=== PATIENT | male | born 1960 | race Hispanic/Latino ===

== ENCOUNTER 2017-02-09 11:44 | Emergency (ER) | payer MEDICARE ==
[2017-02-09 11:54] VITALS: RESP 18; TEMP 98.4; O2SAT 100
[2017-02-09 12:09] VITALS: BMI 22.8
--- NOTE | 2017-02-09 12:24 | ED PDOC ---
Arrival/HPI - General Chief Complaint: Altered Mental Status Time Seen by Provider: 02/09/17 11:50 Historian: Family EM Caveat: Other (expressive aphasia) - History of Present Illness Narrative History of Present Illness (Text): 02/09/17 11:50 A 56 year old male, whose past medical history includes CVA, IA, agitation, CAD , diabetes type 2, alcohol abuse and hypertension, who is brought into the emergency department by EMS, accompanied by [place] [employer]. HPI obtain via patient's sister who called the emergency department. Sister states the patient had a stroke about a month ago and has had residual expressive aphasia. She notes patient was in [facility] for the CVA and was transfer to [place] and then [place] [id number] rehabilitation center. She says patient was discharged from the rehabilitation center yesterday. Patient was doing well at home yesterday and this morning. Patient's sister says the today the caregiver arrived to the house and was suppose to take him shopping for basic supplies. While in the care the patient was signal the caregiver to stop and grabbed the GPS. Once caregiver stopped he got out of the car and was making motion to go back home. Patient had a "confused" appearance and was acting "bizarre," so the caregiver called 911. PMD: Dr. Ho Time/Duration: Prior to Arrival Past Medical History - Provider Review Nursing Documentation Reviewed: Yes - Infectious Disease Hx of Infectious Diseases: None - Tetanus Immunization Tetanus Immunization: Unknown - Past Medical History Past Medical History: Unable to Obtain - Cardiac Hx Cardiac Arrhythmia: No Hx Congestive Heart Failure: No Hx Hypertension: Yes Hx Mitral Valve Prolapse: No Hx Pacemaker: No Hx Peripheral Edema: No - Pulmonary Hx Asthma: No Hx Bronchitis: No Hx Chronic Obstructive Pulmonary Disease (COPD): Yes Hx Emphysema: No Hx Pneumonia: No Hx Sleep Apnea: No - Neurological Hx Alzheimer's Disease: No HX Cerebrovascular Accident: Yes (expressive aphasia) Hx Dementia: No Hx Migraine: No Hx Parkinson's Disease: No Hx Seizures: No Hx Transient Ischemic Attacks (TIA): Yes - HEENT Hx Difficulty Chewing: No - Renal Hx Renal Disorder: No Hx Kidney Stones: No - Endocrine/Metabolic Hx Hyperthyroidism: No Hx Hypothyroidism: No - Hematological/Oncological Hx Anemia: No Hx Sickle Cell Disease: No - Integumentary Hx Dermatological Disorder: No - Musculoskeletal/Rheumatological Hx Arthritis: No Hx Fractures: No Hx Osteoporosis: No Hx Rheumatoid Arthritis: No - Gastrointestinal Hx Crohn's Disease: No Hx Diverticulitis: No Hx Gall Bladder Disease: No Hx Pancreatitis: No - Genitourinary/Gynecological Hx Sexually Transmitted Diseases: No - Psychiatric Hx Anxiety: Yes Hx Bipolar Disorder: No Hx Depression: Yes Hx Post Traumatic Stress Disorder: No Hx Schizophrenia: No Hx Substance Use: Yes - Past Surgical History Past Surgical History: No Previous - Surgical History Hx Appendectomy: No Hx Cholecystectomy: No Hx Coronary Stent: Yes - Anesthesia Hx Anesthesia: Yes Hx Anesthesia Reactions: No Hx Malignant Hyperthermia: No - Suicidal Assessment Feels Threatened In Home Enviroment: No Family/Social History - Physician Review Nursing Documentation Reviewed: Yes Family/Social History: Unknown Family HX Smoking Status: Heavy Smoker > 10 Cigarettes Daily Hx Alcohol Use: Yes Hx Substance Use: Yes Hx Substance Use Treatment: No Allergies/Home Meds Allergies/Adverse Reactions: Allergies No Known Allergies Allergy (Verified 04/08/16 14:21) Home Medications: Home Meds Medication Instructions Recorded Confirmed Insulin Human Regular [Novolin R] See Protocol [facility] 01/11/17 01/21/17 Folic Acid 1 mg PO DAILY 01/21/17 01/21/17 Lisinopril [Zestril] 20 mg PO DAILY 01/21/17 01/21/17 Pantoprazole Sodium [Protonix] 40 mg PO DAILY 01/21/17 01/21/17 SITagliptin [Januvia] 100 mg PO DAILY 01/21/17 01/21/17 Thiamine [Vitamin B1 Tab] 100 mg PO DAILY 01/21/17 01/21/17 Review of Systems - Review of Systems Systems not reviewed;Unavailable: Other (expressive aphasia) Physical Exam Vital Signs Reviewed: Yes Vital Signs Temp Pulse Resp BP Pulse Ox 02/09/17 15:52 73 18 149/78 100 02/09/17 11:54 98.4 F 87 18 153/79 H 100 Temperature: Afebrile Blood Pressure: Hypertensive Pulse: Regular Respiratory Rate: Normal Appearance: Positive for: Well-Appearing, Non-Toxic, Comfortable Pain Distress: None Mental Status: Positive for: other (aphasia but able to follow commands and answer yes or no questions). No: Confused, Agitated, Lethargic, Comatose Finger Stick Blood Glucose: 203 - Systems Exam Head: Present: Atraumatic, Normocephalic Pupils: Present: PERRL Extroacular Muscles: Present: EOMI Conjunctiva: Present: Normal Mouth: Present: Moist Mucous Membranes Neck: Present: Normal Range of Motion Respiratory/Chest: Present: Clear to Auscultation, Good Air Exchange. No: Respiratory Distress, Accessory Muscle Use Cardiovascular: Present: Regular Rate and Rhythm, Normal S1, S2. No: Murmurs Abdomen: Present: Normal Bowel Sounds. No: Tenderness, Distention, Peritoneal Signs Back: Present: Normal Inspection Upper Extremity: Present: Normal Inspection. No: Cyanosis, Edema Lower Extremity: Present: Normal Inspection. No: Edema Neurological: Present: GCS=15, CN II-XII Intact, Motor Func Grossly Intact, Normal Sensory Function. No: Speech Normal Skin: Present: Warm, Dry, Normal Color. No: Rashes Psychiatric: Present: Alert, Normal Insight, Normal Concentration Medical Decision Making ED Course and Treatment: 02/09/17 11:50 Impression: A 56 year old male with altered mental status. Differential Diagnosis include but are not limited to: Unusual or Strange Behavior Plan: -- EKG -- Head CT -- Chest X-ray -- Labs -- Reassess and disposition Prior Visits: Notes and results from previous visits were reviewed. The patient last presented to the emergency department on 01/20/17 for evaluation of aggressive behavior. Progress Notes: EKG: Ordered, reviewed, and independently interpreted the EKG. Rate : 87 BPM Rhythm : NSR Interpretation : Nonspecific ST/T change in leads V5 and V6. 02/09/17 13:[address]: Creator : Andres Boyce MD COMPARISON: 01/06/2017 FINDINGS: HEMORRHAGE: There is resolution of the previously seen subdural hematoma on the left. A small chronic subdural is still seen. BRAIN: No mass effect or edema. Chronic encephalomalacia is seen in the left frontal and left parietal lobe. VENTRICLES: Unremarkable. No hydrocephalus. CALVARIUM: Unremarkable. PARANASAL SINUSES: Unremarkable as visualized. No significant inflammatory changes. MASTOID AIR CELLS: Unremarkable as visualized. No inflammatory changes. OTHER FINDINGS: None. IMPRESSION: No acute intracranial findings 02/09/17 13:40 Chest X-ray: Creator : Brianna Bill V. COMPARISON: 01/03/2017 and 06/27/2014 FINDINGS: LUNGS: No active pulmonary disease. PLEURA: No significant pleural effusion identified, no pneumothorax apparent. CARDIOVASCULAR: Normal. Left hilar appearance is similar to 2013 OSSEOUS STRUCTURES: No significant abnormalities. VISUALIZED UPPER ABDOMEN: Normal. OTHER FINDINGS: None. IMPRESSION: No active disease. - Lab Interpretations Lab Results: 02/09/17 12:30 02/09/17 12:30 Lab Results 02/09/17 15:01: Urine Color Yellow, Urine Appearance Clear, Urine pH 6.0, Ur Specific [place] 1.010, Urine Protein Negative, Urine Glucose (UA) 100 H, Urine Ketones Negative, Urine Blood Negative, Urine Nitrate Negative, Urine Bilirubin Negative, Urine Urobilinogen 0.2, Ur Leukocyte Esterase Negative, Urine Opiates Screen Negative, Urine Methadone Screen Negative, Ur Barbiturates Screen Negative, Ur Phencyclidine Scrn Negative, Ur Amphetamines Screen Negative, U Benzodiazepines Scrn Negative, U Oth Cocaine Metabols Negative, U Cannabinoids Screen Negative 02/09/17 12:30: WBC 7.8, RBC 3.68, Hgb 11.4 L, Hct 32.4 L, MCV 88.0, MCH 31.0, MCHC 35.2, RDW 13.8, Plt Count 190, MPV 10.8, Gran % 70.4 H, Lymph % (Auto) 17.8 L, Baxter % (Auto) 10.5 H, Eos % (Auto) 1.2 L, Baso % (Auto) 0.1, Gran # 5.48 , Lymph # 1.4, Baxter # 0.8 H, Eos # 0.1, Baso # 0.01, PT 10.7, INR 0.99, APTT 28.9, Sodium 138, Potassium 4.1, Chloride 100, Carbon Dioxide 27, Anion Gap 15, BUN 26 H, Creatinine 1.4, Est GFR ( Amer) > 60, Est GFR (Non-Af Amer) 52 , Random Glucose 202 H, Calcium 9.2, Total Bilirubin 0.6, AST 31, ALT 10, Alkaline Phosphatase 49, Troponin I 0.02 D, Total Protein 7.4, Albumin 4.0, Globulin 3.3, Albumin/Globulin Ratio 1.2, Triglycerides 222 H, Cholesterol 131, LDL Cholesterol Direct 53, HDL Cholesterol 34, Valproic Acid 25 L, Alcohol, Quantitative < 10 I have reviewed the lab results: Yes - RAD Interpretation Radiology Orders: 02/09/17 12:09 CHEST PORTABLE [RAD] Stat 02/09/17 12:10 HEAD W/O CONTRAST [CT] Stat - Medication Orders Current Medication Orders: Discontinued Medications Lorazepam (Ativan) 2 mg IVP ONCE ONE PRN Reason: Protocol Stop: 02/09/17 15:36 Lorazepam (Ativan) Confirm Administered Dose 2 mg .ROUTE .STK-MED ONE Stop: 02/09/17 15:39 - Scribe Statement The provider has reviewed the documentation as recorded by the Scribe Brittani Lucero Provider Scribe Attestation: All medical record entries made by the Scribe were at my direction and personally dictated by me. I have reviewed the chart and agree that the record accurately reflects my personal performance of the history, physical exam, medical decision making, and the department course for this patient. I have also personally directed, reviewed, and agree with the discharge instructions and disposition. Disposition/Present on Arrival - Present on Arrival Any Indicators Present on Arrival: No History of DVT/PE: No History of Uncontrolled Diabetes: No Urinary Catheter: No History of Decub. Ulcer: No History Surgical Site Infection Following: None - Disposition Have Diagnosis and Disposition been Completed?: Yes Diagnosis: Anxiety Disposition: HOME/ ROUTINE Disposition Time: 16:16 Patient Plan: Discharge Patient Problems: Current Active Problems Problem Status Diagnosed Frequent falls Acute Tongue biting Acute Withdrawal seizures Acute Condition: IMPROVED Discharge Instructions (ExitCare): Anxiety (ED) Print Language: CITIZEN OF [place] Additional Instructions: Mr. Cesar, thank you for letting us take care of you today. Make sure that you are taking your Valproic Acid (Depakote) twice a day. Return to the ER if any problems. Follow up with Dr. Raman Ho either this week or next week. Referrals: Raman Ho MD [Family Provider] - Follow up with primary
[2017-02-09 12:43] LABS: ADD MANUAL DIFF? NO
[2017-02-09 12:46] LABS: BASO # 0.01 K/mm3 (0.0-2.0); BASO % 0.1 % (0.0-3.0); EOS # 0.1 (0.0-0.7); EOS % 1.2 % (1.5-5.0); GRAN # 5.48 (1.4-6.5); GRAN % 70.4 % (50.0-68.0); HEMATOCRIT 32.4 % (42.0-52.0); LYMPH # 1.4 (1.2-3.4); LYMPH % 17.8 % (22.0-35.0); MEAN CORPUSCULAR HGB CONC 35.2 g/dl (31.0-37.0); MEAN PLATELET VOLUME 10.8 fl (7.0-11.0); MONO # 0.8 (0.1-0.6); MONO % 10.5 % (1.0-6.0); PLATELET COUNT 190 10^3/uL (120.0-450.0); RED CELL DISTRIBUTION WIDTH 13.8 % (11.5-14.5); WHITE BLOOD COUNT 7.8 10^3/ul (4.5-11.0)
[2017-02-09 12:59] LABS: ALB/GLOB RATIO 1.2 (1.1-1.8); ALKALINE PHOSPHATASE 49 U/L (38-133); ALT/SGPT 10 U/L (7-56); AST/SGOT 31 U/L (15-59); BILIRUBIN,TOTAL 0.6 mg/dL (0.2-1.3); BLOOD UREA NITROGEN 26 mg/dL (7-21); CALCIUM 9.2 mg/dL (8.4-10.5); CARBON DIOXIDE 27 mmol/L (21-33); CHLORIDE 100 mmol/L (98-107); CHOLESTEROL 131 mg/dL (130-200); GFR AFRICAN-AMERICAN > 60; GLUCOSE,RANDOM 202 mg/dL (70-110); POTASSIUM 4.1 mmol/L (3.6-5.0); SODIUM 138 mmol/L (132-148); TOTAL PROTEIN 7.4 g/dL (5.8-8.3)
[2017-02-09 13:02] LABS: INR 0.99 (0.93-1.08); PARTIAL THROMBOPLASTIN TIME 28.9 Seconds (23.7-30.8)
--- NOTE | 2017-02-09 13:03 | CT ---
PROCEDURE: CT HEAD WITHOUT CONTRAST. HISTORY: Patient w/ erratic behavior per home theatre technician COMPARISON: 01/06/2017 TECHNIQUE: Axial computed tomography images were obtained through the head/brain without intravenous contrast. Radiation dose: Total exam DLP = 756 mGy-cm. FINDINGS: HEMORRHAGE: There is resolution of the previously seen subdural hematoma on the left. A small chronic subdural is still seen. BRAIN: No mass effect or edema. Chronic encephalomalacia is seen in the left frontal and left parietal lobe. VENTRICLES: Unremarkable. No hydrocephalus. CALVARIUM: Unremarkable. PARANASAL SINUSES: Unremarkable as visualized. No significant inflammatory changes. MASTOID AIR CELLS: Unremarkable as visualized. No inflammatory changes. OTHER FINDINGS: None. IMPRESSION: No acute intracranial findings
[2017-02-09 13:13] LABS: TROPONIN I 0.02 ng/mL
--- NOTE | 2017-02-09 13:37 | RAD ---
HISTORY: possible stroke COMPARISON: 01/03/2017 and 06/27/2014 FINDINGS: LUNGS: No active pulmonary disease. PLEURA: No significant pleural effusion identified, no pneumothorax apparent. CARDIOVASCULAR: Normal. Left hilar appearance is similar to 2013 OSSEOUS STRUCTURES: No significant abnormalities. VISUALIZED UPPER ABDOMEN: Normal. OTHER FINDINGS: None. IMPRESSION: No active disease.
[2017-02-09 15:19] LABS: URINE BILIRUBIN NEGATIVE (NEGATIVE); URINE BLOOD NEGATIVE (NEGATIVE); URINE GLUCOSE (UA) 100 mg/dL (NEGATIVE); URINE KETONE NEGATIVE (NEGATIVE); URINE LEUKOCYTE ESTERASE NEGATIVE Leu/uL (NEGATIVE); URINE PROTEIN NEGATIVE mg/dL (<30 mg/dL); URINE UROBILINOGEN 0.2 E.U./dL (<1 E.U./dL)
[2017-02-09 15:24] LABS: URINE APPEARANCE CLEAR (CLEAR); URINE COLOR YELLOW (YELLOW)
[2017-02-09 15:53] VITALS: BP 149/78; PULSE 73
--- NOTE | 2017-02-09 17:24 | CARD ---
APPROVED REPORT EKG Measurement Heart [id number] <Conclusion> Normal sinus rhythm Nonspecific T wave abnormality Abnormal ECG
== END 2017-02-09 16:45 | disposition home or self-care (01) ==
LOC: ED 11:44
DX: F41.9 Anxiety disorder, unspecified (principal); I10 Essential (primary) hypertension; Z86.73 Personal history of transient ischemic attack (TIA), and cerebral infarction without residual deficits; F17.210 Nicotine dependence, cigarettes, uncomplicated
CPT/HCPCS: 70450; 71010; 80053; 80061; 80164; 81003; 83036; 84484; 85025; 85610; 85730; 93005; 99285; G0480; J2060

== ENCOUNTER 2017-02-10 17:33 | Emergency (ER) | payer MEDICARE ==
[2017-02-10 17:33] VITALS: BMI 22.8
[2017-02-10 17:59] VITALS: BP 124/61; PULSE 82; RESP 16; TEMP 97.8; O2SAT 100
--- NOTE | 2017-02-10 18:22 | ED PDOC ---
Arrival/HPI - General Historian: Patient, Family, EMS - History of Present Illness Time/Duration: Prior to Arrival - General Chief Complaint: Altered Mental Status Time Seen by Provider: 02/10/17 17:42 - History of Present Illness Narrative History of Present Illness (Text): 02/10/17 18:16 This is a 56 year old male with a PMH notable for CVA, VT, agitation, CAD, diabetes type 2, alcohol abuse and hypertension presenting to the ED brought by EMS for AMS. The patient was shopping in [place] when EMS was called to bring the patient to the ED for AMS. The patient has a known history of expressive aphasia s/p CVA 1 month ago. The patient is able to follow commands and answer yes and no questions appropriately. The patient is fully functioning at baseline aside from the aphasia. He was shopping at [place] without a caregiver. The patient is completely asymptomatic. The patient denies fever, chills, headache, vision changes, chest pain, SOB, abdominal pain , N/V/D/C, changes in bowel/bladder, and extremity weakness/paresthesias. ( Mikey Barahona) Past Medical History - Provider Review Nursing Documentation Reviewed: Yes - Travel History Have you recently traveled outside [place] w/in the past 3 mons?: No - Infectious Disease Hx of Infectious Diseases: None - Tetanus Immunization Tetanus Immunization: Unknown - Past Medical History Past Medical History: Unable to Obtain - Cardiac Hx Cardiac Disorders: Yes Hx Cardiac Arrhythmia: No Hx Congestive Heart Failure: No Hx Hypertension: Yes Hx Mitral Valve Prolapse: No Hx Pacemaker: No Hx Peripheral Edema: No - Pulmonary Hx Respiratory Disorders: Yes Hx Asthma: No Hx Bronchitis: No Hx Chronic Obstructive Pulmonary Disease (COPD): Yes Hx Emphysema: No Hx Pneumonia: No Hx Sleep Apnea: No - Neurological Hx Neurological Disorder: Yes Hx Alzheimer's Disease: No HX Cerebrovascular Accident: Yes (expressive aphasia) Hx Dementia: No Hx Migraine: No Hx Parkinson's Disease: No Hx Seizures: No Hx Transient Ischemic Attacks (TIA): Yes - HEENT Hx HEENT Disorder: No Hx Difficulty Chewing: No - Renal Hx Renal Disorder: No Hx Kidney Stones: No - Endocrine/Metabolic Hx Endocrine Disorders: Yes Hx Diabetes Mellitus Type 2: Yes Hx Hyperthyroidism: No Hx Hypothyroidism: No - Hematological/Oncological Hx Blood Disorders: No Hx Anemia: No Hx Sickle Cell Disease: No - Integumentary Hx Dermatological Disorder: No - Musculoskeletal/Rheumatological Hx Arthritis: No Hx Fractures: No Hx Osteoporosis: No Hx Rheumatoid Arthritis: No - Gastrointestinal Hx Gastrointestinal Disorders: No Hx Crohn's Disease: No Hx Diverticulitis: No Hx Gall Bladder Disease: No Hx Pancreatitis: No - Genitourinary/Gynecological Hx Genitourinary Disorders: No Hx Sexually Transmitted Diseases: No - Psychiatric Hx Psychophysiologic Disorder: Yes Hx Anxiety: Yes Hx Bipolar Disorder: No Hx Depression: Yes Hx Post Traumatic Stress Disorder: No Hx Schizophrenia: No Hx Substance Use: No (unknown) - Past Surgical History Past Surgical History: No Previous - Surgical History Hx Appendectomy: No Hx Cholecystectomy: No Hx Coronary Stent: Yes - Anesthesia Hx Anesthesia: Yes Hx Anesthesia Reactions: No Hx Malignant Hyperthermia: No - Suicidal Assessment Feels Threatened In Home Enviroment: No - Patient History Narrative Patient History: This is a 56 year old male with a PMH notable for CVA, VT, agitation, CAD, diabetes type 2, alcohol abuse and hypertension (Mikey Barahona) Family/Social History - Physician Review Nursing Documentation Reviewed: Yes Family/Social History: No Known Family HX Smoking Status: Unknown If Ever Smoked Hx Alcohol Use: No (unknown) Hx Substance Use: No (unknown) Hx Substance Use Treatment: No Allergies/Home Meds Allergies/Adverse Reactions: Allergies No Known Allergies Allergy (Verified 02/10/17 17:55) Home Medications: Home Meds Medication Instructions Recorded Confirmed Insulin Human Regular [Novolin R] See Protocol [facility] 01/11/17 01/21/17 Folic Acid 1 mg PO DAILY 01/21/17 01/21/17 Lisinopril [Zestril] 20 mg PO DAILY 01/21/17 01/21/17 Pantoprazole Sodium [Protonix] 40 mg PO DAILY 01/21/17 01/21/17 SITagliptin [Januvia] 100 mg PO DAILY 01/21/17 01/21/17 Thiamine [Vitamin B1 Tab] 100 mg PO DAILY 01/21/17 01/21/17 Review of Systems - Review of Systems Constitutional: absent: Fatigue, Fevers Eyes: absent: Vision Changes, Photophobia ENT: absent: Hearing Changes, Tinnitus Respiratory: absent: SOB, Cough Cardiovascular: absent: Chest Pain, Palpitations, Syncope Gastrointestinal: absent: Abdominal Pain, Constipation, Diarrhea, Nausea, Vomiting Genitourinary Male: absent: Dysuria, Frequency Musculoskeletal: absent: Arthralgias, Back Pain, Neck Pain Skin: absent: Rash, Pruritis Neurological: absent: Headache, Dizziness, Focal Weakness, Disequilibrium, Seizure Endocrine: absent: Diaphoresis Hemo/Lymphatic: absent: Adenopathy Psychiatric: absent: Anxiety, Suicidal Ideation Physical Exam - Physical Exam Physical Exam Limitations: Other (expressive aphasia) Vital Signs Reviewed: Yes Temperature: Afebrile Blood Pressure: Normal Pulse: Regular Respiratory Rate: Normal Appearance: Positive for: Well-Appearing, Non-Toxic, Comfortable Pain Distress: None Mental Status: Positive for: Alert and Oriented X 3 - Systems Exam Head: Present: Atraumatic, Normocephalic Pupils: Present: PERRL Extroacular Muscles: Present: EOMI Conjunctiva: Present: Normal Mouth: Present: Moist Mucous Membranes. No: Drooling Neck: Present: Normal Range of Motion. No: JVD, Lymphadenopathy Respiratory/Chest: Present: Clear to Auscultation, Good Air Exchange. No: Respiratory Distress, Accessory Muscle Use Cardiovascular: Present: Regular Rate and Rhythm, Normal S1, S2. No: Murmurs Abdomen: Present: Normal Bowel Sounds. No: Tenderness, Distention, Peritoneal Signs Upper Extremity: Present: Normal Inspection, Normal ROM, NORMAL PULSES, Neurovascularly Intact. No: Cyanosis, Edema Lower Extremity: Present: Normal Inspection, NORMAL PULSES, Normal ROM, Neurovascularly Intact. No: Edema, CALF TENDERNESS Neurological: Present: CN II-XII Intact, Motor Func Grossly Intact, Normal Sensory Function, Normal Cerebellar Funct, Norm Deep Tendon Reflexes, Gait Normal, Memory Normal Skin: Present: Warm, Dry, Normal Color. No: Rashes Psychiatric: Present: Alert, Oriented x 3 Vital Signs Temp Pulse Resp BP Pulse Ox 02/10/17 17:58 97.8 F 82 16 124/61 100 Medical Decision Making ED Course and Treatment: 02/10/17 18:22 The patient is completely asymptomatic and appears at baseline. The patient is functioning completely. The patient is able to follow all commands appropriately. The patient's expressive aphasia limits him to answering questions with "Yes" or "No." The patient is able to answer all questions appropriately. The patient's 2nd cousin Andrés will pick the patient up and bring him home per the sister. The sister was spoken to on the phone. The patient's condition was discussed in detail, and it is consistent with his baseline. The patient is not altered presently, he is moving all extremities without issue, and appears clinically stable. The patient is agreeable with discharge. The patient is medically stable for discharge with follow up with his PMD. Prior Visits: The patient was seen in the ED yesterday (02/09/17) for the same issues. A fully work-up including CT head, CXR, UA, EKG, Labs was done and returned negative for acute issue EKG: Nonspecific ST/T change in leads V5 and V6. Head CT: No acute intracranial findings Chest X-ray: No active disease. Lab: No clinical laboratory abnormalities (Mikey Barahona) 02/10/17 18:46 Patient seen by resident and me. Agree with above findings. Patient was at [employer] shopping and EMS was called because of patient's expressive aphasia. Paitent is at baseline. He is able to answer questions yes/no appropriately. He has no complaints and is requesting to go home. Spoke to patient's sister who agrees with discharge. Patient's cousin came to take patient home. Patient reports that he feels safe going home. (Grace Cornejo) Disposition/Present on Arrival - Present on Arrival Any Indicators Present on Arrival: No History of DVT/PE: No History of Uncontrolled Diabetes: No Urinary Catheter: No History of Decub. Ulcer: No History Surgical Site Infection Following: None - Disposition Have Diagnosis and Disposition been Completed?: Yes Disposition Time: 18:15 Patient Plan: Discharge - Disposition Diagnosis: Expressive aphasia Disposition: HOME/ ROUTINE Patient Problems: Current Active Problems Problem Status Diagnosed Frequent falls Acute Tongue biting Acute Withdrawal seizures Acute Condition: FAIR Discharge Instructions (ExitCare): Valproic Acid (By mouth) Additional Instructions: 1.) Continue Valproic Acid (Depakote) twice a day. 2.) Please return to the ER if symptoms return/worsen for evaluation 3.) Follow up with Dr. Raman Ho following discharge Referrals: Gatheredtable Jazmyne Medrano, [Primary Care Provider] - Follow up with primary Raman Ho MD [Staff Provider] - Follow up with primary
== END 2017-02-10 18:24 | disposition home or self-care (01) ==
LOC: ED 17:33
DX: R47.01 Aphasia (principal); I10 Essential (primary) hypertension; E11.9 Type 2 diabetes mellitus without complications

== ENCOUNTER 2017-04-20 13:23 | Emergency (ER) | payer MEDICARE ==
[2017-04-20 13:24] VITALS: BMI 22.8
[2017-04-20 14:10] VITALS: RESP 16; TEMP 98
--- NOTE | 2017-04-20 14:35 | ED PDOC ---
Addendum entered and electronically signed by Edith Koch DO 04/20/17 15:57: Medical Decision Making Medical Decision Making: Pt now admits to falling and hitting his head. CT ordered due to Hx of subdural hemorrhage. Original Note: Arrival/HPI - General Historian: Patient <Edith Koch - Last Filed: 04/20/17 15:55> <MonetRashad - Last Filed: 04/20/17 17:36> - General Chief Complaint: Lower Extremity Problem/Injury Time Seen by Provider: 04/20/17 14:17 - History of Present Illness Narrative History of Present Illness (Text): 04/20/17 14:31 57 y/o M w/ PMHx of HTN, CAD w/ stents, COPD, CVA w/ expressive aphasia presents to the ED c/o pain in B/L ankles. History difficult to elicit due to aphasia. Pt states he twisted both ankles ~4days ago. Pain not improving and getting worse. Pt reports pain w/ ambulation. Pt denies bruising or swelling currently or at time of injury. Pt denies falling. 04/20/17 14:38 (Edith Koch) Past Medical History - Provider Review Nursing Documentation Reviewed: Yes - Infectious Disease Hx of Infectious Diseases: None - Tetanus Immunization Tetanus Immunization: Unknown - Past Medical History Past Medical History: Unable to Obtain - Cardiac Hx Cardiac Arrhythmia: No Hx Congestive Heart Failure: No Hx Hypertension: Yes Hx Mitral Valve Prolapse: No Hx Pacemaker: No Hx Peripheral Edema: No - Pulmonary Hx Asthma: No Hx Bronchitis: No Hx Chronic Obstructive Pulmonary Disease (COPD): Yes Hx Emphysema: No Hx Pneumonia: No Hx Sleep Apnea: No - Neurological Hx Alzheimer's Disease: No HX Cerebrovascular Accident: Yes (expressive aphasia) Hx Dementia: No Hx Migraine: No Hx Parkinson's Disease: No Hx Seizures: No Hx Transient Ischemic Attacks (TIA): Yes - HEENT Hx Difficulty Chewing: No - Renal Hx Renal Disorder: No Hx Kidney Stones: No - Endocrine/Metabolic Hx Hyperthyroidism: No Hx Hypothyroidism: No - Hematological/Oncological Hx Anemia: No Hx Sickle Cell Disease: No - Integumentary Hx Dermatological Disorder: No - Musculoskeletal/Rheumatological Hx Arthritis: No Hx Fractures: No Hx Osteoporosis: No Hx Rheumatoid Arthritis: No - Gastrointestinal Hx Crohn's Disease: No Hx Diverticulitis: No Hx Gall Bladder Disease: No Hx Pancreatitis: No - Genitourinary/Gynecological Hx Sexually Transmitted Diseases: No - Psychiatric Hx Anxiety: Yes Hx Bipolar Disorder: No Hx Depression: Yes Hx Post Traumatic Stress Disorder: No Hx Schizophrenia: No Hx Substance Use: No (unknown) - Past Surgical History Past Surgical History: No Previous - Surgical History Hx Appendectomy: No Hx Cholecystectomy: No Hx Coronary Stent: Yes - Anesthesia Hx Anesthesia: Yes Hx Anesthesia Reactions: No Hx Malignant Hyperthermia: No - Suicidal Assessment Feels Threatened In Home Enviroment: No <Edith Koch - Last Filed: 04/20/17 15:55> Family/Social History - Physician Review Nursing Documentation Reviewed: Yes Family/Social History: CVA/TIA, Hypertension, CAD/CT Smoking Status: Unknown If Ever Smoked Hx Alcohol Use: No (unknown) Hx Substance Use: No (unknown) Hx Substance Use Treatment: No <Edith Koch - Last Filed: 04/20/17 15:55> Allergies/Home Meds <Edith Koch - Last Filed: 04/20/17 15:55> <Rashad Healy - Last Filed: 04/20/17 17:36> Allergies/Adverse Reactions: Allergies No Known Allergies Allergy (Verified 02/10/17 17:55) Home Medications: Home Meds Medication Instructions Recorded Confirmed Insulin Human Regular [Novolin R] See Protocol [facility] 01/11/17 01/21/17 Folic Acid 1 mg PO DAILY 01/21/17 01/21/17 Lisinopril [Zestril] 20 mg PO DAILY 01/21/17 01/21/17 Pantoprazole Sodium [Protonix] 40 mg PO DAILY 01/21/17 01/21/17 SITagliptin [Januvia] 100 mg PO DAILY 01/21/17 01/21/17 Thiamine [Vitamin B1 Tab] 100 mg PO DAILY 01/21/17 01/21/17 Review of Systems - Physician Review All systems were reviewed & negative as marked: Yes - Review of Systems Musculoskeletal: absent: Joint Swelling Skin: absent: Skin Lesions <Edith Koch - Last Filed: 04/20/17 15:55> Physical Exam Vital Signs Reviewed: Yes Temperature: Afebrile Blood Pressure: Normal Pulse: Regular Respiratory Rate: Normal Appearance: Positive for: Well-Appearing, Comfortable, Cachectic Pain Distress: None Mental Status: Positive for: Alert and Oriented X 3 - Systems Exam Head: Present: Atraumatic, Normocephalic Pupils: Present: PERRL Extroacular Muscles: Present: EOMI Mouth: Present: Moist Mucous Membranes Neck: Present: Normal Range of Motion Respiratory/Chest: No: Respiratory Distress, Accessory Muscle Use Cardiovascular: Present: Regular Rate and Rhythm Upper Extremity: Present: Normal Inspection Lower Extremity: Present: Normal Inspection, Tenderness (B/L medial arches). No : Swelling, Erythema Neurological: Present: GCS=15. No: Speech Normal (aphasic) Skin: Present: Warm, Dry, Normal Color Psychiatric: Present: Alert, Oriented x 3, Normal Affect, Normal Mood <Edith Koch - Last Filed: 04/20/17 15:55> Medical Decision Making <Edith Koch - Last Filed: 04/20/17 15:55> <Rashad Healy - Last Filed: 04/20/17 17:36> ED Course and Treatment: 04/20/17 14:41 57 y/o M w/ B/L ankle injuries - B/L foot and ankle XRay - Tramadol 50mg PRN pain 04/20/17 15:[address] Zapata, podiatry, for follow up care. (Edith Koch) A 57 year old male with bilateral ankle pain. In agreement with resident note, which includes further HPI details. Patient was seen and evaluated with resident , came up with plan and treatment together. 04/20/17 17:27 A small abrasion was noted on his forehead. Patient then changed his history and said he did in fact hit his head when he fell. A CT scan of the brain was obtained showing no acute findings. X-ray result showed no fx but a FB on the right foot was noted - likely not acute - skin appears well on exam. Patient unsure of when he may have gotten it. Spoke with Dr. Lauren for appointment set up in 2 days for evaluation for foot foreign body Will avoid nsaids given subdural history and d/c on tramadol. He will be given a cane and natividad wrap the ankles and follow up podiatry. (Rashad Healy) - RAD Interpretation Narrative RAD Interpretations (Text): 04/20/17 15:42 Foot and ankle Xrays: no fracture. foreign body present in R foot (Edith Koch) Radiology Orders: 04/20/17 14:28 ANKLE COMPLETE 3 VIEWS BI [RAD] Stat FOOT 3 VIEWS BI [RAD] Stat 04/20/17 15:53 Brain [HEAD W/O CONTRAST] [CT] Stat - Medication Orders Current Medication Orders: Discontinued Medications Tramadol HCl (Ultram) 50 mg PO STAT STA Stop: 04/20/17 14:37 Last Admin: 04/20/17 14:49 Dose: 50 mg <Edith Koch - Last Filed: 04/20/17 15:55> - PA / LIBRARY AIDE / Resident Statement MD/DO has reviewed & agrees with the documentation as recorded. MD/DO has examined the patient and agrees with the treatment plan. - Scribe Statement The provider has reviewed the documentation as recorded by the Scribe <Rashad Healy - Last Filed: 04/20/17 17:36> - Scribe Statement Snow Marx Provider Scribe Attestation: All medical record entries made by the Scribe were at my direction and personally dictated by me. I have reviewed the chart and agree that the record accurately reflects my personal performance of the history, physical exam, medical decision making, and the department course for this patient. I have also personally directed, reviewed, and agree with the discharge instructions and disposition. (Rashad Healy) Disposition/Present on Arrival - Present on Arrival Any Indicators Present on Arrival: No History of DVT/PE: No History of Uncontrolled Diabetes: No Urinary Catheter: No History of Decub. Ulcer: No History Surgical Site Infection Following: None - Disposition Have Diagnosis and Disposition been Completed?: Yes Disposition Time: 15:48 <Edith Koch - Last Filed: 04/20/17 15:55> - Disposition Patient Plan: Discharge <Rashad Healy - Last Filed: 04/20/17 17:36> - Disposition Diagnosis: Mild ankle sprain, Foreign body foot/toe Disposition: HOME/ ROUTINE Patient Problems: Current Active Problems Problem Status Onset Foreign body foot/toe Acute Mild ankle sprain Acute Condition: GOOD Discharge Instructions (ExitCare): Ankle Sprain (ED), RICE Therapy (ED) Additional Instructions: Go to Dr. Lauren's office on April 22 at 12 pm for evaluation of your foreign body of the right foot. Take tramadol for the pain as needed. Return to the emergency department if any new concerning symptoms. Prescriptions: traMADol [Ultram] 1 tab PO Q8H PRN #20 tab PRN Reason: Pain, Severe (8-10) Referrals: PCP,NO [Primary Care Provider] - Follow up with primary Israel Lauren DPM [Staff Provider] - Follow up with primary
--- NOTE | 2017-04-20 15:54 | RAD ---
PROCEDURE: Bilateral Ankle Radiographs. HISTORY: pain, inversion injury COMPARISON: None FINDINGS: BONES: Right Ankle: Normal. No fracture. Left Ankle: Normal. No fracture. JOINTS: Right Ankle: Normal. No osteoarthritis. Ankle mortise maintained. Talar dome intact. Left Ankle: Normal. No osteoarthritis. Ankle mortise maintained. Talar dome intact. SOFT TISSUES: Right Ankle: There is a small foreign body in the soft tissues of the plantar aspect of the calcaneus Left Ankle: Normal. OTHER FINDINGS: None. IMPRESSION: No acute findings
--- NOTE | 2017-04-20 15:56 | RAD ---
PROCEDURE: Bilateral Feet Radiographs. HISTORY: pain, inversion injury COMPARISON: None. FINDINGS: BONES: Right Foot: Normal. No fracture. Left Foot: Normal. No fracture. JOINTS: Right Foot: Normal. No osteoarthritis. Left Foot: Normal. No osteoarthritis. SOFT TISSUES: Right Foot: Incidental foreign body in the plantar soft tissues of the right foot at the level of the calcaneus Left Foot: Normal. OTHER FINDINGS: None. IMPRESSION: No acute findings
[2017-04-20 17:08] VITALS: BP 134/83; PULSE 69; O2SAT 97
--- NOTE | 2017-04-20 17:18 | CT ---
PROCEDURE: CT HEAD WITHOUT CONTRAST. HISTORY: fell and hit head COMPARISON: 02/09/2017. TECHNIQUE: Axial computed tomography images were obtained through the head/brain without intravenous contrast. Radiation dose: Total exam DLP = 774.23 mGy-cm. This CT exam was performed using one or more of the following dose reduction techniques: Automated exposure control, adjustment of the mA and/or kV according to patient size, and/or use of iterative reconstruction technique. FINDINGS: There appears to be HEMORRHAGE: There is a subdural density over the left cerebral hemisphere likely representing some residual subdural granulation tissue from old left-sided subdural hematoma seen to better advantage on prior study. BRAIN: Re- demonstrated are chronic infarct changes involving the left on the frontoparietal lobes current. Chronic left basal ganglia infarcts also unchanged. Additionally, there are mild chronic periventricular white matter ischemic changes the seen extending peripherally into the deep and subcortical white matter both cerebral hemispheres. . Ex vacuo dilatation of the left lateral. Ventricle and in particular the left temporal and left frontal horns. Mild vascular calcifications are present. VENTRICLES: As above however no evidence of obstructive hydrocephalus. CALVARIUM: No definitive evidence of acute calvarial fracture. PARANASAL SINUSES: Unremarkable as visualized. No significant inflammatory changes. MASTOID AIR CELLS: Partial opacification of several right-sided inferior mastoid air cells. OTHER FINDINGS: IMPRESSION: Chronic infarct changes involving left cerebral hemisphere wall. There is also left basal ganglia lacunar type infarcts and mild chronic periventricular white matter ischemic changes. Ex vacuo dilatation left lateral ventricle. 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
== END 2017-04-20 17:53 | disposition home or self-care (01) ==
LOC: ED 13:23
DX: S93.402A Sprain of unspecified ligament of left ankle, initial encounter (principal); S93.401A Sprain of unspecified ligament of right ankle, initial encounter; X50.0XXA Overexertion from strenuous movement or load, initial encounter; S90.851A Superficial foreign body, right foot, initial encounter; X58.XXXA Exposure to other specified factors, initial encounter; Y93.89 Activity, other specified; Y92.89 Other specified places as the place of occurrence of the external cause; I10 Essential (primary) hypertension; R47.01 Aphasia; Z86.73 Personal history of transient ischemic attack (TIA), and cerebral infarction without residual deficits; Z95.5 Presence of coronary angioplasty implant and graft

== ENCOUNTER 2017-05-25 20:41 | Inpatient (IN) | payer MEDICARE, MEDICAID ==
[2017-05-25 20:46] VITALS: BMI 22.4
--- NOTE | 2017-05-25 20:49 | EDPD ---
DINAH Stroke - General Time Seen by Provider: 05/25/17 20:43 Historian: Patient - History of Present Illness Narrative History of Present Illness (Free Text): 05/25/17 20:42 50 year old male, unknown identity, brought in by EMS presents to the ED found collapsed outside bar prior to arrival. Patient appeared to have trouble talking with questionable right-sided weakness. Patient appeared agitated when attempted to talk. No other obtainable history. Date:: 05/25/17 Time: 20:42 Onset:: Just prior to presenting Timing: Currently Symptomatic Associated Symptoms: Dysarthria Exacerbated by: Nothing Relieved by: Nothing - Location Location: Speech Locate Right: Upper extremity rTPA Inclusion/Exclusion - Refusal of Treatment Patient Refused Treatment: No - Inclusion Criteria for Altepase Patient is 18 years or Older: Yes The Clinical Diagnosis of Ischemic Stroke That is Causing a Potentially Disabling Neurological Deficit: No Time of Onset is Well Established to be Less Than 270 Minute Before Treatment Would Begin: No Risk/Benefit Discussed With Patient/Family Member Present: Yes - Exclusion Criteria for Altepase Uncontrolled Hypertension at Time of Treatment (Systolic BP above 185 or Diastolic BP above 110 mmHg): No Active Internal Bleeding: No Known Bleeding Diathesis Including but Not Limited to: Platelets Below 100,000/ mm,PTT Above 40 sec After Heparin Use, Current Use of Oral Anitcoagulant With INR Greater Than 1.7 or PT Greater Than 15 secs: No Evidence of an Intracranial Hemorrhage: No Evidence of Major Acute Infarct With Signs Greater Than 1/3 MCA Territory: No Suspicion of Subarachnoid Hemorrhage on Pretreatment Evaluation Even if CT Head Negative For Hemorrhage: No - Warning to TPA With Conditions Following Conditions Weighed Against Anticipated Benefit: Yes Condition: Stroke Serevity Too Mild Past Medical History - Provider Review Nursing Documentation Reviewed: Yes Family/Social History - Family/Social History Family History: Non-Contributory - Review Nursing documentation reviewed.: Yes Allergies/Home Meds Allergies/Adverse Reactions: Allergies No Known Allergies Allergy (Verified 05/25/17 20:45) Review of Systems - Review of Systems Systems not reviewed;Unavailable: Altered Mental Status ED Stroke Physical Exam Vital Signs Reviewed: Yes Vital Signs Pulse Resp BP Pulse Ox 05/25/17 20:45 110 H 24 163/101 H 96 Temperature: Afebrile Blood Pressure: Hypertensive Pulse: Regular Respiratory Rate: Normal Appearance: Positive for: Comfortable Pain Distress: None Mental Status: Positive for: other (Awake, alert, dysarthric) - Systems Exam Head: Present: Atraumatic, Normocephalic Pupils: Present: PERRL Extroacular Muscles: Present: EOMI Conjunctiva: Present: Normal Ears: Present: Normal, NORMAL TM, Normal Canal. No: Erythema, TM Bulging, Fluid , TM Perf Mouth: Present: Moist Mucous Membranes Pharnyx: Present: Normal. No: ERYTHEMA, EXUDATE, TONSILS ENLARGED, Peritonsilar Swelling, Muffled/Hoarse Voice, Strider, Soft Palate/Uvular Edema Nose (External): Present: Atraumatic Nose (Internal): Present: Normal Inspection Neck: Present: Normal Range of Motion, Other (Supple). No: Meningeal Signs, MIDLINE TENDERNESS Respiratory/Chest: Present: Clear to Auscultation, Good Air Exchange. No: Respiratory Distress, Accessory Muscle Use Cardiovascular: Present: Regular Rate and Rhythm, Normal S1, S2. No: Murmurs Abdomen: Present: Normal Bowel Sounds. No: Tenderness, Distention, Peritoneal Signs Back: Present: Normal Inspection Upper Extremity: Present: Normal Inspection. No: Cyanosis, Edema Lower Extremity: Present: Normal Inspection. No: Edema Neurologic: Present: Other (Awake, alert). No: Speech Normal (Dysarthria), Motor Func Grossly Intact (Some right upper extremity paresis) Skin: Present: Warm, Dry, Normal Color. No: Rashes Psychiatric: Present: Alert Medical Decision Making ED Course and Treatment: 05/25/17 20:42 Impression: 50 year old male brought in by EMS for dysarthria and right-sided weakness. Differential Diagnosis included but are not limited to: CVA vs. TIA Plan: -- CT Head w/o contrast -- EKG -- CXR -- Labs, troponin, lipid panel, alcohol level, blood type and screen -- Urine drug screen -- Reassess and disposition Progress Notes: 05/25/17 20:42 Pt seen on arrival to ED. Code Stroke called. 05/25/17 20:[address] Joy Linda, neurologist, who is aware and agrees with plan. Recommends CTA Head after CT Head w/o contrast results. 05/25/17 21:07 Reviewed EKG, sinus tachycardia at [address] bpm[address] Non-specific ST/T wave changes. 05/25/17 21:[address] Head, shows: Focal wedge-shaped area of low density in the left parietal lobe may represent an acute infarct. Paged Dr. Linda. 05/25/17 21:[address] scan results with Dr. Linda, request stat CTA Head. 05/25/17 22:17 Reviewed CTA Head, shows: Artifacts: Artifact limits this study. 1. There is atherosclerotic of the bilateral cavernous internal carotid arteries. Flow is poorly visualized within the proximal cavernous bilateral internal carotid arteries, suggestive of severe stenosis or occlusion, although this is significantly limited by artifact. Correlation with MRA is recommended. 2. 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 3. Stenoses are visualized within the M2 branches of the bilateral middle cerebral arteries, with focal areas of decreased enhancement. 4. Artifact obscures the mid basilar artery. There is no occlusion of the remaining basilar artery. 5. There is a focal area of decreased enhancement within the M1 segment of the right middle cerebral artery, which may be due to artifact or mild stenosis. 6. Additional findings described above. 05/25/17 23:22 Chest X-ray shows no acute processes. Spoke with Dr. Linda regarding CTA findings in detail , recommends pt. admission to a monitored setting and no tPA at this time. Aspirin ordered. 05/25/17 23:[address] Ho, PMD, who is aware and agrees with plan.Concurs with families account that pt. with hx. of chronic similar symptoms from previous CVA/subdural hemorrhage. Accepts pt in to his service. Dr. Linda on consult 05/25/17 23:[address] Alvarado, sandwich machine operator, who agrees to evaluate pt. 05/26/17 00:[address] Alvarado, present in Emergency department to evaluate pt, states pt is not an candidate for ICU. Pt will be admitted to Telemetry for CVA and alcohol intoxication under Dr. Ho's service. - Critical Care Critical Care Minutes: 60 minutes - Lab Interpretations I have reviewed the lab results: Yes - RAD Interpretation Narrative RAD Interpretations (Text): CT Head shows: Brain: Focal wedge-shaped area of low density in the left parietal lobe may represent an acute infarct. Patchy encephalomalacia in the left frontal and anterior parietal lobe consistent with old infarct. Generalized atrophy and chronic white matter ischemic changes. There is no mass or acute infarct. No hemorrhage. Ventricles: Unremarkable. No ventriculomegaly. Bones/joints: Unremarkable. No acute fracture. Soft tissues: Unremarkable. Sinuses: Unremarkable as visualized. No acute sinusitis. Mastoid air cells: Unremarkable as visualized. No mastoid effusion. IMPRESSION: Focal wedge-shaped area of low density in the left parietal lobe may represent an acute infarct. CTA Head shows: Artifacts: Artifact limits this study. Right internal carotid artery: There is atherosclerotic of the bilateral cavernous internal carotid arteries. Flow is poorly visualized within the proximal cavernous bilateral internal carotid arteries, suggestive of severe stenosis or occlusion, although this is significantly limited by artifact. 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 Right middle cerebral artery: Stenoses are visualized within the M2 branches of the bilateral middle cerebral arteries, with focal areas of decreased enhancement. There is a focal area of decreased enhancement within the M1 segment of the right middle cerebral artery, which may be due to artifact or mild stenosis. Right posterior cerebral artery: No occlusion or significant stenosis. No aneurysm. Right vertebral artery: Significantly limited by artifact. Left internal carotid artery: See above. Left anterior cerebral artery: No occlusion or significant stenosis. No aneurysm. Left middle cerebral artery: See above. Left posterior cerebral artery: No occlusion or significant stenosis. No aneurysm. Left vertebral artery: Significantly limited by artifact. Basilar artery: Artifact obscures the mid basilar artery. There is no occlusion of the remaining basilar artery. IMPRESSION: 1. There is atherosclerotic of the bilateral cavernous internal carotid arteries. Flow is poorly visualized within the proximal cavernous bilateral internal carotid arteries, suggestive of severe stenosis or occlusion, although this is significantly limited by artifact. Correlation with MRA is recommended. 2. 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 3. Stenoses are visualized within the M2 branches of the bilateral middle cerebral arteries, with focal areas of decreased enhancement. 4. Artifact obscures the mid basilar artery. There is no occlusion of the remaining basilar artery. 5. There is a focal area of decreased enhancement within the M1 segment of the right middle cerebral artery, which may be due to artifact or mild stenosis. 6. Additional findings described above. Radiology Orders: 05/25/17 20:47 HEAD W/O (CODE STROKE) [CT] Stat CHEST PORTABLE [RAD] Stat [employer]er: ED Physician, Radiologist - EKG Interpretation Interpreted by ED Physician: Yes Type: 12 lead EKG - Scribe Statement The provider has reviewed the documentation as recorded by the Lily Garcia Provider Attestation: All medical record entries made by the Ricoibe were at my direction and personally dictated by me. I have reviewed the chart and agree that the record accurately reflects my personal performance of the history, physical exam, medical decision making, and the department course for this patient. I have also personally directed, reviewed, and agree with the discharge instructions and disposition. NIHSS Scale ([place]) Time Performed: 20:45 - How Severe is the Stoke Baseline Level of Consciousness: 0=Alert LOC to Questions: 0=Both comments correct LOC to commands: 0=Obeys both correctly Best Gaze: 0=Normal Visual: 0=No visual loss Facial: 0=Normal Motor Arm - Left: 0=No drift Motor Arm - Right: 1=Drift noted before 10 sec Motor Leg - Left: 0=No drift Motor Leg - Right: 0=No drift Limb Ataxia: 0=Absent Sensory: 0=Normal Best Language: 1=Mild to moderate aphasia Dysarthia: 1=Mild to moderate slurring Extinction & Inattention (Neglect): 0=Normal, no object Score: 3 Risk Level: Minor Stroke Risk Disposition/Present on Arrival - Present on Arrival Any Indicators Present on Arrival: No History of DVT/PE: No History of Uncontrolled Diabetes: No Urinary Catheter: No History of Decub. Ulcer: No History Surgical Site Infection Following: None - Disposition Have Diagnosis and Disposition been Completed?: Yes Diagnosis: CVA (cerebral vascular accident), Alcohol intoxication Disposition: HOSPITALIZED Disposition Time: 00:42 Patient Plan: Admission, Telemetry Patient Problems: Current Active Problems Problem Status Onset Alcohol intoxication Acute CVA (cerebral vascular accident) Acute Condition: STABLE
[2017-05-25 21:19] LABS: BASO # 0.02 K/mm3 (0.0-2.0); BASO % 0.3 % (0.0-3.0); EOS # 0.1 (0.0-0.7); EOS % 1.7 % (1.5-5.0); GRAN # 3.76 (1.4-6.5); GRAN % 53.2 % (50.0-68.0); HEMOGLOBIN 13.6 gm/dL (14.0-18.0); LYMPH # 2.3 (1.2-3.4); LYMPH % 32.8 % (22.0-35.0); MEAN CELL VOLUME 84.9 fL (80.0-105.0); MEAN CORPUSCULAR HEMOGLOBIN 30.2 pg (25.0-35.0); MEAN CORPUSCULAR HGB CONC 35.6 g/dl (31.0-37.0); MEAN PLATELET VOLUME 10.4 fl (7.0-11.0); MONO # 0.9 (0.1-0.6); PLATELET COUNT 152 10^3/uL (120.0-450.0); RED CELL DISTRIBUTION WIDTH 13.3 % (11.5-14.5); WHITE BLOOD COUNT 7.1 10^3/ul (4.5-11.0)
[2017-05-25 21:31] LABS: ALB/GLOB RATIO 1.4 (1.1-1.8); ALBUMIN 4.4 g/dL (3.0-4.8); ALT/SGPT 24 U/L (7-56); AST/SGOT 23 U/L (15-59); BLOOD UREA NITROGEN 32 mg/dL (7-21); CALCIUM 9.2 mg/dL (8.4-10.5); GFR AFRICAN-AMERICAN > 60; GFR NON-AFRICAN AMERICAN > 60; HDL CHOLESTEROL 45 mg/dL (29-60); INR 0.95 (0.93-1.08); PARTIAL THROMBOPLASTIN TIME 28.4 Seconds (23.7-30.8); PROTHROMBIN TIME 10.3 Seconds (9.9-11.8)
[2017-05-25 21:41] LABS: TROPONIN I 0.02 ng/mL
[2017-05-25 21:42] LABS: LDL CHOLESTEROL 104 mg/dL (0-129)
[2017-05-25] MEDS ORDERED: Iohexol 350 MG/100 ML VIAL ONE (21:44)
[2017-05-25] MEDS ORDERED: Sodium Chloride 0.9% 1,000 ML IV STA (21:52)
[2017-05-25 22:31] LABS: BARBITURATES, UR NEGATIVE (NEGATIVE); BENZODIAZEPINES, UR NEGATIVE (NEGATIVE); OPIATES, UR NEGATIVE (NEGATIVE); PHENCYCLIDINE, UR NEGATIVE (NEGATIVE)
--- NOTE | 2017-05-25 22:33 | CT ---
EXAM: CT Angiography Head With Intravenous Contrast CLINICAL HISTORY: The patient age is 50 years old and is male; Signs and symptoms; Other: AMS; Additional info: CVA Facility exam id and description: Ct angiohd angiography head TECHNIQUE: Axial computed tomographic angiography images of the head with intravenous contrast using CT angiography protocol. This CT exam was performed using one or more of the following dose reduction techniques: automated exposure control, adjustment of the mA and/or kV according to patient size, and/or use of iterative reconstruction technique. MIP reconstructed images were created and reviewed. Coronal and sagittal reformatted images were created and reviewed. CONTRAST: 93 mL of omni 350 administered intravenously. EXAM DATE/TIME: 05/25/2017 9:41 PM COMPARISON: CT - HEAD W/O (CODE STROKE) 05/25/2017 8:45:06 PM FINDINGS: Artifacts: Artifact limits this study. Right internal carotid artery: There is atherosclerotic of the bilateral cavernous internal carotid arteries. Flow is poorly visualized within the proximal cavernous bilateral internal carotid arteries, suggestive of severe stenosis or occlusion, although this is significantly limited by artifact. 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 Right middle cerebral artery: Stenoses are visualized within the M2 branches of the bilateral middle cerebral arteries, with focal areas of decreased enhancement. There is a focal area of decreased enhancement within the M1 segment of the right middle cerebral artery, which may be due to artifact or mild stenosis. Right posterior cerebral artery: No occlusion or significant stenosis. No aneurysm. Right vertebral artery: Significantly limited by artifact. Left internal carotid artery: See above. Left anterior cerebral artery: No occlusion or significant stenosis. No aneurysm. Left middle cerebral artery: See above. Left posterior cerebral artery: No occlusion or significant stenosis. No aneurysm. Left vertebral artery: Significantly limited by artifact. Basilar artery: Artifact obscures the mid basilar artery. There is no occlusion of the remaining basilar artery. IMPRESSION: 1. There is atherosclerotic of the bilateral cavernous internal carotid arteries. Flow is poorly visualized within the proximal cavernous bilateral internal carotid arteries, suggestive of severe stenosis or occlusion, although this is significantly limited by artifact. Correlation with MRA is recommended. 2. 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 3. Stenoses are visualized within the M2 branches of the bilateral middle cerebral arteries, with focal areas of decreased enhancement. 4. Artifact obscures the mid basilar artery. There is no occlusion of the remaining basilar artery. 5. There is a focal area of decreased enhancement within the M1 segment of the right middle cerebral artery, which may be due to artifact or mild stenosis. 6. Additional findings described above.
[2017-05-26] MEDS ORDERED: Sodium Chloride 0.9% 1,000 ML IV STA (00:15)
[2017-05-26] MEDS ORDERED: Multivitamin (MVI) 10 ML, Thiamine 100 MG, Folic Acid 1 MG in Sodium Chloride 0.9% 1,00... IV ONE (00:16)
--- NOTE | 2017-05-26 00:30 | CP.PCM.CON ---
<AbbyDmitri boudreaux - Last Filed: 05/26/17 01:41> History of Present Illness - History of Present Illness History of Present Illness: Reason For ICU Consult: Altered Mental Status HPI: Mr. Cesar is a 50 year old male with a pertinent PMHx significant for EtOH abuse, CVA, and subdural hematoma, who presented with altered mental status. Patient was found non-responsive in front of a bar and brought into the emergency room via EMS. A detailed history was not obtainable 2/2 the patients mental status. From past notes, it was ascertained that patient is actually at his baseline mentally. Patient has been here many times 2/2 falls and alcohol intoxication. An attempt was made to reach his family, but they were unreachable. PMHx: CAD, DM, HTN, Past CVA, Alcohol Abuse, Subdural Hematoma PSHx: Not elicited Allergies: NKDA SocHx: EtOH: Yes, heavy Smoking: Not elicited Illicits: Not elicited FamHx: Not elicited Meds: Metoprolol, Lisinopril, Atorvastatin, ASA, Januvia Review of Systems - Review of Systems Systems not reviewed;Unavailable: Altered Mental Status Past Patient History - Infectious Disease Hx of Infectious Diseases: None - Past Social History Smoking Status: Unknown If Ever Smoked - PSYCHIATRIC Hx Substance Use: No (unknown) Meds Allergies/Adverse Reactions: Allergies Allergy/AdvReac Type Severity Reaction Status Date / Time No Known Allergies Allergy Verified 05/25/17 20:45 - Medications Medications: Current Medications Multivitamins/Vitamin C 10 ml/Thiamine HCl 100 mg/ Folic Acid 1 mg/ Sodium Chloride 1,011.2 mls @ 100 mls/hr IV .Q10H7M ONE Stop: 05/26/17 10:22 Sodium Chloride (Sodium Chloride 0.9%) 1,000 mls @ 999 mls/hr IV .Q1H1M STA Stop: 05/26/17 01:15 Physical Exam - Additional Findings Additional findings: VS: As below Constitutional: +agitated; +A&OX0 just says yes to everything Head and Neck: neck supple, no jvd, trachea midline, carotid midline, no cervical/head mass Eyes: +unobtainable ENT: auditory acuity grossly intact, throat not congested, no nasal deformity Cardio: rrr, no m/r/g, no carotid bruit, nml s1, s2 Pulm: no accessory muscle use, equal nml breath sounds bilaterally, ctab Abd: s/nt/nd, nbs x 4 q, no palpable masses Derm: no rashes, no ulcers, no lesions Extr: no edema, no cyanosis, no calf tenderness, no lesions, no varicosities Neuro: cn II-XII grossly intact Results - Vital Signs Recent Vital Signs: Last Vital Signs Temp 97.3 F L 05/25/17 21:10 Pulse 106 H 05/25/17 22:40 Resp 17 05/25/17 22:40 BP 130/73 05/25/17 22:40 Pulse Ox 95 05/25/17 22:40 - Labs Result Diagrams: 05/25/17 21:11 05/25/17 21:11 Labs: Laboratory Results - last 24 hr 05/25/17 05/25/17 05/25/17 21:10 21:10 21:10 WBC RBC Hgb Hct MCV MCH MCHC RDW Plt Count MPV Gran % Lymph % (Auto) [place] % (Auto) Eos % (Auto) Baso % (Auto) Gran # Lymph # [place] # Eos # Baso # PT INR APTT Sodium Potassium Chloride Carbon Dioxide Anion Gap BUN Creatinine Est GFR ( Amer) Est GFR (Non-Af Amer) Random Glucose Calcium Total Bilirubin AST ALT Alkaline Phosphatase Troponin I Total Protein Albumin Globulin Albumin/Globulin Ratio Triglycerides Cholesterol LDL Cholesterol Direct HDL Cholesterol Urine Opiates Screen Negative Urine Methadone Screen Negative Ur Barbiturates Screen Negative Ur Phencyclidine Scrn Negative Ur Amphetamines Screen Negative U Benzodiazepines Scrn Negative U Oth Cocaine Metabols Negative U Cannabinoids Screen Negative Alcohol, Quantitative 264 H Blood Type O POSITIVE Antibody Screen Negative BBK History Checked Patient has bt 05/25/17 05/25/17 05/25/17 21:11 21:11 21:11 WBC 7.1 RBC 4.50 Hgb 13.6 L Hct 38.2 L MCV 84.9 MCH 30.2 MCHC 35.6 RDW 13.3 Plt Count 152 MPV 10.4 Gran % 53.2 Lymph % (Auto) 32.8 [place] % (Auto) 12.0 H Eos % (Auto) 1.7 Baso % (Auto) 0.3 Gran # 3.76 Lymph # 2.3 [place] # 0.9 H Eos # 0.1 Baso # 0.02 PT 10.3 INR 0.95 APTT 28.4 Sodium 133 Potassium 4.2 Chloride 101 Carbon Dioxide 15 L Anion Gap 21 H BUN 32 H Creatinine 1.2 Est GFR ( Amer) > 60 Est GFR (Non-Af Amer) > 60 Random Glucose 400 H* Calcium 9.2 Total Bilirubin 1.0 AST 23 ALT 24 Alkaline Phosphatase 60 Troponin I 0.02 Total Protein 7.6 Albumin 4.4 Globulin 3.1 Albumin/Globulin Ratio 1.4 Triglycerides 388 H Cholesterol 218 H LDL Cholesterol Direct 104 HDL Cholesterol 45 Urine Opiates Screen Urine Methadone Screen Ur Barbiturates Screen Ur Phencyclidine Scrn Ur Amphetamines Screen U Benzodiazepines Scrn U Oth Cocaine Metabols U Cannabinoids Screen Alcohol, Quantitative Blood Type Antibody Screen BBK History Checked Assessment & Plan - Assessment and Plan (Free Text) Assessment: 50 y/o male presenting with altered mental status, 2/[address] head shows a focal wedge shaped area of low density in the left parietal lobe, which may represent an acute infarct, but physical exam findings are consistent with his previous admissions. CTA head shows atherosclerotic changes of the bilateral cavernous internal carotid arteries and mild stenosis in the bilateral middle cerebral arteries. Patient is near his normal baseline mentally, so admission to ICU is not appropriate at this time <Gordy Alvarado Q - Last Filed: 05/26/17 02:02> Meds - Medications Medications: Current Medications Multivitamins/Vitamin C 10 ml/Thiamine HCl 100 mg/ Folic Acid 1 mg/ Sodium Chloride 1,011.2 mls @ 100 mls/hr IV .Q10H7M ONE Stop: 05/26/17 10:22 Last Admin: 05/26/17 01:45 Dose: 100 mls/hr Results - Vital Signs Recent Vital Signs: Last Vital Signs Temp 97.3 F L 05/25/17 21:10 Pulse 100 H 05/26/17 01:48 Resp 18 05/26/17 01:48 BP 145/91 H 05/26/17 01:48 Pulse Ox 96 05/26/17 01:48 - Labs Result Diagrams: 05/25/17 21:11 05/25/17 21:11 Attending/Attestation - Attestation I have personally seen and examined this patient.: Yes I have fully participated in the care of the patient.: Yes I have reviewed all pertinent clinical information: Yes Notes (Text): 05/26/17 01:55 I agree with the above note and exam by the Resident with the following additions/exceptions: 57 y/o male with a PMHx as listed above brought to the ED after sustaining a fall outside of a bar where he hit his head. The patient was noted to get into an argument with his sister earlier in the day, went to the bar and was drinking heavily, afterwards he went outside and sustained a fall. He was noted to have a minor abrasion/laceration to his scalp which did not even require sutures. Patient was in bed moving all of his extremities spontaneously and responding "yes" to any question asked of him which was reported to be his baseline since a previous stroke back in December as relayed to me by the nurse in the ED. He did not appear to be in any acute distress, but did appear restless and agitated. Patient was maintaining adequate hemodynamics with a blood pressure reading of 152/94 when I evaluated him and readings of 120's-130's since arrival. CT Head revealed possible new cva vs artifact. Given that the fact that the patient does not require aggressive monitoring or ICU-level care at this time, he may be admitted to a monitored bed for further workup and treatment. He is acutely intoxicated which is also likely responsible for his anion gap metabolic acidosis. He was given 1L of IVF in the ED earlier, I will order another 1L IVF bolus, followed by an infusion of 100cc/hr via banana bag with a repeat bmp in the AM. Hydralazine 10mg IVP Q6h prn SBP >180 as well. In the event that his condition worsens or deteriorates, I will be available in house for re-evaluation as needed. Case discussed with Dr. Reese in the ED
[2017-05-26 01:53] LABS: URINE BILIRUBIN NEGATIVE (NEGATIVE); URINE BLOOD MODERATE (NEGATIVE); URINE GLUCOSE (UA) >=1000 mg/dL (NEGATIVE); URINE LEUKOCYTE ESTERASE NEGATIVE Leu/uL (NEGATIVE); URINE NITRATE NEGATIVE (NEGATIVE); URINE PROTEIN NEGATIVE mg/dL (<30 mg/dL); URINE UROBILINOGEN 0.2 E.U./dL (<1 E.U./dL)
[2017-05-26 02:01] LABS: URINE APPEARANCE SL CLOUDY (CLEAR); URINE COLOR YELLOW (YELLOW)
[2017-05-26 02:05] LABS: URINE EPITHELIAL CELLS 0 - 2 /hpf (0-5); URINE RBC 0 - 2 /hpf (0-2); URINE WBC 0 - 2 /hpf (0-6)
[2017-05-26] MEDS ORDERED: Insulin Regular 1 UNITS/0.01 ML ML SC STA (02:42)
--- NOTE | 2017-05-26 02:47 | CP.PCM.PN ---
Subjective - Date & Time of Evaluation Date of Evaluation: 05/26/17 Time of Evaluation: 02:45 - Subjective Subjective: S:FSBS-407 MG % . Asymptomatic. Medical record was reviewed. O: Last Vital Signs 3 Temp 97.3 F L 05/25/17 21:10 Pulse 100 H 05/26/17 01:48 Resp 18 05/26/17 01:48 BP 145/91 H 05/26/17 01:48 Pulse Ox 96 05/26/17 01:48 Stable. A:Hyperglycemia. P:Regular insulin 10 units SC stat. 04:01 Aivan 2mg IV was ordered as patient became agitated. Objective - Vital Signs/Intake and Output Vital Signs (last 24 hours): Temp Pulse Resp BP Pulse Ox 97.3 F L 100 H 18 145/91 H 96 05/25/17 21:10 05/26/17 01:48 05/26/17 01:48 05/26/17 01:48 05/26/17 01:48 - Medications Medications: Current Medications Multivitamins/Vitamin C 10 ml/Thiamine HCl 100 mg/ Folic Acid 1 mg/ Sodium Chloride 1,011.2 mls @ 100 mls/hr IV .Q10H7M ONE Stop: 05/26/17 10:22 Last Admin: 05/26/17 01:45 Dose: 100 mls/hr Insulin Human Regular (Humulin R) 10 units SC STAT STA Stop: 05/26/17 02:43 - Labs Labs: PT 10.3 Seconds (9.9-11.8) 05/25/17 21:11 INR 0.95 (0.93-1.08) 05/25/17 21:11 APTT 28.4 Seconds (23.7-30.8) 05/25/17 21:11
--- NOTE | 2017-05-26 08:00 | CT ---
PROCEDURE: CT HEAD WITHOUT CONTRAST. HISTORY: Code Stroke COMPARISON: None available. TECHNIQUE: Axial computed tomography images were obtained through the head/brain without intravenous contrast. Radiation dose: Total exam DLP = 1669.79 mGy-cm. This CT exam was performed using one or more of the following dose reduction techniques: Automated exposure control, adjustment of the mA and/or kV according to patient size, and/or use of iterative reconstruction technique. FINDINGS: Examination limited due to extensive patient motion artifact. HEMORRHAGE: No intracranial hemorrhage. BRAIN: No mass effect or edema. Wedge-shaped low-attenuation in left parietal lobe, likely encephalomalacia from old infarct. Multifocal encephalomalacia left frontal lobe, again likely old infarct. This is all seen in the left MCA territory. No evidence of acute infarct. VENTRICLES: No hydrocephalus. Mild compensatory dilatation of temporal horn left lateral ventricle secondary to encephalomalacia changes in left frontoparietal region. No midline shift. CALVARIUM: Unremarkable. PARANASAL SINUSES: Unremarkable as visualized. No significant inflammatory changes. MASTOID AIR CELLS: Unremarkable as visualized. No inflammatory changes. OTHER FINDINGS: None. IMPRESSION: Multifocal left MCA old infarcts. No evidence of acute infarct. Limited examination due to patient motion. Preliminary interpretation of this examination was reported by Favim at 9:25 p.m. on 05/25/2017.. There is discordance of this report with the preliminary interpretation. There is not felt to be evidence of acute infarct on this examination though the limited nature of the examination is described above.
--- NOTE | 2017-05-26 08:01 | RAD ---
HISTORY: ams COMPARISON: No prior. FINDINGS: LUNGS: No active pulmonary disease. PLEURA: No significant pleural effusion identified, no pneumothorax apparent. CARDIOVASCULAR: Normal. OSSEOUS STRUCTURES: No significant abnormalities. VISUALIZED UPPER ABDOMEN: Normal. OTHER FINDINGS: None. IMPRESSION: No active disease.
--- NOTE | 2017-05-26 10:50 | CARD ---
APPROVED REPORT EKG Measurement Heart [id number] CO 150P26 [id number] <Conclusion> Sinus tachycardia with fusion complexes T wave abnormality, consider lateral ischemia Abnormal ECG
--- NOTE | 2017-05-26 11:42 | CP.PCM.CON ---
<Martha Sena - Last Filed: 05/26/17 14:38> History of Present Illness - History of Present Illness History of Present Illness: PGY2- neurology consult note for Dr Linda. 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 Patient was unresponsive in the ED, code stroke was called. CT of the head revealed old multifocal left MCA infarct. Dr Linda was contacted and recommended CTA which revealed atherosclerotic b/l cavernous internal carotid arteries with multiple artifacts. Alcohol level was 264. Patient is currently on tele floor. Lethargic but arousable, alert and oriented x2. Patient admits to heavy drinking last night, but was not able to quatify. Denies nausea, vomiting, abdominal pain, denies headache or dizziness. As per nurse, patient was able to get up and go to the bathroom with no significant difficulties. PMH: As stated above PSH: stents Social: + tobacco, heavy drinker, denies illicit drug. Review of Systems - Review of Systems All systems: reviewed and no additional remarkable complaints except Review of Systems: 12 point ROS reviewed, all negative except as per HPI. Past Patient History - Infectious Disease Hx of Infectious Diseases: None - Tetanus Immunizations Tetanus Immunization: Unknown - Past Social History Smoking Status: Unknown If Ever Smoked Alcohol: Other (HEAVY) Drugs: Denies - PSYCHIATRIC Hx Substance Use: No (unknown) Meds Allergies/Adverse Reactions: Allergies Allergy/AdvReac Type Severity Reaction Status Date / Time No Known Allergies Allergy Verified 05/25/17 20:45 - Medications Medications: Current Medications Hydralazine HCl (Apresoline) 10 mg IVP Q6 PRN PRN Reason: Systolic Blood Pressure Insulin Human Regular (Humulin R High) 0 units SC ACHS FENG PRN Reason: Protocol Lorazepam (Ativan) 2 mg IVP Q15M PRN; Protocol PRN Reason: Agitation Last Admin: 05/26/17 03:34 Dose: 2 mg Physical Exam - Constitutional Appears: No Acute Distress, Unkempt, Older Than Stated Age, Chronically Ill - Head Exam Head Exam: ATRAUMATIC, NORMAL INSPECTION, NORMOCEPHALIC - Eye Exam Eye Exam: EOMI, PERRL, Scleral icterus. absent: Conjunctival injection Pupil Exam: NORMAL ACCOMODATION, PERRL - ENT Exam ENT Exam: Mucous Membranes Moist - Neck Exam Neck exam: Positive for: Full Rom, Normal Inspection. Negative for: Meningismus , Tenderness - Respiratory Exam Respiratory Exam: Clear to Auscultation Bilateral, NORMAL BREATHING PATTERN. absent: Rales, Rhonchi, Wheezes, Respiratory Distress, Stridor - Cardiovascular Exam Cardiovascular Exam: Tachycardia, REGULAR RHYTHM, +S1, +S2. absent: Systolic Murmur - GI/Abdominal Exam GI & Abdominal Exam: Normal Bowel Sounds, Soft. absent: Distended, Tenderness - Extremities Exam Extremities exam: Negative for: tenderness - Back Exam Back exam: NORMAL INSPECTION - Neurological Exam Additional comments: Mental status: Patient is a&ox2, flat affect, able to follow simple commands, but at times drowsy. [place] muscles strong symmetrically, no facial asymmetry. Tongue protrude midline, no atrophy or fasciculation. Sensory: fine tough, pp temperature, vibration sensations and proprioceptive functions intact. There is no evidence of extinction to DSS. 5/5 flexion and extension motor strength on the left upper and lower extremities. Right upper and lower extremities 4/5 with muscle rigidity. Pronator drift on the right, tremors with finger to nose. + 2 patella, Achilles tendon, biceps, and brachioradialis reflexes b/l. Normal DTRs. Sensation to dull objects in the upper extremities and face intact. 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 CT of the head revealed old multifocal left MCA infarct. Dr Linda was contacted and recommended CTA which revealed atherosclerotic b/l cavernous internal carotid arteries with multiple artifacts. Alcohol level 264. Impression: Likely alcohol intoxication worsening residual stroke deficits. Plan: - CIWA protocol - c/w ativan prn - Avoid hypoglycemic episodes, keep glucose between 140-180. - s/p banana bag, c/w po thiamine and folic acid. - PT eval and treat once sober. - Thank you for consulting Dr Linda. Patient seen, examined, discussed with Dr Linda. - Date & Time Date: 05/26/17 Time: 13:20 <Ian Linda - Last Filed: 05/26/17 16:01> Meds - Medications Medications: Current Medications Folic Acid (Folic Acid) 1 mg PO DAILY FENG Hydralazine HCl (Apresoline) 10 mg IVP Q6 PRN PRN Reason: Systolic Blood Pressure Last Admin: 05/26/17 12:02 Dose: 10 mg Insulin Human Regular (Humulin R High) 0 units SC ACHS FENG PRN Reason: Protocol Last Admin: 05/26/17 12:03 Dose: 2 units Thiamine HCl (Vitamin B1 Tab) 100 mg PO DAILY [facility] Results - Vital Signs Recent Vital Signs: Last Vital Signs Temp 98.7 F 05/26/17 12:00 Pulse 88 05/26/17 12:02 Resp 18 05/26/17 12:00 BP 175/97 H 05/26/17 12:02 Pulse Ox 96 05/26/17 01:48 - Labs Result Diagrams: 05/25/17 21:11 05/25/17 21:11 Labs: Laboratory Results - last 24 hr 05/26/17 05/26/17 08:25 10:55 POC Glucose (mg/dL) 56 L 192 H Attending/Attestation - Attestation I have personally seen and examined this patient.: Yes I have fully participated in the care of the patient.: Yes I have reviewed all pertinent clinical information: Yes
[2017-05-26] MEDS: Insulin Reg-HIGH-Coverage SC SCH ×3 (12:03→21:37)
[2017-05-26 16:17] VITALS: RESP 20
[2017-05-27 08:10] LABS: ALB/GLOB RATIO 1.3 (1.1-1.8); ALBUMIN 4.2 g/dL (3.0-4.8); ALT/SGPT 23 U/L (7-56); AST/SGOT 21 U/L (15-59); BLOOD UREA NITROGEN 14 mg/dL (7-21); CALCIUM 9.7 mg/dL (8.4-10.5); GFR AFRICAN-AMERICAN > 60; GFR NON-AFRICAN AMERICAN > 60; MAGNESIUM 1.7 mg/dL (1.7-2.2)
[2017-05-27] MEDS: Insulin Reg-HIGH-Coverage SC SCH (08:13)
[2017-05-27 10:24] VITALS: TEMP 98.2; O2SAT 100
[2017-05-27] MEDS ORDERED: Pneumococcal 23-Valent Vaccine IM ONE (11:48)
[2017-05-27 11:58] VITALS: BP 170/98; PULSE 98
[2017-05-27] MEDS ORDERED: Insulin Lispro (humaLOG) MIX 75/25(10 ml) SC SCH (16:30)
--- NOTE | 2017-05-27 20:15 | HP ---
HISTORY OF PRESENT ILLNESS: This is a 50-year-old male, who come in to the hospital, who was found after a fall with altered mental status. He was not responsive in front of a bar. He was brought in by EMS. There was not much details initially. The patient has been intoxicated. He does have a history of a CVA, diabetes was uncontrolled, history of subdural hematoma. He has been noncompliant with medications. He actually came in as a Immanuel Pate, but then was able to be identified as Warren Arsenio. The patient was seen by me this morning. He was in restraints and eventually he had his restraints removed. The patient was comfortable. He was able to move all 4 extremities. He seemed to understand my commands. He does not speak because of aphasia from previous stroke. The patient is known to me as I have seen him as an outpatient. He denies any headaches or dizziness. No fevers or chills. No focal weakness in the arms or the legs. It is not clear whether he is understanding everything I am speaking to him about. Review of symptoms is limited. ALLERGIES: NO KNOWN DRUG ALLERGIES. SOCIAL HISTORY: He does smoke and he drinks, difficult to say how much. PAST MEDICAL HISTORY: As above. He has a history of an old left MCA stroke, subdural hematoma, coronary artery disease with stenting. FAMILY HISTORY: Unable to assess. PHYSICAL EXAMINATION VITAL SIGNS: He has a temperature of 97.6, pulse 97, blood pressure 168/65, respirations 20, O2 saturations 98%. Height is 5 feet 10 inches, weight is 157 pounds. BMI is 22.5. HEENT: Atraumatic, normocephalic. EOMI, PERRLA. Anicteric sclerae. Moist mucosa. NECK: No JVD. no adenopathy, no bruits. No anterior or posterior cervical adenopathy. CARDIOPULMONARY: S1, S2 regular. No murmurs, rubs or gallops. LUNGS: Good bilateral air entry. No wheezes, rales or rhonchi. ABDOMEN: Bowel sounds are positive, soft, nontender, nondistended. No hepatosplenomegaly. EXTREMITIES: Lower extremities, he has no edema. He has 2+ pulses bilaterally. NEUROLOGICAL: He is able to move all 4 extremities grossly. He does have dysarthria. Unable to do full exam. LABORATORY DATA: He has a white count of 7.1, hemoglobin 13.6, platelet count is 162. INR is 0.95. Chemistry shows a glucose of 400. He has a hemoglobin A1c of 12. His total cholesterol is 218 with an LDL of 104. He has a creatinine of 1.2. Urine shows proteins are negative, glucose is greater than 1000, bilirubin is negative. Toxicology shows he has alcohol of 264, otherwise negative. His EKG does show sinus tachycardia with diffusion complex with T-wave abnormality. He has chest x-ray that shows no active disease. CT of the head done showed multifocal left MCA old infarct. No evidence of acute infarct. ASSESSMENT: 1. Fall. 2. Alcoholism. 3. Diabetes type 2, uncontrolled. 4. Coronary artery disease. 5. Smoking. 6. Dyslipidemia. 7. Hypertension. PLAN: The patient is admitted to the hospital. He was given IV fluids. He is to be on one-to-one with restraints *------*. He is on folic acid and thiamine. The patient was given aspirin. He is *------*. He is on liquid diet. We will get Cardiology evaluation. We will monitor him closely and repeat his labs tomorrow. Raman Ho MD
--- NOTE | 2017-05-28 12:00 | DS ---
HISTORY: This is a 50-year-old male who had come to the hospital after he had been drinking and found on the street. The patient has a history of dysarthria secondary to previous stroke. He was brought in to the hospital and admitted. The patient was confused and was placed on a one-to-one with restraint. The patient has improvement in his symptoms. He is back to baseline, he is able to eat, he is able to ambulate to the bathroom. He has no complaints of headache or dizziness. I did tell him that he *------* family to come to pick him up. He has been noncompliant with medications. He has *------* at home *------* he does not allow for *------*. PHYSICAL EXAMINATION: VITAL SIGNS: Temperature is 97.6, pulse of 97, blood pressure 168/65, respirations 20. *------* the patient has no complaints of chest pain, shortness of breath, or headache. No dizziness or nausea He is able to answer questions *------* yes or no. HEENT: Anicteric sclerae. Moist mucosa. CARDIOVASCULAR: S1 and S2 regular. No murmurs, rubs, or gallops. LUNGS: Clear to auscultation bilaterally. No wheezes, rales, or rhonchi. ABDOMEN: Bowel sounds are positive. Nontender and nondistended. No hepatosplenomegaly. EXTREMITIES: Low extremities *------* pulses bilaterally. No edema. Full range of motion. Power 5/5 upper extremity and lower extremity. LABORATORY DATA: Creatinine is 0.8, sodium is *------*. There is a CT of the head done that was reviewed. ASSESSMENT AND PLAN: 1. Alcohol intoxication. 2. Alcoholism. 3. Diabetes type 2, uncontrolled. 4. Noncompliance. 5. History of right middle cerebral artery stroke. 6. Bilateral cavernous internal carotid artery. 7. Coronary artery disease with stent. PLAN: The patient is currently on folic acid *------* IV fluids. Discontinue his *------*. He is going to be placed on insulin. CONDITION: Stable. ACTIVITIES: As tolerated. Followup with Dr. Ho in 1 to 2 weeks. Raman Ho MD
== END 2017-05-27 13:39 | disposition home or self-care (01) | DRG 897 ==
LOC: ED 20:41 → MERGE 05-26 00:48 → EDBD 05-26 00:48 → ERH 05-26 00:48 → 2RNO 05-26 01:54 → 3RSO 05-26 14:15
PROVIDERS: ADMIT Internal Medicine Nephrology; ATTEND Internal Medicine Nephrology
PROC: 3E0234Z Introduction of Serum, Toxoid and Vaccine into Muscle, Percutaneous Approach (ICD-10-PCS; principal; 2017-05-27)
DX: F10.229 Alcohol dependence with intoxication, unspecified (principal); I66.03 Occlusion and stenosis of bilateral middle cerebral arteries; E87.2 Acidosis; E11.65 Type 2 diabetes mellitus with hyperglycemia; I69.351 Hemiplegia and hemiparesis following cerebral infarction affecting right dominant side; W19.XXXA Unspecified fall, initial encounter; I10 Essential (primary) hypertension; Z91.14 Patient's other noncompliance with medication regimen; Z91.19 Patient's noncompliance with other medical treatment and regimen; I25.10 Atherosclerotic heart disease of native coronary artery without angina pectoris; Y90.8 Blood alcohol level of 240 mg/100 ml or more; Z78.1 Physical restraint status; Z95.5 Presence of coronary angioplasty implant and graft; E78.5 Hyperlipidemia, unspecified; F17.200 Nicotine dependence, unspecified, uncomplicated; I69.320 Aphasia following cerebral infarction; Z23 Encounter for immunization

== ENCOUNTER 2017-05-28 15:48 | Inpatient (IN) | payer MEDICARE, MEDICAID ==
[2017-05-28 15:48] VITALS: BMI 22.8
--- NOTE | 2017-05-28 17:22 | RAD ---
HISTORY: chest pain COMPARISON: Comparison chest 02/09/2017 FINDINGS: LUNGS: Suspect minor left basilar atelectasis or scarring PLEURA: No significant pleural effusion identified, no pneumothorax apparent. CARDIOVASCULAR: Normal. OSSEOUS STRUCTURES: Mild degenerative changes of the acromioclavicular joints. Minor degenerative spondylosis of the thoracic spine VISUALIZED UPPER ABDOMEN: Normal. OTHER FINDINGS: None. IMPRESSION: Suspect minor left basilar atelectasis or scarring
--- NOTE | 2017-05-28 17:26 | ED PDOC ---
Arrival/HPI - General Historian: Patient, EMS - History of Present Illness Time/Duration: Other (3:30pm) Symptom Onset: Sudden Symptom Course: Unchanged Quality: Unable to Describe Severity Level: Mild - General Chief Complaint: Medical Clearance Time Seen by Provider: 05/28/17 16:39 - History of Present Illness Narrative History of Present Illness (Text): 05/28/17 18:20 57-year-old male with a history of stroke, [place], CAD, diabetes and presents today with chest pain that started at 3:30 this afternoon. Patient denies trauma or injury. Unable to describe pain in The chest. He denies back pain. He denies abdominal pain. Denies urinary symptoms. Denies drinking alcohol today. per EMS a bystander called 911 because they thought the patient was intoxicated. pt with hx of CVA denies new weakness in the extremities. denies headache. (Nay Moore) Past Medical History - Provider Review Nursing Documentation Reviewed: Yes - Travel History Have you recently traveled outside [place] w/in the past 3 mons?: No - Infectious Disease Hx of Infectious Diseases: None - Tetanus Immunization Tetanus Immunization: Unknown - Past Medical History Past Medical History: Unable to Obtain - Cardiac Hx Cardiac Disorders: Yes Hx Cardiac Arrhythmia: No Hx Congestive Heart Failure: No Hx Hypertension: Yes Hx Mitral Valve Prolapse: No Hx Pacemaker: No Hx Peripheral Edema: No - Pulmonary Hx Respiratory Disorders: Yes Hx Asthma: No Hx Bronchitis: No Hx Chronic Obstructive Pulmonary Disease (COPD): Yes Hx Emphysema: No Hx Pneumonia: No Hx Sleep Apnea: No - Neurological Hx Neurological Disorder: Yes Hx Alzheimer's Disease: No HX Cerebrovascular Accident: Yes (expressive aphasia) Hx Dementia: No Hx Migraine: No Hx Parkinson's Disease: No Hx Seizures: No Hx Transient Ischemic Attacks (TIA): Yes - HEENT Hx HEENT Disorder: No Hx Difficulty Chewing: No - Renal Hx Renal Disorder: No Hx Kidney Stones: No - Endocrine/Metabolic Hx Endocrine Disorders: Yes Hx Diabetes Mellitus Type 2: Yes Hx Hyperthyroidism: No Hx Hypothyroidism: No - Hematological/Oncological Hx Anemia: No Hx Sickle Cell Disease: No - Integumentary Hx Dermatological Disorder: No - Musculoskeletal/Rheumatological Hx Arthritis: No Hx Fractures: No Hx Osteoporosis: No Hx Rheumatoid Arthritis: No - Gastrointestinal Hx Crohn's Disease: No Hx Diverticulitis: No Hx Gall Bladder Disease: No Hx Pancreatitis: No - Genitourinary/Gynecological Hx Sexually Transmitted Diseases: No - Psychiatric Hx Psychophysiologic Disorder: Yes Hx Anxiety: Yes Hx Bipolar Disorder: No Hx Depression: Yes Hx Post Traumatic Stress Disorder: No Hx Schizophrenia: No Hx Substance Use: No (unknown) - Past Surgical History Past Surgical History: No Previous - Surgical History Hx Appendectomy: No Hx Cholecystectomy: No Hx Coronary Stent: Yes - Anesthesia Hx Anesthesia: Yes Hx Anesthesia Reactions: No Hx Malignant Hyperthermia: No - Suicidal Assessment Feels Threatened In Home Enviroment: No Family/Social History - Physician Review Nursing Documentation Reviewed: Yes Family/Social History: Unknown Family HX Smoking Status: Unknown If Ever Smoked Hx Alcohol Use: No (unknown) Hx Substance Use: No (unknown) Hx Substance Use Treatment: No Allergies/Home Meds Allergies/Adverse Reactions: Allergies No Known Allergies Allergy (Verified 05/28/17 15:57) Home Medications: Home Meds Medication Instructions Recorded Confirmed Insulin Human Regular [Novolin R] See Protocol SC ACHS 01/11/17 01/21/17 Folic Acid 1 mg PO DAILY 01/21/17 01/21/17 Lisinopril [Zestril] 20 mg PO DAILY 01/21/17 01/21/17 Pantoprazole Sodium [Protonix] 40 mg PO DAILY 01/21/17 01/21/17 SITagliptin [Januvia] 100 mg PO DAILY 01/21/17 01/21/17 Thiamine [Vitamin B1 Tab] 100 mg PO DAILY 01/21/17 01/21/17 Review of Systems - Review of Systems Constitutional: absent: Fatigue, Fevers Respiratory: Cough. absent: SOB Cardiovascular: Chest Pain. absent: Palpitations Gastrointestinal: absent: Abdominal Pain, Nausea, Vomiting Genitourinary Male: absent: Dysuria Musculoskeletal: absent: Arthralgias Skin: absent: Rash Neurological: Headache. absent: Dizziness Psychiatric: absent: Anxiety, Depression Physical Exam Vital Signs Reviewed: Yes Temperature: Afebrile Blood Pressure: Normal Pulse: Regular Respiratory Rate: Normal Appearance: Positive for: Well-Appearing, Non-Toxic, Comfortable Pain Distress: None Mental Status: Positive for: Alert and Oriented X 3 - Systems Exam Head: Present: Atraumatic Pupils: Present: PERRL Extroacular Muscles: Present: EOMI Neck: Present: Normal Range of Motion Respiratory/Chest: Present: Clear to Auscultation, Good Air Exchange. No: Respiratory Distress, Accessory Muscle Use Cardiovascular: Present: Regular Rate and Rhythm, Normal S1, S2. No: Murmurs Abdomen: No: Tenderness, Distention, Rebound, Guarding Back: Present: Normal Inspection. No: CVA Tenderness, Midline Tenderness, Paraspinal Tenderness Lower Extremity: Present: Normal ROM Neurological: Present: Other (global aphasia) Skin: Present: Warm, Dry, Normal Color. No: Rashes Psychiatric: Present: Alert, Oriented x 3 Vital Signs Temp Pulse Resp BP Pulse Ox 05/28/17 22:24 83 19 122/74 98 05/28/17 18:19 97.8 F 96 H 18 114/72 97 Medical Decision Making ED Course and Treatment: 05/28/17 18:29 pt with chest pain ; vitals stable. due to global aphasia; history is difficult to obtain. cbc; wnl cmp; glucose; 288 trop: wnl ekg; NSR at 96b/m no st elevations. cxr: wnl pt reassessment; pt very anxious/ rocking in er; ativan ordered IV x 2 in attempt to get pain onto CT table. head ct; FINDINGS: Brain: There is prominence of sulci gyri and ventricles. There is continued asymmetric lateral ventricular size left greater than right. There is no midline shift. There is decreased attenuation in periventricular white matter. There are old lacunar infarcts in the basal ganglia on the left. There is encephalomalacia in left frontal, parietal and occipital lobes, unchanged. There are no focal masses. There are no focal hemorrhages. Subdural density in the left posterior parietal region is unchanged. Saleem-white differentiation is visualized. Ventricles: See above Bones/joints: Bones: Cranial vault is intact. Soft tissues: unremarkable Sinuses: There is no acute sinusitis. Mastoid air cells: Ears and mastoids: Middle ears and mastoids are unremarkable. Orbits: Orbital contents are unremarkable. IMPRESSION: Atrophy and small vessel disease; multiple old infarcts; chronic left subdural thickening; no acute intracranial abnormality, no acute bleed pt with negative d-dimer; pt reassessment; resting comfortably in er; alert, oriented, ambulating with steady gait; ASA given PO case discussed with Dr. Eng covering for dr. navas. will Admit observational status to Tele for chest pain r/o acs. pt with hx of DM, CAD, [place], CVA + smoker with CP today. impression; chest pain Admit observational status to tele; Dr. eng (Nay Moore) - Lab Interpretations Lab Results: 05/28/17 17:42 05/28/17 17:42 Lab Results 05/28/17 21:00: Urine Opiates Screen Negative, Urine Methadone Screen Negative, Ur Barbiturates Screen Negative, Ur Phencyclidine Scrn Negative, Ur Amphetamines Screen Negative, U Benzodiazepines Scrn Negative, U Oth Cocaine Metabols Negative, U Cannabinoids Screen Negative 05/28/17 21:00: Urine Color Yellow, Urine Appearance Clear, Urine pH 6.0, Ur Specific [place] <= 1.005, Urine Protein Negative, Urine Glucose (UA) 250 H, Urine Ketones Negative, Urine Blood Negative, Urine Nitrate Negative, Urine Bilirubin Negative, Urine Urobilinogen 0.2, Ur Leukocyte Esterase Negative 05/28/17 17:42: D-Dimer, Quantitative 0.31 05/28/17 17:42: Alcohol, Quantitative 180 H 05/28/17 17:42: WBC 7.1, RBC 4.52, Hgb 13.7 L, Hct 39.1 L, MCV 86.5, MCH 30.3, MCHC 35.0, RDW 13.4, Plt Count 157, MPV 10.6, Gran % 50.8, Lymph % (Auto) 35.2 H , [place] % (Auto) 11.5 H, Eos % (Auto) 2.2, Baso % (Auto) 0.3, Gran # 3.62, Lymph # 2.5, [place] # 0.8 H, Eos # 0.2, Baso # 0.02 05/28/17 17:42: Sodium 134, Potassium 3.8, Chloride 101, Carbon Dioxide 17 L, Anion Gap 20, BUN 20, Creatinine 1.3, Est GFR ( Amer) > 60, Est GFR (Non- Af Amer) 57, Random Glucose 288 H, Calcium 9.2, Total Bilirubin 0.9, AST 20, ALT 21, Alkaline Phosphatase 55, Lactate Dehydrogenase 411, Total Creatine Kinase 85, Troponin I < 0.01 D, Total Protein 7.2, Albumin 4.1, Globulin 3.1, Albumin/Globulin Ratio 1.3 - RAD Interpretation Radiology Orders: 05/28/17 16:46 CHEST PORTABLE [RAD] Stat 05/28/17 16:58 HEAD W/O CONTRAST [CT] Stat - Medication Orders Current Medication Orders: Discontinued Medications Aspirin (Aspirin) 325 mg PO STAT STA Stop: 05/28/17 23:06 Chlordiazepoxide (Librium) 25 mg PO STAT STA PRN Reason: Protocol Stop: 05/28/17 23:06 Lorazepam (Ativan) 1 mg IVP ONCE ONE PRN Reason: Protocol Stop: 05/28/17 17:44 Last Admin: 05/28/17 18:47 Dose: 1 mg Lorazepam (Ativan) 1 mg IVP ONCE ONE PRN Reason: Protocol Stop: 05/28/17 20:01 Last Admin: 05/28/17 20:23 Dose: 1 mg Disposition/Present on Arrival - Present on Arrival Any Indicators Present on Arrival: No History of DVT/PE: No History of Uncontrolled Diabetes: No Urinary Catheter: No History of Decub. Ulcer: No History Surgical Site Infection Following: None - Disposition Have Diagnosis and Disposition been Completed?: Yes Disposition Time: 23:07 Patient Plan: Observation - Disposition Diagnosis: Alcohol abuse, Chest pain Disposition: HOSPITALIZED Patient Problems: Current Active Problems Problem Status Onset Chest pain Acute Alcohol abuse Chronic Condition: FAIR Discharge Instructions (ExitCare): Chest Pain (ED)
[2017-05-28 18:06] LABS: BASO # 0.02 K/mm3 (0.0-2.0); BASO % 0.3 % (0.0-3.0); EOS # 0.2 (0.0-0.7); EOS % 2.2 % (1.5-5.0); GRAN # 3.62 (1.4-6.5); GRAN % 50.8 % (50.0-68.0); HEMOGLOBIN 13.7 gm/dL (14.0-18.0); LYMPH # 2.5 (1.2-3.4); LYMPH % 35.2 % (22.0-35.0); MEAN CELL VOLUME 86.5 fL (80.0-105.0); MEAN CORPUSCULAR HEMOGLOBIN 30.3 pg (25.0-35.0); MEAN PLATELET VOLUME 10.6 fl (7.0-11.0); MONO # 0.8 (0.1-0.6); MONO % 11.5 % (1.0-6.0); PLATELET COUNT 157 10^3/uL (120.0-450.0); RBC 4.52 10^6/uL (3.5-6.1); RED CELL DISTRIBUTION WIDTH 13.4 % (11.5-14.5); WHITE BLOOD COUNT 7.1 10^3/ul (4.5-11.0)
[2017-05-28 18:08] LABS: ALB/GLOB RATIO 1.3 (1.1-1.8); ALBUMIN 4.1 g/dL (3.0-4.8); ALT/SGPT 21 U/L (7-56); AST/SGOT 20 U/L (15-59); BLOOD UREA NITROGEN 20 mg/dL (7-21); CALCIUM 9.2 mg/dL (8.4-10.5); GFR AFRICAN-AMERICAN > 60; GFR NON-AFRICAN AMERICAN 57
[2017-05-28 18:21] LABS: TROPONIN I < 0.01 ng/mL
[2017-05-28 21:06] LABS: URINE BILIRUBIN NEGATIVE (NEGATIVE); URINE GLUCOSE (UA) 250 mg/dL (NEGATIVE); URINE LEUKOCYTE ESTERASE NEGATIVE Leu/uL (NEGATIVE); URINE NITRATE NEGATIVE (NEGATIVE); URINE PROTEIN NEGATIVE mg/dL (<30 mg/dL); URINE UROBILINOGEN 0.2 E.U./dL (<1 E.U./dL)
[2017-05-28 21:08] LABS: URINE APPEARANCE CLEAR (CLEAR); URINE BLOOD NEGATIVE (NEGATIVE); URINE COLOR YELLOW (YELLOW)
[2017-05-28 21:29] LABS: BARBITURATES, UR NEGATIVE (NEGATIVE); BENZODIAZEPINES, UR NEGATIVE (NEGATIVE); OPIATES, UR NEGATIVE (NEGATIVE); PHENCYCLIDINE, UR NEGATIVE (NEGATIVE)
--- NOTE | 2017-05-28 22:45 | CT ---
EXAM: CT Head Without Intravenous Contrast CLINICAL HISTORY: 57 years old, male; Condition or disease; Patient HX: Near syncope; Additional info: ? Near syncope TECHNIQUE: Axial computed tomography images of the head/brain without intravenous contrast. This CT exam was performed using one or more of the following dose reduction techniques: automated exposure control, adjustment of the mA and/or kV according to patient size, and/or use of iterative reconstruction technique. EXAM DATE/TIME: 05/28/2017 4:58 PM COMPARISON: CT - HEAD W/O CONTRAST 04/20/2017 4:04:27 PM FINDINGS: Brain: There is prominence of sulci gyri and ventricles. There is continued asymmetric lateral ventricular size left greater than right. There is no midline shift. There is decreased attenuation in periventricular white matter. There are old lacunar infarcts in the basal ganglia on the left. There is encephalomalacia in left frontal, parietal and occipital lobes, unchanged. There are no focal masses. There are no focal hemorrhages. Subdural density in the left posterior parietal region is unchanged. Saleem-white differentiation is visualized. Ventricles: See above Bones/joints: Bones: Cranial vault is intact. Soft tissues: unremarkable Sinuses: There is no acute sinusitis. Mastoid air cells: Ears and mastoids: Middle ears and mastoids are unremarkable. Orbits: Orbital contents are unremarkable. IMPRESSION: Atrophy and small vessel disease; multiple old infarcts; chronic left subdural thickening; no acute intracranial abnormality, no acute bleed
--- NOTE | 2017-05-29 03:07 | CP.PCM.PN ---
Subjective - Date & Time of Evaluation Date of Evaluation: 05/29/17 Time of Evaluation: 06:54 - Subjective Subjective: S:Patient was seen at bedside because his blood pressure was elevated to 177/ 105. Has no complaints. Denies head ache , dizziness. Medical record was reviewed. O: Last Vital Signs 3 Temp 97.9 F 05/29/17 06:00 Pulse 86 05/29/17 06:00 Resp 20 05/29/17 06:00 BP 163/93 H 05/29/17 06:00 Pulse Ox 97 05/29/17 06:00 Awake, alert, not in distress. LUNGS:Normal breathing pattern. A:Elevated blood pressure reading. P:Lisinopril 20 mg PO stat. Repeat readi/77. Objective - Vital Signs/Intake and Output Vital Signs (last 24 hours): Temp Pulse Resp BP Pulse Ox 97.8 F 83 19 122/74 98 05/28/17 18:19 05/28/17 22:24 05/28/17 22:24 05/28/17 22:24 05/28/17 22:24 - Medications Medications: Current Medications Chlordiazepoxide (Librium) 25 mg PO Q6 FENG Pantoprazole Sodium (Protonix Inj) 40 mg IVP DAILY FENG Thiamine HCl (Vitamin B1 Tab) 100 mg PO DAILY FENG
[2017-05-29 08:16] LABS: HEMOGLOBIN 14.6 gm/dL (14.0-18.0); MEAN CELL VOLUME 85.6 fL (80.0-105.0); MEAN CORPUSCULAR HEMOGLOBIN 30.9 pg (25.0-35.0); MEAN PLATELET VOLUME 10.6 fl (7.0-11.0); RBC 4.73 10^6/uL (3.5-6.1); RED CELL DISTRIBUTION WIDTH 13.4 % (11.5-14.5)
[2017-05-29 08:26] LABS: ALB/GLOB RATIO 1.3 (1.1-1.8); ALBUMIN 4.2 g/dL (3.0-4.8); ALT/SGPT 22 U/L (7-56); AST/SGOT 22 U/L (15-59); BLOOD UREA NITROGEN 16 mg/dL (7-21); CALCIUM 9.7 mg/dL (8.4-10.5); GFR AFRICAN-AMERICAN > 60; GFR NON-AFRICAN AMERICAN > 60; MAGNESIUM 1.8 mg/dL (1.7-2.2)
--- NOTE | 2017-05-29 10:26 | CARD ---
APPROVED REPORT EKG Measurement Heart [id number] <Conclusion> Normal sinus rhythm Nonspecific T wave abnormality Prolonged QT Abnormal ECG
[2017-05-29] MEDS: Divalproex 250 mg DR (BID formulation) PO SCH ×2 (11:08→17:25)
[2017-05-29] MEDS: Insulin Lispro (humaLOG) MEDIUM Coverage SC SCH ×3 (13:02→21:55)
--- NOTE | 2017-05-30 02:49 | HP ---
HISTORY OF PRESENT ILLNESS: The patient is a 57-year-old white male, not a very good historian, probably has expressive dysphasia from previous CVA. He came to the emergency room because of chest pain. Denies any fall. Denies any fever or chills. No cough. No history of fever or chills. Although the patient denies that he has been drinking; however, his alcohol level was found to be 180. PAST MEDICAL HISTORY: Significant for, 1. Previous CVA with right upper extremity weakness and expressive dysphasia. 2. His past medical history is also significant for hypertension. 3. Insulin-dependent diabetes. 4. Left MCA territory infarct with right upper extremity weakness. 5. History of left subdural hematoma. 6. History of *------* 70%. He was evaluated previously with vascular surgeon, but no surgical interventions was indicated. 7. History of peptic ulcer disease. 8. History of alcohol abuse and dependence. 9. History of coronary artery disease, status post angioplasty. ALLERGY: HE IS NOT ALLERGIC TO ANY MEDICATIONS. SOCIAL HISTORY: He lives alone. History of alcohol use and drug use. HOME MEDICATIONS: He is on, 1. Tramadol one tablet q.8 hours p.r.n. 2. Amlodipine 10 mg daily. 3. Thiamine 100 mg daily. 4. Januvia 100 mg daily. 5. Seroquel 100 mg daily. 6. Protonix 40 daily. 7. Metoprolol 25 q.12 hours. 8. Lisinopril 100 mg daily. 9. Levemir 5 units at bedtime. 10. Glipizide 10 mg twice a day. 11. Folic acid 1 mg daily. 12. Depakote 250 twice a day. 13. Lipitor 40 mg at bedtime. REVIEW OF SYSTEMS: Significant for being anxious and just ate breakfast, complains of right upper extremity weakness, but that resolved. PHYSICAL EXAMINATION: GENERAL: He is awake and alert. Has expressive dysphasia. VITAL SIGNS: Afebrile, pulse 83, respiration 15, blood pressure 148/91. CARDIOPULMONARY: S1 and S2 audible. LUNGS: Bilateral fair airflow. No rhonchi or crackles. ABDOMEN: Soft. Nontender. No rebound. No guarding. NEUROLOGIC: The patient is awake and alert. Able to communicate. LABORATORY DATA: Alcohol level is 180. Urine drug screen is negative. WBC 7.0, hemoglobin 14, hematocrit 40, platelet 173. D-dimer 0.31. Chemistry: Sodium 139, potassium 4.1, chloride 103, CO2 of 27, BUN 16, creatinine 1.0. Blood sugar 126. Urine analysis is unremarkable. Urine drug screen is negative. Alcohol level is 180. ASSESSMENT AND PLAN: 1. Chest pain, probably noncardiac. 2. Previous cerebrovascular accident right upper extremity weakness. 3. Hypertension. 4. Dph-bwrheih-dnwiepnmg diabetes. PLAN: Currently, the patient is on aspirin. He has been restarted on Depakote and folic acid. We will monitor blood sugars, started him on Januvia. He is on Librium. Continue him on statin and metoprolol. He is on Protonix. Dr. Sotelo and Dr. Linda to evaluate the patient and also recommended for physical therapy. Dereje Eng MD
--- NOTE | 2017-05-30 04:08 | CON ---
DATE: HISTORY OF PRESENT ILLNESS: This is a 57-year-old male, called to evaluate the patient with a past medical history of stroke, [place], coronary artery disease, diabetes, and came to the hospital with a chest pain. Denies any head trauma and no headache. PAST MEDICAL HISTORY: As above. SOCIAL HISTORY: Does not smoke, does not drink. ALLERGIES: NO KNOWN DRUG ALLERGY. HOME MEDICATIONS: Now, insulin, Zestril, *-----*, Januvia, and thiamine. REVIEW OF SYSTEMS: A 10-point review of system was negative except some dysphasia and fever and fatigue. PHYSICAL EXAMINATION: VITAL SIGNS: Blood pressure 114/72. HEENT: Normocephalic, atraumatic. Pupils reactive. EOM intact. NECK: Supple. NEUROLOGIC: Alert, awake, oriented to self and place. Cranial nerve II through XII are tested. EXTREMITIES: Spontaneous movement of the extremities noted. CAT scan of head, multiple old infarcts and chronic subdural thickening. The patient is dysphasic. CAT scan of the head shows atrophy, small vessel disease, and multiple old infarcts and chronic subdural thickening. Continue present management. We will follow up. Bernardo Linda MD
[2017-05-30] MEDS: Pantoprazole 40 mg EC Tab PO SCH (05:18)
[2017-05-30] MEDS: Insulin Lispro (humaLOG) MEDIUM Coverage SC SCH ×4 (07:35→22:22)
[2017-05-30] MEDS: Divalproex 250 mg DR (BID formulation) PO SCH ×3 (09:09→20:09)
--- NOTE | 2017-05-30 10:21 | CP.PCM.PN ---
<Martha Sena - Last Filed: 05/30/17 13:09> Subjective - Date & Time of Evaluation Date of Evaluation: 05/30/17 Time of Evaluation: 09:15 - Subjective Subjective: PGY-2 Neurology progress note for Dr Linda. Patient with no acute events over night. Patient has no complaints. Baseline expressive aphasia, and tight upper and lower extremities weakness. Patient denies headache. Note patient has 2 charts. Objective - Vital Signs/Intake and Output Vital Signs (last 24 hours): Temp Pulse Resp BP Pulse Ox 97.7 F 89 14 131/79 97 05/30/17 05:47 05/30/17 09:11 05/30/17 08:00 05/30/17 09:11 05/30/17 08:00 Intake and Output: 05/30/17 05/30/17 06:59 18:59 Intake Total 300 Output Total 475 Balance -175 - Medications Medications: Current Medications Amlodipine Besylate (Norvasc) 10 mg PO DAILY [facility] Last Admin: 05/30/17 09:11 Dose: 10 mg Atorvastatin Calcium (Lipitor) 40 mg PO HS [facility] Last Admin: 05/29/17 22:03 Dose: 40 mg Chlordiazepoxide (Librium) 25 mg PO Q6 [facility] Last Admin: 05/30/17 05:18 Dose: 25 mg Clopidogrel Bisulfate (Plavix) 75 mg PO DAILY@0600 [facility] Divalproex Sodium (Depakote Dr (*Bid*)) 250 mg PO BID [facility] PRN Reason: Protocol Last Admin: 05/30/17 09:09 Dose: 250 mg Folic Acid (Folic Acid) 1 mg PO DAILY [facility] Last Admin: 05/30/17 09:11 Dose: 1 mg Insulin Human Lispro (Humalog Med) 0 units SC [facility] PRN Reason: Protocol Last Admin: 05/29/17 21:55 Dose: Not Given Metoprolol Tartrate (Lopressor) 25 mg PO Q12 [facility] Last Admin: 05/30/17 09:11 Dose: 25 mg Pantoprazole Sodium (Protonix Ec Tab) 40 mg PO 0600 [facility] Last Admin: 05/30/17 05:18 Dose: 40 mg Quetiapine Fumarate (Seroquel) 50 mg PO DAILY [facility] Last Admin: 05/30/17 09:10 Dose: 50 mg Quetiapine Fumarate (Seroquel) 100 mg PO DAILY@1700 [facility] PRN Reason: Protocol Last Admin: 05/29/17 17:25 Dose: 100 mg Sitagliptin Phosphate (Januvia) 100 mg PO DAILY [facility] Last Admin: 05/30/17 09:10 Dose: 100 mg Thiamine HCl (Vitamin B1 Tab) 100 mg PO DAILY [facility] Last Admin: 05/30/17 09:11 Dose: 100 mg - Labs Labs: 05/29/17 07:46 05/29/17 07:46 - Constitutional Appears: No Acute Distress, Older Than Stated Age - Head Exam Head Exam: ATRAUMATIC, NORMAL INSPECTION, NORMOCEPHALIC - Eye Exam Eye Exam: Normal appearance, PERRL - ENT Exam ENT Exam: Mucous Membranes Moist - Neck Exam Neck Exam: Full ROM, Normal Inspection. absent: Tenderness, Thyromegaly - Respiratory Exam Respiratory Exam: Clear to Ausculation Bilateral, NORMAL BREATHING PATTERN. absent: Rales, Rhonchi, Wheezes, Respiratory Distress, Stridor - Cardiovascular Exam Cardiovascular Exam: REGULAR RHYTHM, +S1, +S2 - GI/Abdominal Exam GI & Abdominal Exam: Soft, Normal Bowel Sounds. absent: Distended, Tenderness - Extremities Exam Extremities Exam: absent: Pedal Edema - Back Exam Back Exam: NORMAL INSPECTION - Neurological Exam Neurological Exam: Alert, Awake, CN II-XII Intact, Oriented x3, Reflexes Normal Neuro motor strength exam: Left Upper Extremity: 5, Right Upper Extremity: 4, Left Lower Extremity: 5, Right Lower Extremity: 4 Additional comments: Mental status: Patient is a&ox3, flat affect, able to follow simple commands, expressive aphasia. [place] muscles strong symmetrically, no facial asymmetry. Tongue protrude midline, no atrophy or fasciculation. Sensory: fine tough, pp temperature, vibration sensations and proprioceptive functions intact. There is no evidence of extinction to DSS. 5/5 flexion and extension motor strength on the left upper and lower extremities. Right upper and lower extremities 4/5 with muscle rigidity. Pronator drift on the right, tremors with finger to nose. + 2 patella, Achilles tendon, biceps, and brachioradialis reflexes b/l. Normal DTRs. 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 CT head with Atrophy and small vessel disease; multiple old infarcts; chronic left subdural thickening; no acute intracranial abnormality, no acute. Plan: - Continue with current medical and cardiac managements - Continue with lipitor and plavix stroke prevention - Continue with PT/OT. - Glucose control - continue with lipitor. - Patient is neurologically stable - Alcohol cessation advised - CIWA protocol and librium - Thank you for consulting Dr Linda. Patient seen, examined, discussed with Dr Linda. <Ian Linda - Last Filed: 05/30/17 14:55> Objective - Vital Signs/Intake and Output Vital Signs (last 24 hours): Temp Pulse Resp BP Pulse Ox 97.3 F L 67 15 131/79 98 05/30/17 11:54 05/30/17 12:00 05/30/17 12:00 05/30/17 12:00 05/30/17 12:00 - Medications Medications: Current Medications Amlodipine Besylate (Norvasc) 10 mg PO DAILY [facility] Last Admin: 05/30/17 09:11 Dose: 10 mg Atorvastatin Calcium (Lipitor) 40 mg PO HS [facility] Last Admin: 05/29/17 22:03 Dose: 40 mg Chlordiazepoxide (Librium) 25 mg PO Q6 [facility] Last Admin: 05/30/17 12:47 Dose: 25 mg Clopidogrel Bisulfate (Plavix) 75 mg PO DAILY@0600 [facility] Divalproex Sodium (Xuan Pak (*Bid*)) 250 mg PO BID [facility] PRN Reason: Protocol Last Admin: 05/30/17 09:09 Dose: 250 mg Folic Acid (Folic Acid) 1 mg PO DAILY [facility] Last Admin: 05/30/17 09:11 Dose: 1 mg Insulin Human Lispro (Humalog Med) 0 units SC [facility] PRN Reason: Protocol Last Admin: 05/30/17 12:36 Dose: 1 units Lorazepam (Ativan) 1 mg IVP Q6H PRN; Protocol PRN Reason: Anxiety Last Admin: 05/30/17 13:20 Dose: 1 mg Metoprolol Tartrate (Lopressor) 25 mg PO Q12 [facility] Last Admin: 05/30/17 09:11 Dose: 25 mg Pantoprazole Sodium (Protonix Ec Tab) 40 mg PO 0600 [facility] Last Admin: 05/30/17 05:18 Dose: 40 mg Quetiapine Fumarate (Seroquel) 50 mg PO DAILY [facility] Last Admin: 05/30/17 09:10 Dose: 50 mg Quetiapine Fumarate (Seroquel) 100 mg PO DAILY@1700 [facility] PRN Reason: Protocol Last Admin: 05/29/17 17:25 Dose: 100 mg Sitagliptin Phosphate (Januvia) 100 mg PO DAILY [facility] Last Admin: 05/30/17 09:10 Dose: 100 mg Thiamine HCl (Vitamin B1 Tab) 100 mg PO DAILY [facility] Last Admin: 05/30/17 09:11 Dose: 100 mg Attending/Attestation - Attestation I have personally seen and examined this patient.: Yes I have fully participated in the care of the patient.: Yes I have reviewed all pertinent clinical information, including history, physical exam and plan: Yes
--- NOTE | 2017-05-30 15:35 | CP.PCM.PN ---
Subjective - Date & Time of Evaluation Date of Evaluation: 05/30/17 Time of Evaluation: 13:10 - Subjective Subjective: Patient seen at the request of his RN who stated pt is somewhat confused/ agitated and wants to leave. He is not able to communicate clearly but does not appear to be in any distress. VS:BP 123/70 P 68 RR 18 T 98.2 O2 sat on R Air 97% PMH:He has history of CVA 2 months ago,has a residual expressive aphasia and weakness of the R side of his body,Subdural hematoma, DM type 2,CAD with stents,HTN,Tobacco and Alcohol abuse. Objective - Vital Signs/Intake and Output Vital Signs (last 24 hours): Temp Pulse Resp BP Pulse Ox 97.3 F L 67 15 131/79 98 05/30/17 11:54 05/30/17 12:00 05/30/17 12:00 05/30/17 12:00 05/30/17 12:00 Intake and Output: 05/30/17 05/30/17 06:59 18:59 Intake Total 300 Output Total 475 Balance -175 - Medications Medications: Current Medications Amlodipine Besylate (Norvasc) 10 mg PO DAILY [facility] Last Admin: 05/30/17 09:11 Dose: 10 mg Atorvastatin Calcium (Lipitor) 40 mg PO HS [facility] Last Admin: 05/29/17 22:03 Dose: 40 mg Chlordiazepoxide (Librium) 25 mg PO Q6 [facility] Last Admin: 05/30/17 12:47 Dose: 25 mg Clopidogrel Bisulfate (Plavix) 75 mg PO DAILY@0600 [facility] Divalproex Sodium (Depakote Dr (*Bid*)) 250 mg PO BID [facility] PRN Reason: Protocol Last Admin: 05/30/17 09:09 Dose: 250 mg Folic Acid (Folic Acid) 1 mg PO DAILY [facility] Last Admin: 05/30/17 09:11 Dose: 1 mg Insulin Human Lispro (Humalog Med) 0 units SC ACHS [facility] PRN Reason: Protocol Last Admin: 05/30/17 12:36 Dose: 1 units Lorazepam (Ativan) 1 mg IVP Q6H PRN; Protocol PRN Reason: Anxiety Last Admin: 05/30/17 13:20 Dose: 1 mg Metoprolol Tartrate (Lopressor) 25 mg PO Q12 [facility] Last Admin: 05/30/17 09:11 Dose: 25 mg Pantoprazole Sodium (Protonix Ec Tab) 40 mg PO 0600 [facility] Last Admin: 05/30/17 05:18 Dose: 40 mg Quetiapine Fumarate (Seroquel) 50 mg PO DAILY [facility] Last Admin: 05/30/17 09:10 Dose: 50 mg Quetiapine Fumarate (Seroquel) 100 mg PO DAILY@1700 [facility] PRN Reason: Protocol Last Admin: 05/29/17 17:25 Dose: 100 mg Sitagliptin Phosphate (Januvia) 100 mg PO DAILY [facility] Last Admin: 05/30/17 09:10 Dose: 100 mg Thiamine HCl (Vitamin B1 Tab) 100 mg PO DAILY [facility] Last Admin: 05/30/17 09:11 Dose: 100 mg - Labs Labs: 05/29/17 07:46 05/29/17 07:46 - Constitutional Appears: No Acute Distress - Head Exam Head Exam: ATRAUMATIC - Eye Exam Eye Exam: PERRL - ENT Exam ENT Exam: Mucous Membranes Moist - Neck Exam Neck Exam: Normal Inspection - Respiratory Exam Respiratory Exam: Clear to Ausculation Bilateral - Cardiovascular Exam Cardiovascular Exam: REGULAR RHYTHM - GI/Abdominal Exam GI & Abdominal Exam: Soft, Normal Bowel Sounds. absent: Tenderness - Extremities Exam Extremities Exam: Normal Inspection. absent: Calf Tenderness - Back Exam Back Exam: NORMAL INSPECTION - Neurological Exam Neurological Exam: Alert, Awake (Oriented x 2) Additional comments: R sided weakness noted - Skin Skin Exam: Dry, Normal Color, Warm Assessment and Plan - Assessment and Plan (Free Text) Assessment: Agitation Plan: Pt's PMD was already called before I saw the pt.Ativan was already given as per his request.
--- NOTE | 2017-05-30 20:24 | PN ---
DATE: 05/30/2017 SUBJECTIVE: Patient is comfortable. He is awake and alert. He is back to his baseline. He does have dysarthria. PHYSICAL EXAMINATION: VITAL SIGNS: Temperature is 97.7, pulse is 73, blood pressure is 123/83, and respirations are 20. HEENT: Atraumatic and normocephalic. EOMI. Moist mucosa. NECK: No JVD, adenopathy, or thyromegaly. CARDIOVASCULAR: S1 and S2, regular. No murmurs, rubs, or gallops. RESPIRATORY: Clear to auscultation bilaterally. No wheezes, rales, or rhonchi. ABDOMEN: Bowel sounds are positive, soft, nontender, and nondistended. No hepatosplenomegaly. EXTREMITIES: Lower extremities, no edema. 2+ pulses. ASSESSMENT: 1. Alcoholism. 2. Dysarthria. 3. Diabetes type 2, uncontrolled. 4. Hypertension. 5. History of cerebrovascular accident. 6. History of left subdural hematoma. 7. Coronary artery disease. PLAN: The patient is currently comfortable. He is on aspirin. He is going to continue with his Januvia. He is given Librium. The patient's Lipitor is for dyslipidemia. He is on Norvasc for hypertension. He is on Seroquel. He is going to continue with thiamine. He is back to his baseline. We will see if he is able to ambulate. If he is, we will most likely be able to discharge the patient to home. I did advise that he needs to stop drinking and also that he needs to be taken home by family member. Raman Ho MD
--- NOTE | 2017-05-30 23:50 | CON ---
DATE: 05/30/2017 HISTORY OF PRESENT ILLNESS: The patient is a 57-year-old male who presents with chest pain including multiple episodes of chest pain at rest. PAST MEDICAL HISTORY: Notable for history of CVA, previous PTC and stent in the past, diabetes mellitus, hypertension and hypocholesterolemia. The patient continues to smoke. SOCIAL HISTORY: Smokes greater than a pack day. REVIEW OF SYSTEMS: A 14-point review of systems was reviewed in detail. History was difficult to elicit, but he does admit to having intermittent angina at rest. PHYSICAL EXAMINATION VITAL SIGNS: Blood pressure is 123/83, the heart rate is in the 70s. NECK: Negative JVD. LUNGS: Without rales. HEART: Reveals S1, S2. EXTREMITIES: Without edema. EKG shows defuse ST-T changes. LABORATORY DATA: Glucose 167, the creatinine is 1.0. Hemoglobin is 14 with a creatinine is normal. IMPRESSION: 1. Progressive angina including angina at rest. 2. Unstable angina. 3. History of coronary artery disease and stents in the past. 4. Diabetes mellitus. 5. History of cerebrovascular accident. 6. Hypocholesterinemia. 7. Chronic obstructive pulmonary disease. 8. Active smoker. PLAN: Given these findings, given the high probability of CAD and his symptoms at rest, we will proceed with cardiac catheterization in the morning. I have discussed this in detail with the patient who is agreeable. We will *------*the patient with Plavix today. Edilberto Carolina MD
[2017-05-31] MEDS: Pantoprazole 40 mg EC Tab PO SCH (06:31)
--- NOTE | 2017-05-31 10:23 | PN ---
DATE: 05/31/2017 SUBJECTIVE: The patient's events of the yesterday were noted. The patient was trying to leave AMA. The patient has no chest pain, no headaches, no dizziness. PHYSICAL EXAMINATION VITAL SIGNS: Temperature is 98.5, pulse is 74, blood pressure is 130/89, and respirations 18. HEENT: Anicteric sclerae. Moist mucosa. NECK: No JVD, adenopathy or thyromegaly. LUNGS: Clear to auscultation bilaterally. No wheezing, rales or rhonchi. CARDIAC: S1 and S2 is regular. No murmurs, rubs or gallops. ABDOMEN: Bowel sounds are positive. Soft, nontender, and nondistended. EXTREMITIES: Lower extremity, 2+ pulses, no edema. Full range of motion bilaterally. ASSESSMENT: 1. Alcoholism. 2. Dysarthria. 3. Diabetes type 2, uncontrolled. 4. Hypertension. 5. History of left subdural hematoma. 6. History of cerebrovascular accident. 7. Coronary artery disease. PLAN: The patient was trying to leave against medical advice yesterday. He was convinced to stay in the hospital. The patient is scheduled for cardiac cath by Dr. Edilberto Carolina. He does have a history of coronary artery disease. He had a difficult time in expressing himself because of the previous head injuries with stroke. He is noncompliant and does not allow for more involvement in his care. We will await cath to be done. The patient is also seen by neurology. Difficult to say what the patient was yesterday. He was placed on restrains. The patient is on Januvia. He is receiving Librium. He is on metoprolol. The patient is on Norvasc for hypertension. Continue his Plavix. He is on folic acid. He is on insulin sliding scale. Raman Ho MD
[2017-05-31] MEDS: Divalproex 250 mg DR (BID formulation) PO SCH ×2 (10:31→19:17)
[2017-05-31] MEDS: Insulin Lispro (humaLOG) MEDIUM Coverage SC SCH ×4 (10:34→22:59)
--- NOTE | 2017-05-31 13:09 | CP.PCM.PN ---
<Martha Sena - Last Filed: 05/31/17 17:05> Subjective - Date & Time of Evaluation Date of Evaluation: 05/31/17 Time of Evaluation: 10:30 - Subjective Subjective: PGY-2 Neurology progress note for Dr Linda. As per chart, patient was very agitated yesterday, requesting to leave but was deemed to be unsafe discharge. Patient had to be giving ativan and restrained. Patient is currently restrained, appears restless and diaphoretic. Patient is requesting to be let go of the retrains. Patient c/o b/l wrist pain where the retrains are placed. Patient other meek appears more expressive today than yesterday. However more agitated today. Objective - Vital Signs/Intake and Output Vital Signs (last 24 hours): Temp Pulse Resp BP Pulse Ox 97 F L 113 H 22 155/99 H 97 05/31/17 11:48 05/31/17 11:48 05/31/17 11:48 05/31/17 11:48 05/30/17 16:00 Intake and Output: 05/31/17 05/31/17 06:59 18:59 Intake Total 240 Balance 240 - Medications Medications: Current Medications Amlodipine Besylate (Norvasc) 10 mg PO DAILY [facility] Last Admin: 05/31/17 10:34 Dose: 10 mg Atorvastatin Calcium (Lipitor) 40 mg PO HS [facility] Last Admin: 05/30/17 22:22 Dose: Not Given Chlordiazepoxide (Librium) 25 mg PO Q12 [facility] Last Admin: 05/31/17 10:32 Dose: 25 mg Clopidogrel Bisulfate (Plavix) 75 mg PO DAILY@0600 [facility] Last Admin: 05/31/17 06:31 Dose: Not Given Divalproex Sodium (Depakote Dr (*Bid*)) 250 mg PO BID [facility] PRN Reason: Protocol Last Admin: 05/31/17 10:31 Dose: 250 mg Folic Acid (Folic Acid) 1 mg PO DAILY [facility] Last Admin: 05/31/17 10:33 Dose: 1 mg Insulin Human Lispro (Humalog Med) 0 units SC ACHS [facility] PRN Reason: Protocol Last Admin: 05/31/17 13:04 Dose: Not Given Lorazepam (Ativan) 1 mg IVP Q3H PRN; Protocol PRN Reason: Anxiety Last Admin: 05/31/17 11:36 Dose: 1 mg Metoprolol Tartrate (Lopressor) 25 mg PO Q12 [facility] Last Admin: 05/31/17 10:34 Dose: 25 mg Pantoprazole Sodium (Protonix Ec Tab) 40 mg PO 0600 [facility] Last Admin: 05/31/17 06:31 Dose: Not Given Quetiapine Fumarate (Seroquel) 50 mg PO DAILY [facility] Last Admin: 05/31/17 10:37 Dose: 50 mg Quetiapine Fumarate (Seroquel) 100 mg PO DAILY@1700 [facility] PRN Reason: Protocol Last Admin: 05/30/17 22:23 Dose: Not Given Sitagliptin Phosphate (Januvia) 100 mg PO DAILY [facility] Last Admin: 05/31/17 10:32 Dose: 100 mg Thiamine HCl (Vitamin B1 Tab) 100 mg PO DAILY [facility] Last Admin: 05/31/17 10:32 Dose: 100 mg - Constitutional Appears: In Acute Distress (mild), Older Than Stated Age, Chronically Ill - Head Exam Head Exam: ATRAUMATIC, NORMAL INSPECTION, NORMOCEPHALIC - Eye Exam Eye Exam: EOMI, Normal appearance, PERRL. absent: Scleral icterus Pupil Exam: NORMAL ACCOMODATION, PERRL - ENT Exam ENT Exam: Mucous Membranes Moist - Neck Exam Neck Exam: Full ROM, Normal Inspection. absent: Lymphadenopathy, Meningismus, Thyromegaly - Respiratory Exam Respiratory Exam: Clear to Ausculation Bilateral, NORMAL BREATHING PATTERN. absent: Rales, Rhonchi, Wheezes, Respiratory Distress, Stridor - Cardiovascular Exam Cardiovascular Exam: REGULAR RHYTHM, +S1, +S2 - GI/Abdominal Exam GI & Abdominal Exam: Soft, Normal Bowel Sounds. absent: Tenderness - Extremities Exam Extremities Exam: absent: Pedal Edema - Neurological Exam Neurological Exam: Alert, Awake, CN II-XII Intact, Normal Gait, Oriented x3 Additional comments: Mental status: Patient is a&ox3, flat affect, able to follow simple commands, expressive aphasia ( better today). [place] muscles strong symmetrically, no facial asymmetry. Tongue protrude midline, no atrophy or fasciculation. Sensory: fine tough, pp temperature, vibration sensations and proprioceptive functions intact. There is no evidence of extinction to DSS. 5/5 flexion and extension motor strength on the left upper and lower extremities. Right upper and lower extremities 4/5 with muscle rigidity. Pronator drift on the right, tremors with finger to nose. + 2 patella, Achilles tendon, biceps, and brachioradialis reflexes b/l. Normal DTRs. 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 Patient had CT head on this admission with no acute findings. Patient is agitated and wants to leave. Patient is other meek awaiting to undergo cardiac cath. Patient is move all his extremities , no changes in his motor strength. Plan: - Continue with current medical and cardiac managements - c/w CIWA protocol and librium - Thank you for consulting Dr Linda. Patient seen, examined, discussed with Dr Linda. <Ian Linda - Last Filed: 05/31/17 18:04> Objective - Vital Signs/Intake and Output Vital Signs (last 24 hours): Temp Pulse Resp BP Pulse Ox 97 F L 113 H 22 155/99 H 97 05/31/17 11:48 05/31/17 11:48 05/31/17 11:48 05/31/17 11:48 05/30/17 16:00 Intake and Output: 05/31/17 05/31/17 06:59 18:59 Intake Total 480 Output Total 600 Balance -120 - Medications Medications: Current Medications Amlodipine Besylate (Norvasc) 10 mg PO DAILY [facility] Last Admin: 05/31/17 10:34 Dose: 10 mg Atorvastatin Calcium (Lipitor) 40 mg PO HS [facility] Last Admin: 05/30/17 22:22 Dose: Not Given Chlordiazepoxide (Librium) 25 mg PO Q12 [facility] Last Admin: 05/31/17 10:32 Dose: 25 mg Clopidogrel Bisulfate (Plavix) 75 mg PO DAILY@0600 [facility] Last Admin: 05/31/17 06:31 Dose: Not Given Divalproex Sodium (Xuan Pak (*Bid*)) 250 mg PO BID [facility] PRN Reason: Protocol Last Admin: 05/31/17 10:31 Dose: 250 mg Folic Acid (Folic Acid) 1 mg PO DAILY [facility] Last Admin: 05/31/17 10:33 Dose: 1 mg Insulin Human Lispro (Humalog Med) 0 units SC ACHS [facility] PRN Reason: Protocol Last Admin: 05/31/17 16:59 Dose: Not Given Lorazepam (Ativan) 1 mg IVP Q3H PRN; Protocol PRN Reason: Anxiety Last Admin: 05/31/17 15:20 Dose: 1 mg Metoprolol Tartrate (Lopressor) 25 mg PO Q12 [facility] Last Admin: 05/31/17 10:34 Dose: 25 mg Pantoprazole Sodium (Protonix Ec Tab) 40 mg PO 0600 [facility] Last Admin: 05/31/17 06:31 Dose: Not Given Quetiapine Fumarate (Seroquel) 50 mg PO DAILY [facility] Last Admin: 05/31/17 10:37 Dose: 50 mg Quetiapine Fumarate (Seroquel) 100 mg PO DAILY@1700 [facility] PRN Reason: Protocol Last Admin: 05/31/17 17:00 Dose: Not Given Sitagliptin Phosphate (Januvia) 100 mg PO DAILY [facility] Last Admin: 05/31/17 10:32 Dose: 100 mg Thiamine HCl (Vitamin B1 Tab) 100 mg PO DAILY [facility] Last Admin: 05/31/17 10:32 Dose: 100 mg Attending/Attestation - Attestation I have personally seen and examined this patient.: Yes I have fully participated in the care of the patient.: Yes I have reviewed all pertinent clinical information, including history, physical exam and plan: Yes
--- NOTE | 2017-06-01 04:11 | PN ---
DATE: 05/31/2017 CARDIOLOGY FOLLOWUP SUBJECTIVE: The patient underwent an episode of alcoholic withdrawal. Restraints were necessary yesterday. PHYSICAL EXAMINATION GENERAL: The patient is currently calm, eating, but still is mildly confused. VITAL SIGNS: Blood pressure is 155/90, the heart rate is 110. NECK: Negative JVD. LUNGS: Without rales. HEART: Regular S1 and S2. EXTREMITIES: Without edema. LABORATORY DATA: Hemoglobin is 14.6, glucose is 143. IMPRESSION: 1. Alcoholic withdrawal. 2. Status post unstable angina. 3. History of coronary artery disease. 4. Diabetes mellitus. 5. Chronic obstructive pulmonary disease. 6. History of cerebrovascular accident in the past. Given the patient's new acute alcoholic withdrawal, we will defer the cardiac catheterization for now. We will continue medical therapy. Edilberto Carolina MD
[2017-06-01] MEDS: Pantoprazole 40 mg EC Tab PO SCH (08:46)
--- NOTE | 2017-06-01 10:46 | CP.PCM.PCO ---
Physician Communication Note - Physician Communication Note Physician Communication Note: pt is going through etoh withdrawl, c/w ciwa. c/e present mx and cardiac mx
[2017-06-01] MEDS: Divalproex 250 mg DR (BID formulation) PO SCH ×2 (11:03→18:59)
[2017-06-01] MEDS: Insulin Lispro (humaLOG) MEDIUM Coverage SC SCH ×4 (11:19→22:05)
[2017-06-01] MEDS ORDERED: Magnesium Oxide 400 mg Tab UD PO SCH (11:45)
--- NOTE | 2017-06-01 12:23 | PN ---
DATE: 06/01/2017 SUBJECTIVE: The patient with no complaints of any chest pain. No shortness of breath. He gets agitated. He is in restraints. PHYSICAL EXAMINATION: VITAL SIGNS: Temperature is 97, pulse of 107, blood pressure 176/111, respirations 22. NECK: No JVD, adenopathy, thyromegaly. HEENT: Moist mucosa. Anicteric sclerae. CARDIOVASCULAR: S1, S2 is regular. No murmurs, rubs or gallops. LUNGS: Clear to auscultation bilaterally. No wheezes, rales, or rhonchi. ABDOMEN: Bowel sounds are positive, soft, nontender and nondistended. ASSESSMENT: 1. Alcoholism. 2. Dysarthria secondary to stroke. 3. Diabetes type 2, uncontrolled. 4. Hypertension. 5. History of left subdural hematoma. 6. History of cerebrovascular accident. 7. Coronary artery disease. PLAN: The patient remains agitated. He is not cooperative. He is on his Librium, he gets Ativan. The patient is going to being followed by cardiology, neurology, and also he is going to be seen by psychiatry. The patient's catheterization has been differed. He is on Januvia for his diabetes. He is on Librium. The patient is going to continue with Norvasc for hypertension. He is going continue with his thiamine. The patient's sister is aware of the following condition. Raman Ho MD
--- NOTE | 2017-06-01 16:22 | CP.PCM.CON ---
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 psych consult was called for evaluation of altered mental status, agitation, restlessness, psychosis, possible medication management. Patient was seen and examined, patient presented to be disorganized, there is no option to have meaningful conversation, 1 questions patient just screaming out loud and not providing any history. Patient was in 2-point restraint, was in one-to-one, seems to be agitated, and restless. Patient gave stat dose of benzodiazepines, Librium was increased, as well as Seroquel stat dose was given. Past history was reviewed, patient was evaluated by in 2014, patient was admitted into the psychiatric inpatient unit, patient was discharged on Seroquel, patient had history of alcohol withdrawal delirium with hallucinations. labs reviewed Patient is tachycardic, has hypertension. mental status examination: Patient presented to be agitated, disorganized, screaming out loud, no meaningful conversationpossible. impression: Alcohol withdrawal symptoms/delirium Hyper active delirium alcohol use disorder As per historypatient has mood disorder Plan: Continue with current management Librium was increased to 50 mg 3 times a day scheduled for alcohol withdrawal delirium Seroquel was started for psychotic symptoms Patient is on one-to-one for safety Multivitamins, folic acid, thiamine was started continue with [facility] protocol and librium patient was seen by Dr Linda we'll monitor and advise accordingly Past Patient History - Infectious Disease Hx of Infectious Diseases: None - Tetanus Immunizations Tetanus Immunization: Unknown - Past Medical History & Family History Past Medical History?: Yes - Past Social History Smoking Status: Current Some Days Smoker - CARDIAC Hx Cardiac Disorders: Yes (CAD,hyperlipemia) Hx Hypertension: Yes - PULMONARY Hx Chronic Obstructive Pulmonary Disease (COPD): Yes - NEUROLOGICAL HX Cerebrovascular Accident: Yes (expressive aphasia) - HEENT Hx HEENT Problems: Yes (hearing problem) - RENAL Hx Chronic Kidney Disease: No - ENDOCRINE/METABOLIC Hx Diabetes Mellitus Type 2: Yes - HEMATOLOGICAL/ONCOLOGICAL Hx Blood Disorders: No - INTEGUMENTARY Hx Dermatological Problems: No - MUSCULOSKELETAL/RHEUMATOLOGICAL Hx Musculoskeletal Disorders: Yes Hx Back Pain: Yes Hx Degenerative Joint Disease: Yes Hx Falls: No Hx Herniated Disk: Yes - GASTROINTESTINAL Hx Gastrointestinal Disorders: Yes Hx Gastroesophageal Reflux: Yes HX Swallowing Problems: Yes - GENITOURINARY/GYNECOLOGICAL Hx Genitourinary Disorders: No - PSYCHIATRIC Hx Psychophysiologic Disorder: Yes (etoh use, pschiatric hospitalizations) Hx Anxiety: Yes Hx Depression: Yes Hx Substance Use: No (denies) - SURGICAL HISTORY Hx Surgeries: Yes Hx Cardiac Catheterization: Yes Hx Coronary Stent: Yes - ANESTHESIA Hx Anesthesia: Yes Hx Anesthesia Reactions: No Hx Malignant Hyperthermia: No Meds Allergies/Adverse Reactions: Allergies Allergy/AdvReac Type Severity Reaction Status Date / Time No Known Allergies Allergy Verified 05/28/17 15:57 - Medications Medications: Current Medications Amlodipine Besylate (Norvasc) 10 mg PO DAILY [facility] Last Admin: 06/01/17 11:01 Dose: 10 mg Atorvastatin Calcium (Lipitor) 40 mg PO HS [facility] Last Admin: 05/31/17 21:59 Dose: 40 mg Chlordiazepoxide (Librium) 50 mg PO TID [facility] Clopidogrel Bisulfate (Plavix) 75 mg PO DAILY@0600 [facility] Last Admin: 06/01/17 08:46 Dose: Not Given Divalproex Sodium (Depakote Dr (*Bid*)) 250 mg PO BID [facility] PRN Reason: Protocol Last Admin: 06/01/17 11:03 Dose: 250 mg Folic Acid (Folic Acid) 1 mg PO DAILY [facility] Last Admin: 06/01/17 11:01 Dose: 1 mg Insulin Human Lispro (Humalog Med) 0 units SC ACHS [facility] PRN Reason: Protocol Last Admin: 06/01/17 12:31 Dose: 3 units Lorazepam (Ativan) 1 mg IVP Q3H PRN; Protocol PRN Reason: Anxiety Last Admin: 06/01/17 15:50 Dose: 1 mg Magnesium Oxide (Mag-Ox) 400 mg PO DAILY [facility] Metoprolol Tartrate (Lopressor) 25 mg PO Q12 [facility] Last Admin: 06/01/17 11:02 Dose: 25 mg Multivitamins/Minerals (Therapeutic-M Tab) 1 tab PO 0800 [facility] Pantoprazole Sodium (Protonix Ec Tab) 40 mg PO 0600 [facility] Last Admin: 06/01/17 08:46 Dose: Not Given Quetiapine Fumarate (Seroquel) 50 mg PO DAILY [facility] Last Admin: 06/01/17 11:02 Dose: 50 mg Quetiapine Fumarate (Seroquel) 100 mg PO DAILY@1700 [facility] PRN Reason: Protocol Last Admin: 05/31/17 17:00 Dose: Not Given Sitagliptin Phosphate (Januvia) 100 mg PO DAILY [facility] Last Admin: 06/01/17 11:01 Dose: 100 mg Thiamine HCl (Vitamin B1 Tab) 100 mg PO TID [facility] Ziprasidone (Geodon Inj) 20 mg IM Q8H PRN; Protocol PRN Reason: severe agitation Results - Vital Signs Recent Vital Signs: Last Vital Signs Temp 98.7 F 06/01/17 07:30 Pulse 101 H 06/01/17 11:02 Resp 20 06/01/17 07:30 BP 157/98 H 06/01/17 11:02 Pulse Ox 98 06/01/17 07:30 - Labs Result Diagrams: 05/29/17 07:46 05/29/17 07:46 Labs: Laboratory Results - last 24 hr 05/31/17 06/01/17 06/01/17 16:21 08:59 11:22 POC Glucose (mg/dL) 139 H 246 H 247 H
[2017-06-01 16:57] VITALS: RESP 21; TEMP 98.2; O2SAT 99
[2017-06-01 21:54] VITALS: BP 116/81; PULSE 82
[2017-06-02] MEDS: Pantoprazole 40 mg EC Tab PO SCH (06:00)
[2017-06-02 07:44] LABS: ALB/GLOB RATIO 1.2 (1.1-1.8); ALBUMIN 4.1 g/dL (3.0-4.8); ALT/SGPT 20 U/L (7-56); AST/SGOT 21 U/L (15-59); BLOOD UREA NITROGEN 25 mg/dL (7-21); CALCIUM 10.1 mg/dL (8.4-10.5); GFR AFRICAN-AMERICAN > 60; GFR NON-AFRICAN AMERICAN 52; MAGNESIUM 1.9 mg/dL (1.7-2.2)
[2017-06-02 07:53] LABS: HEMOGLOBIN 14.8 gm/dL (14.0-18.0); MEAN CELL VOLUME 86.7 fL (80.0-105.0); MEAN CORPUSCULAR HEMOGLOBIN 30.2 pg (25.0-35.0); MEAN CORPUSCULAR HGB CONC 34.8 g/dl (31.0-37.0); MEAN PLATELET VOLUME 11.3 fl (7.0-11.0); RBC 4.9 10^6/uL (3.5-6.1); WHITE BLOOD COUNT 5.9 10^3/ul (4.5-11.0)
[2017-06-02] MEDS ORDERED: Multivitamin With Minerals Tab PO SCH (08:00)
[2017-06-02] MEDS: Insulin Lispro (humaLOG) MEDIUM Coverage SC SCH (08:23)
--- NOTE | 2017-06-02 12:16 | CP.PCM.PCO ---
Physician Communication Note - Physician Communication Note Physician Communication Note: pt was d/c
--- NOTE | 2017-06-03 07:35 | DS ---
HISTORY OF PRESENT ILLNESS: This is a 57-year-old male who had come to the hospital with alcoholic intoxication. The patient was placed on Librium and was admitted to the hospital. He had episodes of agitation. He had to be placed on restraints because he was danger to himself. He was trying to leave the hospital. It was felt that he was having withdrawals. He was seen by psychiatry. I did have a long discussion with the patient's sister yesterday. The patient is going to be discharged home today. He is no longer withdrawing. He does understand he is able to answer questions appropriately. He was advised to stop drinking, although he does have a long drinking history. No headaches or dizziness. No chest pain. No shortness of breath. PHYSICAL EXAMINATION: VITAL SIGNS: Temperature is 98.2, pulse is 96, blood pressure is 136/85, respirations are 21, and O2 saturation is 99%. HEENT: Anicteric sclerae. Moist mucosa. NECK: No JVD, adenopathy, or thyromegaly. CARDIOVASCULAR: S1 and S2 are regular. No murmurs, rubs, or gallops. LUNGS: Good bilateral air entry. No wheezes, rales, or rhonchi. ABDOMEN: Bowel sounds are positive, soft, nontender, and nondistended. No hepatosplenomegaly. EXTREMITIES: Lower extremity, he has full range of motion. 2+ pulses. No edema. ASSESSMENT: 1. Alcoholism. 2. Dysarthria secondary to stroke. 3. Hypertension. 4. Diabetes type 2. 5. History of subdural hematoma on the left side. 6. History of cerebrovascular accident. 7. Coronary artery disease. PLAN: The patient is currently comfortable. He is going to continue his home medications. He was discharged with his sister. He does have history of noncompliance. He has a long alcohol history. He also has difficulty because he is not able to communicate well. He does not allow for help at home through his family. I am concerned that he is going to most likely be readmitted to the hospital and his health will be compromised because he does not allow help to maintain his condition. Raman Ho MD [facility] # [id number]
== END 2017-06-02 10:01 | disposition home or self-care (01) | DRG 897 ==
LOC: ED 15:48 → ERH 23:28 → 2RNO 05-29 02:11 → OBSVTOIN 05-30 14:08 → 5RSO 05-31 17:40
PROVIDERS: ADMIT Internal Medicine; ATTEND Internal Medicine Nephrology
DX: F10.231 Alcohol dependence with withdrawal delirium (principal); E11.65 Type 2 diabetes mellitus with hyperglycemia; I25.110 Atherosclerotic heart disease of native coronary artery with unstable angina pectoris; I69.351 Hemiplegia and hemiparesis following cerebral infarction affecting right dominant side; J44.9 Chronic obstructive pulmonary disease, unspecified; E78.00 Pure hypercholesterolemia, unspecified; F17.200 Nicotine dependence, unspecified, uncomplicated; I69.322 Dysarthria following cerebral infarction; I25.2 Old myocardial infarction; I69.320 Aphasia following cerebral infarction; Z95.5 Presence of coronary angioplasty implant and graft

== ENCOUNTER 2017-06-07 22:33 | Emergency (ER) | payer MEDICARE, MEDICAID ==
[2017-06-07 23:04] VITALS: BP 139/68; PULSE 81; TEMP 98.1; BMI 24.3
--- NOTE | 2017-06-08 | ED PDOC ---
Arrival/HPI <Zacarias Machuca - Last Filed: 06/08/17 00:40> <Ankit Vick - Last Filed: 06/08/17 00:44> - General Chief Complaint: Upper Extremity Problem/Injury Time Seen by Provider: 06/07/17 22:56 - History of Present Illness Narrative History of Present Illness (Text): 06/07/17 23:57 This is a 57yo M well known to [facility] who is coming in s/p mechanical fall on his wrist. Patient states right wrist is hurting, and has limited ROM compared to previous even though he has residual stroke symptoms on this side. He denies all other symptoms; denies MONSIVAIS, CP, fevers/chills, SOB, abdominal pain, N/V/D, dysuria/freq/urg, or lower extremity pain/swelling. Patient has a steady gait. walks without walker. Lives alone without help; as per family at bedside the patient is at baseline the way he is talking and with physical deficits PMhx: HTN, HLD, CVA w/ residual deficits, GERD, EtOH dependence/abuse/daily drinker 06/07/17 23:58 (Ankit Vick) Past Medical History - Provider Review Nursing Documentation Reviewed: Yes - Travel History Have you recently traveled outside [place] w/in the past 3 mons?: No - Infectious Disease Hx of Infectious Diseases: None - Tetanus Immunization Tetanus Immunization: Unknown - Past Medical History Past Medical History: Unable to Obtain - Cardiac Hx Cardiac Disorders: Yes (CAD,hyperlipemia) Hx Hypertension: Yes - Pulmonary Hx Chronic Obstructive Pulmonary Disease (COPD): Yes - Neurological HX Cerebrovascular Accident: Yes (expressive aphasia) - HEENT Hx HEENT Disorder: Yes (hearing problem) - Renal Hx Renal Disorder: No - Endocrine/Metabolic Hx Diabetes Mellitus Type 2: Yes - Hematological/Oncological Hx Blood Disorders: No - Integumentary Hx Dermatological Disorder: No - Musculoskeletal/Rheumatological Hx Musculoskeletal Disorders: Yes Hx Back Pain: Yes Hx Degenerative Joint Disease: Yes Hx Falls: No Hx Herniated Disk: Yes - Gastrointestinal Hx Gastrointestinal Disorders: Yes Hx Gastroesophageal Reflux: Yes HX Swallowing Problems: Yes - Genitourinary/Gynecological Hx Genitourinary Disorders: No - Psychiatric Hx Psychophysiologic Disorder: Yes (etoh use, pschiatric hospitalizations) Hx Anxiety: Yes Hx Depression: Yes Hx Substance Use: No (unknown) - Past Surgical History Past Surgical History: No Previous - Surgical History Hx Cardiac Catheterization: Yes Hx Coronary Stent: Yes - Anesthesia Hx Anesthesia: Yes Hx Anesthesia Reactions: No Hx Malignant Hyperthermia: No - Suicidal Assessment Feels Threatened In Home Enviroment: No <Ankit Vick - Last Filed: 06/08/17 00:44> Family/Social History - Physician Review Nursing Documentation Reviewed: Yes Family/Social History: No Known Family HX Smoking Status: Unknown If Ever Smoked Hx Alcohol Use: Yes Hx Substance Use: No (unknown) Hx Substance Use Treatment: No <Ankit Vick - Last Filed: 06/08/17 00:44> Allergies/Home Meds <Zacarias Machuca - Last Filed: 06/08/17 00:40> <Ankit Vick - Last Filed: 06/08/17 00:44> Allergies/Adverse Reactions: Allergies No Known Allergies Allergy (Verified 06/07/17 23:04) Home Medications: Home Meds Medication Instructions Recorded Confirmed Insulin Human Regular [Novolin R] See Protocol [facility] 01/11/17 01/21/17 Folic Acid 1 mg PO DAILY 01/21/17 01/21/17 Lisinopril [Zestril] 20 mg PO DAILY 01/21/17 01/21/17 Pantoprazole Sodium [Protonix] 40 mg PO DAILY 01/21/17 01/21/17 SITagliptin [Januvia] 100 mg PO DAILY 01/21/17 01/21/17 Thiamine [Vitamin B1 Tab] 100 mg PO DAILY 01/21/17 01/21/17 Review of Systems - Review of Systems Constitutional: absent: Fatigue, Weight Change ENT: absent: Hearing Changes Respiratory: absent: SOB Cardiovascular: absent: Chest Pain Gastrointestinal: absent: Abdominal Pain Genitourinary Male: absent: Dysuria, Frequency Musculoskeletal: absent: Arthralgias Skin: absent: Rash Neurological: absent: Headache Endocrine: absent: Diaphoresis, Polyuria Hemo/Lymphatic: absent: Adenopathy Psychiatric: absent: Anxiety, Depression <Ankit Vick - Last Filed: 06/08/17 00:44> Physical Exam Temperature: Afebrile Blood Pressure: Normal Pulse: Regular Respiratory Rate: Normal Appearance: Positive for: Well-Appearing, Non-Toxic Mental Status: Positive for: Alert and Oriented X 3 - Systems Exam Head: Present: Atraumatic Pupils: Present: PERRL Extroacular Muscles: Present: EOMI Conjunctiva: Present: Normal Mouth: Present: Moist Mucous Membranes Neck: Present: Normal Range of Motion Respiratory/Chest: Present: Clear to Auscultation, Good Air Exchange. No: Respiratory Distress Cardiovascular: Present: Regular Rate and Rhythm. No: Murmurs Abdomen: No: Tenderness, Distention Upper Extremity: Present: Normal Inspection, Norm 2-Pt Discrimination. No: Cyanosis, Edema (patient has limited range of motion on the right from previous stroke which is documented; intact neurovascularly; decreased platen grinder strength w2hich is consitent from old records) Lower Extremity: Present: Normal Inspection. No: Edema Neurological: No: Speech Normal (slurred speech which is baseline for patient as per family ) Skin: Present: Warm Psychiatric: Present: Alert <Ankit Vick - Last Filed: 06/08/17 00:44> Vital Signs Temp Pulse Resp BP Pulse Ox 06/07/17 23:04 98.1 F 81 18 139/68 95 06/07/17 23:03 98.1 F 81 18 139/68 95 Medical Decision Making <Zacarias Machuca - Last Filed: 06/08/17 00:40> <Ankit Vick - Last Filed: 06/08/17 00:44> ED Course and Treatment: Impression: Pt seen and evaluated with medical lead. Pt, whose past medical history includes hypertension, hyperlipidemia, CVA with residual weakness, and alcohol abuse, presented to Emergency department s/p mechanical fall with right wrist injury. Denies any other complaints. Aware and agree with HPI, clinical findings , plan, and management. Plan: -- XR Right Hand -- XR Right Wrist -- Reassess and disposition (Zacarias Machuca) 06/08/17 00:00 Will order hand x-rays and wrist x-rays on the right dispo and reassess 06/08/17 00:27 No Fx seen on xray as interpreted by myself and Dr. Machuca The patient will be given a wrist splint He was told to ice the wrist, take ibuprofen over the counter for pain, and use the splint for the next 4 weeks and follow up with his PMD The patient is stable for d/c as per dr. machuca (Ankit Vick) - RAD Interpretation Radiology Orders: 06/07/17 23:56 HAND RIGHT 3 VIEWS [RAD] Stat WRIST, RIGHT 3 VIEWS [RAD] Stat - PA / [employer] / Resident Statement / has reviewed & agrees with the documentation as recorded. / has examined the patient and agrees with the treatment plan. <Zacarias Machuca - Last Filed: 06/08/17 00:40> Disposition/Present on Arrival <Zacarias Machuca - Last Filed: 06/08/17 00:40> - Present on Arrival Any Indicators Present on Arrival: No History of DVT/PE: No History of Uncontrolled Diabetes: No Urinary Catheter: No History of Decub. Ulcer: No History Surgical Site Infection Following: None - Disposition Have Diagnosis and Disposition been Completed?: Yes Disposition Time: 00:28 Patient Plan: Discharge <Ankit Vick - Last Filed: 06/08/17 00:44> - Disposition Diagnosis: Wrist sprain Disposition: HOME/ ROUTINE Condition: FAIR Discharge Instructions (ExitCare): Wrist Sprain (ED)
[2017-06-08 00:49] VITALS: RESP 16; O2SAT 98
--- NOTE | 2017-06-08 07:12 | RAD ---
PROCEDURE: Right Wrist Radiographs. HISTORY: pain COMPARISON: None. FINDINGS: BONES: A well corticated faint 1 to 2 mm ossification ulnarly projects adjacent to the triquetrum -an old osseous avulsion or ossific debris here are some considerations. A punctate juxta-articular 1 mm calcification ossification - ulnar only projects adjacent to the 5th metacarpal base. JOINTS: Mild 1st carpal metacarpal joint space narrowing minimal arthrosis here No dislocation. SOFT TISSUES: Normal. OTHER FINDINGS: None. IMPRESSION: Mild degenerative changes. Possible old osseous avulsions versus ossific debris
--- NOTE | 2017-06-08 07:14 | RAD ---
PROCEDURE: Right Hand Radiographs. HISTORY: pain COMPARISON: None. FINDINGS: BONES: A well corticated faint 1 to 2 mm ossification ulnarly projects adjacent to the triquetrum -an old osseous avulsion or ossific debris here are some considerations. A punctate juxta-articular 1 mm calcification ossification - ulnar only projects adjacent to the 5th metacarpal base. Another punctate similar ossification calcification radially at projects adjacent to the word metacarpal base-here tiny 2 mm subcortical cyst is also suggested. No larger erosions appreciated JOINTS: First carpometacarpal mild osteoarthritic changes. SOFT TISSUES: Normal. OTHER FINDINGS: None. IMPRESSION: Small extra osseous ossifications/calcifications old osseous avulsions versus ossific debris and or juxta-articular arthro pathic related calcifications are some considerations.
== END 2017-06-08 00:49 | disposition home or self-care (01) ==
LOC: ED 22:33
DX: S63.501A Unspecified sprain of right wrist, initial encounter (principal); W19.XXXA Unspecified fall, initial encounter; E78.5 Hyperlipidemia, unspecified; I10 Essential (primary) hypertension

== ENCOUNTER 2017-08-21 13:38 | Emergency (ER) | payer MEDICAID, MEDICARE ==
[2017-08-21 13:48] VITALS: BMI 22.7
[2017-08-21 13:52] VITALS: BP 136/84; PULSE 100; RESP 20; TEMP 98.8; O2SAT 99
--- NOTE | 2017-08-21 13:53 | ED PDOC ---
Arrival/HPI - General Time Seen by Provider: 08/21/17 13:45 Historian: Patient - History of Present Illness Narrative History of Present Illness (Text): 08/21/17 13:53 57 y/o male, pmh including htn/hyperlipidemia/subdural hematoma/cad/gerd/dm/ seizure, nkda, c/o rt. armpit painful lesion x 2-3 weeks. Pt. stated that it started off as small pimple, more enlarged this week and swelling, no fever or chills, no night sweat, no numbness or tinging, no difficulty moving the rt. shoulder, no rash, no other medical or psychological complaints. Past Medical History - Provider Review Nursing Documentation Reviewed: Yes - Infectious Disease Hx of Infectious Diseases: None - Tetanus Immunization Tetanus Immunization: Unknown - Past Medical History Past Medical History: Unable to Obtain - Cardiac Hx Cardiac Disorders: Yes (CAD,hyperlipemia) Hx Hypertension: Yes - Pulmonary Hx Chronic Obstructive Pulmonary Disease (COPD): Yes - Neurological HX Cerebrovascular Accident: Yes (expressive aphasia) - HEENT Hx HEENT Disorder: Yes (hearing problem) - Renal Hx Renal Disorder: No - Endocrine/Metabolic Hx Diabetes Mellitus Type 2: Yes - Hematological/Oncological Hx Blood Disorders: No - Integumentary Hx Dermatological Disorder: No - Musculoskeletal/Rheumatological Hx Musculoskeletal Disorders: Yes Hx Back Pain: Yes Hx Degenerative Joint Disease: Yes Hx Falls: No Hx Herniated Disk: Yes - Gastrointestinal Hx Gastrointestinal Disorders: Yes Hx Gastroesophageal Reflux: Yes HX Swallowing Problems: Yes - Genitourinary/Gynecological Hx Genitourinary Disorders: No - Psychiatric Hx Psychophysiologic Disorder: Yes (etoh use, pschiatric hospitalizations) Hx Anxiety: Yes Hx Depression: Yes Hx Substance Use: No (unknown) - Past Surgical History Past Surgical History: No Previous - Surgical History Hx Cardiac Catheterization: Yes Hx Coronary Stent: Yes - Anesthesia Hx Anesthesia: Yes Hx Anesthesia Reactions: No Hx Malignant Hyperthermia: No - Suicidal Assessment Feels Threatened In Home Enviroment: No Family/Social History - Physician Review Nursing Documentation Reviewed: Yes Family/Social History: Unknown Family HX Smoking Status: Unknown If Ever Smoked Hx Alcohol Use: Yes Hx Substance Use: No (unknown) Hx Substance Use Treatment: No Allergies/Home Meds Allergies/Adverse Reactions: Allergies No Known Allergies Allergy (Verified 06/07/17 23:04) Home Medications: Home Meds Medication Instructions Recorded Confirmed SITagliptin [Januvia] 100 mg PO DAILY 01/21/17 08/21/17 Review of Systems - Review of Systems Constitutional: absent: Fatigue, Fevers Eyes: absent: Vision Changes ENT: absent: Hearing Changes Respiratory: absent: SOB, Cough Cardiovascular: absent: Chest Pain Gastrointestinal: absent: Abdominal Pain, Nausea, Vomiting Skin: Rash, Skin Lesions, Abscess, Cellulitis. absent: Pruritis, Laceration, Ulcer Neurological: absent: Headache, Dizziness Physical Exam Vital Signs Reviewed: Yes Vital Signs Temp Pulse Resp BP Pulse Ox 08/21/17 13:48 98.8 F 100 H 20 136/84 99 Temperature: Afebrile Blood Pressure: Normal Pulse: Regular Respiratory Rate: Normal Appearance: Positive for: Well-Appearing, Non-Toxic, Comfortable Pain Distress: Moderate Mental Status: Positive for: Alert and Oriented X 3 - Systems Exam Head: Present: Atraumatic, Normocephalic Pupils: Present: PERRL Extroacular Muscles: Present: EOMI Conjunctiva: Present: Normal Mouth: Present: Moist Mucous Membranes Neck: Present: Normal Range of Motion Respiratory/Chest: Present: Clear to Auscultation, Good Air Exchange. No: Respiratory Distress, Accessory Muscle Use Cardiovascular: Present: Regular Rate and Rhythm, Normal S1, S2. No: Murmurs Abdomen: Present: Normal Bowel Sounds. No: Tenderness, Distention, Peritoneal Signs Back: Present: Normal Inspection Upper Extremity: Present: Normal Inspection, Other (Rt. UE: visible swelling and erythematous with palpable flutuant abscess approx. [id number] noted, no streaking or ulcers, no bullseye or target signs, FROM without limitation, sensation intact, motor 5/5, +radial pulse, capillary refill< 2 seconds, neurovascular intact. ). No: Cyanosis, Edema Lower Extremity: Present: Normal Inspection. No: Edema Neurological: Present: GCS=15, CN II-XII Intact, Speech Normal Skin: Present: Warm, Dry, Normal Color. No: Rashes Psychiatric: Present: Alert, Oriented x 3, Normal Insight, Normal Concentration Medical Decision Making ED Course and Treatment: 08/21/17 14:03 -keflex/bactrim ds/motrin 08/21/17 14:39 -sensation intact, motor 5/5, wound irrigate with normal saline 1000cc, clean with betadine, 1% lidocaine injected approx. 0.5cc, sterile procedure, #11 blade made 0.25cm incision, approx.3cc of purulant discharge noted, irrigated with saline 50cc, iodofoam packing 1/4" insected, hemostasis obtained, bacitracin and gauze dressing, sensation intact, motor 5/5. -Discharge home with keflex/bactrim ds/tylenol, keep the skin cool and dry, packing and dressing needs to be changed and check on day 2 by coming to the ER or see a general surgeon/pmd, follow up with your own pmd and general surgeon within 2 days, return to the ER for any new or worsening signs or symptoms. - PA / [employer] GUIDE / Resident Statement /DO has reviewed & agrees with the documentation as recorded. Disposition/Present on Arrival - Present on Arrival Any Indicators Present on Arrival: No History of DVT/PE: No History of Uncontrolled Diabetes: No Urinary Catheter: No History of Decub. Ulcer: No History Surgical Site Infection Following: None - Disposition Have Diagnosis and Disposition been Completed?: Yes Diagnosis: Cellulitis and abscess of unspecified site Disposition: HOME/ ROUTINE Disposition Time: 14:08 Patient Plan: Discharge Patient Problems: Current Active Problems Problem Status Onset Cellulitis and abscess of unspecified site Acute Condition: GOOD Discharge Instructions (ExitCare): Cellulitis (ED) Additional Instructions: -Discharge home with keflex/bactrim ds/tylenol, keep the skin cool and dry, packing and dressing needs to be changed and check on day 2 by coming to the ER or see a general surgeon/pmd, follow up with your own pmd and general surgeon within 2 days, return to the ER for any new or worsening signs or symptoms. Prescriptions: Acetaminophen [Tylenol 325mg tab] 2 tab PO QID PRN #32 tab PRN Reason: Other Cephalexin [Keflex] 500 mg PO QID #40 capsule Sulfamethoxazole/Trimethoprim [Bactrim Ds Tablet] 1 each PO BID #20 tablet Referrals: Ralf Montes MD [Staff Provider] - Follow up with primary [facility] [place] - Follow up with primary Forms: WORK NOTE
[2017-08-21] MEDS ORDERED: Tmp-Smz 800 mg-160 mg DS Tab PO STA (14:40)
== END 2017-08-21 14:55 | disposition home or self-care (01) ==
LOC: ED 13:38
DX: L02.411 Cutaneous abscess of right axilla (principal); L03.113 Cellulitis of right upper limb

== ENCOUNTER 2017-09-10 11:36 | Emergency (ER) | payer MEDICARE, OTHER ==
[2017-09-10 11:37] VITALS: BMI 21.4
[2017-09-10 11:49] VITALS: O2SAT 98
[2017-09-10] MEDS ORDERED: Sodium Chloride 0.9% 1,000 ML IV STA ×2 (12:05→13:17)
[2017-09-10 12:48] LABS: BASO # 0.02 K/mm3 (0.0-2.0); BASO % 0.3 % (0.0-3.0); EOS # 0.2 (0.0-0.7); EOS % 2.4 % (1.5-5.0); GRAN # 3.77 (1.4-6.5); GRAN % 59.9 % (50.0-68.0); HEMATOCRIT 42.7 % (42.0-52.0); LYMPH # 1.8 (1.2-3.4); LYMPH % 28.5 % (22.0-35.0); MEAN CELL VOLUME 85.4 fl (80.0-105.0); MEAN CORPUSCULAR HEMOGLOBIN 31.2 pg (25.0-35.0); MEAN CORPUSCULAR HGB CONC 36.5 g/dl (31.0-37.0); MEAN PLATELET VOLUME 11.8 fl (7.0-11.0); MONO # 0.6 (0.1-0.6); MONO % 8.9 % (1.0-6.0); RED CELL DISTRIBUTION WIDTH 12.1 % (11.5-14.5); WHITE BLOOD COUNT 6.3 10^3/ul (4.5-11.0)
[2017-09-10 12:52] LABS: ALB/GLOB RATIO 1.6 (1.1-1.8); ALKALINE PHOSPHATASE 80 U/L (38-126); ALT/SGPT 41 U/L (7-56); AST/SGOT 36 U/L (17-59); BILIRUBIN,TOTAL 1.1 mg/dL (0.2-1.3); BLOOD UREA NITROGEN 29 mg/dL (7-21); CALCIUM 9.8 mg/dL (8.4-10.5); CARBON DIOXIDE 21 mmol/L (21-33); CHLORIDE 95 mmol/L (98-107); GFR AFRICAN-AMERICAN > 60; LIPASE 112 U/L (23-300); POTASSIUM 4.2 mmol/L (3.6-5.0); SODIUM 130 mmol/L (132-148)
[2017-09-10 12:53] LABS: INR 0.96 (0.93-1.08)
[2017-09-10 12:54] LABS: PARTIAL THROMBOPLASTIN TIME 23.1 Seconds (25.1-36.5)
[2017-09-10 12:57] LABS: GLUCOSE,RANDOM 580 mg/dL (70-110)
[2017-09-10 13:04] LABS: TROPONIN I 0.02 ng/mL
[2017-09-10] MEDS ORDERED: Insulin Reg-LOW-Coverage IV STA ×2 (13:17→13:40)
[2017-09-10] MEDS ORDERED: Insulin Regular 1 UNITS/0.01 ML ML ONE (13:45)
[2017-09-10 13:46] LABS: VENOUS BLOOD GAS BASE EXCESS 1.9 mmol/L (0.0-2.0); VENOUS BLOOD PH 7.42 (7.32-7.43)
--- NOTE | 2017-09-10 13:51 | RAD ---
HISTORY: feelig weak COMPARISON: Chest radiograph 09/05/2017. FINDINGS: LUNGS: No active pulmonary disease. PLEURA: No significant pleural effusion identified, no pneumothorax apparent. CARDIOVASCULAR: Normal. OSSEOUS STRUCTURES: No significant abnormalities. VISUALIZED UPPER ABDOMEN: Normal. OTHER FINDINGS: None. IMPRESSION: No interval acute cardiopulmonary disease appreciated.
--- NOTE | 2017-09-10 14:09 | ED PDOC ---
Arrival/HPI - General Chief Complaint: High Blood Pressure Time Seen by Provider: 09/10/17 11:48 Historian: Patient - History of Present Illness Narrative History of Present Illness (Text): 09/10/17 17:01 57 y/o male w/ pmhx of niddm, htn, cva w/ expressive aphasia chronic intermittent alcoholism presents noncompliant on all his rx > 2 months presents c/o > 2 weeks of polyuria/polydipsia/weakness but denying poresyncopal collapse , chest pain/ recent uri like symptoms other than chronic smoker's cough/dysuria /.fevers/chills. Pt presented today as he was feeling especially weak denying recent drinking, desires refill of his rx. 09/10/17 17:05 Past Medical History - Provider Review Nursing Documentation Reviewed: Yes - Travel History Have you recently traveled outside [place] w/in the past 3 mons?: Yes - Infectious Disease Hx of Infectious Diseases: None - Tetanus Immunization Tetanus Immunization: Unknown - Past Medical History Past Medical History: Unable to Obtain - Cardiac Hx Cardiac Disorders: Yes (CAD,hyperlipemia) Hx Hypertension: Yes - Pulmonary Hx Respiratory Disorders: Yes Hx Chronic Obstructive Pulmonary Disease (COPD): Yes - Neurological Hx Neurological Disorder: Yes HX Cerebrovascular Accident: Yes (expressive aphasia) - HEENT Hx HEENT Disorder: Yes (hearing problem) - Renal Hx Renal Disorder: No - Endocrine/Metabolic Hx Endocrine Disorders: Yes Hx Diabetes Mellitus Type 2: Yes - Hematological/Oncological Hx Blood Disorders: No - Integumentary Hx Dermatological Disorder: No - Musculoskeletal/Rheumatological Hx Musculoskeletal Disorders: Yes Hx Back Pain: Yes Hx Degenerative Joint Disease: Yes Hx Falls: No Hx Herniated Disk: Yes - Gastrointestinal Hx Gastrointestinal Disorders: Yes Hx Gastroesophageal Reflux: Yes HX Swallowing Problems: Yes - Genitourinary/Gynecological Hx Genitourinary Disorders: No - Psychiatric Hx Psychophysiologic Disorder: Yes (etoh use, pschiatric hospitalizations) Hx Anxiety: Yes Hx Depression: Yes Hx Substance Use: No (unknown) - Past Surgical History Past Surgical History: No Previous - Surgical History Hx Cardiac Catheterization: Yes Hx Coronary Stent: Yes - Anesthesia Hx Anesthesia: Yes Hx Anesthesia Reactions: No Hx Malignant Hyperthermia: No - Suicidal Assessment Feels Threatened In Home Enviroment: No Family/Social History - Physician Review Nursing Documentation Reviewed: Yes Family/Social History: No Known Family HX Smoking Status: Heavy Smoker > 10 Cigarettes Daily Hx Alcohol Use: Yes Hx Substance Use: No (unknown) Hx Substance Use Treatment: No Allergies/Home Meds Allergies/Adverse Reactions: Allergies No Known Allergies Allergy (Verified 09/05/17 02:41) Review of Systems - Physician Review All systems were reviewed & negative as marked: Yes - Review of Systems Constitutional: Fatigue Eyes: Normal ENT: Normal Respiratory: Normal Cardiovascular: Normal Gastrointestinal: Normal Genitourinary Male: Normal Musculoskeletal: Normal Skin: Normal Neurological: Normal Endocrine: Normal Hemo/Lymphatic: Normal Psychiatric: Normal Physical Exam Vital Signs Reviewed: Yes Vital Signs Temp Pulse Resp BP Pulse Ox 09/10/17 17:00 76 17 154/109 H 98 09/10/17 15:27 98.7 F 72 18 128/84 98 09/10/17 13:37 93 H 17 165/107 H 98 09/10/17 12:48 82 142/90 09/10/17 11:45 98 F 92 H 18 200/118 H 98 09/10/17 11:37 97.8 F 96 H 17 98 Temperature: Afebrile Blood Pressure: Normal Pulse: Regular Respiratory Rate: Normal Appearance: Positive for: Well-Appearing, Non-Toxic, Comfortable Pain Distress: None Mental Status: Positive for: Alert and Oriented X 3 Finger Stick Blood Glucose: 471 - Systems Exam Head: Present: Atraumatic, Normocephalic Pupils: Present: PERRL Extroacular Muscles: Present: EOMI Conjunctiva: Present: Normal Mouth: Present: Moist Mucous Membranes Neck: Present: Normal Range of Motion Respiratory/Chest: Present: Clear to Auscultation, Good Air Exchange. No: Respiratory Distress, Accessory Muscle Use Cardiovascular: Present: Regular Rate and Rhythm, Normal S1, S2. No: Murmurs Abdomen: Present: Normal Bowel Sounds. No: Tenderness, Distention, Peritoneal Signs Back: Present: Normal Inspection Upper Extremity: Present: Normal Inspection. No: Cyanosis, Edema Lower Extremity: Present: Normal Inspection. No: Edema Neurological: Present: GCS=15, CN II-XII Intact, Speech Normal Skin: Present: Warm, Dry, Normal Color. No: Rashes Psychiatric: Present: Alert, Oriented x 3, Normal Insight, Normal Concentration Medical Decision Making ED Course and Treatment: 09/10/17 12:05 Impression: 57 year old male with high blood pressure and weakness. Plan: -- Chest X-ray -- Labs -- Apresoline -- IV Fluids -- Urinalysis -- Urine Culture -- Venous Blood Gas -- Reassess and disposition Prior Visits: Notes and results from previous visits were reviewed. Patient was last seen here on 09/05/2017 for bilateral foot pain. Patient was admitted and diagnosed with diabetic neuropathy. Progress Notes: 09/10/2017 13:49 Chest X-ray IMPRESSION: No interval acute cardiopulmonary disease appreciated. Dictator: Surinder Santos MD 09/10/17 17:37 pt educated as to the importance of medication compliance and pmd f/u. His workup here is significant for a diagnosis of nonketotic hyperosmolar hyperglycemic state which has been resolved with ivp insulin and ivf. - Lab Interpretations Lab Results: 09/10/17 12:30 09/10/17 12:30 Lab Results 09/10/17 17:33: POC Glucose (mg/dL) 325 H 09/10/17 16:55: POC Glucose (mg/dL) 264 H 09/10/17 15:26: POC Glucose (mg/dL) 230 H 09/10/17 13:16: POC Glucose (mg/dL) 471 H* 09/10/17 13:00: Urine Color Light yellow, Urine Appearance Clear, Urine pH 6.0, Ur Specific [place] 1.010, Urine Protein Trace H, Urine Glucose (UA) >=1000, Urine Ketones Negative, Urine Blood Small H, Urine Nitrate Negative, Urine Bilirubin Negative, Urine Urobilinogen 0.2, Ur Leukocyte Esterase Negative, Urine RBC 0 - 2, Urine WBC Negative, Urine Bacteria Trace 09/10/17 13:00: pO2 57 H, VBG pH 7.42, VBG pCO2 41.0, VBG HCO3 26.6, VBG O2 Sat (Calc) 93.5 H, VBG Base Excess 1.9 09/10/17 12:30: Sodium 130 L, Potassium 4.2, Chloride 95 L, Carbon Dioxide 21, Anion Gap 18, BUN 29 H, Creatinine 1.2, Est GFR ( Amer) > 60, Est GFR ( Non-Af Amer) > 60, Random Glucose 580 H* D, Calcium 9.8, Total Bilirubin 1.1, AST 36, ALT 41, Alkaline Phosphatase 80, Troponin I 0.02 D, Total Protein 7.0, Albumin 4.2, Globulin 2.7, Albumin/Globulin Ratio 1.6, Lipase 112 09/10/17 12:30: PT 10.5, INR 0.96, APTT 23.1 L 09/10/17 12:30: WBC 6.3, RBC 5.00, Hgb 15.6, Hct 42.7, MCV 85.4, MCH 31.2, MCHC 36.5, RDW 12.1, Plt Count 147, MPV 11.8 H, Gran % 59.9, Lymph % (Auto) 28.5, Grant % (Auto) 8.9 H, Eos % (Auto) 2.4, Baso % (Auto) 0.3, Gran # 3.77, Lymph # 1.8, Grant # 0.6, Eos # 0.2, Baso # 0.02 09/10/17 11:53: POC Glucose (mg/dL) 422 H* I have reviewed the lab results: Yes - RAD Interpretation Radiology Orders: 09/10/17 12:04 CHEST PORTABLE [RAD] Stat - Medication Orders Current Medication Orders: Discontinued Medications Hydralazine HCl (Apresoline) 20 mg IVP ONCE ONE Stop: 09/10/17 12:06 Last Admin: 09/10/17 12:48 Dose: Not Given Non-Admin Reason: BP Parameters Not Met IVP Administration Document 09/10/17 12:48 AB (Rec: 09/10/17 12:48 [id number] Charges for Administration # of IVP Administrations 0 MAR Pulse and Blood Pressure Document 09/10/17 12:48 AB (Rec: 09/10/17 12:48 [id number]) Pulse Pulse Rate (60-90 beats/min) 82 Blood Pressure Blood Pressure (100/60-150/90 mm Hg) 142/90 Sodium Chloride (Sodium Chloride 0.9%) 1,000 mls @ 999 mls/hr IV .Q1H1M STA Stop: 09/10/17 13:05 Last Admin: 09/10/17 12:39 Dose: 999 mls/hr eMAR Start Stop Document 09/10/17 12:39 AB (Rec: 09/10/17 12:39 [id number]) Intravenous Solution Start Date 09/10/17 Start Time 12:39 End Date 09/10/17 End time 13:39 Total Infusion Time 60 Sodium Chloride (Sodium Chloride 0.9%) 1,000 mls @ 999 mls/hr IV .Q1H1M STA Stop: 09/10/17 14:17 Last Admin: 09/10/17 15:54 Dose: 999 mls/hr eMAR Start Stop Document 09/10/17 15:54 AB (Rec: 09/10/17 15:54 AB [id number]) Intravenous Solution Start Date 09/10/17 Start Time 15:54 End Date 09/10/17 End time 16:54 Total Infusion Time 60 Insulin Human Regular (Humulin R Low) 7 units IV STAT STA PRN Reason: Protocol Stop: 09/10/17 13:18 Last Admin: 09/10/17 13:47 Dose: 7 units eMAR Start Stop Document 09/10/17 13:47 AB (Rec: 09/10/17 13:47 AB [id number]) Intravenous Solution Start Date 09/10/17 Start Time 13:47 MAR Blood Glucose Document 09/10/17 13:47 AB (Rec: 09/10/17 13:47 AB [id number]) Blood Glucose Finger Stick Blood Glucose (70-120) 471 Disposition/Present on Arrival - Present on Arrival Any Indicators Present on Arrival: No History of DVT/PE: No History of Uncontrolled Diabetes: No Urinary Catheter: No History of Decub. Ulcer: No History Surgical Site Infection Following: None - Disposition Have Diagnosis and Disposition been Completed?: Yes Diagnosis: Hyperglycemia, Noncompliance Disposition: HOME/ ROUTINE Disposition Time: 17:48 Patient Plan: Discharge Patient Problems: Current Active Problems Problem Status Onset Hyperglycemia Acute Condition: GOOD Discharge Instructions (ExitCare): Hyperosmolar Hyperglycemic State (ED) Print Language: SPANISH Prescriptions: amLODIPine [Norvasc] 10 mg PO DAILY 30 Days #30 tab Atorvastatin [Lipitor] 40 mg PO DAILY 30 Days #30 tab Divalproex [Depakote DR (*BID*)] 250 mg PO BID #60 ect Folic Acid 1 mg PO DAILY 30 Days #30 tab GlipiZIDE [Glucotrol] 10 mg PO BID #60 tab Lisinopril [Prinivil] 20 mg PO DAILY 30 Days #30 tablet Metoprolol Tartrate 25 mg PO BID 60 Days #60 tablet Omeprazole 40 mg PO DAILY 30 Days #30 capsule. SITagliptin [Januvia] 100 mg PO DAILY 30 Days #30 tab Referrals: PCP,NO [Primary Care Provider] - Follow up with primary Alexis Tolentino DO [Staff Provider] - Follow up with primary Forms: [employer] (Lithuanian)
[2017-09-10 15:28] VITALS: TEMP 98.7
[2017-09-10 16:07] LABS: URINE APPEARANCE CLEAR (CLEAR); URINE BILIRUBIN NEGATIVE (NEGATIVE); URINE BLOOD SMALL (NEGATIVE); URINE COLOR LIGHT YELLOW (YELLOW); URINE GLUCOSE (UA) >=1000 mg/dL (NEGATIVE); URINE KETONE NEGATIVE (NEGATIVE); URINE LEUKOCYTE ESTERASE NEGATIVE Leu/uL (NEGATIVE); URINE PROTEIN TRACE mg/dL (<30 mg/dL); URINE UROBILINOGEN 0.2 E.U./dL (<1 E.U./dL)
[2017-09-10 16:14] LABS: URINE BACTERIA TRACE (NEG); URINE RBC 0 - 2 /hpf (0-2); URINE WBC NEGATIVE /hpf (0-6)
[2017-09-10 17:34] VITALS: BP 154/109; PULSE 76; RESP 17
== END 2017-09-10 18:34 | disposition home or self-care (01) ==
LOC: ED 11:36
DX: E11.65 Type 2 diabetes mellitus with hyperglycemia (principal); E78.5 Hyperlipidemia, unspecified; F17.210 Nicotine dependence, cigarettes, uncomplicated; I25.10 Atherosclerotic heart disease of native coronary artery without angina pectoris; J44.9 Chronic obstructive pulmonary disease, unspecified; Z91.19 Patient's noncompliance with other medical treatment and regimen
CPT/HCPCS: 71010; 80053; 81001; 82803; 82948; 83690; 84484; 85025; 85610; 85730; 87086; 96361; 96374; 99285; J7040

== ENCOUNTER 2017-11-22 08:12 | Emergency (ER) | payer MEDICARE, OTHER ==
[2017-11-22 08:13] VITALS: BMI 21.4
[2017-11-22 08:45] VITALS: BP 191/123; PULSE 98; RESP 17; TEMP 97.8; O2SAT 98
--- NOTE | 2017-11-22 08:46 | ED PDOC ---
Arrival/HPI - General Chief Complaint: GI Problem Time Seen by Provider: 11/22/17 08:23 Historian: Patient - History of Present Illness Narrative History of Present Illness (Text): 11/22/17 08:55 A 57 year old male, whose past medical history includes NIDDM, hypertension, CVA with expressive aphasia, and chronic intermittent alcoholism, presents to the emergency department complaining of issue with buttock area. Patient unable to communicate well. He is able to answer to yes or no to questions. Patient has denied any specific questions that have been asked. Denies of any bloody rectal, pus, pain, testicular pain, abdominal pain, back pain, or any other complaints. Limited HPI and ROS due to aphasia. No PMD Past Medical History - Provider Review Nursing Documentation Reviewed: Yes - Infectious Disease Hx of Infectious Diseases: None - Tetanus Immunization Tetanus Immunization: Unknown - Past Medical History Past Medical History: Unable to Obtain - Cardiac Hx Cardiac Disorders: Yes (CAD,hyperlipemia) Hx Hypertension: Yes - Pulmonary Hx Respiratory Disorders: Yes Hx Chronic Obstructive Pulmonary Disease (COPD): Yes - Neurological Hx Neurological Disorder: Yes HX Cerebrovascular Accident: Yes (expressive aphasia) - HEENT Hx HEENT Disorder: Yes (hearing problem) - Renal Hx Renal Disorder: No - Endocrine/Metabolic Hx Endocrine Disorders: Yes Hx Diabetes Mellitus Type 2: Yes - Hematological/Oncological Hx Blood Disorders: No - Integumentary Hx Dermatological Disorder: No - Musculoskeletal/Rheumatological Hx Musculoskeletal Disorders: Yes Hx Back Pain: Yes Hx Degenerative Joint Disease: Yes Hx Herniated Disk: Yes - Gastrointestinal Hx Gastrointestinal Disorders: Yes Hx Gastroesophageal Reflux: Yes HX Swallowing Problems: Yes - Genitourinary/Gynecological Hx Genitourinary Disorders: No - Psychiatric Hx Psychophysiologic Disorder: Yes (etoh use, pschiatric hospitalizations) Hx Anxiety: Yes Hx Depression: Yes Hx Substance Use: No (unknown) - Past Surgical History Past Surgical History: No Previous - Surgical History Hx Cardiac Catheterization: Yes Hx Coronary Stent: Yes - Anesthesia Hx Anesthesia: Yes Hx Anesthesia Reactions: No Hx Malignant Hyperthermia: No - Suicidal Assessment Feels Threatened In Home Enviroment: No Family/Social History - Physician Review Nursing Documentation Reviewed: Yes Family/Social History: No Known Family HX Smoking Status: Heavy Smoker > 10 Cigarettes Daily Hx Alcohol Use: No Hx Substance Use: No (unknown) Hx Substance Use Treatment: No Allergies/Home Meds Allergies/Adverse Reactions: Allergies No Known Allergies Allergy (Verified 11/22/17 08:34) Home Medications: Home Meds Medication Instructions Recorded Confirmed No Known Home Med 11/22/17 11/22/17 Review of Systems - Review of Systems Systems not reviewed;Unavailable: Other (aphasia) Physical Exam Vital Signs Reviewed: Yes Vital Signs Temp Pulse Resp BP Pulse Ox 11/22/17 08:32 97.8 F 98 H 17 191/123 H 98 Temperature: Afebrile Blood Pressure: Hypertensive Pulse: Regular Respiratory Rate: Normal Appearance: Positive for: Well-Appearing Pain Distress: None Mental Status: Positive for: Alert and Oriented X 3 - Systems Exam Head: Present: Atraumatic, Normocephalic Pupils: Present: PERRL Extroacular Muscles: Present: EOMI Conjunctiva: Present: Normal Mouth: Present: Moist Mucous Membranes Neck: Present: Normal Range of Motion Respiratory/Chest: Present: Clear to Auscultation, Good Air Exchange. No: Respiratory Distress, Accessory Muscle Use Cardiovascular: Present: Regular Rate and Rhythm, Normal S1, S2. No: Murmurs Abdomen: Present: Normal Bowel Sounds. No: Tenderness, Distention, Peritoneal Signs Back: Present: Normal Inspection Upper Extremity: Present: Normal Inspection. No: Cyanosis, Edema Lower Extremity: Present: Normal Inspection. No: Edema Neurological: Present: GCS=15, CN II-XII Intact, Speech Normal Skin: Present: Warm, Dry, Normal Color. No: Rashes Psychiatric: Present: Alert, Oriented x 3, Normal Insight, Normal Concentration Medical Decision Making ED Course and Treatment: 11/22/17 09:00 Impression: 57 year old male with buttock issue. No acute findings on physical examination. Differential Diagnosis included but are not limited to: Patient states having buttock issue. Plan: 11/22/2017 09:02 I tried several methods of communication including talking, writing, pointing at letters to write, pictures, and talking to both signs of visual windows. He says he can understand me when asked. He says "Yes" when asked if he understands my questions. He says Yes or No clearly when asking questions. Case discussed with Dr. Truong, neurologist, who agreed to methods of communication as documented. 11/22/2017 09:05 Upon reevaluation, I was informed by registration that he decided to walk out and stated he'll take care of it. I was unable to locate him in the ED or waiting room. Prior Visits: Notes and results from previous visits were reviewed. Patient was last seen in the emergency department on 09/10/2017 for polyuria/polydipsia/weakness. Patient was discharged home. 11/22/17 10:37 Discharge diagnosis is labled as buttocks pain because there is no other diagnosis for me to place that is similar to his presumed complaint. He denied any pain. - Scribe Statement The provider has reviewed the documentation as recorded by the Lily Dominguez Provider Scribe Attestation: All medical record entries made by the Lily were at my direction and personally dictated by me. I have reviewed the chart and agree that the record accurately reflects my personal performance of the history, physical exam, medical decision making, and the department course for this patient. I have also personally directed, reviewed, and agree with the discharge instructions and disposition. Disposition/Present on Arrival - Present on Arrival Any Indicators Present on Arrival: No History of DVT/PE: No History of Uncontrolled Diabetes: No Urinary Catheter: No History of Decub. Ulcer: No History Surgical Site Infection Following: None - Disposition Have Diagnosis and Disposition been Completed?: Yes Diagnosis: Buttock pain Disposition: ELOPEMENT - ER ONLY Disposition Time: 09:25 Condition: GOOD Forms: [facility] (Senegalese)
== END 2017-11-22 09:26 | disposition left against medical advice (07) ==
LOC: ED 08:12
DX: K62.89 Other specified diseases of anus and rectum (principal); E11.9 Type 2 diabetes mellitus without complications; E78.5 Hyperlipidemia, unspecified; I25.10 Atherosclerotic heart disease of native coronary artery without angina pectoris; I10 Essential (primary) hypertension; F17.210 Nicotine dependence, cigarettes, uncomplicated

== ENCOUNTER 2017-12-06 10:00 | Emergency (ER) | payer MEDICARE ==
[2017-12-06 10:59] VITALS: BMI 23.4
== END 2017-12-06 11:23 | disposition left against medical advice (07) ==
LOC: ED 10:23
DX: Z02.89 Encounter for other administrative examinations (principal); R73.9 Hyperglycemia, unspecified

== ENCOUNTER 2017-12-12 11:04 | Emergency (ER) | payer MEDICARE ==
[2017-12-12 11:17] VITALS: BMI 21.5
[2017-12-12 11:26] VITALS: BP 152/86; PULSE 92; RESP 19; TEMP 98.1; O2SAT 97
--- NOTE | 2017-12-12 12:00 | ED PDOC ---
Arrival/HPI - General Chief Complaint: Male Genitourinary Time Seen by Provider: 12/12/17 11:31 Historian: Patient - History of Present Illness Narrative History of Present Illness (Text): 12/12/17 11:31 Warren Cesar is a 57 year old male, whose past medical history includes NIDDM, hypertension, CVA with expressive aphasia, and chronic intermittent alcoholism, who presents to the emergency department complaining of a leaking coelho catheter today. Patient denies any seizures, penile pain, testicular pain , rectal pain, or any other complaints at this time. History obtained with yes or no answer and short word sentences. He is not able to communicate with writing or any other methods secondary to his CVA. PMD: Dr. Tolentino Time/Duration: 1-3 hours Symptom Course: Unchanged Activities at Onset: Rest Context: Home Past Medical History - Provider Review Nursing Documentation Reviewed: Yes - Infectious Disease Hx of Infectious Diseases: None - Tetanus Immunization Tetanus Immunization: Unknown - Past Medical History Past Medical History: Unable to Obtain - Cardiac Hx Pacemaker: No - Pulmonary Hx Respiratory Disorders: Yes Hx Chronic Obstructive Pulmonary Disease (COPD): Yes - Neurological Hx Paralysis: No Hx Seizures: Yes Other/Comment: traumatic brain injury - HEENT Hx HEENT Disorder: Yes (hearing problem) - Renal Hx Renal Disorder: No - Endocrine/Metabolic Hx Endocrine Disorders: Yes Hx Diabetes Mellitus Type 2: Yes - Hematological/Oncological Hx Blood Transfusions: No Hx Blood Transfusion Reaction: No - Integumentary Hx Dermatological Disorder: No - Musculoskeletal/Rheumatological Hx Musculoskeletal Disorders: Yes - Gastrointestinal Hx Gastrointestinal Disorders: Yes Hx Gastroesophageal Reflux: Yes HX Swallowing Problems: Yes - Genitourinary/Gynecological Hx Genitourinary Disorders: No - Psychiatric Hx Psychophysiologic Disorder: Yes (etoh use, pschiatric hospitalizations) Hx Anxiety: Yes Hx Depression: Yes Hx Substance Use: No (unknown) - Past Surgical History Past Surgical History: No Previous - Surgical History Hx Cardiac Catheterization: Yes Hx Coronary Stent: Yes - Anesthesia Hx Anesthesia Reactions: No Hx Malignant Hyperthermia: No - Suicidal Assessment Feels Threatened In Home Enviroment: No Family/Social History - Physician Review Nursing Documentation Reviewed: Yes Family/Social History: No Known Family HX Smoking Status: Heavy Smoker > 10 Cigarettes Daily Hx Alcohol Use: No Hx Substance Use: No (unknown) Hx Substance Use Treatment: No Allergies/Home Meds Allergies/Adverse Reactions: Allergies No Known Allergies Allergy (Verified 12/12/17 11:22) Home Medications: Home Meds Medication Instructions Recorded Confirmed Atorvastatin [Lipitor] 40 mg PO DAILY 12/06/17 12/06/17 Divalproex [Depakote ER] 250 mg PO BID 12/06/17 12/06/17 Esomeprazole Magnesium [Nexium] 40 mg PO DAILY 12/06/17 12/06/17 Folic Acid 1 mg PO DAILY 12/06/17 12/06/17 Lisinopril [Zestril] 20 mg PO DAILY 12/06/17 12/06/17 Metoprolol Tartrate [Lopressor] 25 mg PO BID 12/06/17 12/06/17 SITagliptin [Januvia] 100 mg PO DAILY 12/06/17 12/06/17 Tamsulosin [Flomax] 0.4 mg PO BID 12/06/17 12/06/17 amLODIPine [Norvasc] 10 mg PO DAILY 12/06/17 12/06/17 Review of Systems - Physician Review All systems were reviewed & negative as marked: Yes - Review of Systems Constitutional: absent: Fevers, Night Sweats Eyes: absent: Vision Changes ENT: absent: Hearing Changes Respiratory: absent: SOB, Cough Cardiovascular: absent: Chest Pain Gastrointestinal: absent: Abdominal Pain Genitourinary Male: absent: Dysuria, Frequency Musculoskeletal: absent: Arthralgias Skin: absent: Rash, Pruritis Neurological: absent: Headache Endocrine: absent: Diaphoresis Hemo/Lymphatic: absent: Adenopathy Psychiatric: absent: Anxiety, Depression Physical Exam Vital Signs Reviewed: Yes Vital Signs Temp Pulse Resp BP Pulse Ox 12/12/17 11:24 98.1 F 92 H 19 152/86 H 97 Temperature: Afebrile Blood Pressure: Hypertensive Pulse: Regular Appearance: Positive for: Well-Appearing, Comfortable Pain Distress: None Mental Status: Positive for: Alert and Oriented X 3, other (Aphasic) - Systems Exam Head: Present: Atraumatic, Normocephalic Pupils: Present: PERRL Extroacular Muscles: Present: EOMI Conjunctiva: Present: Normal Mouth: Present: Moist Mucous Membranes Neck: Present: Normal Range of Motion Respiratory/Chest: Present: Clear to Auscultation, Good Air Exchange. No: Respiratory Distress, Accessory Muscle Use Cardiovascular: Present: Regular Rate and Rhythm, Normal S1, S2. No: Murmurs Abdomen: Present: Normal Bowel Sounds. No: Tenderness, Distention, Peritoneal Signs Genitourinary Male: Present: Normal External Genitalia, Other (Leaking coelho catheter; no blood at the meatus). No: Penile Discharge, Testicle Tenderness, Penile Swelling, Erythema, Testicle Swelling Back: Present: Normal Inspection Upper Extremity: Present: Normal Inspection, NORMAL PULSES. No: Cyanosis, Edema Lower Extremity: Present: Normal Inspection, NORMAL PULSES. No: Edema Neurological: Present: GCS=15, CN II-XII Intact, Normal Sensory Function, Other (Aphasic). No: Motor Func Grossly Intact (right arm weakness) Skin: Present: Warm, Dry, Normal Color. No: Rashes Psychiatric: Present: Alert, Oriented x 3 Medical Decision Making ED Course and Treatment: 12/12/17 11:31 Impression: 57 year old male, whose past medical history includes CVA, aphasia, and right sided weakness, who presents to the emergency department complaining of a leaking coelho catheter today. Plan: -- Urinary catheter insertion -- Reassess and disposition Prior Visits: Notes and results from previous visits were reviewed. Patient was last seen in the emergency department on 11/22/17 for an issue with buttock area. Patient eloped from the emergency department. Progress Notes: 12/12/17 11:35 Patient confirms that he can follow up with his PMD and urologist. 12/12/17 12:09 Dr. Tolentino in emergency department and came to see patient. Agrees with plan to replace coelho catheter and for patient to follow up with him and with urologist. - Scribe Statement The provider has reviewed the documentation as recorded by the Lily Mansfield Provider Scribe Attestation: All medical record entries made by the Lily were at my direction and personally dictated by me. I have reviewed the chart and agree that the record accurately reflects my personal performance of the history, physical exam, medical decision making, and the department course for this patient. I have also personally directed, reviewed, and agree with the discharge instructions and disposition. Disposition/Present on Arrival - Present on Arrival Any Indicators Present on Arrival: Yes History of DVT/PE: No History of Uncontrolled Diabetes: No Urinary Catheter: Yes History of Decub. Ulcer: No History Surgical Site Infection Following: None - Disposition Have Diagnosis and Disposition been Completed?: Yes Diagnosis: Urinary catheter (Coelho) change required Disposition: HOME/ ROUTINE Disposition Time: 12:09 Patient Plan: Discharge Condition: IMPROVED Discharge Instructions (ExitCare): Coelho Catheter Placement and Care (ED) Additional Instructions: Mr Cesar, thank you for letting us take care of you today. Your provider was Dr. Puri. You were treated for Coelho Change. The emergency medical care you received today was directed at your acute symptoms. If you were prescribed any medication, please fill it and take as directed. It may take several days for your symptoms to resolve. Return to the Emergency Department if your symptoms worsen, do not improve, or if you have any other problems. Please contact your doctor or call one of the physicians/clinics you have been referred to that are listed on the Patient Visit Information form that is included in your discharge packet. Bring any paperwork you were given at discharge with you along with any medications you are taking to your follow up visit. Our treatment cannot replace ongoing medical care by a primary care provider (PCP) outside of the emergency department. Thank you for allowing the [facility] team to be part of your care today. If you had an X-Ray or CT scan: A Radiologist will review the ED reading if any change in treatment is needed we will contact you. If you had a blood, urine, or wound culture: It will take several days for the results, if any change in treatment is needed we will contact you. If you had an STI test: It will take 48 hours for the results. Please call after 1 week if you have not heard back. Referrals: Alexis Tolentino DO [Staff Provider] - Follow up with primary Forms: [employer] (Stateless)
== END 2017-12-12 13:10 | disposition home or self-care (01) ==
LOC: ED 11:04
DX: Z46.6 Encounter for fitting and adjustment of urinary device (principal)

== ENCOUNTER 2017-12-31 22:38 | Emergency (ER) | payer MEDICARE ==
[2017-12-31 22:39] VITALS: BMI 21.5
[2017-12-31 22:57] VITALS: TEMP 98.2
[2018-01-01 01:43] LABS: ALB/GLOB RATIO 1.4 (1.1-1.8); ALBUMIN 4.1 g/dL (3.0-4.8); ALT/SGPT 22 U/L (7-56); AST/SGOT 24 U/L (17-59); BLOOD UREA NITROGEN 23 mg/dL (7-21); CALCIUM 10.1 mg/dL (8.4-10.5); GFR AFRICAN-AMERICAN > 60; GFR NON-AFRICAN AMERICAN 52
[2018-01-01 02:59] LABS: HEMOGLOBIN 15.4 g/dL (14.0-18.0); MEAN CELL VOLUME 87.6 fl (80.0-105.0); MEAN CORPUSCULAR HEMOGLOBIN 30.9 pg (25.0-35.0); MEAN CORPUSCULAR HGB CONC 35.2 g/dl (31.0-37.0); MEAN PLATELET VOLUME 11.7 fl (7.0-11.0); RBC 4.99 10^6/uL (3.5-6.1); RED CELL DISTRIBUTION WIDTH 13.3 % (11.5-14.5); WHITE BLOOD COUNT 8.8 10^3/ul (4.5-11.0)
--- NOTE | 2018-01-01 04:29 | ED PDOC ---
Arrival/HPI - General Chief Complaint: Medical Clearance Time Seen by Provider: 12/31/17 22:50 Historian: Patient EM Caveat: Other (aphasia and aggressive behavior. ) - History of Present Illness Narrative History of Present Illness (Text): 12/31/17 23:00 57 year old male, whose past medical history includes CAD, [place], diabetes, hypertension, CVA with chronic residual aphasia, and EtOH abuse, presents to the emergency department complaining of possible Coelho catheter malfunction. Patient prior to arrival to emergency department came in agitated attempting to pull out his Coelho catheter. He was yelling and fighting with ER staff. Patient was restrained by staff for his own protection. Patient was unable to explain what was troubling him given his degree of aphasia and aggressive behavior.Pt. appears intoxicated with AOB. Past Medical History - Provider Review Nursing Documentation Reviewed: Yes - Infectious Disease Hx of Infectious Diseases: None - Tetanus Immunization Tetanus Immunization: Unknown - Past Medical History Past Medical History: Unable to Obtain - Cardiac Hx Pacemaker: No - Pulmonary Hx Respiratory Disorders: Yes Hx Chronic Obstructive Pulmonary Disease (COPD): Yes - Neurological HX Cerebrovascular Accident: Yes Hx Paralysis: No Hx Seizures: Yes Other/Comment: traumatic brain injury - HEENT Hx HEENT Disorder: Yes (hearing problem) - Renal Hx Renal Disorder: No - Endocrine/Metabolic Hx Endocrine Disorders: Yes Hx Diabetes Mellitus Type 2: Yes - Hematological/Oncological Hx Blood Transfusions: No Hx Blood Transfusion Reaction: No - Integumentary Hx Dermatological Disorder: No - Musculoskeletal/Rheumatological Hx Musculoskeletal Disorders: Yes - Gastrointestinal Hx Gastrointestinal Disorders: Yes Hx Gastroesophageal Reflux: Yes HX Swallowing Problems: Yes - Genitourinary/Gynecological Hx Genitourinary Disorders: No - Psychiatric Hx Psychophysiologic Disorder: Yes (etoh use, pschiatric hospitalizations) Hx Anxiety: Yes Hx Depression: Yes Hx Substance Use: No (unknown) - Past Surgical History Past Surgical History: No Previous - Surgical History Hx Cardiac Catheterization: Yes Hx Coronary Stent: Yes - Anesthesia Hx Anesthesia Reactions: No Hx Malignant Hyperthermia: No - Suicidal Assessment Feels Threatened In Home Enviroment: No Family/Social History - Physician Review Nursing Documentation Reviewed: Yes Family/Social History: No Known Family HX Smoking Status: Heavy Smoker > 10 Cigarettes Daily Hx Alcohol Use: No Hx Substance Use: No (unknown) Hx Substance Use Treatment: No Allergies/Home Meds Allergies/Adverse Reactions: Allergies No Known Allergies Allergy (Verified 12/12/17 11:22) Home Medications: Home Meds Medication Instructions Recorded Confirmed Unobtainable 01/01/18 01/01/18 Review of Systems - Physician Review All systems were reviewed & negative as marked: Yes - Review of Systems Systems not reviewed;Unavailable: Other (aphasia and aggressive behavior) Genitourinary Male: Other (Coelho cath malfunction ) Physical Exam Vital Signs Reviewed: Yes Vital Signs Temp Pulse Resp BP Pulse Ox 01/01/18 06:58 88 18 139/87 98 01/01/18 05:27 86 17 130/77 98 01/01/18 03:49 82 18 136/75 100 01/01/18 02:20 80 18 113/77 100 12/31/17 22:57 98.2 F 79 20 93/62 L 95 Temperature: Afebrile Blood Pressure: Normal Pulse: Regular Respiratory Rate: Normal Appearance: Positive for: Well-Appearing, Non-Toxic, Comfortable Pain Distress: None Mental Status: Positive for: Agitated (Awake and agitated ) - Systems Exam Head: Present: Atraumatic, Normocephalic Pupils: Present: PERRL Extroacular Muscles: Present: EOMI Conjunctiva: Present: Normal Mouth: Present: Moist Mucous Membranes Neck: Present: Normal Range of Motion Respiratory/Chest: Present: Clear to Auscultation, Good Air Exchange. No: Respiratory Distress, Accessory Muscle Use Cardiovascular: Present: Regular Rate and Rhythm, Normal S1, S2. No: Murmurs Abdomen: Present: Normal Bowel Sounds, Other (Urinary coelho in place draining. ) . No: Tenderness, Distention, Peritoneal Signs Back: Present: Normal Inspection Upper Extremity: Present: Normal ROM, NORMAL PULSES, Swelling, Erythema ( Erythematous swelling to the dorsal right hand ). No: Cyanosis, Edema Lower Extremity: Present: Normal Inspection. No: Edema Neurological: Present: GCS=15, CN II-XII Intact. No: Speech Normal ((-) Chronic aphasia ), Other (No focal deficits) Skin: Present: Warm, Dry, Normal Color. No: Rashes Psychiatric: Present: Alert, Agitated (Awake, agitated, and yelling) Medical Decision Making ED Course and Treatment: 12/31/17 23:00 Impression: 57 year old male presents complaining of possible coelho cath malfunction. Patient was restrained due to aggressive behavior. Hx Chronic aphasia. Plan: -- EKG -- Labs -- Ativan, Haldol -- Urinary Catheter Insertion -- Restraint/seclusion for Violent behavior -- Reassess and disposition Prior Visits: Notes and results from previous visits were reviewed. Patient was last seen in the emergency department on 12/12/17 presents complaining of leaky coelho cath. Patient was discharged. Progress Notes: EKG shows NSR at 81BPM with nonspecific P-wave changes. Interpreted by me. 01/01/18 07:48 Pt. awake alert sober.States he feels fine.Will d/c home - Lab Interpretations Lab Results: 01/01/18 01:20 01/01/18 01:20 Lab Results 01/01/18 04:40: Urine Opiates Screen Negative, Urine Methadone Screen Negative, Ur Barbiturates Screen Negative, Ur Phencyclidine Scrn Negative, Ur Amphetamines Screen Negative, U Benzodiazepines Scrn Positive, U Oth Cocaine Metabols Negative, U Cannabinoids Screen Negative 01/01/18 01:20: Alcohol, Quantitative 111 H 01/01/18 01:20: WBC 8.8, RBC 4.99, Hgb 15.4, Hct 43.7, MCV 87.6, MCH 30.9, MCHC 35.2, RDW 13.3, Plt Count 205, MPV 11.7 H 01/01/18 01:20: Sodium 142, Potassium 3.7, Chloride 101, Carbon Dioxide 22, Anion Gap 23 H, BUN 23 H, Creatinine 1.4, Est GFR ( Amer) > 60, Est GFR ( Non-Af Amer) 52, Random Glucose 148 H, Calcium 10.1, Total Bilirubin 0.6, AST 24 , ALT 22, Alkaline Phosphatase 53, Total Protein 7.0, Albumin 4.1, Globulin 2.9 , Albumin/Globulin Ratio 1.4 I have reviewed the lab results: Yes - RAD Interpretation Radiology Orders: 12/31/17 23:51 CHEST PORTABLE [RAD] Stat - EKG Interpretation Interpreted by ED Physician: Yes Type: 12 lead EKG - Medication Orders Current Medication Orders: Discontinued Medications Haloperidol Lactate (Haldol) 5 mg IM STAT STA PRN Reason: Protocol Stop: 12/31/17 23:51 Last Admin: 12/31/17 23:50 Dose: 5 mg IM Administration Charges Document 12/31/17 23:50 AD (Rec: 01/01/18 01:24 AD [id number]) Injection Site MAR Injection Site Left Vastus Lateralis Charges for Administration # of IM Administrations 1 Lorazepam (Ativan) 2 mg IM ONCE ONE Stop: 12/31/17 23:50 Last Admin: 12/31/17 23:49 Dose: 2 mg IM Administration Charges Document 12/31/17 23:49 AD (Rec: 01/01/18 01:23 AD [id number]) Injection Site MAR Injection Site Left Vastus Lateralis Charges for Administration # of IM Administrations 1 - Scribe Statement The provider has reviewed the documentation as recorded by the Scribe Kenneth Hickman Provider Scribe Attestation: All medical record entries made by the Scribe were at my direction and personally dictated by me. I have reviewed the chart and agree that the record accurately reflects my personal performance of the history, physical exam, medical decision making, and the department course for this patient. I have also personally directed, reviewed, and agree with the discharge instructions and disposition. Disposition/Present on Arrival - Present on Arrival Any Indicators Present on Arrival: No History of DVT/PE: No History of Uncontrolled Diabetes: No Urinary Catheter: Yes History of Decub. Ulcer: No History Surgical Site Infection Following: None - Disposition Have Diagnosis and Disposition been Completed?: Yes Diagnosis: Alcohol intoxication, Urinary catheter (Coelho) change required Disposition: HOME/ ROUTINE Disposition Time: 07:48 Patient Plan: Discharge Condition: GOOD Additional Instructions: Follow up with your doctor this week Referrals: Jeaneth Medrano, [Primary Care Provider] - Follow up with primary Forms: [employer] (B[place]hi)
[2018-01-01 05:14] LABS: BARBITURATES, UR NEGATIVE (NEGATIVE); BENZODIAZEPINES, UR POSITIVE (NEGATIVE); OPIATES, UR NEGATIVE (NEGATIVE); PHENCYCLIDINE, UR NEGATIVE (NEGATIVE)
[2018-01-01 05:27] VITALS: O2SAT 98
[2018-01-01 06:59] VITALS: BP 139/87; PULSE 88; RESP 18
--- NOTE | 2018-01-01 09:38 | RAD ---
HISTORY: medical clearance COMPARISON: Comparison made with chest radiograph dated 09/10/2017. FINDINGS: LUNGS: No active pulmonary disease. PLEURA: No significant pleural effusion identified, no pneumothorax apparent. CARDIOVASCULAR: Normal. OSSEOUS STRUCTURES: No significant abnormalities. VISUALIZED UPPER ABDOMEN: Normal. OTHER FINDINGS: None. IMPRESSION: No active disease.
--- NOTE | 2018-01-02 09:38 | CARD ---
APPROVED REPORT EKG Measurement Heart [id number] IL [id number] [id number] <Conclusion> Normal sinus rhythm LAD STTW changes c/e ischemia Mildly prolonged QTc
== END 2018-01-01 08:28 | disposition home or self-care (01) ==
LOC: ED 22:38
DX: Z46.6 Encounter for fitting and adjustment of urinary device (principal); F10.129 Alcohol abuse with intoxication, unspecified; E11.9 Type 2 diabetes mellitus without complications; I10 Essential (primary) hypertension; I25.10 Atherosclerotic heart disease of native coronary artery without angina pectoris; I25.2 Old myocardial infarction; F17.210 Nicotine dependence, cigarettes, uncomplicated
CPT/HCPCS: 71045; 80053; 85027; 93005; 96372; 99284; G0480; J1630; J2060

== ENCOUNTER 2018-01-22 19:24 | Emergency (ER) | payer MEDICARE ==
[2018-01-22 19:25] VITALS: BMI 23.4
[2018-01-22 19:34] VITALS: BP 132/72; PULSE 104; RESP 18; TEMP 98.7; O2SAT 98
--- NOTE | 2018-01-22 19:54 | ED PDOC ---
Arrival/HPI - General Chief Complaint: Upper Extremity Problem/Injury Time Seen by Provider: 01/22/18 19:53 Historian: Patient, EMS - History of Present Illness Narrative History of Present Illness (Text): 01/22/18 19:54 57 year old male, whose past medical history includes CAD, SC, diabetes, hypertension, CVA with chronic residual aphasia, and ETOH abuse, presents to the emergency department complaining of right hand pain x 2 hours. Patient stated he was injured at work. Information also taken from nursing notes, and BLS. Due to expressive aphasia, he was not able to give detail of how injury happened , and he did not want to write it down. He did stated work injury on his right wrist. Patient denies other somatic complains. Time/Duration: Other (2 hours) Context: Home Past Medical History - Provider Review Nursing Documentation Reviewed: Yes - Infectious Disease Hx of Infectious Diseases: None - Tetanus Immunization Tetanus Immunization: Unknown - Past Medical History Past Medical History: Unable to Obtain - Cardiac Hx Hypertension: Yes - Pulmonary Hx Chronic Obstructive Pulmonary Disease (COPD): Yes - Neurological HX Cerebrovascular Accident: Yes Hx Seizures: Yes - HEENT Hx HEENT Disorder: Yes (hearing problem) - Renal Hx Renal Disorder: No - Endocrine/Metabolic Hx Endocrine Disorders: Yes Hx Diabetes Mellitus Type 2: Yes - Hematological/Oncological Hx Blood Transfusions: No Hx Blood Transfusion Reaction: No - Integumentary Hx Dermatological Disorder: No - Musculoskeletal/Rheumatological Hx Musculoskeletal Disorders: Yes - Gastrointestinal Hx Gastrointestinal Disorders: Yes Hx Gastroesophageal Reflux: Yes HX Swallowing Problems: Yes - Genitourinary/Gynecological Hx Genitourinary Disorders: No - Psychiatric Hx Psychophysiologic Disorder: Yes (etoh use, pschiatric hospitalizations) Hx Anxiety: Yes Hx Depression: Yes Hx Substance Use: No (unknown) - Past Surgical History Past Surgical History: No Previous - Surgical History Hx Cardiac Catheterization: Yes Hx Coronary Stent: Yes - Anesthesia Hx Anesthesia Reactions: No Hx Malignant Hyperthermia: No - Suicidal Assessment Feels Threatened In Home Enviroment: No Family/Social History - Physician Review Nursing Documentation Reviewed: Yes Family/Social History: Other (noncontributory) Smoking Status: Heavy Smoker > 10 Cigarettes Daily Hx Alcohol Use: No Hx Substance Use: No (unknown) Hx Substance Use Treatment: No Allergies/Home Meds Allergies/Adverse Reactions: Allergies No Known Allergies Allergy (Verified 12/12/17 11:22) Home Medications: Home Meds Medication Instructions Recorded Confirmed Atorvastatin [Lipitor] 40 mg PO DAILY 01/03/18 01/03/18 Divalproex [Depakote DR(*BID*)] 250 mg PO BID 01/03/18 01/03/18 Folic Acid 1 mg PO DAILY 01/03/18 01/03/18 Glipizide [Glucotrol] 10 mg PO BID 01/03/18 01/03/18 Lisinopril [Zestril] 20 mg PO DAILY 01/03/18 01/03/18 Metoprolol Tartrate [Lopressor] 25 mg PO BID 01/03/18 01/03/18 Omeprazole 40 mg PO DAILY 01/03/18 01/03/18 SITagliptin [Januvia] 100 mg PO DAILY 01/03/18 01/03/18 amLODIPine [Norvasc] 10 mg PO DAILY 01/03/18 01/03/18 Review of Systems - Review of Systems Constitutional: Normal. absent: Fatigue, Weight Change, Fevers Eyes: Normal ENT: Normal Respiratory: Normal. absent: SOB, Cough, Sputum, Wheezing Cardiovascular: Normal. absent: Chest Pain, Palpitations Gastrointestinal: Normal. absent: Abdominal Pain, Nausea, Vomiting Genitourinary Male: Normal Musculoskeletal: Other (right wrist pain) Skin: Normal Neurological: Normal Endocrine: Normal Hemo/Lymphatic: Normal Psychiatric: Normal Physical Exam Vital Signs Temp Pulse Resp BP Pulse Ox 01/22/18 19:33 98.7 F 104 H 18 132/72 98 Temperature: Afebrile Blood Pressure: Normal Pulse: Regular Respiratory Rate: Normal Appearance: Positive for: Well-Appearing, Non-Toxic, Comfortable Pain Distress: None - Systems Exam Head: Present: Atraumatic, Normocephalic Pupils: Present: PERRL Extroacular Muscles: Present: EOMI Conjunctiva: Present: Normal Mouth: Present: Moist Mucous Membranes Neck: Present: Normal Range of Motion Back: Present: Normal Inspection. No: CVA Tenderness Upper Extremity: Present: Neurovascularly Intact, Other ((+) right wrist tenderness with mild swelling. Patient is not able to extend right wrist). No : Cyanosis, Edema Lower Extremity: Present: Normal Inspection, Normal ROM. No: Edema Neurological: Present: GCS=15, CN II-XII Intact, Speech Normal Skin: Present: Warm, Dry, Normal Color. No: Rashes Psychiatric: Present: Alert, Oriented x 3, Normal Insight, Normal Concentration Medical Decision Making ED Course and Treatment: 01/22/18 20:32 Re-evaluation. Patient feels better. Discussed results and plan with patient who expresses understanding. All questions answered and there is agreement with the plan to discharge home with instructions. Patient stable for discharge. Return if symptoms persist or worsen. Patient was recommended to f/u Dr. Boris Walls, Orthopedist in 1-2 days. To use wrist brace at all time, and to remove it at bedtime. Patient was recommended to avoid placing his wrist under his head or face when he sleeps. To return to ED if symptoms worsen. Re-evaluation Time: 20:36 Reassessment Condition: Re-examined, Improved - RAD Interpretation Narrative RAD Interpretations (Text): 01/22/18 20:36 Wrist x-rays: no fracture or dislocation Radiology Orders: 01/22/18 19:54 HAND RIGHT 3 VIEWS [RAD] Stat - Medication Orders Current Medication Orders: Discontinued Medications Ibuprofen (Motrin Tab) 400 mg PO STAT STA Stop: 01/22/18 20:27 - Procedure PROCEDURE NOTE (Text): 01/22/18 20:37 Wrist Velcro splint was applied by Nya CLARK Disposition/Present on Arrival - Present on Arrival Any Indicators Present on Arrival: No History of DVT/PE: No History of Uncontrolled Diabetes: No Urinary Catheter: Yes History of Decub. Ulcer: No History Surgical Site Infection Following: None - Disposition Have Diagnosis and Disposition been Completed?: Yes Diagnosis: Wrist pain, Tuesday night paralysis of right upper extremity Disposition: HOME/ ROUTINE Disposition Time: 20:38 Patient Plan: Discharge Patient Problems: Current Active Problems Problem Status Onset Tuesday night paralysis of right upper extremity Acute Wrist pain Acute Condition: IMPROVED Discharge Instructions (ExitCare): Radial Nerve Entrapment (DC) Additional Instructions: Call Dr. Boris Walls Orthopedist Office for follow up visit in 1-2 days. Avoid placing you wrist under your head or face during sleep. Continue with OTC Motrin for pain as needed. Call clinif for revaluation. Return to emergency if symptoms worsen. Referrals: Agustin Kirkland MD [Staff Provider] - Follow up with primary Forms: [employer] (Zimbabwean)
--- NOTE | 2018-01-23 10:01 | RAD ---
PROCEDURE: Right Hand Radiographs. HISTORY: pain COMPARISON: None. FINDINGS: BONES: Normal. No fracture. JOINTS: Normal. No osteoarthritic changes. SOFT TISSUES: Normal. OTHER FINDINGS: The hand is in a contracted position. The fingers cannot be straightened. IMPRESSION: No acute findings
== END 2018-01-22 20:30 | disposition home or self-care (01) ==
LOC: ED 19:24
DX: M25.531 Pain in right wrist (principal); G56.91 Unspecified mononeuropathy of right upper limb

== ENCOUNTER 2018-01-30 08:34 | Day surgery (SDC) | payer MEDICARE ==
[2018-01-30] MEDS ORDERED: Propofol 10 mg/ml Inj (20 ML) ONE (11:29)
[2018-01-30] MEDS ORDERED: Etomidate 20 mg/10ml Inj IV ONE (11:29)
[2018-01-30] MEDS ORDERED: cefTRIAXone (Rocephin) 1 gm Inj ONE (11:34)
[2018-01-30] MEDS ORDERED: ePHEDrine 50 mg/ml Inj ONE (11:50)
[2018-01-30] MEDS ORDERED: Morphine 2 mg/ml ISec IVP PRN (12:52)
[2018-01-30] MEDS ORDERED: Morphine 2 mg/ml ISec ONE (12:52)
[2018-01-30] MEDS ORDERED: Morphine 2 mg/ml ISec IVP ONE (12:53)
[2018-01-30] MEDS ORDERED: Lactated Ringer's 1,000 ML IV SCH (13:00)
[2018-01-30 14:09] VITALS: RESP 18
[2018-01-30 14:22] VITALS: TEMP 97.8
[2018-01-30 14:27] VITALS: BMI 23.4
[2018-01-30 14:50] VITALS: BP 178/108; PULSE 80; O2SAT 94
--- NOTE | 2018-01-31 08:43 | OP ---
PROCEDURE DATE: 01/30/2018 PREOPERATIVE DIAGNOSES: Urinary retention, bladder outlet obstruction, benign prostatic hyperplasia. POSTOPERATIVE DIAGNOSES: Urinary retention, bladder outlet obstruction, benign prostatic hyperplasia. PROCEDURE: Cystoscopy with prostate laser vaporization. ATTENDING SURGEON: Dr. Alfonzo Bedoya. ANESTHESIA: General. SPECIMENS: There were none. DRAINS: A 20-Ecuadorean two-way Pereira catheter. COMPLICATIONS: There were none. OPERATIVE FINDINGS: After informed consent was obtained, the patient was taken to the operating room and placed on the operating table. Anesthesia was administered. The patient was then placed in dorsal lithotomy position and prepped and draped in usual sterile fashion. The patient had an indwelling Pereira catheter, which was removed. The patient received intravenous antibiotics prior to start of the procedure. A 21-Ecuadorean laser scope with a visualizing obturator was placed in the patient's urethra, advanced proximally under direct vision until the bladder was entered. A full survey inspection of the bladder was done, which revealed no stones, papillary tumors or foreign bodies of the bladder. There was grade one trabeculation noted. Both ureteral orifices were visualized and appeared within normal limits. At this point, the scope was withdrawn to the level of the verumontanum. The view from the verumontanum revealed enlarged lateral lobes of the prostate. There was no median lobe growth. At this point, a [place] 1470 laser fiber was obtained. It was passed through the laser scope and vaporization of the prostate was begun. The prostate was systematically vaporized starting from the bladder neck proximally and working back towards the verumontanum. All obstructing lateral lobe tissue was vaporized, apical tissue at the 12 o'clock position and the floor at 6 o' clock position was also vaporized. Any bleeding points encountered during the vaporization were controlled using the 1470 laser. After the vaporization was complete, the irrigation was turned off and field inspected for any bleeding. Any bleeding points were controlled using the laser fiber. The view from the verumontanum at this point revealed widely opened prostatic fossa. Bladder was inspected. A small amount of debris was evacuated. Both ureteral orifices were intact. At this point, the procedure was completed, the bladder was drained and a 20-Ecuadorean two-way Pereira catheter was placed. Drainage was clear. At this point, the procedure was completed. The patient was returned to the supine position and taken to the recovery room awake in stable condition. Alfonzo Bedoya MD
== END 2018-01-30 16:05 | disposition home or self-care (01) ==
LOC: SDS 08:34
PROVIDERS: ATTEND Urology
DX: N32.0 Bladder-neck obstruction (principal); N40.1 Benign prostatic hyperplasia with lower urinary tract symptoms; R33.8 Other retention of urine
CPT/HCPCS: 52648; J0696; J2270; J2704; J3010; J7120 ×2

== ENCOUNTER 2018-03-20 16:45 | Emergency (ER) | payer MEDICARE ==
[2018-03-20 16:51] VITALS: BMI 20.7
[2018-03-20] MEDS ORDERED: Dextrose 50% SYRINGE Inj (50 ml) IVP STA (17:06)
[2018-03-20 17:31] LABS: BASO # 0.03 K/mm3 (0.0-2.0); BASO % 0.3 % (0.0-3.0); EOS # 0.3 (0.0-0.7); EOS % 3.6 % (1.5-5.0); GRAN # 3.25 (1.4-6.5); GRAN % 37.5 % (50.0-68.0); HEMOGLOBIN 15.2 g/dL (14.0-18.0); LYMPH # 4.4 (1.2-3.4); LYMPH % 50.7 % (22.0-35.0); MEAN CELL VOLUME 85.7 fl (80.0-105.0); MEAN CORPUSCULAR HEMOGLOBIN 31.1 pg (25.0-35.0); MEAN CORPUSCULAR HGB CONC 36.3 g/dl (31.0-37.0); MEAN PLATELET VOLUME 10.1 fl (7.0-11.0); MONO # 0.7 (0.1-0.6); MONO % 7.9 % (1.0-6.0); RBC 4.89 10^6/uL (3.5-6.1); RED CELL DISTRIBUTION WIDTH 13.9 % (11.5-14.5); WHITE BLOOD COUNT 8.7 10^3/ul (4.5-11.0)
[2018-03-20 17:41] LABS: ALB/GLOB RATIO 1.5 (1.1-1.8); ALT/SGPT 15 U/L (7-56); AST/SGOT 33 U/L (17-59); BLOOD UREA NITROGEN 21 mg/dL (7-21); CALCIUM 9.6 mg/dL (8.4-10.5); GFR AFRICAN-AMERICAN > 60; GFR NON-AFRICAN AMERICAN > 60
[2018-03-20 17:42] LABS: INR 0.89 (0.93-1.08); PARTIAL THROMBOPLASTIN TIME 31.1 Seconds (25.1-36.5); PROTHROMBIN TIME 10.1 SECONDS (9.4-12.5)
--- NOTE | 2018-03-20 17:57 | CT ---
PROCEDURE: CT HEAD WITHOUT CONTRAST. HISTORY: Recent trauma/fall. Fracture, intracranial hemorrhage suspected COMPARISON: 05/28/2017 TECHNIQUE: Axial computed tomography images were obtained through the head/brain without intravenous contrast. Radiation dose: Total exam DLP = 1347.42 mGy-cm. This CT exam was performed using one or more of the following dose reduction techniques: Automated exposure control, adjustment of the mA and/or kV according to patient size, and/or use of iterative reconstruction technique. FINDINGS: HEMORRHAGE: No intracranial hemorrhage. BRAIN: No mass effect or edema. No atrophy or chronic microvascular ischemic changesEvidence of old left MCA CVA. Go. 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 PARANASAL SINUSES: Unremarkable as visualized. No significant inflammatory changes. MASTOID AIR CELLS: Unremarkable as visualized. No inflammatory changes. OTHER FINDINGS: None. IMPRESSION: No acute intracranial abnormalities. No significant findings to account for the clinical presentation. No significant interval change compared to the prior examination(s).
[2018-03-20] MEDS ORDERED: Sodium Chloride 0.9% 1,000 ML IV SCH (18:00)
--- NOTE | 2018-03-20 18:07 | ED PDOC ---
Arrival/HPI - General Chief Complaint: Altered Mental Status Time Seen by Provider: 03/20/18 16:47 Historian: Patient - History of Present Illness Narrative History of Present Illness (Text): 03/20/18 17:02 A 58 year old male, whose past medical history includes EtOH abuse and CVA, is brought in by EMS and presents to the emergency department for intoxication and AMS. Per EMS, patient was agitated at home and has been drinking today. No known trauma noted. Limited HPI and ROS due to patient being non-verbal, due to patient being agitated and aggressive. No PMD Past Medical History - Provider Review Nursing Documentation Reviewed: Yes - Infectious Disease Hx of Infectious Diseases: None - Tetanus Immunization Tetanus Immunization: Unknown - Past Medical History Past Medical History: Unable to Obtain - Cardiac Hx Cardiac Disorders: No - Pulmonary Hx Respiratory Disorders: Yes Hx Chronic Obstructive Pulmonary Disease (COPD): Yes - Neurological Hx Neurological Disorder: No - HEENT Hx HEENT Disorder: Yes (hearing problem) - Renal Hx Renal Disorder: No - Endocrine/Metabolic Hx Endocrine Disorders: Yes Hx Diabetes Mellitus Type 2: Yes - Hematological/Oncological Hx Blood Disorders: No - Integumentary Hx Dermatological Disorder: No - Musculoskeletal/Rheumatological Hx Musculoskeletal Disorders: Yes Hx Unsteady Gait: Yes (Right Sided Weakness) - Gastrointestinal Hx Gastrointestinal Disorders: Yes Hx Gastroesophageal Reflux: Yes HX Swallowing Problems: Yes - Genitourinary/Gynecological Hx Genitourinary Disorders: No - Psychiatric Hx Psychophysiologic Disorder: No Hx Substance Use: No (DENIES) - Past Surgical History Past Surgical History: No Previous - Surgical History Hx Cardiac Catheterization: Yes Hx Coronary Stent: Yes - Anesthesia Hx Anesthesia Reactions: No Hx Malignant Hyperthermia: No - Suicidal Assessment Feels Threatened In Home Enviroment: No Family/Social History - Physician Review Nursing Documentation Reviewed: Yes Family/Social History: No Known Family HX Smoking Status: Heavy Smoker > 10 Cigarettes Daily Hx Alcohol Use: No Hx Substance Use: No (DENIES) Hx Substance Use Treatment: No Allergies/Home Meds Allergies/Adverse Reactions: Allergies No Known Allergies Allergy (Verified 03/20/18 16:51) Home Medications: Home Meds Medication Instructions Recorded Confirmed Atorvastatin [Lipitor] 40 mg PO DAILY 01/03/18 03/20/18 Metoprolol Tartrate [Lopressor] 25 mg PO BID 01/03/18 03/20/18 Aspirin [Ecotrin] 81 mg PO DAILY 01/25/18 03/20/18 ALPRAZolam [Xanax] 0.25 mg PO BID 03/20/18 03/20/18 Cephalexin [Keflex] 500 mg PO BID 03/20/18 03/20/18 Tamsulosin [Flomax] 0.4 mg PO DAILY 03/20/18 03/20/18 Review of Systems - Review of Systems Systems not reviewed;Unavailable: Other (nonverbal due to agitation and aggressive) Physical Exam Mental Status: Positive for: Agitated Finger Stick Blood Glucose: 196 - Systems Exam Head: Present: Atraumatic, Normocephalic Pupils: Present: PERRL Extroacular Muscles: Present: EOMI Conjunctiva: Present: Normal Mouth: Present: Moist Mucous Membranes Neck: Present: Normal Range of Motion Respiratory/Chest: Present: Clear to Auscultation, Good Air Exchange. No: Respiratory Distress, Accessory Muscle Use Cardiovascular: Present: Regular Rate and Rhythm, Normal S1, S2. No: Murmurs Abdomen: No: Tenderness, Distention, Peritoneal Signs Back: Present: Normal Inspection Upper Extremity: Present: Normal Inspection. No: Cyanosis, Edema Lower Extremity: Present: Normal Inspection. No: Edema Neurological: Present: GCS=15, CN II-XII Intact, Speech Normal Skin: Present: Warm, Dry, Normal Color. No: Rashes Psychiatric: Present: Alert, Oriented x 3, Normal Insight, Normal Concentration Medical Decision Making ED Course and Treatment: 03/20/18 17:05 Impression: 58 year old male brought in for intoxication and AMS. Physical exam shows patient is agitated; otherwise examination is unremarkable. Plan: -- Head CT -- Labs -- Dextrose -- Haldol -- IV Fluids -- Reassess and disposition Progress Notes: - Lab Interpretations Lab Results: 03/20/18 17:19 03/20/18 17:19 Lab Results 03/20/18 17:19: Alcohol, Quantitative 314 H* 03/20/18 17:19: Sodium 150 H, Potassium 3.9, Chloride 109 H, Carbon Dioxide 19 L , Anion Gap 25 H, BUN 21, Creatinine 1.1, Est GFR ( Amer) > 60, Est GFR ( Non-Af Amer) > 60, Random Glucose 69 L, Calcium 9.6, Total Bilirubin 0.8, AST 33 , ALT 15, Alkaline Phosphatase 55, Total Protein 8.3, Albumin 5.0 H, Globulin 3.3, Albumin/Globulin Ratio 1.5 03/20/18 17:19: PT 10.1, INR 0.89 L, APTT 31.1 03/20/18 17:19: WBC 8.7, RBC 4.89, Hgb 15.2, Hct 41.9 L, MCV 85.7, MCH 31.1, MCHC 36.3, RDW 13.9, Plt Count 216, MPV 10.1, Gran % 37.5 L, Lymph % (Auto) 50.7 H, [place] % (Auto) 7.9 H, Eos % (Auto) 3.6, Baso % (Auto) 0.3, Gran # 3.25, Lymph # (Auto) 4.4 H, [place] # (Auto) 0.7 H, Eos # (Auto) 0.3, Baso # (Auto) 0.03 - RAD Interpretation Radiology Orders: 03/20/18 17:05 HEAD W/O CONTRAST [CT] Stat - Medication Orders Current Medication Orders: Sodium Chloride (Sodium Chloride 0.9%) 1,000 mls @ 200 mls/hr IV .Q5H FENG Last Admin: 03/20/18 18:14 Dose: 200 mls/hr eMAR Start Stop Document 03/20/18 18:14 MS (Rec: 03/20/18 18:15 [id number]) Intravenous Solution Start Date 03/20/18 Start Time 18:00 Discontinued Medications Dextrose (Dextrose 50% Inj) 50 ml IVP STAT STA Stop: 03/20/18 17:07 Last Admin: 03/20/18 17:21 Dose: 50 ml IVP Administration Document 03/20/18 17:21 MS (Rec: 03/20/18 17:21 [id number]) Charges for Administration # of IVP Administrations 1 Haloperidol Lactate (Haldol) 5 mg IM STAT STA PRN Reason: Protocol Stop: 03/20/18 17:07 Last Admin: 03/20/18 17:20 Dose: 5 mg IM Administration Charges Document 03/20/18 17:20 MS (Rec: 03/20/18 17:21 [id number]) Injection Site MAR Injection Site Right Deltoid Charges for Administration # of IM Administrations 1 - Transfer of Care Patient signed out to :: Hugh Pending Labs:: repeat CMP Other: sobriety - Scribe Statement The provider has reviewed the documentation as recorded by the Ricoibcody Dominguez Provider Scribe Attestation: All medical record entries made by the Scribe were at my direction and personally dictated by me. I have reviewed the chart and agree that the record accurately reflects my personal performance of the history, physical exam, medical decision making, and the department course for this patient. I have also personally directed, reviewed, and agree with the discharge instructions and disposition. Disposition/Present on Arrival - Present on Arrival Any Indicators Present on Arrival: No History of DVT/PE: No History of Uncontrolled Diabetes: No Urinary Catheter: Yes History of Decub. Ulcer: No History Surgical Site Infection Following: None - Disposition Have Diagnosis and Disposition been Completed?: Yes Diagnosis: Alcohol abuse Disposition: HOME/ ROUTINE Disposition Time: 19:00 Condition: STABLE Forms: [email or web address] (Malay)
[2018-03-20 20:35] VITALS: RESP 18; TEMP 98
[2018-03-20 21:36] VITALS: BP 126/85; PULSE 76; O2SAT 98
[2018-03-20 22:01] LABS: ALB/GLOB RATIO 1.4 (1.1-1.8); ALBUMIN 4.4 g/dL (3.0-4.8); ALT/SGPT 17 U/L (7-56); AST/SGOT 30 U/L (17-59); BLOOD UREA NITROGEN 19 mg/dL (7-21); CALCIUM 9.1 mg/dL (8.4-10.5); GFR AFRICAN-AMERICAN > 60; GFR NON-AFRICAN AMERICAN > 60
== END 2018-03-20 22:14 | disposition left against medical advice (07) ==
LOC: ED 16:45
DX: F10.10 Alcohol abuse, uncomplicated (principal); Y90.8 Blood alcohol level of 240 mg/100 ml or more; E11.9 Type 2 diabetes mellitus without complications; Z86.73 Personal history of transient ischemic attack (TIA), and cerebral infarction without residual deficits; Z95.5 Presence of coronary angioplasty implant and graft
CPT/HCPCS: 70450; 80053; 82948; 85025; 85610; 85730; 96372; 96374; 99285; G0480; J1630; J7040

== ENCOUNTER 2018-03-23 14:57 | Emergency (ER) | payer MEDICARE ==
[2018-03-23 15:05] VITALS: BMI 24.5
== END 2018-03-23 15:18 | disposition left against medical advice (07) ==
LOC: ED 14:57
DX: Z02.89 Encounter for other administrative examinations (principal); M79.89 Other specified soft tissue disorders

== ENCOUNTER 2018-04-15 14:24 | Emergency (ER) | payer MEDICARE ==
[2018-04-15 14:31] VITALS: BMI 23.0
[2018-04-15 14:43] VITALS: TEMP 97.8; O2SAT 99
[2018-04-15] MEDS ORDERED: Sodium Chloride 0.9% 1,000 ML IV SCH (15:00)
--- NOTE | 2018-04-15 15:04 | ED PDOC ---
Arrival/HPI - General Chief Complaint: Weakness/Neurological Deficit Time Seen by Provider: 04/15/18 14:39 Historian: Patient, Family (Sister, Jada) EM Caveat: Acuity of Condition - History of Present Illness Narrative History of Present Illness (Text): 04/15/18 15:06 Pt is a 58 yr old male with PMH of seizures, DMII, previous CVA and alcohol abuser, who presents with his sister for a sudden loss of speech and difficulty swallowing with motor deficits on the right side since this morning. Pt contacted his sister to visit him as he felt he needed to go to the hospital. Exact time frame cannot be ascertained and pt is not able to articulate history. Compliancy of medication is unknown at this time and there is no indication of taking plavix or aspirin. In giving history of complaints, the pt has word garble with frustration and sometimes aggression. PMD is Dr Alexis Tolentino whom he saw 4 days ago. Pt denies alcohol or substances, denies fever, shortness of breath, chest pain, nausea, vomiting, diarrhea or any other complaint. 04/15/18 16:17 Time/Duration: 4-6 hours Symptom Onset: Sudden Symptom Course: Unchanged Quality: Unable to Describe Severity Level: 2 Activities at Onset: Rest Context: Home Past Medical History - Provider Review Nursing Documentation Reviewed: Yes - Travel History Have you recently traveled outside [place] w/in the past 3 mons?: No - Infectious Disease Hx of Infectious Diseases: None - Tetanus Immunization Tetanus Immunization: Unknown - Past Medical History Past Medical History: Unable to Obtain - Cardiac Hx Cardiac Disorders: Yes (CAD,hyperlipemia) - Pulmonary Hx Respiratory Disorders: Yes Hx Chronic Obstructive Pulmonary Disease (COPD): Yes - Neurological Hx Neurological Disorder: Yes HX Cerebrovascular Accident: Yes - HEENT Hx HEENT Disorder: Yes (hearing problem) - Renal Hx Renal Disorder: No - Endocrine/Metabolic Hx Endocrine Disorders: Yes Hx Diabetes Mellitus Type 2: Yes - Hematological/Oncological Hx Blood Disorders: No - Integumentary Hx Dermatological Disorder: No - Musculoskeletal/Rheumatological Hx Unsteady Gait: Yes - Gastrointestinal Hx Gastrointestinal Disorders: Yes Hx Gastroesophageal Reflux: Yes HX Swallowing Problems: Yes - Genitourinary/Gynecological Hx Genitourinary Disorders: No - Psychiatric Hx Psychophysiologic Disorder: Yes (etoh use, pschiatric hospitalizations) Hx Substance Use: No (DENIES) - Past Surgical History Past Surgical History: No Previous - Surgical History Hx Cardiac Catheterization: Yes Hx Coronary Stent: Yes - Anesthesia Hx Anesthesia Reactions: No Hx Malignant Hyperthermia: No - Suicidal Assessment Feels Threatened In Home Enviroment: No Family/Social History - Physician Review Nursing Documentation Reviewed: Yes Family/Social History: Unknown Family HX Smoking Status: Heavy Smoker > 10 Cigarettes Daily Hx Alcohol Use: No Hx Substance Use: No (DENIES) Hx Substance Use Treatment: No Allergies/Home Meds Allergies/Adverse Reactions: Allergies No Known Allergies Allergy (Verified 03/20/18 16:51) Home Medications: Home Meds Medication Instructions Recorded Confirmed Atorvastatin [Lipitor] 40 mg PO DAILY 01/03/18 03/20/18 Metoprolol Tartrate [Lopressor] 25 mg PO BID 01/03/18 03/20/18 Aspirin [Ecotrin] 81 mg PO DAILY 01/25/18 03/20/18 ALPRAZolam [Xanax] 0.25 mg PO BID 03/20/18 03/20/18 Cephalexin [Keflex] 500 mg PO BID 03/20/18 03/20/18 Tamsulosin [Flomax] 0.4 mg PO DAILY 03/20/18 03/20/18 Review of Systems - Physician Review All systems were reviewed & negative as marked: Yes - Review of Systems Systems not reviewed;Unavailable: Altered Mental Status Constitutional: Normal, Fatigue Eyes: Normal ENT: Normal, Voice Changes Respiratory: Normal Cardiovascular: Normal Gastrointestinal: Normal Genitourinary Male: Normal Musculoskeletal: Normal Skin: Normal Neurological: Normal Endocrine: Normal Hemo/Lymphatic: Normal Psychiatric: Normal Physical Exam Vital Signs Reviewed: Yes Vital Signs Temp Pulse Resp BP Pulse Ox 04/15/18 16:40 81 17 115/73 99 04/15/18 15:45 82 17 130/83 99 04/15/18 14:40 97.8 F 82 19 149/96 H 99 Temperature: Afebrile Blood Pressure: Hypertensive Pulse: Regular Respiratory Rate: Normal Appearance: Positive for: Well-Appearing, Non-Toxic, Comfortable Pain Distress: None Mental Status: Positive for: Alert and Oriented X 3, Confused, Agitated - Systems Exam Head: Present: Atraumatic, Normocephalic Pupils: Present: PERRL Extroacular Muscles: Present: EOMI Conjunctiva: Present: Normal Ears: Present: Normal, NORMAL TM Mouth: Present: Moist Mucous Membranes, Drooling, Normal Lips, Normal Tounge Pharnyx: Present: Normal Nose (External): Present: Atraumatic Neck: Present: Normal Range of Motion Respiratory/Chest: Present: Clear to Auscultation, Good Air Exchange. No: Respiratory Distress, Accessory Muscle Use Cardiovascular: Present: Regular Rate and Rhythm, Normal S1, S2. No: Murmurs Abdomen: No: Tenderness, Distention, Peritoneal Signs Back: Present: Normal Inspection. No: CVA Tenderness Upper Extremity: Present: Normal Inspection. No: Cyanosis, Edema Lower Extremity: Present: Normal Inspection. No: Edema Neurological: Present: GCS=15. No: Speech Normal, Motor Func Grossly Intact, Normal Sensory Function, Normal Cerebellar Funct, Gait Normal Skin: Present: Warm, Dry, Normal Color. No: Rashes Psychiatric: Present: Alert, Oriented x 3, Normal Insight, Normal Concentration , Agitated, Intoxicated. No: Normal Affect, Normal Mood, Anxious, Suicidal Ideation, Homicidal Ideation Medical Decision Making ED Course and Treatment: 04/15/18 15:11 Impression Pt is a 58 yr old male with PMH of DMII, previous CVA and alcohol abuser, who presents with his sister at bedside for a sudden loss of speech and difficulty swallowing with motor deficits on the right side since this earlier today that was discovered by his sister who was visiting. Pt is unable to follow command well, appears to understand requests but cannot respond with speech or action; weak assymmetry in face but definite Upper and lower extremity weakness on the right side; complains of right ear tinnitus Plan Code Stroke initiated immediately after assessing pt Case dw Dr Chacon regional administrative assistant and advised no tPA as we do not have a time frame Stroke protocol followed and labs ordered as per Dr Chacon including Head CT and CTA Spoke with Radiologist who could not appreciate an acute infarct on the left cerebral hemisphere but noted atrophy and previous probable subdural Will await results of CTA, review vitals and reassess pt 04/15/18 15:13 Progress Note 04/15/18 15:45 Pt was reassessed and sister was able to add to history; possible seizure at 4am this morning followed by difficulty swallowing; says mouth and tongue went numb and was unable to speak; noticed pronounced worsening UE and LE deficits on the right side; Was able to eat earlier but felt his tongue went numb Pt states he took his medications but no ASA 04/15/18 16:[address] Chacon who advised ASA and Plavix and hydration NS; will contact neurovascular specialist; admit to telemetry 04/15/18 16:33 Head CTA reveals complete occlusion of the Left ICA and severe stenosing of right ICA Results dw pt and sister; Dr Cristobal and CLAYTON Leavitt at bedside to explain severity of condition; pt c/o left ear tinnitis but wants to leave AMA because he needs to have a cigarette; pt very agitated and at times belligerent but insisted on leaving AMA despite acknowledging that he could potentially at home; pt tried to verbalize that he understood (nodded head in a yes) and is willing to accept that risk, stating "I dont care" Convinced pt to wait for ASA and Plavix administration before leaving; pt agreed Sister offered to contact other family members (patient's children), who may be able to intervene after he returns home; will try to bring him back to the ED 04/15/18 16:42 Labs reveals EtOH of 291 and AG 22; sister and pt informed and asked sister to monitor him closely at home Pt ambulated out of the ED with his sister 04/15/18 23:23 Reassessment Condition: Re-examined - Lab Interpretations Lab Results: 04/15/18 14:36 04/15/18 14:36 Lab Results 04/15/18 14:36: Alcohol, Quantitative 291 H 04/15/18 14:36: Sodium 144, Potassium 4.2, Chloride 103, Carbon Dioxide 24, Anion Gap 22 H, BUN 20, Creatinine 1.3, Est GFR ( Amer) > 60, Est GFR ( Non-Af Amer) 57, Random Glucose 152 H, Calcium 9.5, Total Bilirubin 0.5, AST 25 , ALT 22, Alkaline Phosphatase 60, Troponin I < 0.01 D, Total Protein 8.0, Albumin 4.7, Globulin 3.4, Albumin/Globulin Ratio 1.4, Triglycerides 247 H, Cholesterol 228 H, LDL Cholesterol Direct 123, HDL Cholesterol 49 04/15/18 14:36: PT 10.5, INR 0.92 L, APTT 32.3 04/15/18 14:36: WBC 9.1, RBC 4.89, Hgb 15.4, Hct 42.9, MCV 87.7, MCH 31.5, MCHC 35.9, RDW 14.0, Plt Count 326, MPV 10.1, Gran % 52.6, Lymph % (Auto) 34.2, Mcdowell % (Auto) 9.2 H, Eos % (Auto) 3.3, Baso % (Auto) 0.7, Gran # 4.79, Lymph # (Auto ) 3.1, Mcdowell # (Auto) 0.8 H, Eos # (Auto) 0.3, Baso # (Auto) 0.06 - RAD Interpretation Radiology Orders: 04/15/18 14:50 HEAD W/O (CODE STROKE) [CT] Stat 04/15/18 14:56 CTA HEAD/NECK CODE STROKE [CT] Stat CHEST ONE VIEW [RAD] Stat - EKG Interpretation Interpreted by ED Physician: Yes (NSR with a rate of 70) - Medication Orders Current Medication Orders: Discontinued Medications Aspirin (Aspirin) 325 mg PO STAT STA Stop: 04/15/18 16:29 Last Admin: 04/15/18 16:41 Dose: 325 mg Clopidogrel Bisulfate (Plavix) 300 mg PO STAT STA Stop: 04/15/18 16:30 Last Admin: 04/15/18 16:41 Dose: 300 mg Sodium Chloride (Sodium Chloride 0.9%) 1,000 mls @ 100 mls/hr IV .Q10H FENG Last Admin: 04/15/18 15:31 Dose: 100 mls/hr eMAR Start Stop Document 04/15/18 15:31 RD (Rec: 04/15/18 15:31 RD [id number]) Intravenous Solution Start Date 04/15/18 Start Time 15:31 NIHSS Stroke Scale 3 - Date/Time Evaluation Performed Date Performed: 04/15/18 Time Performed: 14:45 When Was NIHSS Performed: Code Stroke - How Severe is the Stroke Level of Consciousness: 0=Alert LOC to commands: 1=Obeys one correctly Best Gaze: 1=Partial gaze palsy Visual: 0=No visual loss Facial: 1=Minor asymmetry Motor Arm - Left: 0=No drift Motor Arm - Right: 1=Drift noted before 10 sec Motor Leg - Left: 0=No drift Motor Leg - Right: 1=Drift before 5 sec Limb Ataxia: 1=Present Upper or Lower Sensory: 1=Mild to moderate loss Best Language: 1=Mild to moderate aphasia Dysarthia: 2=Severe, near unintelligible or worse Extinction & Inattention (Neglect): 1=Partial neglect (mild carly-attention) Disposition/Present on Arrival - Present on Arrival Any Indicators Present on Arrival: Yes History of DVT/PE: No History of Uncontrolled Diabetes: No Urinary Catheter: Yes History of Decub. Ulcer: No History Surgical Site Infection Following: None - Disposition Have Diagnosis and Disposition been Completed?: Yes Diagnosis: Neurovascular dysfunction, Alcohol abuse, Alcohol intoxication, Internal carotid artery occlusion, Internal carotid artery stenosis Disposition: AGAINST MEDICAL ADVICE Disposition Time: 16:47 Patient Plan: Discharge Condition: CRITICAL Referrals: Alexis Tolentino DO [Primary Care Provider] - Follow up with primary Forms: [employer] (Kyrgyz)
[2018-04-15] MEDS ORDERED: Iodixanol 320 mg/ml 150 ml Bottle IV ONE (15:10)
--- NOTE | 2018-04-15 15:20 | CT ---
PROCEDURE: CT HEAD WITHOUT CONTRAST. HISTORY: CVA COMPARISON: Comparison made with CT scan brain 03/20/2018 comparison also made with prior older exams dated 01/03/2017 TECHNIQUE: Axial computed tomography images were obtained through the head/brain without intravenous contrast. Radiation dose: Total exam DLP = 1033.56 mGy-cm. This CT exam was performed using one or more of the following dose reduction techniques: Automated exposure control, adjustment of the mA and/or kV according to patient size, and/or use of iterative reconstruction technique. . FINDINGS: HEMORRHAGE: No acute parenchymal, subarachnoid or extra-axial hemorrhage. BRAIN: Re- demonstrated is chronic appearing left frontal parietal and posterior temporal lobe partially cystic encephalomalacia changes. . There is associated ex vacuo dilatation of the left lateral ventricle. Chronic appearing left caudate head infarct present. In addition, mild diffuse/confluent chronic periventricular white matter ischemic changes are also felt to be present. Mild vascular calcifications both carotid siphons. VENTRICLES: No obstructive hydrocephalus the despite ex vacuo dilatation of the left lateral ventricle. CALVARIUM: There are no acute calvarial fractures. Old bilateral nasal bone fracture deformities are present. PARANASAL SINUSES: The visualized paranasal sinuses are well-developed and currently well-aerated. No fluid levels seen to suggest acute sinusitis. MASTOID AIR CELLS: Unremarkable as visualized. No inflammatory changes. OTHER FINDINGS: None. IMPRESSION: Re- demonstrated are significant on partially cystic encephalomalacia changes involving left frontal parietal and left posterior temporal lobes of. There is ex vacuo dilatation of the left lateral ventricle. Minor chronic periventricular white matter ischemic changes with small chronic appearing lacunar type infarct left caudate head. Moderate generalized volume loss. Case discussed with the emergency room physician's records management assistant Dagmar at 3:15 p.m. with written down and read back verification
[2018-04-15 15:36] LABS: BASO # 0.06 K/mm3 (0.0-2.0); BASO % 0.7 % (0.0-3.0); EOS # 0.3 (0.0-0.7); EOS % 3.3 % (1.5-5.0); GRAN # 4.79 (1.4-6.5); GRAN % 52.6 % (50.0-68.0); HEMOGLOBIN 15.4 g/dL (14.0-18.0); LYMPH # 3.1 (1.2-3.4); LYMPH % 34.2 % (22.0-35.0); MEAN CELL VOLUME 87.7 fl (80.0-105.0); MEAN CORPUSCULAR HEMOGLOBIN 31.5 pg (25.0-35.0); MEAN CORPUSCULAR HGB CONC 35.9 g/dl (31.0-37.0); MEAN PLATELET VOLUME 10.1 fl (7.0-11.0); MONO # 0.8 (0.1-0.6); MONO % 9.2 % (1.0-6.0); RBC 4.89 10^6/uL (3.5-6.1); WHITE BLOOD COUNT 9.1 10^3/ul (4.5-11.0)
[2018-04-15 15:46] VITALS: RESP 17
[2018-04-15 15:54] LABS: INR 0.92 (0.93-1.08); PARTIAL THROMBOPLASTIN TIME 32.3 Seconds (25.1-36.5); PROTHROMBIN TIME 10.5 SECONDS (9.4-12.5)
[2018-04-15 16:04] LABS: ALB/GLOB RATIO 1.4 (1.1-1.8); ALBUMIN 4.7 g/dL (3.0-4.8); ALT/SGPT 22 U/L (7-56); AST/SGOT 25 U/L (17-59); BLOOD UREA NITROGEN 20 mg/dL (7-21); CALCIUM 9.5 mg/dL (8.4-10.5); GFR AFRICAN-AMERICAN > 60; GFR NON-AFRICAN AMERICAN 57; HDL CHOLESTEROL 49 mg/dL (29-60); LDL CHOLESTEROL 123 mg/dL (0-129)
[2018-04-15 16:14] LABS: TROPONIN I < 0.01 ng/mL
--- NOTE | 2018-04-15 16:15 | CT ---
HISTORY: Dysphagia; speech change, right sided weakness COMPARISON: Comparison made with CT scan brain earlier same. Comparison also made with CTA of the brain 05/25/2017. TECHNIQUE: IV contrast dose: 150 cc Visipaque 320 Radiation Dose - DLP: 591.36 mGy-cm This CT exam was performed using one or more of the following dose reduction techniques: Automated exposure control, adjustment of the mA and/or kV according to patient size, and/or use of iterative reconstruction technique. . FINDINGS: The current study reveals atherosclerotic partially calcified atherosclerotic plaque along aortic arch. . The left brachiocephalic, left carotid and left subclavian arteries arise directly off of the aortic arch as 3 separate origins. Additionally, there is aortic arch origin of the left vertebral artery. . There are significant six partially calcified atherosclerotic plaque changes seen at the level of the distal left internal carotid artery extending into the bifurcation with complete occlusion of the left internal carotid artery. Significant partially calcified atherosclerotic plaque the distal aspect of the right common carotid artery extending into the bifurcation and proximal right internal carotid artery. There is resultant very severe high-grade stenosis of the proximal right internal carotid artery (see string sign) of. The remaining distal internal carotid artery is patent including the petrous, cavernous and supraclinoid segments however there are partially calcified atherosclerotic plaque changes seen at the level of the right cavernous carotid artery. The vertebral arteries are patent left-sided which is larger in caliber/ more dominant than the right side. Basilar artery is patent. The left A1 and M1 segments are diminutive in caliber likely due to adaptive narrowing due to the occlusion of the left internal carotid artery. There is of some opacification of the left supraclinoid carotid artery though this is likely retrograde flow via cross-filling from right-sided circulation across the anterior communicator as well as the posterior circulation via the left posterior communicator. There is asymmetry of the middle cerebral arteries left-sided which demonstrates a paucity of a perisylvian vessels though this could be due to pre-existing significant partially cystic encephalomalacia involving the left cerebral hemisphere. Note however that the possibility of a small hyperacute infarct cannot be excluded and if there is any concern, consider followup MRI provided that there are no contraindications to MRI in this patient. Proximal posterior cerebral arteries are patent as are the distal branches so far as can be seen. No evidence of large aneurysm nor vascular malformation IMPRESSION: There is complete occlusion of the left internal carotid artery. . Severe high-grade stenosis right internal carotid artery (string sign). Left vertebral artery arises directly off of the aortic arch. Paucity of the distal branch vessels left middle cerebral artery possibly related significant partially cystic encephalomalacia however the possibility of a small hyperacute infarct cannot be excluded on this study. See above discussion for additional details and findings. Note that these findings discussed with Dr. Cristobal at approximately 3:45 p.m. with written down and read back verification.
--- NOTE | 2018-04-15 16:31 | RAD ---
PROCEDURE: CHEST RADIOGRAPH, 1 VIEW HISTORY: Code Stroke COMPARISON: None available. FINDINGS: LUNGS: Clear. PLEURA: No pneumothorax or pleural fluid seen. CARDIOVASCULAR: Normal. OSSEOUS STRUCTURES: Note made of asymmetric appearance of the 1st rib costal cartilages right-side of which appears more prominent than the left. VISUALIZED UPPER ABDOMEN: Normal. OTHER FINDINGS: None. IMPRESSION: No active disease.
[2018-04-15 16:46] VITALS: BP 115/73; PULSE 81
--- NOTE | 2018-04-16 15:47 | CARD ---
APPROVED REPORT EKG Measurement Heart [id number] <Conclusion> Normal sinus rhythm T wave abnormality, consider lateral ischemia Abnormal ECG
== END 2018-04-15 16:40 | disposition left against medical advice (07) ==
LOC: ED 14:24
DX: I65.23 Occlusion and stenosis of bilateral carotid arteries (principal); F10.129 Alcohol abuse with intoxication, unspecified; Y90.8 Blood alcohol level of 240 mg/100 ml or more; E11.9 Type 2 diabetes mellitus without complications; Z86.73 Personal history of transient ischemic attack (TIA), and cerebral infarction without residual deficits; Z95.5 Presence of coronary angioplasty implant and graft
CPT/HCPCS: 70450; 70496; 70498; 71045; 80053; 80061; 83036; 84484; 85025; 85610; 85730; 93005; 99285; G0480; J7030

== ENCOUNTER 2018-06-05 21:08 | Observation (INO) | payer MEDICARE, OTHER ==
[2018-06-05 21:22] VITALS: BMI 24.3
[2018-06-05] MEDS ORDERED: Sodium Chloride 0.9% 1,000 ML IV SCH (21:30)
[2018-06-05] MEDS ORDERED: Iohexol 350 MG/100 ML VIAL ONE (21:39)
[2018-06-05 22:17] LABS: ALB/GLOB RATIO 1.3 (1.1-1.8); ALBUMIN 3.8 g/dL (3.0-4.8); ALT/SGPT 30 U/L (7-56); AST/SGOT 26 U/L (17-59); BLOOD UREA NITROGEN 31 mg/dL (7-21); CALCIUM 9.2 mg/dL (8.4-10.5); GFR AFRICAN-AMERICAN > 60; GFR NON-AFRICAN AMERICAN > 60; HDL CHOLESTEROL 37 mg/dL (29-60)
[2018-06-05 22:18] LABS: BASO # 0.01 K/mm3 (0.0-2.0); BASO % 0.2 % (0.0-3.0); EOS # 0.1 (0.0-0.7); EOS % 2.4 % (1.5-5.0); GRAN # 3.9 (1.4-6.5); GRAN % 70.7 % (50.0-68.0); HEMOGLOBIN 15.1 g/dL (14.0-18.0); LYMPH # 0.9 (1.2-3.4); LYMPH % 17.1 % (22.0-35.0); MEAN CELL VOLUME 85.4 fl (80.0-105.0); MEAN CORPUSCULAR HEMOGLOBIN 31.1 pg (25.0-35.0); MEAN CORPUSCULAR HGB CONC 36.5 g/dl (31.0-37.0); MEAN PLATELET VOLUME 10.8 fl (7.0-11.0); MONO # 0.5 (0.1-0.6); MONO % 9.6 % (1.0-6.0); RBC 4.85 10^6/uL (3.5-6.1); RED CELL DISTRIBUTION WIDTH 13.1 % (11.5-14.5); WHITE BLOOD COUNT 5.5 10^3/ul (4.5-11.0)
[2018-06-05 22:27] LABS: LDL CHOLESTEROL 99 mg/dL (0-129)
[2018-06-05 22:30] LABS: TROPONIN I 0.02 ng/mL
[2018-06-05 22:36] LABS: INR 0.92 (0.93-1.08); PROTHROMBIN TIME 10.5 SECONDS (9.4-12.5)
[2018-06-06] MEDS ORDERED: Multivitamin (MVI) 10 ML, Thiamine 100 MG, Folic Acid 1 MG in Sodium Chloride 0.9% 1,00... IV ONE (00:32)
[2018-06-06] MEDS ORDERED: Labetalol 5 mg/ml Inj 20ML ONE (00:36)
[2018-06-06] MEDS ORDERED: Labetalol 5 mg/ml Inj 20ML IV STA ×2 (00:37→01:30)
[2018-06-06] MEDS ORDERED: Labetalol 5 mg/ml Inj 20ML IV PRN ×2 (01:31→06:05)
--- NOTE | 2018-06-06 02:30 | ED PDOC ---
Arrival/HPI - General Chief Complaint: Altered Mental Status Time Seen by Provider: 06/05/18 21:14 Historian: Patient - History of Present Illness Narrative History of Present Illness (Text): 06/05/18 21:49 A 58 year old male, whose past medical history includes CVA subderal hematoma ( residual right-side deficits due to pprevious CVA), is brought in by EMS and presents to the emergency department complaining of possible CVA. Per EMS, patient was found lying on the floor outside of his apartment, downtime and injuries unknown. Upon arrival to the ER, patient has involuntary muscle contractions throughout the body. Patient is able to answer some questions. Patient denies any pain or any other complaints at this time. Past Medical History - Provider Review Nursing Documentation Reviewed: Yes - Infectious Disease Hx of Infectious Diseases: None - Tetanus Immunization Tetanus Immunization: Unknown - Past Medical History Past Medical History: Unable to Obtain - Cardiac Hx Cardiac Disorders: Yes (CAD,hyperlipemia) - Pulmonary Hx Respiratory Disorders: Yes Hx Chronic Obstructive Pulmonary Disease (COPD): Yes - Neurological Hx Neurological Disorder: Yes HX Cerebrovascular Accident: Yes - HEENT Hx HEENT Disorder: Yes (hearing problem) - Renal Hx Renal Disorder: No - Endocrine/Metabolic Hx Endocrine Disorders: Yes Hx Diabetes Mellitus Type 2: Yes - Hematological/Oncological Hx Blood Disorders: No - Integumentary Hx Dermatological Disorder: No - Musculoskeletal/Rheumatological Hx Unsteady Gait: Yes - Gastrointestinal Hx Gastrointestinal Disorders: Yes Hx Gastroesophageal Reflux: Yes HX Swallowing Problems: Yes - Genitourinary/Gynecological Hx Genitourinary Disorders: No - Psychiatric Hx Psychophysiologic Disorder: Yes (etoh use, pschiatric hospitalizations) Hx Substance Use: No (DENIES) - Past Surgical History Past Surgical History: No Previous - Surgical History Hx Cardiac Catheterization: Yes Hx Coronary Stent: Yes - Anesthesia Hx Anesthesia Reactions: No Hx Malignant Hyperthermia: No - Suicidal Assessment Feels Threatened In Home Enviroment: No Family/Social History - Physician Review Nursing Documentation Reviewed: Yes Family/Social History: No Known Family HX Smoking Status: Heavy Smoker > 10 Cigarettes Daily Hx Alcohol Use: No Hx Substance Use: No (DENIES) Hx Substance Use Treatment: No Allergies/Home Meds Allergies/Adverse Reactions: Allergies No Known Allergies Allergy (Verified 03/20/18 16:51) Home Medications: Home Meds Medication Instructions Recorded Confirmed Atorvastatin [Lipitor] 40 mg PO DAILY 01/03/18 03/20/18 Metoprolol Tartrate [Lopressor] 25 mg PO BID 01/03/18 03/20/18 Aspirin [Ecotrin] 81 mg PO DAILY 01/25/18 03/20/18 ALPRAZolam [Xanax] 0.25 mg PO BID 03/20/18 03/20/18 Cephalexin [Keflex] 500 mg PO BID 03/20/18 03/20/18 Tamsulosin [Flomax] 0.4 mg PO DAILY 03/20/18 03/20/18 Review of Systems - Physician Review All systems were reviewed & negative as marked: Yes - Review of Systems Constitutional: absent: Fevers, Night Sweats Respiratory: absent: SOB, Cough Cardiovascular: absent: Chest Pain Gastrointestinal: absent: Abdominal Pain Musculoskeletal: Other (muscle contractions throughout the body) Physical Exam Vital Signs Reviewed: Yes Vital Signs Pulse Resp BP Pulse Ox 06/06/18 01:58 83 164/82 H 99 06/06/18 01:42 82 16 154/100 H 99 06/06/18 01:30 88 163/105 H 06/06/18 01:20 84 16 180/110 H 99 06/06/18 00:43 90 180/109 H 06/05/18 23:39 86 16 166/120 H 99 06/05/18 21:30 90 16 160/97 H 99 Temperature: Afebrile Blood Pressure: Hypertensive Pulse: Regular Respiratory Rate: Normal Appearance: Positive for: Well-Appearing, Non-Toxic, Comfortable Pain Distress: None Mental Status: Positive for: Alert and Oriented X 3 Finger Stick Blood Glucose: 110 - Systems Exam Head: Present: Atraumatic, Normocephalic Neck: Present: Normal Range of Motion Respiratory/Chest: Present: Clear to Auscultation, Good Air Exchange. No: Respiratory Distress, Accessory Muscle Use Cardiovascular: Present: Regular Rate and Rhythm, Normal S1, S2. No: Murmurs Abdomen: No: Tenderness, Distention, Peritoneal Signs Back: Present: Normal Inspection Upper Extremity: Present: Normal ROM (right-side decreased muscle strength ), Other (involuntary muscle contractions throughout body) Lower Extremity: Present: Normal ROM (right-side decreased muscle strength ), Other (involuntary muscle contractions throughout body) Neurological: Present: Other (right-side body deficits due to previous CVA) Skin: Present: Warm, Dry, Normal Color. No: Rashes Psychiatric: Present: Alert, Oriented x 3, Normal Insight, Normal Concentration Medical Decision Making ED Course and Treatment: 06/05/18 21:53 Impression: 58 year old male with CVA. Plan: -- EKG -- Head/Neck CTA -- Head CT -- Chest X-ray -- Labs -- IV Fluids -- Reassess and disposition Prior Visits: Notes and results from previous visits were reviewed. Patient was last seen in the emergency department on Progress Notes: EKG: Ordered, reviewed, and independently interpreted the EKG. Rate : 101 BPM Rhythm : Sinus tachycardia. Interpretation : Left axis deviation, inverted T-waves, 1 AVL, v6. Comparison : No previous EKG for comparison. 06/05/18 21:14 Code Stroke called. 06/05/18 21:[address] Durham, patient will be admitted and monitored. 06/05/2018 21:[address] IMPRESSION: Age-related atrophy and chronic white matter ischemic changes, with no evidence of an acute intracranial abnormality. There are areas of decreased CSF-like denisity and volume loss consistent with encephalomalacia from a remote infarct or other insult, largest located left MCA territory. 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 Flow is present in all the major branches of the ICA on both sides. Atherosclerotic stenosis up to 50% involving the right ICA intracranial segment similar to the prior examination. Chronic infarction left hemisphere described in full and the head CT report. No acute vascular occlusion is seen in this exam. Neck: Complete occlusion of the left ICA extending into the intracranial segment is unchanged and is chronic. High-grade stenosis of the right ICA origin is present. This abnormality is also stable compared to previous examination. Dictator: Ramón Stevens MD - Lab Interpretations Lab Results: 06/05/18 21:53 06/05/18 21:53 Lab Results 06/05/18 21:53: Alcohol, Quantitative < 10 06/05/18 21:53: Blood Type O POSITIVE, Antibody Screen Negative, BBK History Checked Patient has bt 06/05/18 21:53: Sodium 137, Potassium 3.6, Chloride 102, Carbon Dioxide 21, Anion Gap 18, BUN 31 H, Creatinine 1.1, Est GFR ( Amer) > 60, Est GFR ( Non-Af Amer) > 60, Random Glucose 280 H, Calcium 9.2, Total Bilirubin 1.0, AST 26, ALT 30, Alkaline Phosphatase 53, Troponin I 0.02 D, Total Protein 6.7, Albumin 3.8, Globulin 2.9, Albumin/Globulin Ratio 1.3, Triglycerides 380 H, Cholesterol 215 H, LDL Cholesterol Direct 99, HDL Cholesterol 37 06/05/18 21:53: PT 10.5, INR 0.92 L, APTT 25.0 L 06/05/18 21:53: WBC 5.5 D, RBC 4.85, Hgb 15.1, Hct 41.4 L, MCV 85.4, MCH 31.1, MCHC 36.5, RDW 13.1, Plt Count 151, MPV 10.8, Gran % 70.7 H, Lymph % (Auto) 17.1 L, [place] % (Auto) 9.6 H, Eos % (Auto) 2.4, Baso % (Auto) 0.2, Gran # 3.90, Lymph # (Auto) 0.9 L, [place] # (Auto) 0.5, Eos # (Auto) 0.1, Baso # (Auto) 0.01 I have reviewed the lab results: Yes - RAD Interpretation Radiology Orders: 06/05/18 21:25 HEAD W/O (CODE STROKE) [CT] Stat CHEST PORTABLE [RAD] Stat 06/05/18 21:26 CTA HEAD/NECK CODE STROKE [CT] Stat - Medication Orders Current Medication Orders: Aspirin (Ecotrin) 81 mg PO DAILY [facility] Atorvastatin Calcium (Lipitor) 40 mg PO DAILY [facility] Chlordiazepoxide (Librium) 50 mg PO TID FENG PRN Reason: Protocol Clopidogrel Bisulfate (Plavix) 75 mg PO DAILY [facility] Sodium Chloride (Sodium Chloride 0.9%) 1,000 mls @ 80 mls/hr IV .[id number] [facility] Insulin Human Regular (Humulin R Low) 0 units SC ACHS FENG PRN Reason: Protocol Labetalol HCl (Trandate) 20 mg IV Q6H PRN PRN Reason: Systolic Blood Pressure Lorazepam (Ativan) 1 mg IVP Q3H PRN; Protocol PRN Reason: Anxiety Last Admin: 06/06/18 03:21 Dose: 1 mg IVP Administration Document 06/06/18 03:21 SRE (Rec: 06/06/18 03:22 SRE [id number]) Charges for Administration # of IVP Administrations 1 Behavioural Document 06/06/18 03:21 SRE (Rec: 06/06/18 03:22 SRE [id number]) Maintenance Maintenance Dose No Nonmedicinal Nonmedicinal Interventions See nurse's notes Behavior Behavior for Medication: Continuous pacing/restlessness Head banging Behavior Comment shaking,jerking Metoprolol Tartrate (Lopressor) 25 mg PO BID FENG Pantoprazole Sodium (Protonix Inj) 40 mg IVP DAILY [facility] Tamsulosin HCl (Flomax) 0.4 mg PO DAILY FENG Thiamine HCl (Vitamin B1 Tab) 100 mg PO DAILY FENG Valproate Sodium (Depakene Cap) 250 mg PO BID FENG Discontinued Medications Aspirin (Aspirin) 325 mg PO STAT STA Stop: 06/05/18 23:40 Last Admin: 06/06/18 00:05 Dose: Not Given Non-Admin Reason: NPO Folic Acid (Folic Acid) 1 mg PO STAT STA Stop: 06/06/18 01:13 Last Admin: 06/06/18 01:39 Dose: Hydralazine HCl (Apresoline) 10 mg IVP ONCE ONE Stop: 06/06/18 03:39 Sodium Chloride (Sodium Chloride 0.9%) 1,000 mls @ 100 mls/hr IV .Q10H FENG Last Admin: 06/05/18 22:05 Dose: 100 mls/hr eMAR Start Stop Document 06/05/18 22:05 MS (Rec: 06/05/18 22:05 MS [id number]) Intravenous Solution Start Date 06/05/18 Start Time 22:05 Labetalol HCl (Trandate) 20 mg IV STAT STA Stop: 06/06/18 00:38 Last Admin: 06/06/18 00:43 Dose: 20 mg eMAR Start Stop Document 06/06/18 00:43 MS (Rec: 06/06/18 00:43 MS [id number]) Intravenous Solution Start Date 06/06/18 Start Time 00:43 MAR Pulse and Blood Pressure Document 06/06/18 00:43 MS (Rec: 06/06/18 00:43 MS [id number]) Pulse Pulse Rate (60-90) 90 Blood Pressure Blood Pressure (100/60-150/90) 180/109 Labetalol HCl (Trandate) 20 mg IV STAT STA Stop: 06/06/18 01:31 Last Admin: 06/06/18 01:30 Dose: 20 mg eMAR Start Stop Document 06/06/18 01:30 MS (Rec: 06/06/18 01:41 MS [id number]) Intravenous Solution Start Date 06/06/18 Start Time 01:40 MAR Pulse and Blood Pressure Document 06/06/18 01:30 MS (Rec: 06/06/18 01:41 MS [id number]) Pulse Pulse Rate (60-90) 88 Blood Pressure Blood Pressure (100/60-150/90) 163/105 NIHSS Scale ([place]) Time Performed: 21:15 - How Severe is the Stoke Baseline Level of Consciousness: 0=Alert LOC to Questions: 0=Both comments correct LOC to commands: 0=Obeys both correctly Best Gaze: 1=Partial gaze palsy Visual: 0=No visual loss Facial: 1=Minor asymmetry Motor Arm - Left: 0=No drift Motor Arm - Right: 2=Falls before 10 sec Motor Leg - Left: 0=No drift Motor Leg - Right: 2=Falls before 5 sec Limb Ataxia: 0=Absent Sensory: 0=Normal Best Language: 1=Mild to moderate aphasia Dysarthia: 0=Normal articulation Extinction & Inattention (Neglect): 0=Normal, no object Score: 7 Risk Level: Mod Stroke Risk rTPA Inclusion/Exclusion - Inclusion Criteria for Altepase Patient is 18 years or Older: Yes The Clinical Diagnosis of Ischemic Stroke That is Causing a Potentially Disabling Neurological Deficit: No Time of Onset is Well Established to be Less Than 270 Minute Before Treatment Would Begin: Yes Risk/Benefit Discussed With Patient/Family Member Present: No - Exclusion Criteria for Altepase History of: Intracranial hemorrhage - Scribe Statement The provider has reviewed the documentation as recorded by the Lily Dominguez Provider Scribe Attestation: All medical record entries made by the Scribe were at my direction and personally dictated by me. I have reviewed the chart and agree that the record accurately reflects my personal performance of the history, physical exam, medical decision making, and the department course for this patient. I have also personally directed, reviewed, and agree with the discharge instructions and disposition. Disposition/Present on Arrival - Present on Arrival Any Indicators Present on Arrival: No History of DVT/PE: No History of Uncontrolled Diabetes: No Urinary Catheter: Yes History of Decub. Ulcer: No History Surgical Site Infection Following: None - Disposition Have Diagnosis and Disposition been Completed?: Yes Diagnosis: TIA (transient ischemic attack) Disposition: HOSPITALIZED Disposition Time: 22:40 Condition: FAIR
--- NOTE | 2018-06-06 03:44 | CP.PCM.HP ---
<Nicolas Shrestha - Last Filed: 06/06/18 06:31> History of Present Illness - History of Present Illness History of Present Illness: Nicolas Shrestha PGY-1, Internal Medicine Resident, History and Physical for Dr Stevenson. CC: pt found down, possible CVA HPI: A 58 year old male, whose past medical history includes CVA, subderal hematoma, seizures, DMII, and alcohol abuse is brought in by EMS and presents to the emergency department complaining of possible CVA. Pt history of CVA with residual right sided hemiparesis and expressive aphasia make history and ROS difficult to obtain. Pt does not answer questions appropriately. Pt does not know is his name, where he is, and cannot describe what has happened to him. He is aware that his right arm and right leg are greatly affected. It is difficult to ascertain from the pt if these symptoms are residual or if they are exacerbated. Per EMS, patient was found lying on the floor outside of his apartment, downtime and injuries unknown. Per note review, upon arrival to the ER, patient has involuntary muscle contractions throughout the body. Patient is able to answer some questions. Patient denies any pain or any other complaints at this time. 12 point ROS difficult to obtain due to pt expressive aphasia. PMH: DM 2, CAD, Anxiety, GERD, Alcoholism, Tobacco Dependence, HTN, HLD, Prior TIA, CVA PSHx: Cardiac Stent Allergies: NKDA Home Medications: Difficult to obtain Social: Lives alone, (+) Opiate Abuse, (+) Alcohol Abuse, (+) Tobacco FH: none available Present on Admission - Present on Admission Any Indicators Present on Admission: No Review of Systems - Review of Systems Review of Systems: difficult to obtain due to pt expressive aphasia Past Patient History - Infectious Disease Hx of Infectious Diseases: None - Tetanus Immunizations Tetanus Immunization: Unknown - Past Medical History & Family History Past Medical History?: Yes - Past Social History Smoking Status: Heavy Smoker > 10 Cigarettes Daily - CARDIAC Hx Cardiac Disorders: Yes (CAD,hyperlipemia) - PULMONARY Hx Respiratory Disorders: Yes Hx Chronic Obstructive Pulmonary Disease (COPD): Yes - NEUROLOGICAL Hx Neurological Disorder: Yes HX Cerebrovascular Accident: Yes - HEENT Hx HEENT Problems: Yes (hearing problem) - RENAL Hx Chronic Kidney Disease: No - ENDOCRINE/METABOLIC Hx Endocrine Disorders: Yes Hx Diabetes Mellitus Type 2: Yes - HEMATOLOGICAL/ONCOLOGICAL Hx Blood Disorders: No - INTEGUMENTARY Hx Dermatological Problems: No - MUSCULOSKELETAL/RHEUMATOLOGICAL Hx Unsteady Gait: Yes - GASTROINTESTINAL Hx Gastrointestinal Disorders: Yes Hx Gastroesophageal Reflux: Yes HX Swallowing Problems: Yes - GENITOURINARY/GYNECOLOGICAL Hx Genitourinary Disorders: No - PSYCHIATRIC Hx Psychophysiologic Disorder: Yes (etoh use, pschiatric hospitalizations) Hx Substance Use: No (DENIES) - SURGICAL HISTORY Hx Cardiac Catheterization: Yes Hx Coronary Stent: Yes - ANESTHESIA Hx Anesthesia Reactions: No Hx Malignant Hyperthermia: No Meds Allergies/Adverse Reactions: Allergies Allergy/AdvReac Type Severity Reaction Status Date / Time No Known Allergies Allergy Verified 03/20/18 16:51 Physical Exam - Constitutional Appears: No Acute Distress Additional comments: pt is having difficulty moving his right arm and right leg - Eye Exam Eye Exam: EOMI, Normal appearance - ENT Exam ENT Exam: Mucous Membranes Moist - Neck Exam Neck exam: Positive for: Normal Inspection - Respiratory Exam Respiratory Exam: Clear to Auscultation Bilateral, NORMAL BREATHING PATTERN - Cardiovascular Exam Cardiovascular Exam: REGULAR RHYTHM, RRR, +S1, +S2. absent: Diastolic murmur, Systolic Murmur - GI/Abdominal Exam GI & Abdominal Exam: Normal Bowel Sounds, Soft - Extremities Exam Extremities exam: Negative for: calf tenderness, full ROM - Neurological Exam Neurological exam: Alert, Altered Additional comments: pt has difficulty moving the right side of his face, pt has 0/5 muscle strength in his right arm, 5/5 in his left Pt has 1/5 muscle strength in his right leg pt does not report any sensory deficits at this time - Skin Skin Exam: Normal Color Results - Vital Signs Recent Vital Signs: Last Vital Signs Temp Pulse 83 06/06/18 02:15 Resp 16 06/06/18 02:15 BP 164/82 H 06/06/18 02:15 Pulse Ox 99 06/06/18 02:15 - Labs Result Diagrams: 06/05/18 21:53 06/05/18 21:53 Assessment & Plan - Assessment and Plan (Free Text) Assessment: A 58 year old male, whose past medical history includes CVA, subderal hematoma, seizures, DMII, and alcohol abuse is brought in by EMS and presents to the emergency department with possible CVA. Plan: Code Stroke, TIA/CVA -CTA: shows complete occulsion of LEFT ICA is unchanged and is chronic. Also shows high-grade stenosis of RIGHT ICA origin present. Stable compared to previous exam. -ordered ECHO, awaiting results -Head CT w/o con: Age -related atrophy and chronic white matter ischemic changes , with no evidence of an acute intracranial abnormality. There are areas of decreased CSF-like density and volume loss consistent with encephalomalacia from a remote infarct or other insult, largest located left MCA territory. -pt on tele -continue lipitor 40mg PO daily -continue ASA -continue Lopressor -continue flomax -continue to follow CMP, CBC -Ordered TSH -Ordered Troponin -start Plavix 75mg PO daily -Start folic acid and thiamin PO -continue Labetalol 20mg IVP, PRN -neuro consulted, Dr Ortez -PT/OT consulted -Ordered Swallow eval Possible CAD -continue ASA, and plavix -continue lipitor Hx DM -start ISS, low -Ordered HA1C -finger stick ACHS Hx of Alcohol Withdrawal -CIWA protocol -start Librium 50mg TID and Ativan 1mg Q3H PRN Hx of Seizure disorder -start Depakote 250 DVT ppx -SCD, knee Pt seen, examined, assessment and plan discussed with Dr Stevenson. Nicolas Shrestha PGY-1 <Compa Stevenson - Last Filed: 06/07/18 22:41> Results - Vital Signs Recent Vital Signs: Last Vital Signs Temp 98.4 F 06/07/18 00:01 Pulse 73 06/07/18 06:00 Resp 20 06/07/18 00:01 BP 153/90 H 06/07/18 00:01 Pulse Ox 100 06/07/18 00:01 - Labs Result Diagrams: 06/06/18 06:00 06/06/18 06:00 Labs: Laboratory Results - last 24 hr 06/06/18 06/07/18 21:25 07:11 POC Glucose (mg/dL) 260 H 150 H Attending/Attestation - Attestation I have personally seen and examined this patient.: Yes I have fully participated in the care of the patient.: Yes I have reviewed all pertinent clinical information: Yes Notes (Text): 06/07/18 22:40 Patient was seen when he was in the ER. Agree with history, physical examination , assessment and plan.
[2018-06-06] MEDS: Sodium Chloride 0.9% 1,000 ML IV SCH ×2 (03:49→17:57)
[2018-06-06 06:50] LABS: BASO # 0.02 K/mm3 (0.0-2.0); BASO % 0.3 % (0.0-3.0); EOS # 0.2 (0.0-0.7); EOS % 2.2 % (1.5-5.0); GRAN # 4.35 (1.4-6.5); GRAN % 59.4 % (50.0-68.0); HEMOGLOBIN 15.1 g/dL (14.0-18.0); LYMPH # 2.1 (1.2-3.4); LYMPH % 29.1 % (22.0-35.0); MEAN CORPUSCULAR HGB CONC 36.5 g/dl (31.0-37.0); MEAN PLATELET VOLUME 10.7 fl (7.0-11.0); MONO # 0.7 (0.1-0.6); RBC 4.87 10^6/uL (3.5-6.1); RED CELL DISTRIBUTION WIDTH 13.2 % (11.5-14.5); WHITE BLOOD COUNT 7.3 10^3/ul (4.5-11.0)
[2018-06-06 07:06] LABS: ALB/GLOB RATIO 1.3 (1.1-1.8); ALBUMIN 3.9 g/dL (3.0-4.8); ALT/SGPT 22 U/L (7-56); AST/SGOT 24 U/L (17-59); BLOOD UREA NITROGEN 25 mg/dL (7-21); CALCIUM 9.4 mg/dL (8.4-10.5); GFR AFRICAN-AMERICAN > 60; GFR NON-AFRICAN AMERICAN > 60
[2018-06-06 07:10] LABS: TROPONIN I 0.04 ng/mL
[2018-06-06] MEDS ORDERED: Magnesium Sulfate 2 GM in Sodium Chloride 0.9% 100 ML IV ONE (07:57)
--- NOTE | 2018-06-06 08:24 | CT ---
Date of service: 06/05/2018 PROCEDURE: CT HEAD WITHOUT CONTRAST. HISTORY: Code Stroke COMPARISON: None available. TECHNIQUE: Axial computed tomography images were obtained through the head/brain without intravenous contrast. Radiation dose: Total exam DLP = 1349.27 mGy-cm. This CT exam was performed using one or more of the following dose reduction techniques: Automated exposure control, adjustment of the mA and/or kV according to patient size, and/or use of iterative reconstruction technique. FINDINGS: HEMORRHAGE: No intracranial hemorrhage. BRAIN: No mass effect or edema. No evidence of acute infarct. Large old left MCA territory infarct grossly unchanged compared to examination of 04/15/2018. Possible small old left [place] infarct in the inferior medial left occipital lobe. Again, no change. Mild diffuse atrophy. Mild periventricular white matter lucency consistent with chronic microvascular ischemic change. VENTRICLES: Unremarkable. No hydrocephalus. CALVARIUM: Unremarkable. PARANASAL SINUSES: Unremarkable as visualized. No significant inflammatory changes. MASTOID AIR CELLS: Unremarkable as visualized. No inflammatory changes. OTHER FINDINGS: None. IMPRESSION: Large old left MCA territory infarct and possible small old left [place] territory infarct unchanged in appearance compared to 04/15/2018. No evidence of acute infarct. No intracranial hemorrhage. Mild chronic white matter ischemic change. The preliminary findings for this examination were reported by [employer] at 9:46 p.m. on 06/05/2018. There is concurrence of this report with the preliminary findings.
[2018-06-06] MEDS: Insulin Reg-LOW-Coverage SC SCH ×3 (08:36→16:30)
--- NOTE | 2018-06-06 09:43 | CT ---
Date of service: 06/05/2018 PROCEDURE: CT Angiography of the neck with contrast HISTORY: cva alert COMPARISON: None available. TECHNIQUE: Contiguous axial images of the neck were obtained from the level of the skull-base to the superior mediastinum in the arteriographic phase of enhancement. Coronal and sagittal reformats or also generated. IV contrast dose: 100 cc of Omni 350 Radiation Dose - DLP: 571 mGy-cm This CT exam was performed using one or more of the following dose reduction techniques: Automated exposure control, adjustment of the mA and/or kV according to patient size, and/or use of iterative reconstruction technique. FINDINGS: RIGHT CAROTID ARTERIES: Heavily calcified plaque is seen at the carotid bifurcation with moderate stenosis of the right internal carotid LEFT CAROTID ARTERIES: There is complete occlusion of the left internal carotid at its origin. VERTEBRAL ARTERIES: Right Vertebral Artery: Normal. Left Vertebral Artery: Normal. OTHER FINDINGS: None. IMPRESSION: Normal CT Angiography of the neck. PROCEDURE: CT Angiography of the Brain. HISTORY: cva alert COMPARISON: None available. TECHNIQUE: CT angiography of the intracranial arteries was performed. Coronal and sagittal maximum intensity projection reformated images were generated. This CT exam was performed using one or more of the following dose reduction techniques: Automated exposure control, adjustment of the mA and/or kV according to patient size, and/or use of iterative reconstruction technique. FINDINGS: INTERNAL CEREBRAL ARTERIES: Complete occlusion of the left internal carotid. There is collateral flow to the left middle cerebral and anterior cerebral via the [place]. There is an old infarct of the left hemisphere ANTERIOR CEREBRAL ARTERIES: Unremarkable. A1 and A2 segments are widely patent. Smaller distal branches unremarkable, as visualized. MIDDLE CEREBRAL ARTERIES: Unremarkable. M1 and M2 segments are widely patent. Perisylvian branches grossly symmetric. POSTERIOR CIRCULATION: Basilar Artery: Unremarkable. Distal Vertebral Arteries: Unremarkable. Posterior Cerebral Arteries: Unremarkable. Posterior Inferior Cerebellar Arteries: Unremarkable. ANEURYSM/ VASCULAR MALFORMATIONS: None. OTHER FINDINGS: The report concurs with the preliminary [employer] report IMPRESSION: Complete occlusion of the left internal carotid artery. Moderate stenosis of the right internal carotid at its origin.
--- NOTE | 2018-06-06 11:08 | RAD ---
Date of service: 06/05/2018 HISTORY: Code Stroke COMPARISON: 04/15/2018 FINDINGS: LUNGS: No active pulmonary disease. PLEURA: No significant pleural effusion identified, no pneumothorax apparent. CARDIOVASCULAR: Normal. OSSEOUS STRUCTURES: No significant abnormalities. VISUALIZED UPPER ABDOMEN: Normal. OTHER FINDINGS: None. IMPRESSION: No active disease.
--- NOTE | 2018-06-06 11:37 | PN ---
DATE: 06/06/2018 SUBJECTIVE: I was walking past his room. He was admitted yesterday as an observation and he was placed on the hospital service. He was yelling for me. He was my patient in the office and I came to see him. He was brought in for rule out CVA. He does have a history of a CVA. He has got expressive aphasia, but other than that he is very alert and understands what is going on. He is a good patient. He has right-sided weakness from an old CVA. He had subdural hematoma, seizures, diabetes, alcohol abuse in the past, but no more. The right hemiparesis and expressive aphasia that this thing is old. This is not new and all they did a code stroke on him. His blood pressure is quite high, we will have to address that. He has got high cholesterol and triglycerides. I will put him on something for the triglycerides. He has a past medical history of cardiac stent. No known drug allergies. He used to drink, he used to smoke, not anymore. Unknown family history. He is calm right now. PHYSICAL EXAMINATION: VITAL SIGNS: He has vital signs of 98.5 temp; 91 pulse; 171/97 blood pressure, also 179/100 blood pressure, I put him on clonidine 0.1 twice a day; 19 respiratory rate and 98% O2 sat. HEENT: Head is atraumatic, normocephalic. HEART: Regular rate. LUNGS: Decreased breath sounds, but clear. ABDOMEN: Soft. EXTREMITIES: No edema. NEUROLOGIC: Right-sided weakness, expressive aphasia. LABORATORY DATA: He has a 7.3 white count, 15.1 hemoglobin, 41.4 hematocrit with 154 platelets. He has a 142 sodium; potassium 3.5, I will replace the potassium; BUN 25; creatinine 0.9; GFR is greater than 60; sugar is 159; calcium is 9.4; phosphorous 3.6; total bili is 1; AST is 24; ALT is 22; alk phos 54. Troponins I is 0.02 and 0.04. Total protein is 7, TSH is 2.02. ASSESSMENT AND PLAN: I am hoping to keep him another day in observation. Get his blood pressure under control. Consult Cardiology. His neurologic status is his baseline. Waiting for a swallow evaluation, so we can get him to eat. He is here with rule-out cerebrovascular accident, right-sided weakness which is chronic and hypertensive. Alexis Tolentino DO
--- NOTE | 2018-06-06 15:38 | CARD ---
APPROVED REPORT Date of service: 06/06/2018 EXAM: Two-dimensional and M-mode echocardiogram with Doppler and color Doppler. INDICATION CVA/TIA 2D DIMENSIONS Left Atrium (2D)3.3 (1.6-4.0cm)IVSd1.7 (0.7-1.1cm) LVDd4.3 (3.9-5.9cm)PWd1.6 (0.7-1.1cm) LVDs3.7 (2.5-4.0cm)FS (%) 15.7 % LVEF (%)33.3 (>50%) M-Mode DIMENSIONS Aortic Root3.50 (2.2-3.7cm)Aortic Cusp Exc.2.10 (1.5-2.0cm) Aortic Valve AoV Peak Cytrzrfb90.0cm/Leonidas Peak GR.4mmHg Mitral Valve MV E Pxkcbmrb19.4cm/sMV A Eskysdlv89.5cm/sE/A ratio0.6 TDI E/Lateral E'0.0E/Medial E'0.0 Tricuspid Valve TR Peak Dqrabghb91ok/sRAP YLOPOGZA92usEzBU Peak Gr.3mmHg [id number] LEFT VENTRICLE The left ventricle is normal size. There is moderate concentric left ventricular hypertrophy. The ejection fraction is moderately to severely impaired. There is global hypokinesis of the left ventricle. Transmitral Doppler flow pattern is Grade I-abnormal relaxation pattern. RIGHT VENTRICLE The right ventricle is normal size. There is normal right ventricular wall thickness. The right ventricular systolic function is normal. ATRIA The left atrium size is normal. The right atrium size is normal. AORTIC VALVE The aortic valve is moderately thickened. No aortic regurgitation is present. There is no aortic valvular stenosis. MITRAL VALVE The mitral valve is mildly thickened. There is no mitral valve regurgitation noted. There is no mitral valve stenosis. TRICUSPID VALVE The tricuspid valve is normal in structure. There is no tricuspid valve regurgitation noted. GREAT VESSELS The aortic root is normal in size. PERICARDIAL EFFUSION There is a trace loculated anterior pericardial effusion. <Conclusion> The left ventricle is normal size. There is moderate concentric left ventricular hypertrophy. The ejection fraction is moderately to severely impaired. There is global hypokinesis of the left ventricle. Transmitral Doppler flow pattern is Grade I-abnormal relaxation pattern.
--- NOTE | 2018-06-06 16:27 | CARD ---
APPROVED REPORT Date of service: 06/05/2018 EKG Measurement Heart [id number] <Conclusion> Sinus tachycardia T wave abnormality, consider lateral ischemia Abnormal ECG
--- NOTE | 2018-06-07 00:22 | CON ---
DATE: 06/06/2018 HISTORY OF PRESENT ILLNESS: This is a 58-year-old white male with past medical history of diabetes, coronary artery disease, GERD, alcoholism, hypertension, TIA and CVA, and past surgical history of cardiac stent, came to the emergency room with possible TIA. Patient has a history of residual right-sided weakness and expressive aphasia and follows some commands with difficulty. Patient was lying on the floor outside his apartment, unknown downtime. Patient had involuntary muscle contraction. No tongue bite or urinary incontinence. ALLERGIES: NO KNOWN DRUG ALLERGIES. SOCIAL HISTORY: Lives alone. Opioid abuse and alcohol abuse and smokes. PHYSICAL EXAMINATION: VITAL SIGNS: Blood pressure 164/82. HEENT: Normocephalic, atraumatic. NECK: Supple. NEUROLOGIC: Awake, aphasic, and residual weakness on the right side of the body, 2-3/5. Plantars downgoing, sensory appeared intact. Cerebellar, gait deferred. LABORATORY DATA: WBC of 5.5, hemoglobin 15.1, hematocrit 41.4, platelet 151. Sodium 137, potassium 3.6, chloride 102, CO2 of 21, glucose 280, BUN 31, creatinine 1.1 IMPRESSION AND PLAN: Left hemispheric stroke with aphasia and left internal carotid artery occlusion. A 58-year-old with past medical history of cerebrovascular accident, subdural hematoma, seizure, diabetes, alcohol abuse, came to hospital, possible transient ischemic attack. CTA showed complete occlusion of the left internal carotid artery and high-grade stenosis on the right internal carotid artery. CAT scan of the head showed no evidence of acute infarcts. Continue present management. Continue aspirin and Plavix. We will follow up. Bernardo Linda MD
[2018-06-07 03:36] VITALS: BP 153/90; RESP 20; TEMP 98.4; O2SAT 100
[2018-06-07] MEDS: Insulin Reg-LOW-Coverage SC SCH ×2 (03:37→09:32)
[2018-06-07] MEDS: Sodium Chloride 0.9% 1,000 ML IV SCH (06:12)
[2018-06-07 06:29] VITALS: PULSE 73
--- NOTE | 2018-06-07 08:18 | DS ---
He is resting comfortably in bed. He is back to his baseline. He is refusing all labs. He is refusing things. He is taking his medications. medications for him, he will be on Catapres patch, Catapres twice a day. He will be on valproic acid, baby aspirin, Flomax, Lipitor, Plavix, Protonix. Those are his medications he will be on. He will be discharged today after physical therapy. He states it is fine to go, which I think will do well. He also will be seen in my office tomorrow. He is here for TIA and hypertension. He has got an old cerebrovascular accident with right-sided weakness and old aphasia, that is nothing new and he is back to his baseline. He will be discharged today after physical therapy, make sure he is safe to walk or call me afterwards. Alexis Tolentino DO MTDD
--- NOTE | 2018-06-07 09:45 | CON ---
DATE: 06/07/2018 HISTORY OF PRESENT ILLNESS: The patient is a 58-year-old male who presented with transient neurologic findings, which has since resolved. The patient's past medical history is notable for hypercholesterolemia as well as hypertension. The patient apparently underwent a stress test earlier this year which was abnormal and consistent with ischemic changes. He states he underwent cardiac catheterization, of which there was no report in the chart. He denies chest pain. He refuses any further testing at this time. PHYSICAL EXAMINATION: VITAL SIGNS: Blood pressure is 153/90, heart rate is in the 70s. NECK: Negative JVD. LUNGS: Without rales. HEART: S1, S2. EXTREMITIES: Without edema. There is right-sided weakness. LABORATORY DATA: EKG shows no acute changes. Hemoglobin is 15.1. Chemistries are unremarkable other than a glucose of 156. Troponin 0.04. IMPRESSION 1. History of cerebrovascular accident. 2. Transient neurologic changes which is back to normal. 3. Refusing any further testing. 4. Ischemic dilated cardiomyopathy. 5. Hypercholesterolemia. Given these findings, although, the patient refuses further tests, he is agreeable to go back to his physicians to go over and review his cardiac issues. He does not want any more testing done. Edilberto Carolina MD
== END 2018-06-07 09:30 | disposition home or self-care (01) ==
LOC: ED 21:08 → ERH 23:38 → 2RSO 06-06 02:12
PROVIDERS: ADMIT Internal Medicine; ATTEND Family Medicine
DX: I10 Essential (primary) hypertension (principal); I65.23 Occlusion and stenosis of bilateral carotid arteries; E78.00 Pure hypercholesterolemia, unspecified; I25.5 Ischemic cardiomyopathy; I42.0 Dilated cardiomyopathy; I69.320 Aphasia following cerebral infarction; I69.351 Hemiplegia and hemiparesis following cerebral infarction affecting right dominant side; E11.9 Type 2 diabetes mellitus without complications; I25.10 Atherosclerotic heart disease of native coronary artery without angina pectoris; F11.10 Opioid abuse, uncomplicated; G93.89 Other specified disorders of brain; J44.9 Chronic obstructive pulmonary disease, unspecified; G40.909 Epilepsy, unspecified, not intractable, without status epilepticus; K21.9 Gastro-esophageal reflux disease without esophagitis; E78.5 Hyperlipidemia, unspecified; Z79.02 Long term (current) use of antithrombotics/antiplatelets; Z95.5 Presence of coronary angioplasty implant and graft; Z79.82 Long term (current) use of aspirin; Z87.891 Personal history of nicotine dependence
CPT/HCPCS: 36415; 70450; 70496; 70498; 71045; 80053; 80061; 82948; 83036; 83735; 84100; 84443; 84484; 85025; 85610; 85730; 86850; 86900; 92610; 93005; 93306; 96374; 97116; 97161; 99285; C9113; G0378; G0480; G8978; G8979; G8980; G8996; G8997; J0360; J2060; J3475; J3480; J7030; Q9967

== ENCOUNTER 2018-10-05 04:16 | Inpatient (IN) | payer MEDICARE ==
--- NOTE | 2018-10-05 04:29 | ED PDOC ---
Arrival/HPI - General Chief Complaint: Altered Mental Status Time Seen by Provider: 10/05/18 04:20 Historian: Patient - History of Present Illness Narrative History of Present Illness (Text): 10/05/18 04:25 Warren Cesar is a 58 year old male, whose past medical history includes CVA with residual aphasia, subdural hematoma, CAD, seizures, diabetes, alcohol abuse, hypertension, and GERD, who presents to the Emergency department brought in by EMS after patient was found wandering outside confused tonight. Patient has chronic residual expressive aphasia from prior CVA. Patient states he feels fine and denies any somatic complaints. Symptom Onset: Gradual Symptom Course: Unchanged Activities at Onset: Light Context: Home Past Medical History - Provider Review Nursing Documentation Reviewed: Yes - Infectious Disease Hx of Infectious Diseases: None - Tetanus Immunization Tetanus Immunization: Unknown - Past Medical History Past Medical History: Unable to Obtain - Cardiac Hx Cardiac Disorders: Yes (CAD,hyperlipemia) - Pulmonary Hx Respiratory Disorders: Yes Hx Chronic Obstructive Pulmonary Disease (COPD): Yes - Neurological HX Cerebrovascular Accident: Yes (With R sided residual weakness and expressive aphasia) - HEENT Hx HEENT Disorder: Yes (hearing problem) - Renal Hx Renal Disorder: No - Endocrine/Metabolic Hx Diabetes Mellitus Type 2: Yes - Hematological/Oncological Hx Blood Disorders: No - Integumentary Hx Dermatological Disorder: No - Musculoskeletal/Rheumatological Hx Unsteady Gait: Yes - Gastrointestinal Hx Gastrointestinal Disorders: Yes Hx Gastroesophageal Reflux: Yes HX Swallowing Problems: Yes - Genitourinary/Gynecological Hx Genitourinary Disorders: No - Psychiatric Hx Psychophysiologic Disorder: Yes (etoh use, pschiatric hospitalizations) Hx Substance Use: No (DENIES) - Past Surgical History Past Surgical History: No Previous - Surgical History Hx Cardiac Catheterization: Yes Hx Coronary Stent: Yes - Anesthesia Hx Anesthesia: No Hx Anesthesia Reactions: No Hx Malignant Hyperthermia: No - Suicidal Assessment Feels Threatened In Home Enviroment: No Family/Social History - Physician Review Nursing Documentation Reviewed: Yes Family/Social History: Unknown Family HX Smoking Status: Heavy Smoker > 10 Cigarettes Daily Hx Alcohol Use: No Hx Substance Use: No (DENIES) Hx Substance Use Treatment: No Allergies/Home Meds Allergies/Adverse Reactions: Allergies No Known Allergies Allergy (Verified 03/20/18 16:51) Home Medications: Home Meds Medication Instructions Recorded Confirmed Unobtainable 10/05/18 10/05/18 Review of Systems - Physician Review All systems were reviewed & negative as marked: Yes - Review of Systems Constitutional: Normal. absent: Fevers Eyes: Normal ENT: Normal Respiratory: Normal. absent: SOB, Cough Cardiovascular: Normal. absent: Chest Pain Gastrointestinal: Normal. absent: Abdominal Pain, Diarrhea, Nausea, Vomiting Genitourinary Male: Normal. absent: Dysuria, Frequency, Hematuria, Urinary Output Changes Musculoskeletal: Normal. absent: Back Pain, Neck Pain Skin: Normal. absent: Rash Neurological: Normal. absent: Headache, Dizziness Endocrine: Normal Hemo/Lymphatic: Normal Psychiatric: Normal Physical Exam Vital Signs Reviewed: Yes Temperature: Afebrile Blood Pressure: Normal Pulse: Regular Respiratory Rate: Normal Appearance: Positive for: Well-Appearing, Non-Toxic, Comfortable Pain Distress: None Mental Status: Positive for: Alert and Oriented X 3 - Systems Exam Head: Present: Atraumatic, Normocephalic Pupils: Present: PERRL Extroacular Muscles: Present: EOMI Conjunctiva: Present: Normal Mouth: Present: Moist Mucous Membranes Neck: Present: Normal Range of Motion Respiratory/Chest: Present: Clear to Auscultation, Good Air Exchange. No: Respiratory Distress, Accessory Muscle Use Cardiovascular: Present: Regular Rate and Rhythm, Normal S1, S2. No: Murmurs Abdomen: No: Tenderness, Distention, Peritoneal Signs Back: Present: Normal Inspection Upper Extremity: Present: Normal Inspection. No: Cyanosis, Edema Lower Extremity: Present: Normal Inspection. No: Edema Neurological: Present: GCS=15, CN II-XII Intact. No: Speech Normal (Chronic expressive aphasia from prior CVA) Skin: Present: Warm, Dry, Normal Color. No: Rashes Psychiatric: Present: Alert, Oriented x 3, Normal Insight, Normal Concentration Medical Decision Making ED Course and Treatment: 10/05/18 04:25 Impression: 58 year old male brought in after he was found walking outside. Plan: -- CT Head w/o contrast -- EKG -- Chest X-ray -- Labs, cardiac enzymes, ammonia, blood cultures -- Urinalysis, urine drug screen -- IV fluids -- Reassess and disposition Prior Visits: Notes and results from previous visits were reviewed. Progress Notes: Reviewed EKG, NSR at 95 bpm. LAD. LVH. Inferior infarct. Non-specific T wave changes. 10/05/18 05:37 Glucose: 873, 10 units regular insulin IVP ordered. 10/05/18 05:49 Reviewed radiology, Chest X-ray shows no acute processes. CT Head: Chronic ischemic and cephalization in the left parietal, frontal, temporal and occipital lobes. Associated ex vacuo dilatation of the corresponding left lateral ventricle from chronic loss of volume. Chronic ischemic changes in the left basal ganglia. There is normal configuration of sella turcica. There are no intra or extra- axial collections. There is no mass effect or midline shift. There is no evidence of hematoma formation. No hydrocephalus is present. The ventricles are symmetrical. No abnormal calcifications are present. There is diffuse age-appropriate cerebellar and cerebral atrophy with proportionally dilated ventricles and cortical sulci. There are bilateral periventricular and subcortical white matter hypolucencies compatible with mild chronic microvascular disease. Otherwise, no significant focal abnormalities are seen either in the posterior fossa or supratentorial compartment. IMPRESSION: 1. Age-appropriate cerebellar and cerebral atrophy. 2. Mild chronic microvascular disease. Left hemispheric chronic ischemic encephalomalacia. 3. No evidence of acute intracranial pathology. Electronically signed on Oct 05, 2018 5:48:10 AM EST by: Meghana Snowden M.D., Certified by [facility] [facility], Neuroradiology Hyperdensity of the left extra-axial space adjacent to the left parietal and temporal lobes. Maximum thickness is 4.2 mm. No associated significant mass effect. Finding can be secondary to hyperdense chronic left dural thickening. Differential diagnosis includes an acute subdural hematoma. Followup exam is recommended. Addendum electronically signed by Meghana Snowden M.D., Certified by [facility]ERREIR[facility], Neuroradiology on October 05, 2018 5:51:34 AM EST 10/05/18 06:[address] Tolentino, who is aware and agrees with plan. Accepts pt in to his service. Requests Dr. Yates on consult. Pt will be admitted to Telemetry for hyperglycemia. glucose still elevated will start insulin dip and get icu consult - Transfer of Care Patient signed out to Dr:: estephania - Ricoibcody Statement The provider has reviewed the documentation as recorded by the Lily Garcia Provider Scribe Attestation: All medical record entries made by the Scribe were at my direction and personally dictated by me. I have reviewed the chart and agree that the record accurately reflects my personal performance of the history, physical exam, medical decision making, and the department course for this patient. I have also personally directed, reviewed, and agree with the discharge instructions and disposition. Disposition/Present on Arrival - Present on Arrival Any Indicators Present on Arrival: No History of DVT/PE: No History of Uncontrolled Diabetes: No Urinary Catheter: Yes History of Decub. Ulcer: No History Surgical Site Infection Following: None - Disposition Have Diagnosis and Disposition been Completed?: Yes Diagnosis: Hyperosmolar hyperglycemic coma due to diabetes mellitus without ketoacidosis Disposition: HOSPITALIZED Disposition Time: 07:00 Patient Problems: Current Active Problems Problem Status Onset Hyperosmolar hyperglycemic coma due to diabetes mellitus without ketoacidosis Acute Condition: IMPROVED
[2018-10-05] MEDS ORDERED: Sodium Chloride 0.9% 1,000 ML IV STA ×2 (04:34→05:38)
[2018-10-05 05:07] LABS: INR 0.86; PARTIAL THROMBOPLASTIN TIME 29.9 Seconds (25.1-36.5)
[2018-10-05 05:21] LABS: BASO # 0.02 K/mm3 (0.0-2.0); BASO % 0.3 % (0.0-3.0); EOS # 0.1 (0.0-0.7); EOS % 1.8 % (1.5-5.0); GRAN # 4.63 (1.4-6.5); GRAN % 64.9 % (50.0-68.0); HEMOGLOBIN 15.5 g/dL (14.0-18.0); LYMPH # 1.6 (1.2-3.4); LYMPH % 22.6 % (22.0-35.0); MEAN CELL VOLUME 88.7 fl (80.0-105.0); MEAN CORPUSCULAR HEMOGLOBIN 31.3 pg (25.0-35.0); MEAN CORPUSCULAR HGB CONC 35.2 g/dl (31.0-37.0); MEAN PLATELET VOLUME 11.9 fl (7.0-11.0); MONO # 0.7 (0.1-0.6); MONO % 10.4 % (1.0-6.0); RBC 4.96 10^6/uL (3.5-6.1); TROPONIN I 0.01 ng/mL; WHITE BLOOD COUNT 7.1 10^3/uL (4.5-11.0)
[2018-10-05 05:32] LABS: ALB/GLOB RATIO 1.3 (1.1-1.8); CALCIUM 9.1 mg/dL (8.4-10.5)
[2018-10-05] MEDS ORDERED: Insulin Regular 1 UNITS/0.01 ML ML IV STA (05:37)
[2018-10-05] MEDS ORDERED: Insulin Regular 1 UNITS/0.01 ML ML ONE ×2 (05:39→11:37)
[2018-10-05 05:56] LABS: PROTHROMBIN TIME 9.7 SECONDS (9.4-12.5)
[2018-10-05] MEDS ORDERED: Insulin Regular 1 UNITS/0.01 ML ML IVP STA (06:39)
[2018-10-05] MEDS ORDERED: Insulin Regular 100 UNITS in Sodium Chloride 0.9% 99 ML IV PRN (07:07)
--- NOTE | 2018-10-05 07:13 | ED PDOC ---
Physical Exam Vital Signs Temp Pulse Resp BP Pulse Ox 10/05/18 06:36 91 H 18 188/112 H 99 10/05/18 04:34 98.3 F 103 H 17 184/106 H 95 Temperature: Afebrile Blood Pressure: Normal Pulse: Tachycardic Appearance: Positive for: Well-Appearing, Non-Toxic, Comfortable Mental Status: Positive for: Alert and Oriented X 3 Finger Stick Blood Glucose: 500 - Systems Exam Mouth: Present: Moist Mucous Membranes Medical Decision Making ED Course and Treatment: 10/05/18 07:[address] Lau with patient pending admission and reevaluation. Insulin drip ordered. Case discussed with Dr. Tolentino(PCP) who has accept patient onto his service for admission. Will seek ICU consult. 10/05/18 08:13 Repeat blood sugar 389 with patient reporting improvement in symptoms. Discussed case with Dr. Modi who states with ICU not needed at this time. Dr. Tolentino at the bedside evaluating patient. - Lab Interpretations Lab Results: 10/05/18 04:30 10/05/18 04:30 Lab Results 10/05/18 05:00: PT 9.7, INR 0.86, APTT 29.9 10/05/18 04:30: Acetaminophen < 10.0 L 10/05/18 04:30: Alcohol, Quantitative < 10 10/05/18 04:30: Ammonia < 9 L 10/05/18 04:30: Sodium 127 L, Potassium 4.3, Chloride 94 L, Carbon Dioxide 20 L, Anion Gap 18, BUN 31 H, Creatinine 1.5, Est GFR ( Amer) 58, Est GFR (Non- Af Amer) 48, Random Glucose 873 H* D, Calcium 9.1, Phosphorus 3.3, Magnesium 1.8, Total Bilirubin 0.5, AST 27, ALT 28, Alkaline Phosphatase 98, Lactate Dehydrogenase 444, Total Creatine Kinase 70, Troponin I 0.01 D, Total Protein 7.2, Albumin 4.0, Globulin 3.2, Albumin/Globulin Ratio 1.3 10/05/18 04:30: WBC 7.1, RBC 4.96, Hgb 15.5, Hct 44.0, MCV 88.7 D, MCH 31.3, MCHC 35.2, RDW 13.0, Plt Count 166, MPV 11.9 H, Gran % 64.9, Lymph % (Auto) 22.6, [facility] % (Auto) 10.4 H, Eos % (Auto) 1.8, Baso % (Auto) 0.3, Gran # 4.63, Lymph # (Auto) 1.6, [facility] # (Auto) 0.7 H, Eos # (Auto) 0.1, Baso # (Auto) 0.02 - RAD Interpretation Radiology Orders: 10/05/18 04:38 HEAD W/O CONTRAST [CT] Stat 10/05/18 04:39 CHEST PORTABLE [RAD] Stat - Medication Orders Current Medication Orders: Insulin Human Regular 100 (units/ Sodium Chloride) 100 mls @ 6 mls/hr IV .[id number] PRN; Protocol PRN Reason: TITRATE PER MD ORDER Discontinued Medications Sodium Chloride (Sodium Chloride 0.9%) 1,000 mls @ 999 mls/hr IV .Q1H1M STA Stop: 10/05/18 05:34 Last Admin: 10/05/18 04:38 Dose: 999 mls/hr eMAR Start Stop Document 10/05/18 04:38 CNR (Rec: 10/05/18 04:38 CNR [id number]) Intravenous Solution Start Date 10/05/18 Start Time 04:38 End Date 10/05/18 End time 05:38 Total Infusion Time 60 Sodium Chloride (Sodium Chloride 0.9%) 1,000 mls @ 999 mls/hr IV .Q1H1M STA Stop: 10/05/18 06:38 Last Admin: 10/05/18 05:48 Dose: 999 mls/hr eMAR Start Stop Document 10/05/18 05:48 CNR (Rec: 10/05/18 05:48 CNR [id number]) Intravenous Solution Start Date 10/05/18 Start Time 05:48 End Date 10/05/18 End time 06:48 Total Infusion Time 60 Insulin Human Regular (Humulin R) 10 units IV STAT STA Stop: 10/05/18 05:38 Last Admin: 10/05/18 05:48 Dose: 10 u eMAR Start Stop Document 10/05/18 05:48 CNR (Rec: 10/05/18 05:49 CNR [facility]16-) Intravenous Solution Start Date 10/05/18 Start Time 05:48 End Date 10/05/18 End time 05:48 Total Infusion Time 0 Insulin Human Regular (Humulin R) 10 units IVP STAT STA Stop: 10/05/18 06:40 Last Admin: 10/05/18 06:44 Dose: 10 u IVP Administration Document 10/05/18 06:44 CNR (Rec: 10/05/18 06:44 CNR [id number]) Charges for Administration # of IVP Administrations 1 Disposition/Present on Arrival - Present on Arrival Any Indicators Present on Arrival: Yes History of DVT/PE: No History of Uncontrolled Diabetes: No Urinary Catheter: Yes History of Decub. Ulcer: No History Surgical Site Infection Following: None - Disposition Have Diagnosis and Disposition been Completed?: Yes Diagnosis: Hyperosmolar hyperglycemic coma due to diabetes mellitus without ketoacidosis Disposition: HOSPITALIZED Disposition Time: 07:11 Patient Plan: Admission Condition: IMPROVED
[2018-10-05 07:54] LABS: URINE APPEARANCE CLEAR (CLEAR); URINE BILIRUBIN NEGATIVE (NEGATIVE); URINE BLOOD NEGATIVE (NEGATIVE); URINE COLOR YELLOW (YELLOW); URINE GLUCOSE (UA) >=1000 mg/dL (NEGATIVE); URINE LEUKOCYTE ESTERASE NEGATIVE Leu/uL (NEGATIVE); URINE PROTEIN NEGATIVE mg/dL (<30 mg/dL); URINE UROBILINOGEN 0.2 E.U./dL (<1 E.U./dL)
[2018-10-05 08:16] LABS: BARBITURATES, UR NEGATIVE (NEGATIVE); BENZODIAZEPINES, UR NEGATIVE (NEGATIVE); OPIATES, UR NEGATIVE (NEGATIVE); PHENCYCLIDINE, UR NEGATIVE (NEGATIVE)
[2018-10-05] MEDS ORDERED: Sodium Chloride 0.45% 1,000 ML IV SCH ×2 (09:00→12:20)
--- NOTE | 2018-10-05 09:11 | RAD ---
Date of service: 10/05/2018 HISTORY: ams COMPARISON: 06/05/2018 FINDINGS: LUNGS: No active pulmonary disease. PLEURA: No significant pleural effusion identified, no pneumothorax apparent. CARDIOVASCULAR: No aortic atherosclerotic calcification present. Normal cardiac size. No pulmonary vascular congestion. OSSEOUS STRUCTURES: No significant abnormalities. VISUALIZED UPPER ABDOMEN: Normal. OTHER FINDINGS: None. IMPRESSION: No active disease.
--- NOTE | 2018-10-05 10:17 | HP ---
DATE OF EXAM: 10/05/2018 HISTORY OF PRESENT ILLNESS: I have known him for a long time now. He is a 58-year-old man with a history of a CVA with residual aphasia, subdural hematoma, CAD, seizures, diabetes, alcohol abuse, hypertension and GERD who presents to emergency room wandering outside, but he was not wandering outside, confused. He had called his sister who told that they called the ambulance and he went outside to wait for the ambulance. The ambulance felt he was outside wandering but he was not. He does have expressive aphasia and speech therapy has been coming to the house twice a week to help him from CVA. He is slowly improving with diabetes, very difficult to understand very well to understand what he is looking for, so he got CAD, high cholesterol, COPD. He has a CVA with right-sided weakness which is old. He has expressive aphasia. He has got hearing problems. He has got diabetes, gait disturbance. He has reflux, swallowing problems, history of EtOH abuse, psychiatric hospitalizations abuse. No other substance abuse. He had coronary artery catheterization and stents placed. FAMILY HISTORY: There is hypertension in the family. SOCIAL HISTORY: Still smokes cigarettes, cannot get him to quit. No alcohol at this time. No substance abuse. ALLERGIES: NO KNOWN DRUG ALLERGIES. MEDICATIONS: We cannot find his meds, but what I understand he is on Ativan, Amaryl, aspirin, Catapres, Norvasc, Depakote. REVIEW OF SYSTEMS: It is difficult to get all the answers because of expressive aphasia. He is comfortable at this time. No apparent fevers. No apparent changes in vision or hearing. His speech is very difficult. He is getting speech twice a day and it is improved a little bit. No apparent shortness of breath or cough. No chest pain or palpitations. No abdominal pain, nausea, vomiting, constipation, diarrhea. No problems urinating. No back pain or neck pain. No rashes. No headache or dizziness. Just not feeling well. PHYSICAL EXAMINATION: VITAL SIGNS: Temperature 98. He has a 103 pulse, 184/106, 188/112 blood pressure, 90 respiratory rate, 99% O2 sat on room air. HEENT: His head is normocephalic, atraumatic. He is looking at me with his eyes. Extraocular muscles are intact. Pupils reactive to light and accommodation. His throat is dry. GENERAL: He understands what is going on, just cannot express it. NECK: Normal motion of his neck. No JVD. HEART: Regular rate. Normal S1, S2. ABDOMEN: Soft, nontender. Positive bowel sounds. LUNGS: Decreased breath sounds but clear to auscultation. No wheezes, no rhonchi. No rales. EXTREMITIES: He has right weakness secondary to an old stroke. He walks with a limp but no edema. GCS is 15. NEUROLOGIC: Cranial nerves II through XII grossly intact. Speech is poor, chronic expressive aphasia, cannot really speak or talk. He is alert and oriented. LYMPH: Thyroid midline. No palpable appreciable lymphadenopathy. LABORATORY DATA: He did have multiple tests done. He has a urine drug screen which is negative. His urine itself is negative. His chemistries, 127 sodium, potassium is 4.3, BUN 31, creatinine 1.5, GFR is 48. When he came in, his blood sugar was 873, it is down to 389 now, calcium is 9.1, phosphorous 3.3, magnesium 1.8. He has a total bili of 0.5. He has a AST of 27, ALT is 28, alk phos 98. Ammonia level less than 9. Lactate dehydrogenase is 444, total creatine kinase is 70. Troponin I is 0.01. Total protein 7.2, albumin is 4, globulin 3.2. His INR is 0.86. He has a 7.1 white count, 15.5 hemoglobin, 44 hematocrit with 166,000 platelets. He has a chest x-ray, head CT and electrocardiogram pending. IMPRESSION AND PLAN: He is here for hyperglycemia, hypertension, wandering, possibly old cerebrovascular accident. We will tune him up on his medications, get Endocrinology in, Cardiology in and physical therapy, put him back on his medications. Hopefully, he will improve. We will see if does need KLEBER. Alexis Tolentino DO MTDD
--- NOTE | 2018-10-05 10:19 | CT ---
Date of service: 10/05/2018 PROCEDURE: CT HEAD WITHOUT CONTRAST. HISTORY: ams COMPARISON: 06/05/2018 TECHNIQUE: Axial computed tomography images were obtained through the head/brain without intravenous contrast. Radiation dose: Total exam DLP = 959.04 mGy-cm. This CT exam was performed using one or more of the following dose reduction techniques: Automated exposure control, adjustment of the mA and/or kV according to patient size, and/or use of iterative reconstruction technique. FINDINGS: HEMORRHAGE: No intracranial hemorrhage. BRAIN: No mass effect or edema. There is severe chronic encephalomalacia in the left hemisphere. There is atrophy with dilatation of the left lateral ventricle. There are no acute findings. There is some chronic dural thickening on the left. VENTRICLES: Unremarkable. No hydrocephalus. CALVARIUM: Unremarkable. PARANASAL SINUSES: Unremarkable as visualized. No significant inflammatory changes. MASTOID AIR CELLS: Unremarkable as visualized. No inflammatory changes. OTHER FINDINGS: The report concurs with the preliminary [facility] report IMPRESSION: No acute intracranial findings
[2018-10-05] MEDS: Insulin Reg-MEDIUM-Coverage SC SCH ×3 (11:37→22:44)
[2018-10-05 12:36] VITALS: BMI 19.5
[2018-10-05 17:10] VITALS: O2SAT 100
[2018-10-05] MEDS: Divalproex 250 mg DR (BID formulation) PO SCH (17:33)
[2018-10-05] MEDS: Sodium Chloride 0.9% 1,000 ML IV SCH (22:34)
[2018-10-06 04:11] VITALS: TEMP 98.1
[2018-10-06] MEDS ORDERED: Metoprolol 1 mg/ml Inj IVP ONE (06:05)
[2018-10-06 06:58] LABS: HEMOGLOBIN 16.2 g/dL (14.0-18.0); MEAN CELL VOLUME 86.5 fl (80.0-105.0); MEAN CORPUSCULAR HEMOGLOBIN 30.5 pg (25.0-35.0); MEAN CORPUSCULAR HGB CONC 35.2 g/dl (31.0-37.0); MEAN PLATELET VOLUME 11.4 fl (7.0-11.0); RBC 5.32 10^6/uL (3.5-6.1); RED CELL DISTRIBUTION WIDTH 13.1 % (11.5-14.5); WHITE BLOOD COUNT 7.8 10^3/uL (4.5-11.0)
[2018-10-06 07:36] LABS: LDL CHOLESTEROL 116 mg/dL (0-129)
[2018-10-06 07:42] LABS: ALB/GLOB RATIO 1.1 (1.1-1.8); ALBUMIN 3.5 g/dL (3.0-4.8); ALT/SGPT 18 U/L (7-56); AST/SGOT 18 U/L (17-59); BLOOD UREA NITROGEN 21 mg/dL (7-21); CALCIUM 8.7 mg/dL (8.4-10.5); GFR NON-AFRICAN AMERICAN > 60; HDL CHOLESTEROL 26 mg/dL (29-60)
--- NOTE | 2018-10-06 08:17 | CARD ---
APPROVED REPORT Date of service: 10/05/2018 EKG Measurement Heart [id number] <Conclusion> Normal sinus rhythm LAD IVCD STTW changes c/w ischemia No change
[2018-10-06] MEDS: Insulin Reg-MEDIUM-Coverage SC SCH ×2 (08:40→12:43)
[2018-10-06] MEDS: Sodium Chloride 0.9% 1,000 ML IV SCH (08:42)
--- NOTE | 2018-10-06 09:38 | CON ---
DATE: 10/05/2018 LOCATION: Room 275. HISTORY OF PRESENT ILLNESS: This is a 58-year-old male with hypertension and a prior CVA, admitted here with altered mental status and supervening confusion and disorientation with generalized body weakness and was found also to have marked hyperglycemic accelerations as noted thereof. PAST MEDICAL HISTORY: No apparent known history of type 2 diabetes. No intake of any oral hypoglycemic therapy. History of hypertension and dyslipidemia, history of coronary artery disease, also history of a previous left CVA with residual right-sided weakness and expressive aphasia, also a known history of seizure disorder. There is also a prior history of generalized anxiety and depression. History of chronic obstructive lung disease from prior nicotine dependence and also history of coronary artery disease with previous coronary stent placement. FAMILY HISTORY: Positive for hypertension and diabetes. SOCIAL HISTORY: He is still an active smoker with nicotine dependence and also has a history of chronic alcoholism, has a supportive sister and family otherwise. REVIEW OF SYSTEMS: As mentioned above, admits to generalized body weakness with episodic dizziness and lightheadedness, worse on the day of admission, also has had recent easy fatigability and tiredness with marked hypersomnolence and lethargy, supervening confusion and disorientation. No chest pains, palpitations or PNDs. His oral intake has been variable with nausea, dyspepsia and vague upper abdominal pains. Also has marked polyuria, nocturia, and polydipsia. PHYSICAL EXAMINATION GENERAL: This is an average built male, in no apparent distress. VITAL SIGNS: Blood pressure of 140/80, pulse of 100 beats per minute and regular, temperature 98, respirations 20. Height is 5 feet 11 inches, weight is 140 pounds. HEENT: Head: Normocephalic. Eyes: Anicteric with pink conjunctivae. Funduscopy not possible at this time. Ears, nose and throat: Otherwise, normal. NECK: Supple. Thyroid gland is normal size. No carotid bruits or cervical adenopathy. CARDIOPULMONARY: Some adynamic precordium. S1, S2 rapid and regular. LUNGS: Clear to auscultation. ABDOMEN: Flat and soft with positive bowel sounds. EXTREMITIES: No peripheral edema. Pulses are +2 bilaterally. LABORATORY DATA: Chemistries initially showed a BUN of 31, sodium 127, potassium 4.3, chloride 94, CO2 of 20, glucose 873 and creatinine 1.5. ASSESSMENT: This is a 58-year-old male with uncontrolled and decompensated type 2 insulin-requiring diabetes. Hopefully, just put inpatient management as the patient has right-sided weakness with inability to self-administer insulin at home as noted. He also has clinical and biochemical evidence of dehydration and prerenal azotemia with spurious hyponatremia as noted thereof. He has significant vasculopathy with cerebrovascular disease with residual right hemiparesis and expressive aphasia with underlying coronary artery disease and previous coronary stent placement. PLAN OF MANAGEMENT: We will give basal insulin just for inpatient management and add basal insulin with Levemir given as 20 units subcu at bedtime daily as given. We will add oral hypoglycemic therapy with glipizide given as 10 mg b.i.d. to start today. We will also add Januvia 100 mg once daily in the morning as ordered. We will be giving the basal insulin only for inpatient diabetic management just to lower the glucose toxicity as noted and improve his eventual response to oral hypoglycemic therapy given in combination. We will continue vigorous IV hydration and obtain serial chemistries and supplement accordingly as needed. We will follow. Shruthi Yates MD
--- NOTE | 2018-10-06 10:50 | PN ---
DATE: 10/06/2018 SUBJECTIVE: I saw him resting comfortably in bed this morning. He is more alert, more appropriate, feeling a little bit better than when he came in. I put him back on his Amaryl, aspirin, Ativan, Depakote, insulin coverage, Januvia, Norvasc and IV fluids. I believe he was out of his medications at home. Also, his blood pressure is still gerald high adjust that. PHYSICAL EXAMINATION: VITAL SIGNS: He has a 98.1 temp, 79 pulse, 178/104 blood pressure, 20 respiratory rate and 100% O2 sat on nasal cannula. HEENT: His head is atraumatic, normocephalic. GENERAL: He has got expressive aphasia, but he is calm, better than when he came in. HEART: Regular rate. LUNGS: Decreased breath sounds, but clear. ABDOMEN: Soft. EXTREMITIES: No edema, but he does have right-sided weakness status post CVA. LABORATORY DATA: He has a 7.8 white count, 16.2 hemoglobin, 46 hematocrit with a 161 platelets. He has 138 sodium, potassium 4.1, BUN 21, creatinine 1, GFR is greater than 60, last blood sugar was 275. He did come in with an 800 plus blood sugar. Calcium is 8.7, total bili is 0.7, AST is 18, ALT is 18, alk phos 73, total protein 6.7. Triglycerides are 313, cholesterol is 218, LDL is 116, TSH is 0.34. ASSESSMENT AND PLAN: There is a consult for Endocrinology, Cardiology Podiatry. They have not seen him yet. I will adjust his blood pressure medications and his diabetes medications. Hopefully, he will continue to improve. Order physical therapy. He is here for elevated blood sugar. Alexis Tolentino DO MTDD
[2018-10-06] MEDS: Divalproex 250 mg DR (BID formulation) PO SCH ×2 (11:17→11:18)
[2018-10-06 12:55] VITALS: BP 192/114; RESP 21
--- NOTE | 2018-10-06 14:48 | PN ---
DATE: 10/06/2018 ENDOCRINOLOGY FOLLOWUP NOTE LOCATION: Room 275. SUBJECTIVE: This is a 58-year-old male with recent uncontrolled type 2 insulin-requiring diabetes, now being followed closely for metabolic management. His glycemic levels are fluctuating, but improved and the latest glucose levels have ranged from to 337 mg/dL. His chemistry showed a BUN of 21, sodium 138, potassium 4.1, chloride 109, CO2 of 23, glucose 279, and creatinine 1. The biggest concern at this time is the patient's social situation and homelessness condition and the difficulty with insulin administration if at all, it has to be administered by the patient. ASSESSMENT: This is a 58-year-old man with uncontrolled and decompensated type 2 insulin-requiring diabetes presenting here with marked hyperglycemic accelerations, hyperosmolar hyperglycemic state, dehydration, which is impeding metabolically . PLAN OF MANAGEMENT: Januvia given as 100 mg once daily as ordered . We will continue the at a higher dose as ordered to be given two times a day before meals . Medium-coverage scale with regular insulin as ordered. lower the glucose toxicity. I noted the patient would benefit from basal and bolus insulin drug combination even for outpatient diabetic management, but because of his social situation and homelessness condition IV hydration to replenish the lost fluids and electrolytes as given. We will follow. Shruthi Yates MD
[2018-10-06 15:20] VITALS: PULSE 91
--- NOTE | 2018-10-06 15:24 | CP.PCM.CON ---
<Jesus Alvarado - Last Filed: 10/06/18 15:12> History of Present Illness - History of Present Illness History of Present Illness: Podiatry consult notes for attending Lay Lauren: 58 year old M patient with PMH of DM 2, CAD, Anxiety, GERD, Alcoholism, Tobacco Dependence, HTN, HLD, Prior TIA, CVA seen and evaluated at the at bedside for R big toe ulcer. Patient is a poor historian. His informations obtained through him and his chart. patient states that 15 days ago he started to develop an ulcer in his R big toe. Patient can't recall any trauma. Patient denies any pain in his ulcer site. Patient denies any recent F/N/V/F/CP. Patient denies any other pedal complainmt at this time PMH: DM 2, CAD, Anxiety, GERD, Alcoholism, Tobacco Dependence, HTN, HLD, Prior TIA, CVA PSH: Cardiac Stent Allergies: NKDA Social: From the chart (+) Opiate Abuse, (+) Alcohol Abuse, (+) Tobacco Review of Systems - Review of Systems Review of Systems: As per HPI - Constitutional Constitutional: As Per HPI Past Patient History - Infectious Disease Hx of Infectious Diseases: None - Tetanus Immunizations Tetanus Immunization: Unknown - Past Medical History & Family History Past Medical History?: Yes - Past Social History Smoking Status: Heavy Smoker > 10 Cigarettes Daily - CARDIAC Hx Cardiac Disorders: Yes (CAD) - PULMONARY Hx Respiratory Disorders: Yes Hx Chronic Obstructive Pulmonary Disease (COPD): Yes - NEUROLOGICAL HX Cerebrovascular Accident: Yes (R sided weakness, expressibe aphasia) - HEENT Hx HEENT Problems: Yes (hearing problem) - RENAL Hx Chronic Kidney Disease: No - ENDOCRINE/METABOLIC Hx Diabetes Mellitus Type 2: Yes - HEMATOLOGICAL/ONCOLOGICAL Hx Blood Disorders: No - INTEGUMENTARY Hx Dermatological Problems: No - MUSCULOSKELETAL/RHEUMATOLOGICAL Hx Unsteady Gait: Yes - GASTROINTESTINAL Hx Gastrointestinal Disorders: Yes Hx Gastroesophageal Reflux: Yes HX Swallowing Problems: Yes - GENITOURINARY/GYNECOLOGICAL Hx Genitourinary Disorders: No - PSYCHIATRIC Hx Psychophysiologic Disorder: Yes (etoh use, pschiatric hospitalizations) Hx Substance Use: No (DENIES) - SURGICAL HISTORY Hx Cardiac Catheterization: Yes Hx Coronary Stent: Yes - ANESTHESIA Hx Anesthesia: No Hx Anesthesia Reactions: No Hx Malignant Hyperthermia: No Meds Allergies/Adverse Reactions: Allergies Allergy/AdvReac Type Severity Reaction Status Date / Time No Known Allergies Allergy Verified 03/20/18 16:51 - Medications Medications: Current Medications Amlodipine Besylate (Norvasc) 10 mg PO DAILY [facility] Last Admin: 10/06/18 11:18 Dose: 10 mg Aspirin (Aspirin Chewable) 81 mg PO DAILY [facility] Last Admin: 10/06/18 11:17 Dose: 81 mg Divalproex Sodium (Depakote Dr (*Bid*)) 250 mg PO BID [facility]; Protocol Last Admin: 10/06/18 11:18 Dose: 250 mg Glimepiride (Amaryl) 4 mg PO ACBD [facility] Last Admin: 10/06/18 08:40 Dose: 4 mg Sodium Chloride (Sodium Chloride 0.9%) 1,000 mls @ 100 mls/hr IV .Q10H [facility] Last Admin: 10/06/18 08:42 Dose: 100 mls/hr Insulin Human Regular (Humulin R Med) 0 units SC ACHS [facility]; Protocol Last Admin: 10/06/18 12:43 Dose: 7 units Lorazepam (Ativan) 0.5 mg PO BID PRN; Protocol PRN Reason: Anxiety Sitagliptin Phosphate (Januvia) 100 mg PO DAILY [facility] Last Admin: 10/06/18 11:18 Dose: 100 mg Physical Exam - Constitutional Appears: Non-toxic, No Acute Distress - Head Exam Head Exam: ATRAUMATIC, NORMOCEPHALIC - Extremities Exam Additional comments: LE focused exam: Vasc: DP/PT pulses faintly palpable 1/4 b/l. Cap refill < 3 seconds to all digits. Skin temperature gradient warm to cool from proximal to distal b/l. Neuro: protective sensations intact b/l. Derm: A Right 1st digit tip toe ulcer measuring 0.8X0.6X0.1cm, surrounded bymacerated edge, minimal serous/purulent drainage, no malodor, no probe to bone, no tracking or undermining. no clinical signs of active infection. Diffuse plantar dryness and calluses b/l. MSK: Muscle power intact 5/5 to all major muscle groups b/l. no pain on palpating the R periulcerative area. - Neurological Exam Neurological exam: Alert, Oriented x3 Results - Vital Signs Recent Vital Signs: Last Vital Signs Temp 98.1 F 10/06/18 12:00 Pulse 81 10/06/18 12:00 Resp 21 10/06/18 12:00 BP 192/114 H 10/06/18 12:00 Pulse Ox 100 10/05/18 17:09 - Labs Result Diagrams: 10/06/18 06:30 10/06/18 06:30 Labs: Laboratory Results - last 24 hr 10/05/18 10/06/18 10/06/18 16:06 06:30 06:30 WBC 7.8 RBC 5.32 Hgb 16.2 Hct 46.0 MCV 86.5 MCH 30.5 MCHC 35.2 RDW 13.1 Plt Count 161 MPV 11.4 H Sodium 138 Potassium 4.1 Chloride 109 H Carbon Dioxide 23 Anion Gap 10 BUN 21 Creatinine 1.0 Est GFR ( Amer) > 60 Est GFR (Non-Af Amer) > 60 POC Glucose (mg/dL) 337 H Random Glucose 279 H Hemoglobin A1c Calcium 8.7 Total Bilirubin 0.7 AST 18 ALT 18 Alkaline Phosphatase 73 Total Protein 6.7 Albumin 3.5 Globulin 3.2 Albumin/Globulin Ratio 1.1 Triglycerides 313 H Cholesterol 218 H LDL Cholesterol Direct 116 HDL Cholesterol 26 L Free T4 TSH 3rd Generation 10/06/18 10/06/18 10/06/18 06:30 06:30 07:42 WBC RBC Hgb Hct MCV MCH MCHC RDW Plt Count MPV Sodium Potassium Chloride Carbon Dioxide Anion Gap BUN Creatinine Est GFR ( Amer) Est GFR (Non-Af Amer) POC Glucose (mg/dL) 275 H Random Glucose Hemoglobin A1c 13.3 H D Calcium Total Bilirubin AST ALT Alkaline Phosphatase Total Protein Albumin Globulin Albumin/Globulin Ratio Triglycerides Cholesterol LDL Cholesterol Direct HDL Cholesterol Free T4 TSH 3rd Generation 0.34 L 10/06/18 10/06/18 11:30 11:42 WBC RBC Hgb Hct MCV MCH MCHC RDW Plt Count MPV Sodium Potassium Chloride Carbon Dioxide Anion Gap BUN Creatinine Est GFR ( Amer) Est GFR (Non-Af Amer) POC Glucose (mg/dL) 311 H Random Glucose Hemoglobin A1c Calcium Total Bilirubin AST ALT Alkaline Phosphatase Total Protein Albumin Globulin Albumin/Globulin Ratio Triglycerides Cholesterol LDL Cholesterol Direct HDL Cholesterol Free T4 1.32 TSH 3rd Generation Assessment & Plan - Assessment and Plan (Free Text) Assessment: 55 y/o M patient seen and evaluated in the bedside for R big toe ulcer Plan: Patient seen and evaluated at the bedside Plan discussed in details with attending Dr. Lauren Charts, labs and vitals reviewed; afebrile, No leukocytosis R foot x-ray ordered Ordered b/L [place]/PVR R foot dressed using betadine, xeroform and DSD. Wound culture collected from the ulcer and set to lab Ordered surgical shoe for the R foot. Patient to ambulate in the surgical shoe Podiatry will follow up while patient is in house - Date & Time Date: 10/06/18 Time: 15:24 <Israel Lauren - Last Filed: 10/07/18 08:39> Meds - Medications Medications: Current Medications Mupirocin (Bactroban Ointment) 1 gm NS BID FENG Stop: 10/11/18 18:01 Results - Vital Signs Recent Vital Signs: Last Vital Signs Temp 98.1 F 10/06/18 12:00 Pulse 91 H 10/06/18 14:00 Resp 21 10/06/18 12:00 BP 192/114 H 10/06/18 12:00 Pulse Ox 100 10/05/18 17:09 - Labs Result Diagrams: 10/06/18 06:30 10/06/18 06:30 Labs: Laboratory Results - last 24 hr 10/06/18 10/06/18 10/06/18 06:30 11:30 11:42 POC Glucose (mg/dL) 311 H Hemoglobin A1c 13.3 H D Free T4 1.32 Attending/Attestation - Attestation I have personally seen and examined this patient.: Yes I have fully participated in the care of the patient.: Yes I have reviewed all pertinent clinical information: Yes
--- NOTE | 2018-10-06 17:11 | CON ---
DATE OF CONSULTATION: 10/06/2018 HISTORY: The patient is a 58-year-old male who suffers from hypertension, hypercholesterolemia, and diabetes mellitus, who presents with a questionable confusion. He has had a CVA in the past and has an expressive aphasia. The patient's compliance is questionable. The patient apparently was admitted. 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 He denies chest pain, denies shortness of breath. SOCIAL HISTORY: Denies smoking. PHYSICAL EXAMINATION: VITAL SIGNS: Blood pressure is 178/104, heart rate is in the 80s. NECK: Negative JVD. LUNGS: Without rales. HEART: S1, S2. EXTREMITIES: Without edema. DIAGNOSTIC DATA: EKG shows normal sinus rhythm with left anterior hemiblock with nonspecific ST-T changes. LABORATORY DATA: Troponins are negative x1. Glucose 279 with a hemoglobin of 16.2. IMPRESSION: 1. Hypertension. 2. Diabetes mellitus. 3. History of cerebrovascular accident. 4. History of non-ST elevation myocardial infarction. 5. Documented coronary artery disease. PLAN: Given these findings, the patient's blood pressure and diabetes with poor control may be related to the patient's noncompliance with medications. At this time, I agree with his antihypertensive medications, which include Norvasc. We will monitor on Norvasc for the next day or two prior to adding additional medications. Edilberto Carolina MD
[2018-10-07] MEDS ORDERED: Mupirocin 2% Ointment 15 GM TUBE NS SCH (10:00)
== END 2018-10-06 16:46 | disposition left against medical advice (07) | DRG 638 ==
LOC: ED 04:16 → ERH 06:37 → 2RSO 11:54
PROVIDERS: ADMIT Family Medicine; ATTEND Family Medicine
DX: E11.00 Type 2 diabetes mellitus with hyperosmolarity without nonketotic hyperglycemic-hyperosmolar coma (NKHHC) (principal); E87.1 Hypo-osmolality and hyponatremia; I69.251 Hemiplegia and hemiparesis following other nontraumatic intracranial hemorrhage affecting right dominant side; E11.65 Type 2 diabetes mellitus with hyperglycemia; E11.621 Type 2 diabetes mellitus with foot ulcer; L97.519 Non-pressure chronic ulcer of other part of right foot with unspecified severity; I10 Essential (primary) hypertension; E78.00 Pure hypercholesterolemia, unspecified; E86.0 Dehydration; I25.10 Atherosclerotic heart disease of native coronary artery without angina pectoris; J44.9 Chronic obstructive pulmonary disease, unspecified; K21.9 Gastro-esophageal reflux disease without esophagitis; G40.909 Epilepsy, unspecified, not intractable, without status epilepticus; E78.5 Hyperlipidemia, unspecified; F17.210 Nicotine dependence, cigarettes, uncomplicated; F41.1 Generalized anxiety disorder; F10.10 Alcohol abuse, uncomplicated; F11.10 Opioid abuse, uncomplicated; Z91.83 Wandering in diseases classified elsewhere; I25.2 Old myocardial infarction; I69.220 Aphasia following other nontraumatic intracranial hemorrhage; Z79.82 Long term (current) use of aspirin; Z95.5 Presence of coronary angioplasty implant and graft; Z79.84 Long term (current) use of oral hypoglycemic drugs; Z59.0 Homelessness

== ENCOUNTER 2018-10-11 13:35 | Emergency (ER) | payer MEDICARE ==
[2018-10-11 13:50] VITALS: BMI 25.1
[2018-10-11 14:24] VITALS: RESP 18; TEMP 98.5; O2SAT 95
[2018-10-11] MEDS ORDERED: Sodium Chloride 0.9% 1,000 ML IV STA (14:31)
--- NOTE | 2018-10-11 14:53 | ED PDOC ---
Arrival/HPI <Shady Batista - Last Filed: 10/12/18 20:51> - General Historian: Patient - History of Present Illness Narrative History of Present Illness (Text): 10/11/18 14:50 Patient is a 58 yo male past medical history of diabetes, stroke, presents to the Emergency Department today complaining of increased thirst as well as increased urination for several days. Patient denies headache or chest pain or shortness of breath. Denies vomiting or diarrhea. Denies fevers. <Marlen García - Last Filed: 10/13/18 11:44> - General Chief Complaint: High Blood Sugar Past Medical History - Provider Review Nursing Documentation Reviewed: Yes - Infectious Disease Hx of Infectious Diseases: None - Tetanus Immunization Tetanus Immunization: Unknown - Past Medical History Past Medical History: Unable to Obtain - Cardiac Hx Cardiac Disorders: Yes (CAD) - Pulmonary Hx Respiratory Disorders: Yes Hx Chronic Obstructive Pulmonary Disease (COPD): Yes - Neurological HX Cerebrovascular Accident: Yes (R sided weakness, expressibe aphasia) - HEENT Hx HEENT Disorder: Yes (hearing problem) - Renal Hx Renal Disorder: No - Endocrine/Metabolic Hx Diabetes Mellitus Type 2: Yes - Hematological/Oncological Hx Blood Disorders: No - Integumentary Hx Dermatological Disorder: No - Musculoskeletal/Rheumatological Hx Unsteady Gait: Yes - Gastrointestinal Hx Gastrointestinal Disorders: Yes Hx Gastroesophageal Reflux: Yes HX Swallowing Problems: Yes - Genitourinary/Gynecological Hx Genitourinary Disorders: No - Psychiatric Hx Psychophysiologic Disorder: Yes (etoh use, pschiatric hospitalizations) Hx Substance Use: No (DENIES) - Past Surgical History Past Surgical History: No Previous - Surgical History Hx Cardiac Catheterization: Yes Hx Coronary Stent: Yes - Anesthesia Hx Anesthesia: No Hx Anesthesia Reactions: No Hx Malignant Hyperthermia: No - Suicidal Assessment Feels Threatened In Home Enviroment: No <Marlen García - Last Filed: 10/13/18 11:44> Family/Social History - Physician Review Nursing Documentation Reviewed: Yes Family/Social History: No Known Family HX Smoking Status: Heavy Smoker > 10 Cigarettes Daily Hx Alcohol Use: No Hx Substance Use: No (DENIES) Hx Substance Use Treatment: No <Marlen García - Last Filed: 10/13/18 11:44> Allergies/Home Meds <Shady Batista - Last Filed: 10/12/18 20:51> <Marlen García - Last Filed: 10/13/18 11:44> Allergies/Adverse Reactions: Allergies No Known Allergies Allergy (Verified 03/20/18 16:51) Home Medications: Home Meds Medication Instructions Recorded Confirmed Alprazolam [Xanax] 0.25 mg PO DAILY 10/06/18 10/06/18 Aspirin [Ecotrin] 81 mg PO DAILY 10/06/18 10/06/18 Atorvastatin [Lipitor] 40 mg PO DAILY 10/06/18 10/06/18 Divalproex [Depakote DR(*BID*)] 250 mg PO BID 10/06/18 10/06/18 Glipizide [Glucotrol] 10 mg PO BID 10/06/18 10/06/18 Insulin Glargine,Hum.rec.anlog 10 unit SQ HS 10/06/18 10/06/18 [Lantus] Lisinopril [Zestril] 20 mg PO DAILY 10/06/18 10/06/18 Metoprolol Tartrate [Lopressor] 25 mg PO BID 10/06/18 10/06/18 RX: Esomeprazole Sodium 40 mg PO DAILY 10/06/18 10/06/18 amLODIPine [Norvasc] 10 mg PO DAILY 10/06/18 10/06/18 Review of Systems - Review of Systems Constitutional: Fatigue. absent: Fevers Eyes: absent: Vision Changes ENT: absent: Hearing Changes Respiratory: absent: SOB, Cough Cardiovascular: absent: Chest Pain Gastrointestinal: absent: Abdominal Pain Genitourinary Male: absent: Dysuria Musculoskeletal: absent: Back Pain Skin: absent: Rash Neurological: absent: Headache, Dizziness, Focal Weakness Endocrine: Polyuria, Polydipsia <Marlen García - Last Filed: 10/13/18 11:44> Physical Exam Vital Signs Temp Pulse Resp BP Pulse Ox 10/11/18 17:36 100 H 18 172/94 H 95 10/11/18 13:55 98.5 F 112 H 18 186/110 H 95 <Shady Batista - Last Filed: 10/12/18 20:51> Vital Signs Reviewed: Yes Vital Signs Temp Pulse Resp BP Pulse Ox 10/11/18 13:55 98.5 F 112 H 18 186/110 H 95 Temperature: Afebrile Blood Pressure: Hypertensive Pulse: Tachycardic Appearance: Positive for: Non-Toxic Pain Distress: Mild Finger Stick Blood Glucose: 324 - Systems Exam Head: Present: Atraumatic Mouth: Present: Dry Pharnyx: No: ERYTHEMA Nose (Internal): Present: Normal Inspection, No Active Bleeding Neck: Present: Normal Range of Motion. No: Meningeal Signs Respiratory/Chest: Present: Clear to Auscultation. No: Respiratory Distress Cardiovascular: Present: Murmurs, Tachycardic Abdomen: No: Tenderness, Distention Back: No: CVA Tenderness Upper Extremity: No: Cyanosis, Edema Lower Extremity: No: Edema Neurological: Present: Other (baseline left sided weakness). No: Speech Normal (hx of aphasia) Skin: Present: Warm Psychiatric: Present: Alert <Marlen García - Last Filed: 10/13/18 11:44> Medical Decision Making ED Course and Treatment: Patient got up and walked out of emergency department. IV was removed. Urinalysis was never obtained. Patient was acting at baseline as known because patient has been to this emergency department before. Labs unremarkable for DKA. - Lab Interpretations Lab Results: 10/11/18 15:45 10/11/18 15:45 Lab Results 10/11/18 16:23: POC Glucose (mg/dL) 277 H 10/11/18 15:45: Sodium 137, Chloride 99, Potassium 4.1, Carbon Dioxide 26, Anion Gap 16, BUN 24 H, Creatinine 1.1, Est GFR ( Amer) > 60, Est GFR (Non-Af Amer) > 60, Random Glucose 326 H*, Calcium 9.5, Magnesium 2.0, Total Bilirubin 1.1, AST 21, ALT 22, Alkaline Phosphatase 79, Lactate Dehydrogenase 434, Total Creatine Kinase 49, Troponin I 0.02 D, Total Protein 7.7, Albumin 4.2, Globulin 3.5, Albumin/Globulin Ratio 1.2 10/11/18 15:45: PT 11.6, INR 1.02, APTT 30.6 10/11/18 15:45: WBC 8.4, RBC 5.15, Hgb 15.9, Hct 44.8, MCV 87.0, MCH 30.9, MCHC 35.5, RDW 13.1, Plt Count 150, MPV 11.7 H, Gran % 74.3 H, Lymph % (Auto) 16.0 L, Day % (Auto) 8.5 H, Eos % (Auto) 1.0 L, Baso % (Auto) 0.2, Gran # 6.20, Lymph # (Auto) 1.3, Day # (Auto) 0.7 H, Eos # (Auto) 0.1, Baso # (Auto) 0.02 10/11/18 15:00: pCO2 34 L, pO2 65.0 L, HCO3 21.1, ABG pH 7.40, ABG Total CO2 22.1, ABG O2 Saturation 95.8, ABG Base Excess -3.0 L, ABG Potassium 3.4 L, Sodium 135.0, Chloride 101.0, Glucose 370 H, Lactate 1.2, FiO2 21.0, Arterial Blood Potassium 3.4 L 10/11/18 13:52: POC Glucose (mg/dL) 324 H - Medication Orders Current Medication Orders: Discontinued Medications Sodium Chloride (Sodium Chloride 0.9%) 1,000 mls @ 1,000 mls/hr IV .Q1H STA Stop: 10/11/18 15:30 Last Admin: 10/11/18 15:45 Dose: 1,000 mls/hr eMAR Start Stop Document 10/11/18 15:45 KV (Rec: 10/11/18 15:57 KV [id number]) Intravenous Solution Start Date 10/11/18 Start Time 15:45 Insulin Human Regular (Humulin R) 4 units SC STAT STA Stop: 10/11/18 16:29 <Shady Batista - Last Filed: 10/12/18 20:51> ED Course and Treatment: 10/11/18 16:26 Patient upon arrival is noted to have aphasia, right sided weakness which is reportedly at his baseline. He is able to communicated with gestures and single word answers. On exam, he is hypertensive but denies any pain or discomfort. Repeat heart rate is 97. Lungs are clears. Blood sugar elevated. IV fluid bolus given with improvement. Initial ABG and labs NOT consistent with DKA. No nausea. No chest pain or shortness of breath. Repeat blood sugar trending better with iv fluids. Patient is noted to have no fever, nontoxic appearing. Discussed with Dr. Jessica Tolentino, who states described neuro exam is at his baseline. Awaiting UA. - Lab Interpretations Lab Results: Lab Results 10/11/18 13:52: POC Glucose (mg/dL) 324 H I have reviewed the lab results: Yes - Medication Orders Current Medication Orders: Sodium Chloride (Sodium Chloride 0.9%) 1,000 mls @ 1,000 mls/hr IV .Q1H STA Stop: 10/11/18 15:30 <Marlen García - Last Filed: 10/13/18 11:44> Disposition/Present on Arrival - Present on Arrival Any Indicators Present on Arrival: Yes - Disposition Have Diagnosis and Disposition been Completed?: Yes Disposition Time: 18:10 <Shady Batista - Last Filed: 10/12/18 20:51> - Present on Arrival History of DVT/PE: No History of Uncontrolled Diabetes: Yes Urinary Catheter: Yes History of Decub. Ulcer: No History Surgical Site Infection Following: None - Disposition Patient Plan: Discharge <Marlen García - Last Filed: 10/13/18 11:44> - Disposition Diagnosis: Hyperglycemia Disposition: ELOPEMENT - ER ONLY Condition: STABLE Forms: [employer] (Swedish)
[2018-10-11 15:06] LABS: ARTERIAL BLOOD GAS HCO3 21.1 mmol/L (21-28); ARTERIAL BLOOD GAS O2 SAT 95.8 % (95-98); ARTERIAL BLOOD GAS PCO2 34 mm/Hg (35-45); ARTERIAL BLOOD GAS TCO2 22.1 mmol.L (22-28)
[2018-10-11 16:00] LABS: BASO # 0.02 K/mm3 (0.0-2.0); BASO % 0.2 % (0.0-3.0); EOS # 0.1 (0.0-0.7); GRAN # 6.2 (1.4-6.5); GRAN % 74.3 % (50.0-68.0); HEMOGLOBIN 15.9 g/dL (14.0-18.0); LYMPH # 1.3 (1.2-3.4); MEAN CORPUSCULAR HEMOGLOBIN 30.9 pg (25.0-35.0); MEAN CORPUSCULAR HGB CONC 35.5 g/dl (31.0-37.0); MEAN PLATELET VOLUME 11.7 fl (7.0-11.0); MONO # 0.7 (0.1-0.6); MONO % 8.5 % (1.0-6.0); RBC 5.15 10^6/uL (3.5-6.1); RED CELL DISTRIBUTION WIDTH 13.1 % (11.5-14.5); WHITE BLOOD COUNT 8.4 10^3/uL (4.5-11.0)
[2018-10-11 16:10] LABS: INR 1.02; PARTIAL THROMBOPLASTIN TIME 30.6 Seconds (25.1-36.5); PROTHROMBIN TIME 11.6 SECONDS (9.4-12.5)
[2018-10-11 16:17] LABS: ALB/GLOB RATIO 1.2 (1.1-1.8); ALBUMIN 4.2 g/dL (3.0-4.8); ALT/SGPT 22 U/L (7-56); AST/SGOT 21 U/L (17-59); BLOOD UREA NITROGEN 24 mg/dL (7-21); CALCIUM 9.5 mg/dL (8.4-10.5); GFR NON-AFRICAN AMERICAN > 60
[2018-10-11 16:21] LABS: TROPONIN I 0.02 ng/mL
[2018-10-11] MEDS ORDERED: Insulin Regular 1 UNITS/0.01 ML ML SC STA (16:28)
[2018-10-11 17:55] VITALS: BP 172/94; PULSE 100
--- NOTE | 2018-10-11 18:10 | CARD ---
APPROVED REPORT Date of service: 10/11/2018 EKG Measurement Heart [id number] <Conclusion> Normal sinus rhythm Left axis deviation T wave abnormality, consider lateral ischemia Prolonged QT Abnormal ECG
== END 2018-10-11 18:10 | disposition left against medical advice (07) ==
LOC: ED 13:35
DX: E11.65 Type 2 diabetes mellitus with hyperglycemia (principal); I25.10 Atherosclerotic heart disease of native coronary artery without angina pectoris; J44.9 Chronic obstructive pulmonary disease, unspecified; Z95.5 Presence of coronary angioplasty implant and graft; F17.210 Nicotine dependence, cigarettes, uncomplicated
CPT/HCPCS: 80053; 82550; 82803; 82948; 83615; 83735; 84484; 85025; 85610; 85730; 93005; 96372; 99284; J7030

== ENCOUNTER 2018-11-06 12:04 | Emergency (ER) | payer MEDICARE ==
[2018-11-06 12:15] VITALS: BMI 21.7
[2018-11-06 12:17] VITALS: BP 127/83; PULSE 93; RESP 20; TEMP 97.9; O2SAT 99
--- NOTE | 2018-11-06 12:50 | ED PDOC ---
Arrival/HPI - General Chief Complaint: Weakness/Neurological Deficit Historian: Patient - History of Present Illness Narrative History of Present Illness (Text): 11/06/18 12:30 63 year old male, whose past medical history includes stroke, who was brought into the emergency department by ambulance from the street after a passerby saw the patient sitting down and called 911. Per EMS, he was walking and felt weak so he sat down. Patient points to right lower leg, indicating pain. Patient's HPI limited due to slight confusion when attempting to verbalize complaint. Patient is only able to say 1-2 words when responding to questions, mainly using "yes" or "no," which is no different from baseline. Pt denies hitting his head, neck pain, back pain, chest pain, abdominal pain, or any other complaints. Time/Duration: Prior to Arrival Symptom Onset: Sudden Symptom Course: Unchanged Context: Sitting (patient was found sitting on street by passerby, who called 911 ) Past Medical History - Provider Review Nursing Documentation Reviewed: Yes - Infectious Disease Hx of Infectious Diseases: None Family/Social History - Physician Review Nursing Documentation Reviewed: Yes Family/Social History: No Known Family HX Allergies/Home Meds Allergies/Adverse Reactions: Allergies No Known Allergies Allergy (Verified 11/08/18 08:20) Home Medications: Home Meds Medication Instructions Recorded Confirmed Alprazolam [Xanax] 0.25 mg PO DAILY 10/06/18 10/06/18 Aspirin [Ecotrin] 81 mg PO DAILY 10/06/18 10/06/18 Atorvastatin [Lipitor] 40 mg PO DAILY 10/06/18 10/06/18 Divalproex [Depakote DR(*BID*)] 250 mg PO BID 10/06/18 10/06/18 Glipizide [Glucotrol] 10 mg PO BID 10/06/18 10/06/18 Insulin Glargine,Hum.rec.anlog 10 unit SQ HS 10/06/18 10/06/18 [Lantus] Lisinopril [Zestril] 20 mg PO DAILY 10/06/18 10/06/18 Metoprolol Tartrate [Lopressor] 25 mg PO BID 10/06/18 10/06/18 RX: Esomeprazole Sodium 40 mg PO DAILY 10/06/18 10/06/18 amLODIPine [Norvasc] 10 mg PO DAILY 10/06/18 10/06/18 Review of Systems - Physician Review All systems were reviewed & negative as marked: Yes - Review of Systems Cardiovascular: Normal. absent: Chest Pain Gastrointestinal: Normal. absent: Abdominal Pain Musculoskeletal: Other (Pt notes pain to right lower leg ). absent: Normal, Back Pain, Neck Pain Physical Exam Vital Signs Reviewed: Yes Vital Signs Temp Pulse Resp BP Pulse Ox 11/06/18 12:15 97.9 F 93 H 20 127/83 99 Temperature: Afebrile Blood Pressure: Normal Pulse: Tachycardic Respiratory Rate: Normal Appearance: Positive for: Well-Appearing, Non-Toxic Pain Distress: Mild Mental Status: Positive for: Confused (slight confusion when attempting to verba lize complaint ) - Systems Exam Head: Present: Atraumatic, Normocephalic Pupils: Present: PERRL Extroacular Muscles: Present: EOMI Conjunctiva: Present: Normal Mouth: Present: Moist Mucous Membranes Neck: Present: Normal Range of Motion Respiratory/Chest: Present: Clear to Auscultation, Good Air Exchange. No: Respiratory Distress, Accessory Muscle Use Cardiovascular: Present: Regular Rate and Rhythm, Normal S1, S2. No: Murmurs Abdomen: No: Tenderness, Distention, Peritoneal Signs Back: Present: Normal Inspection Upper Extremity: Present: Normal Inspection. No: Cyanosis, Edema Lower Extremity: Present: Normal Inspection. No: Edema Neurological: Present: Other (left-sided facial droop noted. right sided hemiparesis ). No: Speech Normal (dysarthric), Gait Normal (shuffling gait ) Skin: Present: Warm, Dry, Normal Color. No: Rashes Psychiatric: Present: Alert. No: Oriented x 3 (oriented x2) Medical Decision Making ED Course and Treatment: 11/06/18 12:30 Impression: 63 year old male who was brought into the emergency department by ambulance from the street after a passerby saw pt sitting down and called 911. Differential Diagnosis included but are not limited to: --Intracranial bleed --Calavarial fracture Plan: -- CT of cervical spine w/o contrast -- CT of head w/o contrast -- Labs -- X-Ray of chest -- X-ray of tibia fibula right -- Reassess and disposition Prior Visits: Notes and results from previous visits were reviewed. Patient was last seen in the emergency department on Progress Notes: Leaving Against Medical Advice (AMA): The patient is choosing to leave against medical advice. I have personally exp lained to the patient that choosing to do so may result in permanent bodily harm or . I have discussed at great length that without further evaluation and monitoring there may be unforeseen circumstances and/or deterioration causing permanent bodily harm or as a result of their choice. The patient is alert, oriented, and shows the mental capacity to make clear decisions regarding the patients health care at this time. The patient continues to wish to leave against medical advice. In light of the patients decision to leave against medical advice, follow-up has been arranged and the patient is aware of the importance to following up as instructed. The patient has been advised that they should return to the emergency room immediately if they change their mind at any time, or if their condition begins to change or worsen in any way. - RAD Interpretation Radiology Orders: 11/06/18 12:38 CERVICAL SPINE W/O CONTRAST [CT] Stat HEAD W/O CONTRAST [CT] Stat CHEST PORTABLE [RAD] Stat TIBIA FIBULA RIGHT [RAD] Stat - Scribe Statement The provider has reviewed the documentation as recorded by the Scribe Adela Chao All medical record entries made by the Scribe were at my direction and personally dictated by me. I have reviewed the chart and agree that the record accurately reflects my personal performance of the history, physical exam, medical decision making, and the department course for this patient. I have also personally directed, reviewed, and agree with the discharge instructions and disposition. Disposition/Present on Arrival - Present on Arrival Any Indicators Present on Arrival: No History of DVT/PE: No History of Uncontrolled Diabetes: No Urinary Catheter: No History of Decub. Ulcer: No History Surgical Site Infection Following: None - Disposition Have Diagnosis and Disposition been Completed?: Yes Diagnosis: Altered mental status Disposition: AGAINST MEDICAL ADVICE Disposition Time: 12:45 Patient Plan: Discharge Condition: STABLE Discharge Instructions (ExitCare): Altered Mental Status (DC) Referrals: Alexis Tolentino DO [Primary Care Provider] - Follow up with primary Forms: [employer] (Citizen [place])
== END 2018-11-06 13:00 | disposition left against medical advice (07) ==
LOC: ED 12:04 → MERGE 12:04 → ED 13:00
DX: R41.82 Altered mental status, unspecified (principal)

== ENCOUNTER 2019-02-05 12:06 | Emergency (ER) | payer MEDICARE ==
[2019-02-05 12:07] VITALS: BMI 21.7
[2019-02-05 12:15] VITALS: RESP 18; TEMP 98
--- NOTE | 2019-02-05 13:09 | ED PDOC ---
Arrival/HPI - General Chief Complaint: Abnormal Skin Integrity Time Seen by Provider: 02/05/19 12:07 Historian: Patient - History of Present Illness Narrative History of Present Illness (Text): 02/05/19 12:07 Warren Huggins is a 58 year old male, with a past medical history of CVA with residual aphasia, subdural hematoma, CAD, seizures, diabetes, alcohol abuse, hypertension, and GERD, who presents to the emergency department complaining of right great toe ulcer since 4 days. Patient informs popping a pimple with associated purulent discharge on the right great toe 4 days ago. Patient informs popping the pimple produced the ulcer on right great toe. Patient contacted Dr. Tolentino who advised him to present to the emergency department. Patient informs history of right sided weakness and no sensation of the right foot. Patient's last TDAP vaccine was in 2013. Patient denies numbness, tingling, fevers, chills, headache, dizziness, chest pain, shortness of breath, dyspnea on exertion, cough, diaphoresis, abdominal pain, nausea, vomiting, diarrhea, back pain, neck pain, or any other complaint. Time/Duration: < week (4 days) Symptom Onset: Sudden Symptom Course: Unchanged Activities at Onset: Light Context: Home Past Medical History - Provider Review Nursing Documentation Reviewed: Yes - Infectious Disease Hx of Infectious Diseases: None - Tetanus Immunization Tetanus Immunization: Unknown - Past Medical History Past Medical History: Unable to Obtain - Cardiac Hx Cardiac Disorders: Yes (CAD) - Pulmonary Hx Respiratory Disorders: Yes Hx Chronic Obstructive Pulmonary Disease (COPD): Yes - Neurological HX Cerebrovascular Accident: Yes (R sided weakness, expressibe aphasia) - HEENT Hx HEENT Disorder: Yes (hearing problem) - Renal Hx Renal Disorder: No - Endocrine/Metabolic Hx Diabetes Mellitus Type 2: Yes - Hematological/Oncological Hx Blood Disorders: No - Integumentary Hx Dermatological Disorder: No - Musculoskeletal/Rheumatological Hx Musculoskeletal Disorders: Yes - Gastrointestinal Hx Gastrointestinal Disorders: Yes Hx Gastroesophageal Reflux: Yes HX Swallowing Problems: Yes - Genitourinary/Gynecological Hx Genitourinary Disorders: No - Psychiatric Hx Psychophysiologic Disorder: Yes (etoh use, pschiatric hospitalizations) Hx Substance Use: No (DENIES) - Past Surgical History Past Surgical History: No Previous - Surgical History Hx Cardiac Catheterization: Yes Hx Coronary Stent: Yes - Anesthesia Hx Anesthesia Reactions: No - Suicidal Assessment Feels Threatened In Home Enviroment: No Family/Social History - Physician Review Nursing Documentation Reviewed: Yes Family/Social History: Unknown Family HX Smoking Status: Heavy Smoker > 10 Cigarettes Daily Hx Alcohol Use: No Hx Substance Use: No (DENIES) Hx Substance Use Treatment: No Allergies/Home Meds Allergies/Adverse Reactions: Allergies No Known Allergies Allergy (Verified 02/05/19 12:08) Home Medications: Home Meds Medication Instructions Recorded Confirmed Alprazolam [Xanax] 0.25 mg PO DAILY 10/06/18 10/06/18 Aspirin [Ecotrin] 81 mg PO DAILY 10/06/18 10/06/18 Atorvastatin [Lipitor] 40 mg PO DAILY 10/06/18 10/06/18 Divalproex [Depakote DR(*BID*)] 250 mg PO BID 10/06/18 10/06/18 Esomeprazole Sodium 40 mg PO DAILY 10/06/18 10/06/18 Glipizide [Glucotrol] 10 mg PO BID 10/06/18 10/06/18 Insulin Glargine,Hum.rec.anlog 10 unit SQ HS 10/06/18 10/06/18 [Lantus] Lisinopril [Zestril] 20 mg PO DAILY 10/06/18 10/06/18 Metoprolol Tartrate [Lopressor] 25 mg PO BID 10/06/18 10/06/18 amLODIPine [Norvasc] 10 mg PO DAILY 10/06/18 10/06/18 Review of Systems - Physician Review All systems were reviewed & negative as marked: Yes - Review of Systems Constitutional: absent: Fevers, Other (chills) Respiratory: absent: SOB, Cough Cardiovascular: absent: Chest Pain, BASURTO Gastrointestinal: absent: Abdominal Pain, Diarrhea, Nausea, Vomiting Musculoskeletal: absent: Back Pain, Neck Pain, Other (no numbness or tingling) Skin: Ulcer (ulcer on right great toe) Neurological: absent: Headache, Dizziness Endocrine: absent: Diaphoresis Physical Exam Vital Signs Reviewed: Yes Vital Signs Temp Pulse Resp BP Pulse Ox 02/05/19 12:14 98.0 F 87 18 179/104 H 96 Temperature: Afebrile Blood Pressure: Hypertensive Pulse: Regular Respiratory Rate: Normal Appearance: Positive for: Well-Appearing, Non-Toxic, Comfortable Pain Distress: None Mental Status: Positive for: Alert and Oriented X 3 - Systems Exam Head: Present: Atraumatic, Normocephalic Pupils: Present: PERRL Extroacular Muscles: Present: EOMI Conjunctiva: Present: Normal Mouth: Present: Moist Mucous Membranes Neck: Present: Normal Range of Motion Respiratory/Chest: Present: Clear to Auscultation, Good Air Exchange. No: Respiratory Distress, Accessory Muscle Use Cardiovascular: Present: Regular Rate and Rhythm, Normal S1, S2. No: Murmurs Abdomen: No: Tenderness, Distention, Peritoneal Signs Back: Present: Normal Inspection Upper Extremity: Present: Normal Inspection. No: Cyanosis, Edema Lower Extremity: Present: Other (No sensation of right foot up to right ankle; Right lower extremity weakness). No: Edema Neurological: Present: GCS=15, CN II-XII Intact, Speech Normal Skin: Present: Warm, Other (ulcer right great toe with no drainage or erythema. Puncture wound on bottom of right great toe. ). No: Rashes Psychiatric: Present: Alert, Oriented x 3, Normal Insight, Normal Concentration Medical Decision Making ED Course and Treatment: 02/05/19 12:07 Impression: Patient is a 58 year old male who presents to the emergency department for right great toe ulcer since 4 days ago. Patient informs popping a pimple w/ associated drainage that left an ulcer. Patient also notes history of no sensation in the right foot and right sided weakness. Plan: -- Labs -- Right Great Toe X-Ray -- Reassess and disposition Prior Visits: Notes and results from previous visits were reviewed. Progress Notes: 02/05/19 14:28 Discussed case w/ Dr. Tolentino, who requests putting patient on Keflex and Bactrim. - RAD Interpretation Radiology Orders: 02/05/19 12:56 FOOT RIGHT GREAT TOE ROUTINE [RAD] Stat - Scribe Statement The provider has reviewed the documentation as recorded by the Scribcody Vyas All medical record entries made by the Scribe were at my direction and personal ly dictated by me. I have reviewed the chart and agree that the record accurately reflects my personal performance of the history, physical exam, medical decision making, and the department course for this patient. I have also personally directed, reviewed, and agree with the discharge instructions and disposition. Disposition/Present on Arrival - Present on Arrival Any Indicators Present on Arrival: No History of DVT/PE: No History of Uncontrolled Diabetes: Yes Urinary Catheter: Yes History of Decub. Ulcer: No History Surgical Site Infection Following: None - Disposition Have Diagnosis and Disposition been Completed?: Yes Diagnosis: Toe ulcer Disposition: HOME/ ROUTINE Disposition Time: 14:20 Condition: GOOD Discharge Instructions (ExitCare): Diabetic Foot Ulcer (DC) Additional Instructions: WARREN HUGGINS, thank you for letting us take care of you today. The emergency medical care you received today was directed at your acute symptoms. If you were prescribed any medication, please fill it and take as directed. It may take several days for your symptoms to resolve. Return to the Emergency Department if your symptoms worsen, do not improve, or if you have any other problems. Please contact your doctor or call one of the physicians/clinics you have been referred to that are listed on the Patient Visit Information form that is included in your discharge packet. Bring any paperwork you were given at discharge with you along with any medications you are taking to your follow up visit. Our treatment cannot replace ongoing medical care by a primary care provider outside of the emergency department. Thank you for allowing the [facility] team to be part of your care today. Follow up with Dr. Tolentino in 2-3 days for re-evaluation and further management. Prescriptions: Cephalexin [cephalexin] 500 mg PO QID #28 cap Pregabalin [Lyrica] 200 mg PO TID #21 capsule Sulfamethoxazole/Trimethoprim [Bactrim DS 800 mg-160 mg] 1 tab PO BID #14 tab Referrals: Alexis Tolentino DO [Staff Provider] - Follow up with primary Forms: [employer] (Armenian)
[2019-02-05 13:42] LABS: BASO # 0.01 K/mm3 (0.0-2.0); BASO % 0.2 % (0.0-3.0); EOS # 0.1 (0.0-0.7); EOS % 1.4 % (1.5-5.0); HEMOGLOBIN 13.8 g/dL (14.0-18.0); LYMPH % 29.6 % (22.0-35.0); MEAN CELL VOLUME 83.1 fl (80.0-105.0); MEAN CORPUSCULAR HEMOGLOBIN 29.5 pg (25.0-35.0); MEAN CORPUSCULAR HGB CONC 35.5 g/dl (31.0-37.0); MEAN PLATELET VOLUME 11.7 fl (7.0-11.0); MONO # 0.7 (0.1-0.6); MONO % 9.9 % (1.0-6.0); RBC 4.68 10^6/uL (3.5-6.1); RED CELL DISTRIBUTION WIDTH 13.3 % (11.5-14.5); WHITE BLOOD COUNT 6.7 10^3/uL (4.5-11.0)
[2019-02-05 13:48] LABS: ALB/GLOB RATIO 1.1 (1.1-1.8); ALBUMIN 3.8 g/dL (3.0-4.8); ALT/SGPT 12 U/L (7-56); AST/SGOT 15 U/L (17-59); BLOOD UREA NITROGEN 21 mg/dL (7-21); CALCIUM 9.3 mg/dL (8.4-10.5); GFR NON-AFRICAN AMERICAN > 60
--- NOTE | 2019-02-05 14:09 | RAD ---
Date of service: 02/05/2019 PROCEDURE: Right Foot and big toe radiographs. HISTORY: ? osteo COMPARISON: None. TECHNIQUE: 3 views obtained. FINDINGS: BONES: No evidence of osteomyelitis JOINTS: Normal. SOFT TISSUES: Soft tissue ulcer in the big toe OTHER FINDINGS: None. IMPRESSION: No evidence of osteomyelitis
[2019-02-05 14:16] VITALS: BP 166/91; PULSE 82; O2SAT 97
== END 2019-02-05 15:09 | disposition home or self-care (01) ==
LOC: ED 12:06
DX: E11.621 Type 2 diabetes mellitus with foot ulcer (principal); F17.210 Nicotine dependence, cigarettes, uncomplicated; I25.10 Atherosclerotic heart disease of native coronary artery without angina pectoris; R56.9 Unspecified convulsions

== ENCOUNTER 2019-02-11 17:25 | Inpatient (IN) | payer MEDICARE ==
[2019-02-11 17:40] VITALS: BMI 19.2
[2019-02-11] MEDS ORDERED: Sodium Chloride 0.9% 500 ML IV STA (18:26)
[2019-02-11 18:36] LABS: BASO # 0.02 K/mm3 (0.0-2.0); BASO % 0.3 % (0.0-3.0); EOS # 0.1 (0.0-0.7); EOS % 1.7 % (1.5-5.0); HEMOGLOBIN 14.7 g/dL (14.0-18.0); LYMPH # 1.6 (1.2-3.4); LYMPH % 26.2 % (22.0-35.0); MEAN CELL VOLUME 85.7 fl (80.0-105.0); MEAN PLATELET VOLUME 11.4 fl (7.0-11.0); MONO # 0.6 (0.1-0.6); MONO % 9.9 % (1.0-6.0); RBC 4.9 10^6/uL (3.5-6.1); RED CELL DISTRIBUTION WIDTH 13.5 % (11.5-14.5); WHITE BLOOD COUNT 6.1 10^3/uL (4.5-11.0)
[2019-02-11 18:40] LABS: INR 1.04; PROTHROMBIN TIME 11.5 SECONDS (9.4-12.5)
--- NOTE | 2019-02-11 18:50 | ED PDOC ---
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 Lauren for admission for IV antibiotics for wound to right great toe due to failed outpatient antibiotics. Patient denies any fever, chills, chest pain, shortness of breath, abdominal pain, or any other complaints at this time. PMD: Dr. Tolentino Past Medical History - Provider Review Nursing Documentation Reviewed: Yes - Infectious Disease Hx of Infectious Diseases: None - Tetanus Immunization Tetanus Immunization: Unknown - Past Medical History Past Medical History: Unable to Obtain - Cardiac Hx Cardiac Disorders: Yes (CAD) - Pulmonary Hx Respiratory Disorders: Yes Hx Chronic Obstructive Pulmonary Disease (COPD): Yes - Neurological HX Cerebrovascular Accident: Yes (R sided weakness, expressibe aphasia) - HEENT Hx HEENT Disorder: Yes (hearing problem) - Renal Hx Renal Disorder: No - Endocrine/Metabolic Hx Diabetes Mellitus Type 2: Yes - Hematological/Oncological Hx Blood Disorders: No - Integumentary Hx Dermatological Disorder: No - Musculoskeletal/Rheumatological Hx Musculoskeletal Disorders: Yes - Gastrointestinal Hx Gastrointestinal Disorders: Yes Hx Gastroesophageal Reflux: Yes HX Swallowing Problems: Yes - Genitourinary/Gynecological Hx Genitourinary Disorders: No - Psychiatric Hx Psychophysiologic Disorder: Yes (etoh use, pschiatric hospitalizations) Hx Substance Use: No (DENIES) - Past Surgical History Past Surgical History: No Previous - Surgical History Hx Cardiac Catheterization: Yes Hx Coronary Stent: Yes - Anesthesia Hx Anesthesia Reactions: No - Suicidal Assessment Feels Threatened In Home Enviroment: No Family/Social History - Physician Review Nursing Documentation Reviewed: Yes Family/Social History: No Known Family HX Smoking Status: Heavy Smoker > 10 Cigarettes Daily Hx Alcohol Use: No Hx Substance Use: No (DENIES) Hx Substance Use Treatment: No Allergies/Home Meds Allergies/Adverse Reactions: Allergies No Known Allergies Allergy (Verified 02/11/19 17:40) Home Medications: Home Meds Medication Instructions Recorded Confirmed Alprazolam [Xanax] 0.25 mg PO DAILY 10/06/18 10/06/18 Aspirin [Ecotrin] 81 mg PO DAILY 10/06/18 10/06/18 Atorvastatin [Lipitor] 40 mg PO DAILY 10/06/18 10/06/18 Divalproex [Depakote DR(*BID*)] 250 mg PO BID 10/06/18 10/06/18 Esomeprazole Sodium 40 mg PO DAILY 10/06/18 10/06/18 Glipizide [Glucotrol] 10 mg PO BID 10/06/18 10/06/18 Insulin Glargine,Hum.rec.anlog 10 unit SQ HS 10/06/18 10/06/18 [Lantus] Lisinopril [Zestril] 20 mg PO DAILY 10/06/18 10/06/18 Metoprolol Tartrate [Lopressor] 25 mg PO BID 10/06/18 10/06/18 amLODIPine [Norvasc] 10 mg PO DAILY 10/06/18 10/06/18 Review of Systems - Physician Review All systems were reviewed & negative as marked: Yes - Review of Systems Constitutional: absent: Fevers, Night Sweats Respiratory: absent: SOB Cardiovascular: absent: Chest Pain Gastrointestinal: absent: Abdominal Pain Physical Exam Vital Signs Reviewed: Yes Vital Signs Temp Pulse Resp BP Pulse Ox 02/11/19 17:26 98 F 88 18 161/91 H 99 Temperature: Afebrile Blood Pressure: Normal Pulse: Regular Respiratory Rate: Normal Appearance: Positive for: Well-Appearing, Non-Toxic, Comfortable Pain Distress: None Mental Status: Positive for: Alert and Oriented X 3 Finger Stick Blood Glucose: 425 - Systems Exam Respiratory/Chest: Present: Clear to Auscultation, Good Air Exchange. No: Respiratory Distress, Accessory Muscle Use Cardiovascular: Present: Regular Rate and Rhythm, Normal S1, S2. No: Murmurs Abdomen: No: Tenderness, Distention, Peritoneal Signs Upper Extremity: Present: Normal Inspection. No: Cyanosis, Edema Lower Extremity: Present: Swelling (great right toe), Other (open wound along plantar aspect of right great toe; decreased sensation) Neurological: Present: GCS=15, CN II-XII Intact, Speech Normal Skin: Present: Warm, Dry, Normal Color. No: Rashes Psychiatric: Present: Alert, Oriented x 3, Normal Insight, Normal Concentration Medical Decision Making ED Course and Treatment: 02/11/19 18:51 Impression: 58 year old male sent by Dr. Lauren for admission for IV antibiotics for wound to right great toe due to failed outpatient antibiotics. Plan: -- EKG -- Chest X-ray -- IV Fluids -- Blood Culture -- Reassess and disposition Progress Notes: 02/11/19 19:33 cbc; wnl cmp; glucose; 360 bun; 32/cr 1.3 blood culture pending ekg; normal sinus rhythm at [address] elevations incomplete left bundle branch block Chest x-ray: No infiltrate or effusion no cardiomegaly Patient given 4 units of insulin sq Patient started on vancomycin and Zosyn IV. Case was discussed in depth with Dr. Tolentino accepts admission to [facility] for toe infection, failure of outpatient antibiotics, hyperglycemia All aspects of this case were discussed the attending of record. Impression: Toe infection, failure of outpatient antibiotics, hyperglycemia Admit to [facility] - Lab Interpretations Lab Results: PT 11.5 SECONDS (9.4-12.5) 02/11/19 18:25 INR 1.04 02/11/19 18:25 APTT 35.0 Seconds (26.9-38.3) 02/11/19 18:25 - RAD Interpretation Radiology Orders: 02/11/19 18:26 CHEST PORTABLE [RAD] Stat - Medication Orders Current Medication Orders: Sodium Chloride (Sodium Chloride 0.9%) 500 mls @ 999 mls/hr IV .Q31M STA Stop: 02/11/19 18:56 Last Admin: 02/11/19 18:34 Dose: 999 mls/hr eMAR Start Stop Document 02/11/19 18:34 GMI (Rec: 02/11/19 18:34 GMI [id number]) Intravenous Solution Start Date 02/11/19 Start Time 18:30 End Date 02/11/19 End time 19:00 Total Infusion Time 30 - Scribe Statement The provider has reviewed the documentation as recorded by the Lily Dominguez Provider Scribe Attestation: All medical record entries made by the Scribe were at my direction and per sonally dictated by me. I have reviewed the chart and agree that the record accurately reflects my personal performance of the history, physical exam, medical decision making, and the department course for this patient. I have also personally directed, reviewed, and agree with the discharge instructions and disposition. Disposition/Present on Arrival - Present on Arrival Any Indicators Present on Arrival: Yes History of DVT/PE: No History of Uncontrolled Diabetes: Yes Urinary Catheter: Yes History of Decub. Ulcer: No History Surgical Site Infection Following: None - Disposition Have Diagnosis and Disposition been Completed?: Yes Diagnosis: Toe infection, Failure of outpatient treatment, Hyperglycemia Disposition: HOSPITALIZED Disposition Time: 19:00 Patient Plan: Admission Condition: FAIR Forms: [employer] (Japanese)
[2019-02-11 18:51] LABS: ALBUMIN 3.8 g/dL (3.0-4.8); ALT/SGPT 8 U/L (7-56); AST/SGOT 16 U/L (17-59); BLOOD UREA NITROGEN 32 mg/dL (7-21); CALCIUM 9.7 mg/dL (8.4-10.5); GFR NON-AFRICAN AMERICAN 57
[2019-02-11] MEDS ORDERED: Insulin Regular 1 UNITS/0.01 ML ML SC STA (19:11)
[2019-02-11] MEDS ORDERED: Piperacillin/Tazobact 3.375 gm 100 ML IVPB STA (19:31)
[2019-02-11] MEDS ORDERED: Vancomycin 1gm in NS 250ml 1 GM/250 ML BAG IVPB STA (19:31)
[2019-02-11] MEDS ORDERED: Piperacillin/Tazobact 2.25gm 2.25 GM/100 ML BAG IVPB SCH (21:15)
[2019-02-11] MEDS ORDERED: Sodium Chloride 0.45% 1,000 ML IV SCH (21:15)
[2019-02-11] MEDS: Insulin Reg-MEDIUM-Coverage SC SCH (22:10)
[2019-02-11] MEDS: Insulin Detemir 100 units/ml Vial (Levemir) SC SCH (22:28)
--- NOTE | 2019-02-12 01:24 | HP ---
DATE OF EXAM: 02/11/2019 HISTORY OF PRESENT ILLNESS: He comes to the emergency room by the watch parts grinder for his bad toe. He needs IV antibiotics as per the watch parts grinder. I called on the Infectious Disease and the watch parts grinder. He is a 58-year-old man with ulcer of the right great toe. He has got some ulcer, redness, and inflammation. He was on antibiotics by oral on the outpatient by me and by the watch parts grinder, and he failed. It is getting worse and the watch parts grinder, Dr. Lauren sent him to the hospital for IV antibiotics with possible wound debridement. PAST MEDICAL HISTORY: He has CVA with right-sided weakness, expressive aphasia, hypertension, diabetes, CAD. He has had COPD, hearing problems, reflux, swallowing problems, EtOH use in the past, psychiatric hospitalizations in the past. He has had a coronary stent placed. FAMILY HISTORY: Unknown. SOCIAL HISTORY: He is still smoking cigarettes. Denies alcohol. No substance abuse. No drugs. ALLERGIES: NO KNOWN DRUG ALLERGIES. MEDICATIONS: He is on Xanax, Ecotrin, Lipitor, Depakote, esomeprazole, Glucotrol, insulin, Zestril, Lopressor, Norvasc. REVIEW OF SYSTEMS: No acute vision and no acute hearing changes. No sore throat. No neck pain. No chest pain. No palpitations. No shortness of breath or cough. No abdominal pain. No nausea, vomiting, constipation, or diarrhea. No night sweats. His right first toe though he has got an ulcer. He has been taking antibiotics, it is just not working. PHYSICAL EXAMINATION VITAL SIGNS: He has 98 temperature, 88 pulse, 18 respiratory rate, 161/91 blood pressure, 99% O2 saturation. His blood sugar was 425. I am not sure if he is so compliant with his diet and his medications. GENERAL: He is well appearing, nontoxic, alert and oriented x3. HEENT: Head; atraumatic, normocephalic. His expressive aphasia is present. Extraocular muscles are intact. NECK: Supple. HEART: Regular rate. Normal S1 and S2. LUNGS: Decreased breath sounds, but clear to auscultation. ABDOMEN: Soft and nontender. Positive bowel sounds. No guarding. No rebound. No CVA tenderness. EXTREMITIES: No edema. There is swelling to the right great toe with an open wound, plantar aspect. Decreased sensation. SKIN: Except for the right first toe, has poor turgor. No apparent rashes. Ulcers, otherwise on his right toe he has got an ulcer. NEUROLOGIC: GCS is 15. Speech, he cannot talk well. He has got expressive aphasia. Alert and oriented x3. To communicate, I gave him charades and him trying to write, but it works. LABORATORY DATA: He has 135 sodium, potassium 4.7, BUN 32, creatinine 1.3, GFR is 57, sugars are 360 and 356, we have him back on his insulin and medication and coverage. Calcium is 9.7, total bilirubin is 0.6, AST is 16, ALT is 8, alkaline phosphatase is 63, total protein 7.5, INR is 1.04. White count is 6.1, hemoglobin 14.7, hematocrit 42, platelets are 236. ASSESSMENT AND PLAN: He has worsening of a right great toe ulcer status post two antibiotics on the outpatient orally and he failed. He is here by Podiatry for IV antibiotics and possible debridement. We will continue with aggressive treatment on Warren Cesar. Alexis Tolentino DO
[2019-02-12] MEDS: Piperacillin/Tazobact 2.25gm 2.25 GM/100 ML BAG IVPB SCH ×2 (01:59→11:37)
[2019-02-12 06:37] LABS: HEMOGLOBIN 14.3 g/dL (14.0-18.0); MEAN CELL VOLUME 85.7 fl (80.0-105.0); MEAN CORPUSCULAR HEMOGLOBIN 29.7 pg (25.0-35.0); MEAN CORPUSCULAR HGB CONC 34.6 g/dl (31.0-37.0); MEAN PLATELET VOLUME 11.2 fl (7.0-11.0); RBC 4.82 10^6/uL (3.5-6.1); RED CELL DISTRIBUTION WIDTH 13.5 % (11.5-14.5); WHITE BLOOD COUNT 6.5 10^3/uL (4.5-11.0)
[2019-02-12 07:46] LABS: ALB/GLOB RATIO 1.1 (1.1-1.8); ALBUMIN 3.7 g/dL (3.0-4.8); ALT/SGPT 13 U/L (7-56); AST/SGOT 21 U/L (17-59); BLOOD UREA NITROGEN 32 mg/dL (7-21); CALCIUM 9.7 mg/dL (8.4-10.5); GFR NON-AFRICAN AMERICAN > 60
--- NOTE | 2019-02-12 09:14 | RAD ---
Date of service: 02/11/2019 HISTORY: foot infection/admission/hyperglycemia COMPARISON: 10/05/2018 TECHNIQUE: 1 view obtained. FINDINGS: LUNGS: No active pulmonary disease. PLEURA: No significant pleural effusion identified, no pneumothorax apparent. CARDIOVASCULAR: No aortic atherosclerotic calcification present. Normal cardiac size. No pulmonary vascular congestion. OSSEOUS STRUCTURES: No significant abnormalities. VISUALIZED UPPER ABDOMEN: Normal. OTHER FINDINGS: None. IMPRESSION: No active disease.
[2019-02-12] MEDS ORDERED: Insulin Detemir 100 units/ml Vial (Levemir) SC SCH ×2 (09:21→22:00)
--- NOTE | 2019-02-12 09:24 | CARD ---
APPROVED REPORT Date of service: 02/11/2019 EKG Measurement Heart [id number] <Conclusion> Normal sinus rhythm Left axis deviation Incomplete left bundle branch block Minimal voltage criteria for LVH, may be normal variant T wave abnormality, consider lateral ischemia Abnormal ECG
--- NOTE | 2019-02-12 11:30 | CP.PCM.CON ---
History of Present Illness - History of Present Illness History of Present Illness: Podiatry consult note for Drs. Lauren/Jodi 58 year old M patient with PMH of DM 2, CAD, Anxiety, GERD, Alcoholism, Tobacco Dependence, HTN, HLD, Prior TIA, CVA seen and evaluated at the at bedside with Dr Zapata for right hallux ulceration. Patient states that he he was sent to the hospital by Dr Lauren to be admitted because of persistent right big toe ulceration despite receiving PO antibiotic. Patient states that he developed this ulcer in his right big toe 3 months ago and since then it's still there. He states that his right foot is slapping the floor while he is walking. Patient can't recall any trauma to his right big toe. Patient denies any pain in his ulcer site. Patient denies any recent F/N/V/F/CP. Patient denies any other pedal complaint at this time PMH: DM 2, CAD, Anxiety, GERD, Alcoholism, Tobacco Dependence, HTN, HLD, Prior TIA, CVA PSH: Cardiac Stents Allergies: NKDA Social: From the chart (+) Opiate Abuse, (+) Alcohol Abuse, (+) Tobacco Review of Systems - Review of Systems Review of Systems: As per HPI - Constitutional Constitutional: As Per HPI Past Patient History - Infectious Disease Hx of Infectious Diseases: None - Tetanus Immunizations Tetanus Immunization: Unknown - Past Medical History & Family History Past Medical History?: Yes - Past Social History Smoking Status: 4 cigs/day - CARDIAC Hx Cardiac Disorders: Yes (CAD) - PULMONARY Hx Respiratory Disorders: No Other/Comment: smoker - NEUROLOGICAL Hx Neurological Disorder: Yes HX Cerebrovascular Accident: Yes - HEENT Hx HEENT Problems: No - RENAL Hx Chronic Kidney Disease: No - ENDOCRINE/METABOLIC Hx Diabetes Mellitus Type 2: Yes - HEMATOLOGICAL/ONCOLOGICAL Hx Blood Disorders: No - INTEGUMENTARY Hx Dermatological Problems: No - MUSCULOSKELETAL/RHEUMATOLOGICAL Hx Falls: Yes Hx Unsteady Gait: Yes - GASTROINTESTINAL Hx Gastrointestinal Disorders: No - GENITOURINARY/GYNECOLOGICAL Hx Genitourinary Disorders: No - PSYCHIATRIC Hx Psychophysiologic Disorder: Yes (etoh use, pschiatric hospitalizations) Hx Substance Use: No (DENIES) - SURGICAL HISTORY Hx Surgeries: No - ANESTHESIA Hx Anesthesia Reactions: No Meds Allergies/Adverse Reactions: Allergies Allergy/AdvReac Type Severity Reaction Status Date / Time No Known Allergies Allergy Verified 02/11/19 17:40 - Medications Medications: Current Medications Alprazolam (Xanax) 0.25 mg PO TID PRN; Protocol PRN Reason: Anxiety Amlodipine Besylate (Norvasc) 10 mg PO DAILY [facility] Aspirin (Ecotrin) 81 mg PO DAILY [facility] Atorvastatin Calcium (Lipitor) 40 mg PO DAILY [facility] Divalproex Sodium (Depakote Dr (*Bid*)) 250 mg PO BID [facility]; Protocol Glipizide (Glucotrol) 10 mg PO BID [facility] Sodium Chloride (Sodium Chloride 0.45%) 1,000 mls @ 40 mls/hr IV .Q24H [facility] Last Admin: 02/11/19 22:09 Dose: 40 mls/hr Insulin Detemir (Levemir) 8 unit SC ACBHS [facility] Insulin Human Regular (Humulin R Med) 0 units SC ACHS [facility]; Protocol Last Admin: 02/11/19 22:10 Dose: Not Given Lisinopril (Zestril) 20 mg PO DAILY [facility] Metoprolol Tartrate (Lopressor) 50 mg PO BID [facility] Pantoprazole Sodium (Protonix Ec Tab) 40 mg PO ACB [facility] Pregabalin (Lyrica) 200 mg PO TID [facility] Physical Exam - Constitutional Appears: Well, Non-toxic, No Acute Distress - Head Exam Head Exam: ATRAUMATIC, NORMOCEPHALIC - Extremities Exam Additional comments: B/L LE focused exam VASC: DP and PT non-palpalbe b/l; cap refill <3 seconds to all digits; temp gradient warm to cool from proximal to distal b/l. NEURO: gross and protective sensation diminished b/l. DERM: An ulcer noted on the plantar aspect of the right hallux measuring 2.5 cm X 1 cm X 0.2 cm with no malodor, drainage, tunneling, mild erythema present at the tracy-wound area. MSK: No pain to palpation of the right hallux periulcerative area, Muscle power 4/5 on the right side and 5/5 on the left side in all groups. - Neurological Exam Neurological exam: Alert, Oriented x3 Results - Vital Signs Recent Vital Signs: Last Vital Signs Temp 97.8 F 02/12/19 08:07 Pulse 74 02/12/19 08:07 Resp 20 02/12/19 08:07 BP 162/105 H 02/12/19 08:07 Pulse Ox 97 02/12/19 08:07 - Labs Result Diagrams: 02/12/19 05:30 02/12/19 05:30 Labs: Laboratory Results - last 24 hr 02/11/19 02/11/19 02/11/19 18:25 18:25 18:25 WBC 6.1 RBC 4.90 Hgb 14.7 Hct 42.0 MCV 85.7 MCH 30.0 MCHC 35.0 RDW 13.5 Plt Count 236 MPV 11.4 H Neut % (Auto) 61.9 Lymph % (Auto) 26.2 Piatt % (Auto) 9.9 H Eos % (Auto) 1.7 Baso % (Auto) 0.3 Lymph # (Auto) 1.6 Piatt # (Auto) 0.6 Eos # (Auto) 0.1 Baso # (Auto) 0.02 Absolute Neuts (auto) 3.75 PT 11.5 INR 1.04 APTT 35.0 Sodium 135 Potassium 4.7 Chloride 101 Carbon Dioxide 23 Anion Gap 16 BUN 32 H Creatinine 1.3 Est GFR ( Amer) > 60 Est GFR (Non-Af Amer) 57 POC Glucose (mg/dL) Random Glucose 360 H* D Calcium 9.7 Total Bilirubin 0.6 AST 16 L ALT 8 Alkaline Phosphatase 63 Total Protein 7.5 Albumin 3.8 Globulin 3.7 Albumin/Globulin Ratio 1.0 L 02/11/19 02/11/19 02/11/19 19:28 21:36 23:09 WBC RBC Hgb Hct MCV MCH MCHC RDW Plt Count MPV Neut % (Auto) Lymph % (Auto) Piatt % (Auto) Eos % (Auto) Baso % (Auto) Lymph # (Auto) Piatt # (Auto) Eos # (Auto) Baso # (Auto) Absolute Neuts (auto) PT INR APTT Sodium Potassium Chloride Carbon Dioxide Anion Gap BUN Creatinine Est GFR ( Amer) Est GFR (Non-Af Amer) POC Glucose (mg/dL) 356 H 272 H 261 H Random Glucose Calcium Total Bilirubin AST ALT Alkaline Phosphatase Total Protein Albumin Globulin Albumin/Globulin Ratio 02/12/19 02/12/19 02/12/19 05:30 05:30 08:58 WBC 6.5 RBC 4.82 Hgb 14.3 Hct 41.3 L MCV 85.7 MCH 29.7 MCHC 34.6 RDW 13.5 Plt Count 218 MPV 11.2 H Neut % (Auto) Lymph % (Auto) Piatt % (Auto) Eos % (Auto) Baso % (Auto) Lymph # (Auto) Piatt # (Auto) Eos # (Auto) Baso # (Auto) Absolute Neuts (auto) PT INR APTT Sodium 138 Potassium 4.3 Chloride 106 Carbon Dioxide 22 Anion Gap 14 BUN 32 H Creatinine 1.1 Est GFR ( Amer) > 60 Est GFR (Non-Af Amer) > 60 POC Glucose (mg/dL) 381 H Random Glucose 349 H* Calcium 9.7 Total Bilirubin 0.4 AST 21 ALT 13 Alkaline Phosphatase 61 Total Protein 7.1 Albumin 3.7 Globulin 3.4 Albumin/Globulin Ratio 1.1 Assessment & Plan - Assessment and Plan (Free Text) Assessment: 58 year old M patient with PMH of DM 2, CAD, Anxiety, GERD, Alcoholism, Tobacco Dependence, HTN, HLD, Prior TIA, CVA seen and evaluated at the at bedside with Dr Zapata for right hallux ulceration. Plan: Patient seen and evaluated with Dr. Zapata Charts, labs and vitals reviewed: Afebrile, absent leukocytosis X-ray right foot ordered Arterial duplex studies ordered Surgical shoes ordered and to be applied to both feet while ambulating. Mepilex applied to the right hallux Continue treatment per medicine No plan for podiatric surgical intervention Upon discharge can follow with Dr. Lauren as outpatient Thank you for the consult. Podiatry will continue to follow up the patient while in house. - Date & Time Date: 02/12/19 Time: 11:31
--- NOTE | 2019-02-12 11:32 | CP.PCM.CON ---
<Rohit Duong - Last Filed: 02/12/19 11:33> History of Present Illness - History of Present Illness History of Present Illness: Rohit Duong D.O. PGY-3, Internal Medicine Resident, Infectious Disease Consultation Note 58-year-old male with a past medical history of hypertension, hyperlipidemia, diabetes, cerebrovascular accident with residual right-sided deficits who presented for failure of outpatient antibiotics for right great toe infection. Infectious disease consultation was requested for this right great toe infection. Patient was seen and examined at bedside. Patient has some dysphasia secondary to his CVA but is able to communicate in simple words and by nodding and shaking his head to responses. Patient appears to have some issues with foot drop and left foot from the weakness and there is a possibility that he has chronic small damage to that toe that could have led to this presentation. Patient denies any fevers, chills, nausea, vomiting with diarrhea, constipation, lightheadedness, headache, chest pain, shortness of breath or any other concerning signs at this time. Review of Systems - Review of Systems All systems: reviewed and no additional remarkable complaints except (as per HPI) Past Patient History - Infectious Disease Hx of Infectious Diseases: None - Tetanus Immunizations Tetanus Immunization: Unknown - Past Medical History & Family History Past Medical History?: Yes - Past Social History Smoking Status: 4 cigs/day - CARDIAC Hx Cardiac Disorders: Yes (CAD) - PULMONARY Hx Respiratory Disorders: No Other/Comment: smoker - NEUROLOGICAL Hx Neurological Disorder: Yes HX Cerebrovascular Accident: Yes - HEENT Hx HEENT Problems: No - RENAL Hx Chronic Kidney Disease: No - ENDOCRINE/METABOLIC Hx Diabetes Mellitus Type 2: Yes - HEMATOLOGICAL/ONCOLOGICAL Hx Blood Disorders: No - INTEGUMENTARY Hx Dermatological Problems: No - MUSCULOSKELETAL/RHEUMATOLOGICAL Hx Falls: Yes Hx Unsteady Gait: Yes - GASTROINTESTINAL Hx Gastrointestinal Disorders: No - GENITOURINARY/GYNECOLOGICAL Hx Genitourinary Disorders: No - PSYCHIATRIC Hx Psychophysiologic Disorder: Yes (etoh use, pschiatric hospitalizations) Hx Substance Use: No (DENIES) - SURGICAL HISTORY Hx Surgeries: No - ANESTHESIA Hx Anesthesia Reactions: No Meds Allergies/Adverse Reactions: Allergies Allergy/AdvReac Type Severity Reaction Status Date / Time No Known Allergies Allergy Verified 02/11/19 17:40 - Medications Medications: Current Medications Alprazolam (Xanax) 0.25 mg PO TID PRN; Protocol PRN Reason: Anxiety Amlodipine Besylate (Norvasc) 10 mg PO DAILY ON LICENSE OF [facility] Aspirin (Ecotrin) 81 mg PO DAILY ON LICENSE OF [facility] Atorvastatin Calcium (Lipitor) 40 mg PO DAILY ON LICENSE OF [facility] Divalproex Sodium (Depakote Dr (*Bid*)) 250 mg PO BID ON LICENSE OF [facility]; Protocol Glipizide (Glucotrol) 10 mg PO BID ON LICENSE OF [facility] Sodium Chloride (Sodium Chloride 0.45%) 1,000 mls @ 40 mls/hr IV .Q24H FENG Last Admin: 02/11/19 22:09 Dose: 40 mls/hr Meropenem (Merrem Iv 1 Gm Premix) 1 gm in 50 mls @ 100 mls/hr IVPB Q8 ON LICENSE OF [facility]; Protocol Stop: 02/12/19 22:29 Vancomycin HCl (Vancomycin 1gm) 1 gm in 250 mls @ 167 mls/hr IVPB Q12H ON LICENSE OF [facility]; Protocol Insulin Detemir (Levemir) 8 unit SC ACBHS ON LICENSE OF [facility] Insulin Human Regular (Humulin R Med) 0 units SC ACHS ON LICENSE OF [facility]; Protocol Last Admin: 02/11/19 22:10 Dose: Not Given Lisinopril (Zestril) 20 mg PO DAILY ON LICENSE OF [facility] Metoprolol Tartrate (Lopressor) 50 mg PO BID ON LICENSE OF [facility] Pantoprazole Sodium (Protonix Ec Tab) 40 mg PO ACB ON LICENSE OF [facility] Pregabalin (Lyrica) 200 mg PO TID ON LICENSE OF [facility] Physical Exam - Constitutional Appears: Non-toxic, No Acute Distress - Head Exam Head Exam: ATRAUMATIC, NORMOCEPHALIC - Eye Exam Eye Exam: EOMI. absent: Scleral icterus - ENT Exam ENT Exam: Mucous Membranes Moist - Neck Exam Neck exam: Positive for: Normal Inspection - Respiratory Exam Respiratory Exam: absent: Rales, Rhonchi, Wheezes - Cardiovascular Exam Cardiovascular Exam: +S1, +S2. absent: Gallop, Rubs - GI/Abdominal Exam GI & Abdominal Exam: Normal Bowel Sounds, Soft. absent: Tenderness - Extremities Exam Extremities exam: Negative for: calf tenderness Additional comments: right big toe with inferior aspect with mild pus, erythema, dried scaling skin around lesion, nontender - Neurological Exam Additional comments: awake, alert, right sided weakness, dysarthria - Skin Skin Exam: Warm Results - Vital Signs Recent Vital Signs: Last Vital Signs Temp 97.8 F 02/12/19 08:07 Pulse 74 02/12/19 08:07 Resp 20 02/12/19 08:07 BP 162/105 H 02/12/19 08:07 Pulse Ox 97 02/12/19 08:07 - Labs Result Diagrams: 02/12/19 05:30 02/12/19 05:30 Labs: Laboratory Results - last 24 hr 02/11/19 02/11/19 02/11/19 18:25 18:25 18:25 WBC 6.1 RBC 4.90 Hgb 14.7 Hct 42.0 MCV 85.7 MCH 30.0 MCHC 35.0 RDW 13.5 Plt Count 236 MPV 11.4 H Neut % (Auto) 61.9 Lymph % (Auto) 26.2 Rooks % (Auto) 9.9 H Eos % (Auto) 1.7 Baso % (Auto) 0.3 Lymph # (Auto) 1.6 Rooks # (Auto) 0.6 Eos # (Auto) 0.1 Baso # (Auto) 0.02 Absolute Neuts (auto) 3.75 PT 11.5 INR 1.04 APTT 35.0 Sodium 135 Potassium 4.7 Chloride 101 Carbon Dioxide 23 Anion Gap 16 BUN 32 H Creatinine 1.3 Est GFR ( Amer) > 60 Est GFR (Non-Af Amer) 57 POC Glucose (mg/dL) Random Glucose 360 H* D Calcium 9.7 Total Bilirubin 0.6 AST 16 L ALT 8 Alkaline Phosphatase 63 Total Protein 7.5 Albumin 3.8 Globulin 3.7 Albumin/Globulin Ratio 1.0 L 02/11/19 02/11/19 02/11/19 19:28 21:36 23:09 WBC RBC Hgb Hct MCV MCH MCHC RDW Plt Count MPV Neut % (Auto) Lymph % (Auto) Rooks % (Auto) Eos % (Auto) Baso % (Auto) Lymph # (Auto) Rooks # (Auto) Eos # (Auto) Baso # (Auto) Absolute Neuts (auto) PT INR APTT Sodium Potassium Chloride Carbon Dioxide Anion Gap BUN Creatinine Est GFR ( Amer) Est GFR (Non-Af Amer) POC Glucose (mg/dL) 356 H 272 H 261 H Random Glucose Calcium Total Bilirubin AST ALT Alkaline Phosphatase Total Protein Albumin Globulin Albumin/Globulin Ratio 02/12/19 02/12/19 02/12/19 05:30 05:30 08:58 WBC 6.5 RBC 4.82 Hgb 14.3 Hct 41.3 L MCV 85.7 MCH 29.7 MCHC 34.6 RDW 13.5 Plt Count 218 MPV 11.2 H Neut % (Auto) Lymph % (Auto) Rooks % (Auto) Eos % (Auto) Baso % (Auto) Lymph # (Auto) Rooks # (Auto) Eos # (Auto) Baso # (Auto) Absolute Neuts (auto) PT INR APTT Sodium 138 Potassium 4.3 Chloride 106 Carbon Dioxide 22 Anion Gap 14 BUN 32 H Creatinine 1.1 Est GFR ( Amer) > 60 Est GFR (Non-Af Amer) > 60 POC Glucose (mg/dL) 381 H Random Glucose 349 H* Calcium 9.7 Total Bilirubin 0.4 AST 21 ALT 13 Alkaline Phosphatase 61 Total Protein 7.1 Albumin 3.7 Globulin 3.4 Albumin/Globulin Ratio 1.1 Assessment & Plan - Assessment and Plan (Free Text) Assessment: 58-year-old male with a past medical history of hypertension, hyperlipidemia, diabetes, cerebrovascular accident with residual right-sided deficits who presented for failure of outpatient antibiotics for right great toe infection. Infectious disease consultation was requested for this right great toe infection. Plan: Right big toe cellulitis Hypertension Hyperlipidemia Diabetes mellitus Seen with podiatry at bedside and able to appreciate lesion on the R big toe Patient failed outpatient by mouth antibiotic Podiatry note reviewed, Jaron appreciated X-ray of the foot pending Arterial studies pending Afebrile No leukocytosis CrCl 73 We will empirically start the patient on meropenem as well as vancomycin Review of previous microbiology shows coagulase-negative staph and Enterococcus faecalis in that same foot Blood cultures drawn ESR CRP ordered We will follow with you next Patient was seen and examined and case to be discussed with attending physician Thank for the pleasure participating in the care of this patient - Date & Time Date: 02/12/19 Time: 09:00 <Ankit Power - Last Filed: 02/12/19 14:36> Meds - Medications Medications: Current Medications Alprazolam (Xanax) 0.25 mg PO TID PRN; Protocol PRN Reason: Anxiety Amlodipine Besylate (Norvasc) 10 mg PO DAILY [facility] Aspirin (Ecotrin) 81 mg PO DAILY [facility]ENG Atorvastatin Calcium (Lipitor) 40 mg PO DAILY [facility] Divalproex Sodium (Depakote Dr (*Bid*)) 250 mg PO BID ON LICENSE OF [facility]; Protocol Glipizide (Glucotrol) 10 mg PO BID ON LICENSE OF [facility] Sodium Chloride (Sodium Chloride 0.45%) 1,000 mls @ 40 mls/hr IV .Q24H FENG Last Admin: 02/11/19 22:09 Dose: 40 mls/hr Vancomycin HCl (Vancomycin 1gm) 1 gm in 250 mls @ 167 mls/hr IVPB Q12H [facility]; Protocol Cefepime HCl (Maxipime 1gm) 1 gm in 100 mls @ 100 mls/hr IVPB Q8 [facility]; Protocol Insulin Detemir (Levemir) 8 unit SC ACBHS ON LICENSE OF [facility] Insulin Human Regular (Humulin R Med) 0 units SC ACHS ON LICENSE OF [facility]; Protocol Last Admin: 02/11/19 22:10 Dose: Not Given Lisinopril (Zestril) 20 mg PO DAILY ON LICENSE OF [facility] Metoprolol Tartrate (Lopressor) 50 mg PO BID ON LICENSE OF [facility] Mupirocin (Bactroban Ointment) 1 gm TOP BID ON LICENSE OF [facility] Pantoprazole Sodium (Protonix Ec Tab) 40 mg PO ACB [facility]ENG Pregabalin (Lyrica) 200 mg PO TID ON LICENSE OF [facility] Results - Vital Signs Recent Vital Signs: Last Vital Signs Temp 97.8 F 02/12/19 08:07 Pulse 74 02/12/19 08:07 Resp 20 02/12/19 08:07 BP 162/105 H 02/12/19 08:07 Pulse Ox 97 02/12/19 08:07 - Labs Result Diagrams: 02/12/19 05:30 02/12/19 05:30 Labs: Laboratory Results - last 24 hr 02/11/19 02/11/19 02/11/19 18:25 18:25 18:25 WBC 6.1 RBC 4.90 Hgb 14.7 Hct 42.0 MCV 85.7 MCH 30.0 MCHC 35.0 RDW 13.5 Plt Count 236 MPV 11.4 H Neut % (Auto) 61.9 Lymph % (Auto) 26.2 Rooks % (Auto) 9.9 H Eos % (Auto) 1.7 Baso % (Auto) 0.3 Lymph # (Auto) 1.6 Rooks # (Auto) 0.6 Eos # (Auto) 0.1 Baso # (Auto) 0.02 Absolute Neuts (auto) 3.75 ESR PT 11.5 INR 1.04 APTT 35.0 Sodium 135 Potassium 4.7 Chloride 101 Carbon Dioxide 23 Anion Gap 16 BUN 32 H Creatinine 1.3 Est GFR ( Amer) > 60 Est GFR (Non-Af Amer) 57 POC Glucose (mg/dL) Random Glucose 360 H* D Calcium 9.7 Total Bilirubin 0.6 AST 16 L ALT 8 Alkaline Phosphatase 63 Total Protein 7.5 Albumin 3.8 Globulin 3.7 Albumin/Globulin Ratio 1.0 L 02/11/19 02/11/19 02/11/19 19:28 21:36 23:09 WBC RBC Hgb Hct MCV MCH MCHC RDW Plt Count MPV Neut % (Auto) Lymph % (Auto) Rooks % (Auto) Eos % (Auto) Baso % (Auto) Lymph # (Auto) Rooks # (Auto) Eos # (Auto) Baso # (Auto) Absolute Neuts (auto) ESR PT INR APTT Sodium Potassium Chloride Carbon Dioxide Anion Gap BUN Creatinine Est GFR ( Amer) Est GFR (Non-Af Amer) POC Glucose (mg/dL) 356 H 272 H 261 H Random Glucose Calcium Total Bilirubin AST ALT Alkaline Phosphatase Total Protein Albumin Globulin Albumin/Globulin Ratio 02/12/19 02/12/19 02/12/19 05:30 05:30 08:58 WBC 6.5 RBC 4.82 Hgb 14.3 Hct 41.3 L MCV 85.7 MCH 29.7 MCHC 34.6 RDW 13.5 Plt Count 218 MPV 11.2 H Neut % (Auto) Lymph % (Auto) Rooks % (Auto) Eos % (Auto) Baso % (Auto) Lymph # (Auto) Rooks # (Auto) Eos # (Auto) Baso # (Auto) Absolute Neuts (auto) ESR PT INR APTT Sodium 138 Potassium 4.3 Chloride 106 Carbon Dioxide 22 Anion Gap 14 BUN 32 H Creatinine 1.1 Est GFR ( Amer) > 60 Est GFR (Non-Af Amer) > 60 POC Glucose (mg/dL) 381 H Random Glucose 349 H* Calcium 9.7 Total Bilirubin 0.4 AST 21 ALT 13 Alkaline Phosphatase 61 Total Protein 7.1 Albumin 3.7 Globulin 3.4 Albumin/Globulin Ratio 1.1 02/12/19 02/12/19 02/12/19 11:30 11:43 13:31 WBC RBC Hgb Hct MCV MCH MCHC RDW Plt Count MPV Neut % (Auto) Lymph % (Auto) Rooks % (Auto) Eos % (Auto) Baso % (Auto) Lymph # (Auto) Rooks # (Auto) Eos # (Auto) Baso # (Auto) Absolute Neuts (auto) ESR 37 H PT INR APTT Sodium Potassium Chloride Carbon Dioxide Anion Gap BUN Creatinine Est GFR ( Amer) Est GFR (Non-Af Amer) POC Glucose (mg/dL) 480 H* 208 H Random Glucose Calcium Total Bilirubin AST ALT Alkaline Phosphatase Total Protein Albumin Globulin Albumin/Globulin Ratio Attending/Attestation - Attestation I have personally seen and examined this patient.: Yes I have fully participated in the care of the patient.: Yes I have reviewed all pertinent clinical information: Yes
[2019-02-12] MEDS: Insulin Detemir 100 units/ml Vial (Levemir) SC SCH (11:38)
--- NOTE | 2019-02-12 12:52 | PN ---
DATE: 02/12/2019 SUBJECTIVE: He was sent in by Podiatry for nonhealing right first toe ulcer which failed outpatient treatment with two different types of antibiotics. He is comfortable in bed. No pain. He also has an old CVA, difficult to talk and express, but we got along with fairly good conversation. PHYSICAL EXAMINATION: VITAL SIGNS: Temperature 97.8; pulse 74; blood pressure 162/105, it is quite high, I will get that adjusted; respiratory rate 20, 97% O2 sat on room air. HEAD: Atraumatic, normocephalic. HEART: Regular rate. LUNGS: Decreased breath sounds, but clear. ABDOMEN: Soft. EXTREMITIES: No edema. NEUROLOGIC: He has aphasia and weakness. LABORATORY DATA: He has a 6.5 white count, 14.3 hemoglobin, 41.3 hematocrit with 280 platelets. He has 138 sodium, potassium 4.3, BUN 32, creatinine 1.1, GFR is 60. The blood sugars have been gerald high at 349 and 381. I will adjust his diabetes medications too. Calcium 9.7, total bili is 0.4, AST is 21, ALT is 13, alk phos 61, total protein 7.1. ASSESSMENT AND PLAN: He is going to be seen by Infectious Disease and Podiatry. He is already on IV fluids; Depakote; Ecotrin; Glucotrol; insulin coverage with Levemir, we will increase; Lipitor; Lopressor; Lyrica; Norvasc; Protonix; Xanax; Zestril; Zosyn. I will adjust his medications for his diabetes and his blood pressure. Await for consults to come in for his right toe cellulitis ulcer. Alexis Tolentino DO
--- NOTE | 2019-02-12 13:55 | RAD ---
Date of service: 02/12/2019 PROCEDURE: Right Foot Radiographs. HISTORY: Right hallux ulcer. COMPARISON: None. TECHNIQUE: 3 views obtained. FINDINGS: BONES: Normal. No fracture. JOINTS: Normal. SOFT TISSUES: Normal. OTHER FINDINGS: None. IMPRESSION: No evidence of osteomyelitis
[2019-02-12] MEDS ORDERED: Meropenem IV 1 gm in NS 1 GM/50 ML BAG IVPB SCH (14:00)
[2019-02-12] MEDS: Insulin Reg-MEDIUM-Coverage SC SCH (14:50)
[2019-02-12] MEDS: Vancomycin 1gm in NS 250ml 1 GM/250 ML BAG IVPB SCH (14:55)
--- NOTE | 2019-02-12 16:45 | CP.PCM.PCO ---
Additional Comments - Additional Comments Additional Comments: Pt. seen sitting up in chair, at bedside, offers no complaints. Xray right great toe negative for osteomyelitis, treated for cellulitis of right great toe. Antibx changed to Cefepime q8 per I.D, wound cx pending. ARterial US pending, dressing changes per podiatry. MRI of right lower extremity pending, PT eval pending.
[2019-02-12] MEDS: Mupirocin 2% Ointment 15 GM TUBE TOP SCH (17:51)
[2019-02-12] MEDS: Divalproex 250 mg DR (BID formulation) PO SCH (17:52)
[2019-02-12] MEDS: Insulin Lispro (humaLOG) LOW Coverage SC SCH ×2 (17:53→21:40)
[2019-02-12] MEDS: Insulin Lispro 1 UNITS/0.01 ML SC SCH (17:53)
--- NOTE | 2019-02-12 18:11 | US ---
PROCEDURE: Lower extremity [place] exam HISTORY: Peripheral vascular disease with pain and ulceration. Smoker. PHYSICIAN(S): Edilberto Edwards MD. FINDINGS: The right resting [place] is mildly abnormal, 0.70. The left resting [place] is borderline normal, 0.92 The brachial systolic pressures are symmetric. The high thigh pressures and waveforms are relatively normal. The left calf PVR waveform is normal and augments normally. There is a 25 mm gradient across the right thigh. In addition, the right calf PVR waveform is moderately blunted. Findings are consistent with right SFA occlusive disease The right ankle and metatarsal waveforms are moderately to severely blunted. The left ankle and PVR waveforms are mildly blunted. IMPRESSION: 1. Mildly abnormal right resting [place] 2. Right SFA occlusive disease 3. Bilateral tibial disease, greater on the right than the left
--- NOTE | 2019-02-12 20:41 | CON ---
DATE OF CONSULTATION: 02/12/2019 ENDOCRINOLOGY CONSULTATION HISTORY OF PRESENT ILLNESS: This is a 58-year-old male with known history of type 2 insulin-requiring diabetes and hypertension, presenting here with a right hallux infection with no apparent response to outpatient oral antibiotic management and is now being referred also for diabetic evaluation because of persistent hyperglycemic accelerations as noted thereof. PAST MEDICAL HISTORY As mentioned above, history of type 2 insulin-requiring diabetes, currently on a combination of Levemir given as a variable dose of 8-10 units twice a day, and has a regular insulin sliding scale as noted. History of hypertension and dyslipidemia, history of diabetic polyneuropathy and underlying nephropathy, history of previous cerebrovascular event with residual right-sided weakness, history of coronary artery disease with underlying peripheral vasculopathy as noted. FAMILY HISTORY: Positive for diabetes, hypertension. SOCIAL HISTORY: The patient smokes half a pack a day for many years. Has a supportive family otherwise. REVIEW OF SYSTEMS: Admits to generalized body weakness with easy fatigability and tiredness and suboptimal energy level. Also admits to episodic dizziness and lightheadedness with bifrontal headaches. No chest pains or palpitations. His oral intake has been variable with nausea, dyspepsia, and vague upper abdominal pains. Also admits to marked polyuria, nocturia, and polydipsia. PHYSICAL EXAMINATION: GENERAL: This is an average built male, in no apparent distress. VITAL SIGNS: Blood pressure of 150/90, pulse of 100 beats per minute regular, temperature 98, respirations 20, height is 5 feet 9 inches, weight is 130 pounds. HEENT: Head, normocephalic. Eyes anicteric with pink conjunctivae. Fundoscopy not possible at this time. Ears, nose, and throat otherwise normal. NECK: Supple. Thyroid gland is normal in size. No carotid bruits or any cervical adenopathy. CARDIOPULMONARY: Some adynamic precordium. S1, S2 is rapid and regular. LUNGS: Clear to auscultation. ABDOMEN: Flat, soft with positive bowel sounds. EXTREMITIES: Extremities showed erythema and edema in the right hallux area with a nonhealing ulceration with purulent exudate in the right hallux plantar surface as noted. LABORATORY DATA: Chemistries showed a BUN of 32, sodium 138, potassium 4.3, chloride 106, CO2 of 22, glucose 349, and creatinine 1.1. His glucose levels have ranged from 272 to 356 and 381 mg/dL. ASSESSMENT: This is a 58-year-old male with uncontrolled and decompensated type 2 insulin-requiring diabetes with marked hyperglycemic accelerations related to a subtherapeutic insulin regimen and clearly with suboptimal metabolic control even prior to this admission. He also has diabetic microvascular complications of retinopathy, polyneuropathy, and nephropathy with diabetic macrovascular complications of cerebrovascular disease and residual dysarthria and right-sided weakness with concomitant history of coronary artery disease and peripheral arterial disease and vasculopathy. PLAN OF MANAGEMENT: We will modify his current insulin regimen to a more physiologic basal and bolus insulin drug combination and detailed orders have been given. We will add Levemir given as 30 units subcu at bedtime daily to start tonight. We will also add Humalog given as 10 units t.i.d. before meals to start at dinner time today as ordered. We will modify the coverage scale to obviate hypoglycemia and detailed orders have been given. We will reinforce diabetic education and dietary instructions at the time of this admission. Shruthi Yates MD
[2019-02-12] MEDS: Cefepime 1gm in NS 100ml 1 GM/100 ML BAG IVPB SCH (21:43)
[2019-02-13 07:36] LABS: HEMOGLOBIN 15.2 g/dL (14.0-18.0); MEAN CELL VOLUME 86.9 fl (80.0-105.0); MEAN CORPUSCULAR HEMOGLOBIN 29.3 pg (25.0-35.0); MEAN CORPUSCULAR HGB CONC 33.8 g/dl (31.0-37.0); MEAN PLATELET VOLUME 11.2 fl (7.0-11.0); RBC 5.18 10^6/uL (3.5-6.1); RED CELL DISTRIBUTION WIDTH 13.6 % (11.5-14.5); WHITE BLOOD COUNT 8.1 10^3/uL (4.5-11.0)
[2019-02-13 07:45] LABS: ALT/SGPT 11 U/L (7-56); AST/SGOT 21 U/L (17-59); BLOOD UREA NITROGEN 34 mg/dL (7-21); GFR NON-AFRICAN AMERICAN > 60; HDL CHOLESTEROL 30 mg/dL (29-60)
[2019-02-13 07:55] LABS: LDL CHOLESTEROL 128 mg/dL (0-129)
[2019-02-13] MEDS: Insulin Lispro (humaLOG) LOW Coverage SC SCH ×3 (08:32→17:13)
[2019-02-13] MEDS ORDERED: DiphenhydrAMINE 50 mg/ml Inj IM STA (11:28)
--- NOTE | 2019-02-13 12:36 | CP.PCM.PN ---
Subjective - Date & Time of Evaluation Date of Evaluation: 02/13/19 Time of Evaluation: 12:29 - Subjective Subjective: Podiatry consult note for Drs. Lauren/Jodi 58 year old M patient seen and evaluated at the at bedside with Dr Zapata for right hallux ulceration. Patient denies any pain in his ulcer site. Patient denies any overnight F/N/V/F/CP. Patient denies any other pedal complaint at this time. Objective - Vital Signs/Intake and Output Vital Signs (last 24 hours): Temp Pulse Resp BP Pulse Ox 97.2 F L 72 20 143/93 H 99 02/13/19 08:20 02/13/19 08:20 02/13/19 08:20 02/13/19 08:20 02/13/19 08:20 - Medications Medications: Current Medications Alprazolam (Xanax) 0.25 mg PO TID PRN; Protocol PRN Reason: Anxiety Last Admin: 02/12/19 21:44 Dose: 0.25 mg Amlodipine Besylate (Norvasc) 10 mg PO DAILY REPLACED BY [facility] Aspirin (Ecotrin) 81 mg PO DAILY REPLACED BY [facility] Atorvastatin Calcium (Lipitor) 40 mg PO DAILY REPLACED BY [facility] Divalproex Sodium (Depakote Dr (*Bid*)) 250 mg PO BID [facility]; Protocol Last Admin: 02/12/19 17:52 Dose: 250 mg Glipizide (Glucotrol) 10 mg PO BID [facility]ENG Last Admin: 02/12/19 17:53 Dose: 10 mg Haloperidol (Haldol) 2 mg PO DAILY [facility]; Protocol Haloperidol Lactate (Haldol) 2 mg IM Q4 PRN; Protocol PRN Reason: Agitation Sodium Chloride (Sodium Chloride 0.45%) 1,000 mls @ 40 mls/hr IV .Q24H FENG Last Admin: 02/11/19 22:09 Dose: 40 mls/hr Vancomycin HCl (Vancomycin 1gm) 1 gm in 250 mls @ 167 mls/hr IVPB Q12H [facility]; Protocol Last Admin: 02/12/19 14:55 Dose: 167 mls/hr Cefepime HCl (Maxipime 1gm) 1 gm in 100 mls @ 100 mls/hr IVPB Q8 [facility]; Protocol Last Admin: 02/12/19 21:43 Dose: 100 mls/hr Insulin Detemir (Levemir) 24 unit SC HS REPLACED BY [facility] Insulin Human Lispro (Humalog Low) 0 units SC ACHS REPLACED BY [facility]; Protocol Last Admin: 02/13/19 08:32 Dose: Not Given Insulin Human Lispro (Humalog) 10 units SC AC REPLACED BY [facility] Last Admin: 02/12/19 17:53 Dose: 10 units Lisinopril (Zestril) 20 mg PO DAILY REPLACED BY [facility] Metoprolol Tartrate (Lopressor) 50 mg PO BID REPLACED BY [facility] Last Admin: 02/12/19 17:54 Dose: 50 mg Mupirocin (Bactroban Ointment) 1 gm TOP BID REPLACED BY [facility] Last Admin: 02/12/19 17:51 Dose: Not Given Pantoprazole Sodium (Protonix Ec Tab) 40 mg PO ACB REPLACED BY [facility] Pregabalin (Lyrica) 200 mg PO TID REPLACED BY [facility] Last Admin: 02/12/19 17:54 Dose: 200 mg Risperidone (Risperdal Tab) 0.25 mg PO DAILY REPLACED BY [facility]; Protocol - Labs Labs: 02/13/19 07:00 02/13/19 07:00 PT 11.5 SECONDS (9.4-12.5) 02/11/19 18:25 INR 1.04 02/11/19 18:25 APTT 35.0 Seconds (26.9-38.3) 02/11/19 18:25 - Constitutional Appears: Well, Non-toxic, No Acute Distress - Head Exam Head Exam: ATRAUMATIC, NORMOCEPHALIC - Extremities Exam Additional comments: B/L LE focused exam VASC: DP and PT non-palpalbe b/l; cap refill <3 seconds to all digits; temp gradient warm to cool from proximal to distal b/l. NEURO: gross and protective sensation diminished b/l. DERM: An ulcer noted on the plantar aspect of the right hallux measuring 2.5 cm X 1 cm X 0.2 cm with no malodor, drainage, tunneling, mild erythema and maceration present at the tracy-wound area. MSK: No pain to palpation of the right hallux periulcerative area, Muscle power 4/5 on the right side and 5/5 on the left side in all groups. - Neurological Exam Neurological Exam: Alert, Awake, Oriented x3 Assessment and Plan - Assessment and Plan (Free Text) Assessment: 58 year old M patient seen and evaluated at the at bedside for right hallux ulceration. Plan: Patient seen and evaluated with Dr. Zapata Charts, labs and vitals reviewed: Afebrile, absent leukocytosis X-ray right foot: No evidence of OM. Arterial duplex: Mildly abnormal R resting [place], R SFA occlusive disease, B/L Tibial Occlusive disease R>L. Surgical shoes ordered and to be applied to both feet while ambulating. Mepilex and bactroban applied to the right hallux Continue treatment per medicine Ordered vascular consult. No plan for podiatric surgical intervention Upon discharge can follow with Dr. Lauren as outpatient Thank you for the consult. Podiatry will continue to follow up the patient while in house.
[2019-02-13] MEDS: Mupirocin 2% Ointment 15 GM TUBE TOP SCH ×2 (14:09→17:11)
[2019-02-13] MEDS: Divalproex 250 mg DR (BID formulation) PO SCH (14:10)
[2019-02-13] MEDS: Insulin Lispro 1 UNITS/0.01 ML SC SCH ×3 (14:11→17:14)
--- NOTE | 2019-02-13 14:25 | PN ---
DATE: 02/13/2019 SUBJECTIVE: I saw him resting comfortably in bed. He is in good spirits. He is eating well. He did act out last night. I will get Psychiatry to take a look at him. He is dealing with a right toe ulcer, failed outpatient treatment with oral antibiotics. He is seen by the cake press operator helper who sent him into the hospital. He also had some circulation studies, which showed possible occlusion. We called Edilberto Edwards stating intervention. He is a diabetic, basically out of control. We called in diabetic doctor to see if we he can help us to get this jose r straightened out with his diabetes. Usually with his diet, he is really noncompliant. 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 PHYSICAL EXAMINATION: GENERAL: He is alert, comfortable this morning. VITAL SIGNS: He has a 97.2 temp, 72 pulse, 143/93 blood pressure, 20 respiratory rate, 99% O2 sat on room air. HEAD: Atraumatic, normocephalic. HEART: Regular rate. LUNGS: Decreased breath sounds, but clear. ABDOMEN: Soft. EXTREMITIES: He has got a right toe that is bandaged. He has right-sided weakness secondary to an old stroke. He has got a right toe cellulitis ulcer. LABORATORY DATA: He has 142 sodium, potassium 3.7, BUN 34, creatinine 1.1, GFR is greater than 60. Sugar is 75. Calcium is 10, magnesium 2.1, total bili is 0.7, AST is 21, ALT is 11, alk phos 62, total protein 7.9, albumin is 4, globulin 3.9. Cholesterol is little high at 210, triglycerides 147, TSH is 1.66, good. INR is 1.04. White count is 8.1, hemoglobin 15.2, hematocrit 45, platelets are 260. ASSESSMENT AND PLAN: We will continue with IV antibiotics. See if Dr. Edilberto Edwards wants to do any procedure on him. Also, he has a consult with Psychiatry due to his aggressive behavior last night and hopefully he will improve as per Infectious Disease, with the antibiotics. Continue with aggressive treatment and care. X-ray did not show osteomyelitis. lAexis Tolentino DO MTDYuliana
--- NOTE | 2019-02-13 14:34 | PN ---
DATE: 02/13/2019 ENDOCRINOLOGY FOLLOWUP NOTE LOCATION: In room 361. SUBJECTIVE: This is a 58-year-old male with recent uncontrolled type 2 insulin-requiring diabetes, presenting here with right hallux infection and undergoing vascular workup and management and is now being followed closely also for metabolic management. His glycemic levels are fluctuating, but have improved overnight as noted and the glucose levels have ranged from 78-103 and 161 mg/dL. LABORATORY DATA: His chemistry showed a BUN of 34, sodium 142, potassium 3.7, chloride 107, CO2 of 24, glucose 75, and creatinine 1.1. His cholesterol is 210 with triglycerides of 147 and HDL of 30. His hemoglobin A1c is pending at this time. ASSESSMENT: This is a 58-year-old male with uncontrolled and decompensated type 2 insulin-requiring diabetes, presenting with right hallux infection and underlying diabetic polyneuropathy and is now being followed closely for metabolic management because of recent hyperglycemic accelerations as noted thereof. 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 PLAN OF MANAGEMENT: We will modify his current basal and bolus insulin regimen also because of the variability of his oral intake and lower the Levemir to 24 units subcutaneously at bedtime daily to start today. We will continue the Humalog given as 10 units t.i.d. before meals as ordered. We will also lower his coverage scale using a very low-dose Humalog coverage as ordered. We will obtain serial chemistries and supplement accordingly as needed. We will follow. Shruthi Yates MD
--- NOTE | 2019-02-13 15:22 | CP.PCM.PCO ---
Physician Communication Note - Physician Communication Note Physician Communication Note: pt. agitated-psyche consulted,wound cx pending,MRI completed,antibx per I.D
--- NOTE | 2019-02-13 15:24 | CP.PCM.PCO ---
Physician Communication Note - Physician Communication Note Physician Communication Note: Vascular consult pending,local wound care,dressing change per podiatry
--- NOTE | 2019-02-13 16:12 | CP.PCM.PN ---
<Rohit Duong - Last Filed: 02/13/19 16:07> Subjective - Date & Time of Evaluation Date of Evaluation: 02/13/19 Time of Evaluation: 10:00 - Subjective Subjective: Rohit Duong D.O. PGY-3, Internal Medicine Resident, Infectious Disease Progress Note 58-year-old male with a past medical history of hypertension, hyperlipidemia, diabetes, cerebrovascular accident with residual right-sided deficits who pre sented for failure of outpatient antibiotics for right great toe infection. Infectious disease consultation was requested for this right great toe infection. Patient was seen and examined at bedside. With podiatry at bedside doing dressing changes. No acute complaints. Objective - Vital Signs/Intake and Output Vital Signs (last 24 hours): Temp Pulse Resp BP Pulse Ox 97.2 F L 81 20 143/73 99 02/13/19 08:20 02/13/19 14:13 02/13/19 08:20 02/13/19 14:13 02/13/19 08:20 - Medications Medications: Current Medications Alprazolam (Xanax) 0.25 mg PO TID PRN; Protocol PRN Reason: Anxiety Last Admin: 02/12/19 21:44 Dose: 0.25 mg Amlodipine Besylate (Norvasc) 10 mg PO DAILY [facility] Last Admin: 02/13/19 14:13 Dose: 10 mg Aspirin (Ecotrin) 81 mg PO DAILY [facility] Last Admin: 02/13/19 14:10 Dose: 81 mg Atorvastatin Calcium (Lipitor) 40 mg PO DAILY [facility] Last Admin: 02/13/19 14:12 Dose: 40 mg Divalproex Sodium (Depakote Dr (*Bid*)) 250 mg PO BID [facility]; Protocol Last Admin: 02/13/19 14:10 Dose: 250 mg Glipizide (Glucotrol) 10 mg PO BID [facility] Last Admin: 02/13/19 14:10 Dose: 10 mg Haloperidol (Haldol) 2 mg PO DAILY [facility]; Protocol Haloperidol Lactate (Haldol) 2 mg IM Q4 PRN; Protocol PRN Reason: Agitation Sodium Chloride (Sodium Chloride 0.45%) 1,000 mls @ 40 mls/hr IV .Q24H [facility] Last Admin: 02/11/19 22:09 Dose: 40 mls/hr Vancomycin HCl (Vancomycin 1gm) 1 gm in 250 mls @ 167 mls/hr IVPB Q12H [facility]; Protocol Last Admin: 02/12/19 14:55 Dose: 167 mls/hr Cefepime HCl (Maxipime 1gm) 1 gm in 100 mls @ 100 mls/hr IVPB Q8 [facility]; Protocol Last Admin: 02/12/19 21:43 Dose: 100 mls/hr Insulin Detemir (Levemir) 24 unit SC HS [facility] Insulin Human Lispro (Humalog Low) 0 units SC ACHS [facility]; Protocol Last Admin: 02/13/19 14:11 Dose: 3 unit Insulin Human Lispro (Humalog) 10 units SC AC [facility] Last Admin: 02/13/19 14:11 Dose: 10 units Lisinopril (Zestril) 20 mg PO DAILY [facility] Last Admin: 02/13/19 14:13 Dose: 20 mg Metoprolol Tartrate (Lopressor) 50 mg PO BID [facility] Last Admin: 02/13/19 14:12 Dose: 50 mg Mupirocin (Bactroban Ointment) 1 gm TOP BID [facility] Last Admin: 02/13/19 14:09 Dose: Not Given Pantoprazole Sodium (Protonix Ec Tab) 40 mg PO ACB [facility] Pregabalin (Lyrica) 200 mg PO TID [facility] Last Admin: 02/13/19 14:13 Dose: 200 mg Risperidone (Risperdal Tab) 0.25 mg PO DAILY [facility]; Protocol Last Admin: 02/13/19 14:13 Dose: 0.25 mg - Labs Labs: 02/13/19 07:00 02/13/19 07:00 PT 11.5 SECONDS (9.4-12.5) 02/11/19 18:25 INR 1.04 02/11/19 18:25 APTT 35.0 Seconds (26.9-38.3) 02/11/19 18:25 - Constitutional Appears: Non-toxic, No Acute Distress - Head Exam Head Exam: ATRAUMATIC, NORMOCEPHALIC - Eye Exam Eye Exam: EOMI. absent: Scleral icterus - ENT Exam ENT Exam: Mucous Membranes Moist - Neck Exam Neck exam: Positive for: Normal Inspection - Respiratory Exam Respiratory Exam: absent: Rales, Rhonchi, Wheezes - Cardiovascular Exam Cardiovascular Exam: +S1, +S2. absent: Gallop, Rubs - GI/Abdominal Exam GI & Abdominal Exam: Normal Bowel Sounds, Soft. absent: Tenderness - Extremities Exam Extremities exam: right big toe with inferior aspect with mild pus, moist skin - Neurological Exam Additional comments: awake, alert, right sided weakness, dysarthria - Skin Skin Exam: Warm Assessment and Plan - Assessment and Plan (Free Text) Assessment: 58-year-old male with a past medical history of hypertension, hyperlipidemia, diabetes, cerebrovascular accident with residual right-sided deficits who presented for failure of outpatient antibiotics for right great toe infection. Infectious disease consultation was requested for this right great toe infection. Plan: Right big toe cellulitis Hypertension Hyperlipidemia Uncontrolled diabetes mellitus Afebrile No leukocytosis Continue cefepime/vancomycin day 2 Blood cultures negative 2/2 day 1 Foot MRI pending WCx pending ESR wnl HgbA1c elevated at 11.8% We will follow with you Patient was seen and examined and case to be discussed with attending physician Thank for the pleasure participating in the care of this patient <Ankit Power - Last Filed: 02/13/19 18:45> Objective - Vital Signs/Intake and Output Vital Signs (last 24 hours): Temp Pulse Resp BP Pulse Ox 97.2 F L 81 20 143/73 99 02/13/19 08:20 02/13/19 14:13 02/13/19 08:20 02/13/19 14:13 02/13/19 08:20 - Medications Medications: Current Medications Alprazolam (Xanax) 0.25 mg PO TID PRN; Protocol PRN Reason: Anxiety Last Admin: 02/12/19 21:44 Dose: 0.25 mg Amlodipine Besylate (Norvasc) 10 mg PO DAILY [facility] Last Admin: 02/13/19 14:13 Dose: 10 mg Aspirin (Ecotrin) 81 mg PO DAILY [facility] Last Admin: 02/13/19 14:10 Dose: 81 mg Atorvastatin Calcium (Lipitor) 40 mg PO DAILY [facility] Last Admin: 02/13/19 14:12 Dose: 40 mg Chlordiazepoxide (Librium) 25 mg PO Q6 PRN; Protocol PRN Reason: Alcohol Withdrawal Last Admin: 02/13/19 17:00 Dose: 25 mg Divalproex Sodium (Depakote Dr (*Bid*)) 250 mg PO BID [facility]; Protocol Last Admin: 02/13/19 14:10 Dose: 250 mg Glipizide (Glucotrol) 10 mg PO BID [facility] Last Admin: 02/13/19 14:10 Dose: 10 mg Haloperidol (Haldol) 2 mg PO DAILY [facility]; Protocol Haloperidol Lactate (Haldol) 2 mg IM Q4 PRN; Protocol PRN Reason: Agitation Sodium Chloride (Sodium Chloride 0.45%) 1,000 mls @ 40 mls/hr IV .Q24H [facility] Last Admin: 02/11/19 22:09 Dose: 40 mls/hr Vancomycin HCl (Vancomycin 1gm) 1 gm in 250 mls @ 167 mls/hr IVPB Q12H [facility]; Protocol Last Admin: 02/13/19 17:15 Dose: Not Given Cefepime HCl (Maxipime 1gm) 1 gm in 100 mls @ 100 mls/hr IVPB Q8 [facility]; Protocol Last Admin: 02/13/19 17:14 Dose: Not Given Insulin Detemir (Levemir) 24 unit SC HS [facility] Insulin Human Lispro (Humalog Low) 0 units SC ACHS [facility]; Protocol Last Admin: 02/13/19 17:13 Dose: Not Given Insulin Human Lispro (Humalog) 10 units SC AC [facility] Last Admin: 02/13/19 17:14 Dose: Not Given Lisinopril (Zestril) 20 mg PO DAILY [facility] Last Admin: 02/13/19 14:13 Dose: 20 mg Metoprolol Tartrate (Lopressor) 50 mg PO BID [facility] Last Admin: 02/13/19 14:12 Dose: 50 mg Mupirocin (Bactroban Ointment) 1 gm TOP BID [facility] Last Admin: 02/13/19 17:11 Dose: Not Given Nicotine (Nicoderm Cq) 1 patch TD DAILY [facility] Last Admin: 02/13/19 17:00 Dose: 1 patch Pantoprazole Sodium (Protonix Ec Tab) 40 mg PO ACB [facility] Last Admin: 02/13/19 17:15 Dose: Not Given Pregabalin (Lyrica) 200 mg PO TID [facility] Last Admin: 02/13/19 17:14 Dose: Not Given Risperidone (Risperdal Tab) 0.25 mg PO DAILY [facility]; Protocol Last Admin: 02/13/19 14:13 Dose: 0.25 mg - Labs Labs: 02/13/19 07:00 02/13/19 07:00 PT 11.5 SECONDS (9.4-12.5) 02/11/19 18:25 INR 1.04 02/11/19 18:25 APTT 35.0 Seconds (26.9-38.3) 02/11/19 18:25 Attending/Attestation - Attestation I have personally seen and examined this patient.: Yes I have fully participated in the care of the patient.: Yes I have reviewed all pertinent clinical information, including history, physical exam and plan: Yes
--- NOTE | 2019-02-13 16:32 | MRI ---
Date of service: 02/13/2019 PROCEDURE: MRI of the right foot without contrast HISTORY: R/O osteomyelitis COMPARISON: TECHNIQUE: MRI of the right foot was performed in multiple planes using multiple pulse sequences. FINDINGS: The study is limited by motion artifact. There is no marrow edema seen to suggest osteomyelitis. There is no significant subcutaneous emphysema or evidence of abscess. IMPRESSION: Negative study
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
[2019-02-13] MEDS: Cefepime 1gm in NS 100ml 1 GM/100 ML BAG IVPB SCH (17:14)
[2019-02-13] MEDS: Pantoprazole 40 mg EC Tab PO SCH (17:15)
[2019-02-13] MEDS: Vancomycin 1gm in NS 250ml 1 GM/250 ML BAG IVPB SCH (17:15)
--- NOTE | 2019-02-13 20:43 | PCM.FALL ---
<Guilherme Ponce - Last Filed: 02/13/19 20:52> Post Fall Progress Note - Post Fall Fall Date: 02/13/19 Fall Time: 20:19 Description of Fall: Unwitnessed fall. Per nursing, patient had gotten up to go to bathroom which was witnessed, and nurse heard patient fall and patient found on ground on his back. Patient says he did hit his head. Patient not c/o any pain. Patient has chronic R-sided weakness from prior CVA and admitted with L toe cellulits. Afebrile at present. Per nursing, patient is had his baseline mental status which is mild confused and aphasic. Complete physical exam with full body scan performed and no new injuries noted to be present. - Post Fall Exam Vital Sign: Temp Pulse Resp BP Pulse Ox 97.2 F L 81 20 143/73 99 02/13/19 08:20 02/13/19 14:13 02/13/19 08:20 02/13/19 14:13 02/13/19 08:20 Skull Exam: Negative for: Scalp wound, Scalp hematoma, Scalp depression Eye Exam: Positive for: Pupils equal, Pupils reactive Ear Exam: Negative for: Discharge, Bleeding Nose Exam: Negative for: Discharge, Bleeding Skin Exam: Negative for: Colour, Lacerations, Grazes, Bruising Mouth Exam: Negative for: Tongue bitten, Teeth dislodge Neck Exam: Negative for: Tenderness, Tingling, Weakness Spinal Exam: Negative for: Tenderness, Tingling, Weakness Chest Exam: Negative for: Difficulty breathing, Tenderness in collar bones, Tenderness in ribs Abdomen Exam: Negative for: Tenderness Pelvic Exam: Negative for: Tenderness Arm Exam: Negative for: Deformity, Alteration in range of movement Leg Exam: Negative for: Deformity, Alteration in range of movement Impression/Plan: Assessment Unwitnessed fall in patient with hx prior CVA with chronic R-side weakness and currently being treated for L toe cellulitis Plan: CT head w/o contrast 1:1 Observation <Jamia Marinelli - Last Filed: 02/14/19 00:16> Post Fall Progress Note - Post Fall Exam Vital Sign: Temp Pulse Resp BP Pulse Ox 97.2 F L 81 20 143/73 99 02/13/19 08:20 02/13/19 14:13 02/13/19 08:20 02/13/19 14:13 02/13/19 08:20 Attending/Attestation - Attestation I have personally seen and examined this patient.: Yes I have fully participated in the care of the patient.: Yes I have reviewed all pertinent clinical information, including history, physical exam and plan: Yes Notes (Text): 02/13/19 23:59 Pt seen with the medical device sales. Due to his prior CVA,he has residual weakness of his R side,has an unsteady gait. IMP:S/P fall,no clinical evidence of any injury. PLAN: In addition to Cat scan of the head and 1:1 watch,ordered Neuro checks Q 4 hrs for 24 hrs.
[2019-02-14] MEDS: Insulin Lispro (humaLOG) LOW Coverage SC SCH ×5 (01:30→22:15)
[2019-02-14] MEDS: Insulin Detemir 100 units/ml Vial (Levemir) SC SCH ×2 (01:31→22:20)
[2019-02-14] MEDS: Amoxicillin-Clav 875-125 mg Tab PO SCH ×4 (05:02→21:20)
[2019-02-14] MEDS: Insulin Lispro 1 UNITS/0.01 ML SC SCH ×2 (08:19→18:38)
[2019-02-14] MEDS: Pantoprazole 40 mg EC Tab PO SCH ×2 (08:52→08:54)
--- NOTE | 2019-02-14 09:11 | CT ---
Date of service: 02/13/2019 PROCEDURE: CT HEAD WITHOUT CONTRAST. HISTORY: unwitnessed fall COMPARISON: 10/05/2018 TECHNIQUE: Axial computed tomography images were obtained through the head/brain without intravenous contrast. Radiation dose: Total exam DLP = 1085.47 mGy-cm. This CT exam was performed using one or more of the following dose reduction techniques: Automated exposure control, adjustment of the mA and/or kV according to patient size, and/or use of iterative reconstruction technique. FINDINGS: HEMORRHAGE: No intracranial hemorrhage. BRAIN: There is multifocal extensive cystic encephalomalacia in the left frontal, parietal, temporal lobes and to a lesser extent occipital lobe with volume loss and ex vacuo dilatation of the left lateral ventricle. There is no mass, mass effect or abnormal extra-axial fluid collection. VENTRICLES: There is mild age-related global parenchymal volume loss and proportionate enlargement of the ventricles and cortical sulci. CALVARIUM: There is no calvarial fracture or extracranial soft tissue swelling. PARANASAL SINUSES: Predominantly clear. MASTOID AIR CELLS: Predominantly clear. OTHER FINDINGS: None. IMPRESSION: No acute intracranial abnormality. Redemonstration of extensive left cerebral hemisphere cystic encephalomalacia with volume loss and ex vacuo dilatation of the left lateral ventricle.
--- NOTE | 2019-02-14 09:55 | CP.PCM.PN ---
<Jesus Alvarado - Last Filed: 02/14/19 09:54> Subjective - Date & Time of Evaluation Date of Evaluation: 02/14/19 Time of Evaluation: 09:54 - Subjective Subjective: Podiatry consult note for Drs. Lauren/Jodi 58 year old M patient seen and evaluated at the at bedside with Dr Zapata for right hallux ulceration. Patient denies any pain in his ulcer site. Patient denies any overnight F/N/V/F/CP. Patient denies any other pedal complaint at this time. Objective - Vital Signs/Intake and Output Vital Signs (last 24 hours): Temp Pulse Resp BP Pulse Ox 98.3 F 82 20 162/97 H 95 02/14/19 07:40 02/14/19 07:40 02/14/19 07:40 02/14/19 07:40 02/14/19 07:40 Intake and Output: 02/14/19 02/14/19 06:59 18:59 Intake Total 240 Balance 240 - Medications Medications: Current Medications Alprazolam (Xanax) 0.25 mg PO TID PRN; Protocol PRN Reason: Anxiety Last Admin: 02/12/19 21:44 Dose: 0.25 mg Amlodipine Besylate (Norvasc) 10 mg PO DAILY [facility] Last Admin: 02/13/19 14:13 Dose: 10 mg Amoxicillin/Clavulanate Potassium (Augmentin 875 Mg-125 Mg Tab) 1 tab PO Q12 [facility]; Protocol Stop: 02/20/19 19:16 Last Admin: 02/14/19 05:02 Dose: 1 tab Aspirin (Ecotrin) 81 mg PO DAILY [facility] Last Admin: 02/13/19 14:10 Dose: 81 mg Atorvastatin Calcium (Lipitor) 40 mg PO DAILY [facility] Last Admin: 02/13/19 14:12 Dose: 40 mg Chlordiazepoxide (Librium) 25 mg PO Q6 PRN; Protocol PRN Reason: Alcohol Withdrawal Last Admin: 02/13/19 17:00 Dose: 25 mg Divalproex Sodium (Depakote Dr (*Bid*)) 250 mg PO BID [facility]; Protocol Last Admin: 02/13/19 14:10 Dose: 250 mg Doxycycline Hyclate (Doryx) 100 mg PO Q12 [facility]; Protocol Stop: 02/20/19 19:15 Last Admin: 02/14/19 04:48 Dose: 100 mg Glipizide (Glucotrol) 10 mg PO BID [facility] Last Admin: 02/13/19 14:10 Dose: 10 mg Haloperidol (Haldol) 2 mg PO DAILY [facility]; Protocol Haloperidol Lactate (Haldol) 2 mg IM Q4 PRN; Protocol PRN Reason: Agitation Last Admin: 02/13/19 20:48 Dose: 2 mg Insulin Detemir (Levemir) 24 unit SC HS [facility] Last Admin: 02/14/19 01:31 Dose: Not Given Insulin Human Lispro (Humalog Low) 0 units SC ACHS [facility]; Protocol Last Admin: 02/14/19 08:16 Dose: Not Given Insulin Human Lispro (Humalog) 10 units SC AC [facility] Last Admin: 02/14/19 08:19 Dose: Not Given Lisinopril (Zestril) 30 mg PO DAILY [facility] Metoprolol Tartrate (Lopressor) 50 mg PO BID [facility] Last Admin: 02/13/19 14:12 Dose: 50 mg Mupirocin (Bactroban Ointment) 1 gm TOP BID [facility] Last Admin: 02/13/19 17:11 Dose: Not Given Nicotine (Nicoderm Cq) 1 patch TD DAILY [facility] Last Admin: 02/13/19 17:00 Dose: 1 patch Pantoprazole Sodium (Protonix Ec Tab) 40 mg PO ACB [facility] Last Admin: 02/14/19 08:54 Dose: 40 mg Pregabalin (Lyrica) 200 mg PO TID [facility] Last Admin: 02/13/19 17:14 Dose: Not Given Risperidone (Risperdal Tab) 0.25 mg PO DAILY [facility]; Protocol Last Admin: 02/13/19 14:13 Dose: 0.25 mg - Labs Labs: 02/13/19 07:00 02/13/19 07:00 PT 11.5 SECONDS (9.4-12.5) 02/11/19 18:25 INR 1.04 02/11/19 18:25 APTT 35.0 Seconds (26.9-38.3) 02/11/19 18:25 - Constitutional Appears: Well, Non-toxic, No Acute Distress - Head Exam Head Exam: ATRAUMATIC, NORMOCEPHALIC - Extremities Exam Additional comments: B/L LE focused exam VASC: DP and PT non-palpalbe b/l; cap refill <3 seconds to all digits; temp gradient warm to cool from proximal to distal b/l. NEURO: gross and protective sensation diminished b/l. DERM: An ulcer noted on the plantar aspect of the right hallux measuring 2.5 cm X 1 cm X 0.2 cm with no malodor, drainage, tunneling, mild erythema and maceration present at the tracy-wound area. MSK: No pain to palpation of the right hallux periulcerative area, Muscle power 4/5 on the right side and 5/5 on the left side in all groups. - Neurological Exam Neurological Exam: Alert, Awake Assessment and Plan - Assessment and Plan (Free Text) Assessment: 58 year old M patient seen and evaluated at the at bedside for right hallux ulceration. Plan: Patient seen and evaluated Plan discussed with Dr. Lauren Charts, labs and vitals reviewed: Afebrile, absent leukocytosis X-ray right foot: No evidence of OM. Arterial duplex: Mildly abnormal R resting [place], R SFA occlusive disease, B/L Tibial Occlusive disease R>L. Surgical shoes ordered and to be applied to both feet while ambulating. Mepilex and bactroban applied to the right hallux Continue treatment per medicine Ordered vascular consult. Wound Cx: No growth after 24 hours No plan for podiatric surgical intervention Upon discharge can follow with Dr. Lauren as outpatient Thank you for the consult. Podiatry will continue to follow up the patient while in house. <Israel Lauren - Last Filed: 02/14/19 10:53> Objective - Vital Signs/Intake and Output Vital Signs (last 24 hours): Temp Pulse Resp BP Pulse Ox 98.3 F 82 20 162/97 H 95 02/14/19 07:40 02/14/19 07:40 02/14/19 07:40 02/14/19 07:40 02/14/19 07:40 Intake and Output: 02/14/19 02/14/19 06:59 18:59 Intake Total 240 Balance 240 - Medications Medications: Current Medications Alprazolam (Xanax) 0.25 mg PO TID PRN; Protocol PRN Reason: Anxiety Last Admin: 02/12/19 21:44 Dose: 0.25 mg Amlodipine Besylate (Norvasc) 10 mg PO DAILY [facility] Last Admin: 02/13/19 14:13 Dose: 10 mg Amoxicillin/Clavulanate Potassium (Augmentin 875 Mg-125 Mg Tab) 1 tab PO Q12 [facility]; Protocol Stop: 02/20/19 19:16 Last Admin: 02/14/19 05:02 Dose: 1 tab Aspirin (Ecotrin) 81 mg PO DAILY [facility] Last Admin: 02/13/19 14:10 Dose: 81 mg Atorvastatin Calcium (Lipitor) 40 mg PO DAILY [facility] Last Admin: 02/13/19 14:12 Dose: 40 mg Chlordiazepoxide (Librium) 25 mg PO Q6 PRN; Protocol PRN Reason: Alcohol Withdrawal Last Admin: 02/13/19 17:00 Dose: 25 mg Divalproex Sodium (Depakote Dr (*Bid*)) 250 mg PO BID [facility]; Protocol Last Admin: 02/13/19 14:10 Dose: 250 mg Doxycycline Hyclate (Doryx) 100 mg PO Q12 [facility]; Protocol Stop: 02/20/19 19:15 Last Admin: 02/14/19 04:48 Dose: 100 mg Glipizide (Glucotrol) 10 mg PO BID [facility] Last Admin: 02/13/19 14:10 Dose: 10 mg Haloperidol (Haldol) 2 mg PO DAILY [facility]; Protocol Haloperidol Lactate (Haldol) 2 mg IM Q4 PRN; Protocol PRN Reason: Agitation Last Admin: 02/13/19 20:48 Dose: 2 mg Insulin Detemir (Levemir) 24 unit SC HS [facility] Last Admin: 02/14/19 01:31 Dose: Not Given Insulin Human Lispro (Humalog Low) 0 units SC ACHS [facility]; Protocol Last Admin: 02/14/19 08:16 Dose: Not Given Insulin Human Lispro (Humalog) 10 units SC AC [facility] Last Admin: 02/14/19 08:19 Dose: Not Given Lisinopril (Zestril) 30 mg PO DAILY [facility] Metoprolol Tartrate (Lopressor) 50 mg PO BID [facility] Last Admin: 02/13/19 14:12 Dose: 50 mg Mupirocin (Bactroban Ointment) 1 gm TOP BID [facility] Last Admin: 02/13/19 17:11 Dose: Not Given Nicotine (Nicoderm Cq) 1 patch TD DAILY [facility] Last Admin: 02/13/19 17:00 Dose: 1 patch Pantoprazole Sodium (Protonix Ec Tab) 40 mg PO ACB [facility] Last Admin: 02/14/19 08:54 Dose: 40 mg Pregabalin (Lyrica) 200 mg PO TID [facility] Last Admin: 02/13/19 17:14 Dose: Not Given Risperidone (Risperdal Tab) 0.25 mg PO DAILY [facility]; Protocol Last Admin: 02/13/19 14:13 Dose: 0.25 mg - Labs Labs: 02/13/19 07:00 02/13/19 07:00 PT 11.5 SECONDS (9.4-12.5) 02/11/19 18:25 INR 1.04 02/11/19 18:25 APTT 35.0 Seconds (26.9-38.3) 02/11/19 18:25 Attending/Attestation - Attestation I have personally seen and examined this patient.: Yes I have fully participated in the care of the patient.: Yes I have reviewed all pertinent clinical information, including history, physical exam and plan: Yes
[2019-02-14] MEDS: Divalproex 250 mg DR (BID formulation) PO SCH ×2 (11:22→18:36)
[2019-02-14] MEDS: Mupirocin 2% Ointment 15 GM TUBE TOP SCH ×2 (11:33→18:40)
[2019-02-14] MEDS ORDERED: Haloperidol Lactate 2 mg/ml Liquid PO SCH ×2 (11:55→14:00)
--- NOTE | 2019-02-14 12:40 | PN ---
DATE: 02/14/2019 SUBJECTIVE: I found out this morning that he fell when he was off the 1 to 1, I did put the 1 to 1 back on. I am trying to get him off the 1 to 1 and discharge him. He is already on Augmentin and doxycycline for his regular medications. He wants to leave, I would like to discharge him, but he cannot be falling. His blood pressure has been up, so I will adjust that. PHYSICAL EXAMINATION: VITAL SIGNS: He has 98.3 temperature, 82 pulse, 162/97 blood pressure, 20 respiratory rate, 95% O2 saturation on room air. HEENT: Head is atraumatic and normocephalic. HEART: Regular rate. LUNGS: Decreased breath sounds, but clear. EXTREMITIES: He has got right-sided weakness from an old stroke. He has got a right first toe ulcer, which has improved. MEDICATIONS: He is on Augmentin, Bactroban cream, Depakote, , Ecotrin, Glucotrol, Haldol, insulin, Levemir, Librium, Lipitor, Lopressor, Lyrica, Nicoderm, Norvasc, Protonix, Risperdal, IV fluids, Xanax, and Zestril. LABORATORY DATA: He has 8.1 white count, 15.2 hemoglobin, 45 hematocrit, with 260 platelets. Last blood sugar was 160. 142 sodium, potassium 3.7, BUN 34, creatinine 1.1, GFR is greater than 60, sugar is 75, calcium is 10, magnesium is 2.1, total bili is 0.7. AST is 21, ALT is 11, alk phos is 62, and total protein is 7.9. Once again, get him off the 1 to 1 once he stops falling. I will discharge him on the Psychiatry once we take him to the fifth floor psych unit. Otherwise, I would like to discharge him home. He has a right first toe ulcer. Alexis Tolentino DO [facility]
--- NOTE | 2019-02-14 13:42 | CP.PCM.PN ---
<Rohit Duong - Last Filed: 02/14/19 13:37> Subjective - Date & Time of Evaluation Date of Evaluation: 02/14/19 Time of Evaluation: 08:35 - Subjective Subjective: Rohit Duong D.O. PGY-3, Internal Medicine Resident, Infectious Disease Progress Note 58-year-old male with a past medical history of hypertension, hyperlipidemia, diabetes, cerebrovascular accident with residual right-sided deficits who pre sented for failure of outpatient antibiotics for right great toe infection. Infectious disease consultation was requested for this right great toe infection. Patient was seen and examined at chairside. Enjoying breakfast. Comfortable. Objective - Vital Signs/Intake and Output Vital Signs (last 24 hours): Temp Pulse Resp BP Pulse Ox 98.3 F 82 20 162/97 H 95 02/14/19 07:40 02/14/19 11:24 02/14/19 07:40 02/14/19 11:24 02/14/19 07:40 Intake and Output: 02/14/19 02/14/19 06:59 18:59 Intake Total 240 Balance 240 - Medications Medications: Current Medications Alprazolam (Xanax) 0.25 mg PO TID PRN; Protocol PRN Reason: Anxiety Last Admin: 02/12/19 21:44 Dose: 0.25 mg Amlodipine Besylate (Norvasc) 10 mg PO DAILY [facility] Last Admin: 02/14/19 11:24 Dose: 10 mg Amoxicillin/Clavulanate Potassium (Augmentin 875 Mg-125 Mg Tab) 1 tab PO Q12 [facility]; Protocol Stop: 02/20/19 19:16 Last Admin: 02/14/19 11:21 Dose: 1 tab Aspirin (Ecotrin) 81 mg PO DAILY [facility] Last Admin: 02/14/19 11:23 Dose: 81 mg Atorvastatin Calcium (Lipitor) 40 mg PO DAILY [facility] Last Admin: 02/14/19 11:23 Dose: 40 mg Chlordiazepoxide (Librium) 25 mg PO Q6 PRN; Protocol PRN Reason: Alcohol Withdrawal Last Admin: 02/13/19 17:00 Dose: 25 mg Diazepam (Valium) 10 mg PO ONCE ONE Stop: 02/15/19 10:01 Divalproex Sodium (Depakote Dr (*Bid*)) 250 mg PO BID [facility]; Protocol Last Admin: 02/14/19 11:22 Dose: 250 mg Doxycycline Hyclate (Doryx) 100 mg PO Q12 [facility]; Protocol Stop: 02/20/19 19:15 Last Admin: 02/14/19 11:22 Dose: 100 mg Glipizide (Glucotrol) 10 mg PO BID [facility] Last Admin: 02/14/19 11:23 Dose: 10 mg Haloperidol Lactate (Haldol) 2 mg IM Q4 PRN; Protocol PRN Reason: Agitation Last Admin: 02/13/19 20:48 Dose: 2 mg Haloperidol Lactate (Haldol) 2 mg PO DAILY [facility]; Protocol Insulin Detemir (Levemir) 24 unit SC HS [facility] Last Admin: 02/14/19 01:31 Dose: Not Given Insulin Human Lispro (Humalog Low) 0 units SC [facility]; Protocol Last Admin: 02/14/19 13:22 Dose: Not Given Insulin Human Lispro (Humalog) 12 units SC AC [facility] Lisinopril (Zestril) 30 mg PO DAILY [facility] Last Admin: 02/14/19 11:21 Dose: 30 mg Metoprolol Tartrate (Lopressor) 50 mg PO BID [facility] Last Admin: 02/14/19 11:24 Dose: 50 mg Mupirocin (Bactroban Ointment) 1 gm TOP BID [facility] Last Admin: 02/14/19 11:33 Dose: 1 applic Nicotine (Nicoderm Cq) 1 patch TD DAILY [facility] Last Admin: 02/14/19 11:25 Dose: 1 patch Pantoprazole Sodium (Protonix Ec Tab) 40 mg PO ACB [facility] Last Admin: 02/14/19 08:54 Dose: 40 mg Pregabalin (Lyrica) 200 mg PO TID [facility] Last Admin: 02/14/19 11:24 Dose: 200 mg Risperidone (Risperdal Tab) 0.25 mg PO DAILY [facility]; Protocol Last Admin: 02/14/19 11:22 Dose: 0.25 mg - Labs Labs: 02/13/19 07:00 02/13/19 07:00 PT 11.5 SECONDS (9.4-12.5) 02/11/19 18:25 INR 1.04 02/11/19 18:25 APTT 35.0 Seconds (26.9-38.3) 02/11/19 18:25 - Constitutional Appears: Non-toxic, No Acute Distress - Head Exam Head Exam: ATRAUMATIC, NORMOCEPHALIC - Eye Exam Eye Exam: EOMI. absent: Scleral icterus - ENT Exam ENT Exam: Mucous Membranes Moist - Neck Exam Neck exam: Positive for: Normal Inspection - Respiratory Exam Respiratory Exam: absent: Rales, Rhonchi, Wheezes - Cardiovascular Exam Cardiovascular Exam: +S1, +S2. absent: Gallop, Rubs - GI/Abdominal Exam GI & Abdominal Exam: Normal Bowel Sounds, Soft. absent: Tenderness - Extremities Exam Extremities exam: right big toe with inferior aspect with mild pus, moist skin - Neurological Exam Additional comments: awake, alert, right sided weakness, dysarthria - Skin Skin Exam: Warm Assessment and Plan - Assessment and Plan (Free Text) Assessment: 58-year-old male with a past medical history of hypertension, hyperlipidemia, diabetes, cerebrovascular accident with residual right-sided deficits who presented for failure of outpatient antibiotics for right great toe infection. Infectious disease consultation was requested for this right great toe infection. Plan: Right big toe cellulitis/ulcer Hypertension Hyperlipidemia Uncontrolled diabetes mellitus Continues to be afebrile with no leukocytosis Continue PO doxy/augmentin Blood cultures negative 2/2 day 2 Foot MRI negative for osteo WCx negative IR to evaluate patient for possible intervention We will follow with you Patient was seen and examined and case to be discussed with attending physician Thank for the pleasure participating in the care of this patient <Ankit Power - Last Filed: 02/14/19 18:03> Objective - Vital Signs/Intake and Output Vital Signs (last 24 hours): Temp Pulse Resp BP Pulse Ox 98 F 78 19 137/90 95 02/14/19 17:22 02/14/19 17:22 02/14/19 17:22 02/14/19 17:22 02/14/19 17:22 Intake and Output: 02/14/19 02/14/19 06:59 18:59 Intake Total 240 Balance 240 - Medications Medications: Current Medications Alprazolam (Xanax) 0.25 mg PO TID PRN; Protocol PRN Reason: Anxiety Last Admin: 02/12/19 21:44 Dose: 0.25 mg Amlodipine Besylate (Norvasc) 10 mg PO DAILY [facility] Last Admin: 02/14/19 11:24 Dose: 10 mg Amoxicillin/Clavulanate Potassium (Augmentin 875 Mg-125 Mg Tab) 1 tab PO Q12 [facility]; Protocol Stop: 02/20/19 19:16 Last Admin: 02/14/19 11:21 Dose: 1 tab Aspirin (Ecotrin) 81 mg PO DAILY [facility] Last Admin: 02/14/19 11:23 Dose: 81 mg Atorvastatin Calcium (Lipitor) 40 mg PO DAILY [facility] Last Admin: 02/14/19 11:23 Dose: 40 mg Chlordiazepoxide (Librium) 25 mg PO Q6 PRN; Protocol PRN Reason: Alcohol Withdrawal Last Admin: 02/13/19 17:00 Dose: 25 mg Diazepam (Valium) 10 mg PO ONCE ONE Stop: 02/15/19 10:01 Divalproex Sodium (Depakote Dr (*Bid*)) 250 mg PO BID [facility]; Protocol Last Admin: 02/14/19 11:22 Dose: 250 mg Doxycycline Hyclate (Doryx) 100 mg PO Q12 [facility]; Protocol Stop: 02/20/19 19:15 Last Admin: 02/14/19 11:22 Dose: 100 mg Glipizide (Glucotrol) 10 mg PO BID [facility] Last Admin: 02/14/19 11:23 Dose: 10 mg Haloperidol Lactate (Haldol) 2 mg IM Q4 PRN; Protocol PRN Reason: Agitation Last Admin: 02/13/19 20:48 Dose: 2 mg Haloperidol Lactate (Haldol) 2 mg PO DAILY [facility]; Protocol Last Admin: 02/14/19 15:03 Dose: 2 mg Insulin Detemir (Levemir) 24 unit SC HS [facility] Last Admin: 02/14/19 01:31 Dose: Not Given Insulin Human Lispro (Humalog Low) 0 units SC ACHS [facility]; Protocol Last Admin: 02/14/19 13:22 Dose: Not Given Insulin Human Lispro (Humalog) 12 units SC AC [facility] Lisinopril (Zestril) 30 mg PO DAILY [facility] Last Admin: 02/14/19 11:21 Dose: 30 mg Metoprolol Tartrate (Lopressor) 50 mg PO BID [facility] Last Admin: 02/14/19 11:24 Dose: 50 mg Mupirocin (Bactroban Ointment) 1 gm TOP BID [facility] Last Admin: 02/14/19 11:33 Dose: 1 applic Nicotine (Nicoderm Cq) 1 patch TD DAILY [facility] Last Admin: 02/14/19 11:25 Dose: 1 patch Pantoprazole Sodium (Protonix Ec Tab) 40 mg PO ACB [facility] Last Admin: 02/14/19 08:54 Dose: 40 mg Pregabalin (Lyrica) 200 mg PO TID [facility] Last Admin: 02/14/19 15:02 Dose: 200 mg Risperidone (Risperdal Tab) 0.25 mg PO DAILY [facility]; Protocol Last Admin: 02/14/19 11:22 Dose: 0.25 mg - Labs Labs: 02/13/19 07:00 02/13/19 07:00 PT 11.5 SECONDS (9.4-12.5) 02/11/19 18:25 INR 1.04 02/11/19 18:25 APTT 35.0 Seconds (26.9-38.3) 02/11/19 18:25 Attending/Attestation - Attestation I have personally seen and examined this patient.: Yes I have fully participated in the care of the patient.: Yes I have reviewed all pertinent clinical information, including history, physical exam and plan: Yes
--- NOTE | 2019-02-14 16:35 | PN ---
DATE: 02/14/2019 ENDOCRINOLOGY FOLLOWUP NOTE LOCATION: In room 361. SUBJECTIVE: This is a 58-year-old male with recent uncontrolled type 2 insulin-requiring diabetes, presenting here with a right hallux infection and is now being followed closely for metabolic management. His glycemic levels are fluctuating, but improved and the glucose values have ranged from 108-160 and 289 mg/dL. LABORATORY DATA: His chemistry showed a BUN of 34, sodium 142, potassium 3.7, chloride 107, CO2 of 24, glucose 75, and creatinine 1.1. ASSESSMENT: This is a 58-year-old male with uncontrolled and decompensated type 2 insulin-requiring diabetes. Presenting with marked hyperglycemic accelerations related to the intercurrent infection, which as we know could contribute to increased insulin resistance and further impaired glucose tolerance thereof. Moreover, he also has significant history of uncontrolled metabolic profile even prior to this admission with an A1c of 11.8% as noted. He also has diabetic microvascular complications of polyneuropathy and nephropathy with macrovascular complications of cerebrovascular disease with residual right-sided weakness and coronary artery disease with peripheral vasculopathy as noted. PLAN OF MANAGEMENT: We will continue the modified basal and bolus insulin regimen to allow for full dose equilibration and continue the Levemir given as 24 units subcutaneously at bedtime daily as given. However, we will increase the Humalog to 12 units t.i.d. before meals to start today as ordered. We will obtain serial chemistries. We will continue the low-dose correction scale using Lucio continue the low-dose correction scale using Humalog insulin as ordered to obviate hypoglycemia and detailed orders have been given. We will obtain serial chemistries and supplement accordingly as needed. We will follow and advise accordingly. We will also reinforce diabetic education and dietary instructions at the time of this admission. We will follow. Shrutih Yates MD
--- NOTE | 2019-02-15 00:28 | PN ---
DATE: 02/14/2019 This note is being dictated without the ability to access the meaningful data due to yet another computer freeze. Case was discussed with nursing. The patient is a 58-year-old white male with an alcohol history who also has suffered a stroke in the past (several years ago) leaving him dysarthric with a different symptom complex than he had prior CVA. He presently is alert, can speak only minimally. He is able to be engage in conversation. He denies anxiety, depression, psychosis, or suicidality and is expressing a wish to go home (where he lives by himself and says that he is capable of self-care). He had been living by himself for a significant period of time prior to this hospitalization. He had been agitated yesterday but seems to have responded to the initiation of Haldol. Blood pressure 137/70, pulse 78, temperature 98. The patient appears well enough to go home as he appears to be displaying now for the last day what can be considered his baseline state. Manas Brandt MD/ PhD
[2019-02-15 07:06] LABS: HEMOGLOBIN 15.6 g/dL (14.0-18.0); MEAN CELL VOLUME 86.4 fl (80.0-105.0); MEAN CORPUSCULAR HEMOGLOBIN 29.2 pg (25.0-35.0); MEAN CORPUSCULAR HGB CONC 33.8 g/dl (31.0-37.0); RBC 5.35 10^6/uL (3.5-6.1); RED CELL DISTRIBUTION WIDTH 13.7 % (11.5-14.5); WHITE BLOOD COUNT 8.6 10^3/uL (4.5-11.0)
[2019-02-15 07:37] LABS: ALB/GLOB RATIO 1.2 (1.1-1.8); ALT/SGPT 16 U/L (7-56); AST/SGOT 29 U/L (17-59); BLOOD UREA NITROGEN 28 mg/dL (7-21); CALCIUM 9.7 mg/dL (8.4-10.5); GFR NON-AFRICAN AMERICAN > 60
[2019-02-15] MEDS: Insulin Lispro (humaLOG) LOW Coverage SC SCH (08:01)
[2019-02-15] MEDS: Pantoprazole 40 mg EC Tab PO SCH (08:23)
[2019-02-15] MEDS: Insulin Lispro 1 UNITS/0.01 ML SC SCH (08:24)
[2019-02-15 08:35] VITALS: BP 151/85; PULSE 81; RESP 20; TEMP 98.4; O2SAT 93
--- NOTE | 2019-02-15 10:48 | CP.PCM.PN ---
Subjective - Date & Time of Evaluation Date of Evaluation: 02/15/19 Time of Evaluation: 10:49 - Subjective Subjective: Podiatry consult note for Drs. Lauren/Jodi 58 year old male patient seen and evaluated at the at bedside with Dr Zapata for right hallux ulceration. Patient denies any pain in his ulcer site. Patient reports he would like to be discharged at this time. Patient denies any overnight F/N/V/F/CP. Patient denies any other pedal complaint at this time. Objective - Vital Signs/Intake and Output Vital Signs (last 24 hours): Temp Pulse Resp BP Pulse Ox 98.4 F 81 20 151/85 H 93 L 02/15/19 08:35 02/15/19 08:35 02/15/19 08:35 02/15/19 08:35 02/15/19 08:35 Intake and Output: 02/15/19 02/15/19 06:59 18:59 Intake Total 120 Balance 120 - Medications Medications: Current Medications Alprazolam (Xanax) 0.25 mg PO TID PRN; Protocol PRN Reason: Anxiety Last Admin: 02/15/19 05:39 Dose: 0.25 mg Amlodipine Besylate (Norvasc) 10 mg PO DAILY [facility] Last Admin: 02/14/19 11:24 Dose: 10 mg Amoxicillin/Clavulanate Potassium (Augmentin 875 Mg-125 Mg Tab) 1 tab PO Q12 [facility]; Protocol Stop: 02/20/19 19:16 Last Admin: 02/14/19 21:20 Dose: 1 tab Aspirin (Ecotrin) 81 mg PO DAILY [facility] Last Admin: 02/14/19 11:23 Dose: 81 mg Atorvastatin Calcium (Lipitor) 40 mg PO DAILY [facility] Last Admin: 02/14/19 11:23 Dose: 40 mg Chlordiazepoxide (Librium) 25 mg PO Q6 PRN; Protocol PRN Reason: Alcohol Withdrawal Last Admin: 02/13/19 17:00 Dose: 25 mg Divalproex Sodium (Depakote Dr (*Bid*)) 250 mg PO BID [facility]; Protocol Last Admin: 02/14/19 18:36 Dose: 250 mg Doxycycline Hyclate (Doryx) 100 mg PO Q12 [facility]; Protocol Stop: 02/20/19 19:15 Last Admin: 02/14/19 21:21 Dose: 100 mg Glipizide (Glucotrol) 10 mg PO BID [facility] Last Admin: 02/14/19 18:37 Dose: 10 mg Haloperidol Lactate (Haldol) 2 mg IM Q4 PRN; Protocol PRN Reason: Agitation Last Admin: 02/13/19 20:48 Dose: 2 mg Haloperidol Lactate (Haldol) 2 mg PO DAILY [facility]; Protocol Last Admin: 02/14/19 15:03 Dose: 2 mg Insulin Detemir (Levemir) 24 unit SC HS [facility] Last Admin: 02/14/19 22:20 Dose: 24 units Insulin Human Lispro (Humalog Low) 0 units SC ACHS [facility]; Protocol Last Admin: 02/15/19 08:01 Dose: Not Given Insulin Human Lispro (Humalog) 12 units SC AC [facility] Last Admin: 02/15/19 08:24 Dose: 12 unit Lisinopril (Zestril) 30 mg PO DAILY [facility] Last Admin: 02/14/19 11:21 Dose: 30 mg Metoprolol Tartrate (Lopressor) 50 mg PO BID [facility] Last Admin: 02/14/19 18:37 Dose: 50 mg Mupirocin (Bactroban Ointment) 1 gm TOP BID [facility] Last Admin: 02/14/19 18:40 Dose: 1 applic Nicotine (Nicoderm Cq) 1 patch TD DAILY [facility] Last Admin: 02/14/19 11:25 Dose: 1 patch Pantoprazole Sodium (Protonix Ec Tab) 40 mg PO ACB [facility] Last Admin: 02/15/19 08:23 Dose: 40 mg Pregabalin (Lyrica) 200 mg PO TID [facility] Last Admin: 02/14/19 18:37 Dose: 200 mg Risperidone (Risperdal Tab) 0.25 mg PO DAILY [facility]; Protocol Last Admin: 02/14/19 11:22 Dose: 0.25 mg - Labs Labs: 02/15/19 06:35 02/15/19 06:35 PT 11.5 SECONDS (9.4-12.5) 02/11/19 18:25 INR 1.04 02/11/19 18:25 APTT 35.0 Seconds (26.9-38.3) 02/11/19 18:25 - Constitutional Appears: Well, Non-toxic, No Acute Distress - Head Exam Head Exam: ATRAUMATIC, NORMOCEPHALIC - Extremities Exam Additional comments: B/L LE focused exam VASC: DP and PT non-palpalbe b/l; cap refill <3 seconds to all digits; temp gra dient warm to cool from proximal to distal b/l. NEURO: gross and protective sensation diminished b/l. DERM: ulceration noted on the plantar aspect of the right hallux measuring 2.5 cm X 1 cm X 0.2 cm with no malodor, no drainage, no tunneling, mild erythema and maceration present at the tracy-wound area. MSK: No pain to palpation of the right hallux periulcerative area, Muscle power 4/5 on the right side and 5/5 on the left side in all groups. - Neurological Exam Neurological Exam: Alert, Awake, Oriented x3 - Psychiatric Exam Psychiatric exam: Normal Affect, Normal Mood Assessment and Plan - Assessment and Plan (Free Text) Assessment: 58 year old M patient seen and evaluated at the at bedside for right hallux ulceration. Plan: Patient seen and evaluated with Dr. Zapata Plan discussed with Dr. Zapata Charts, labs and vitals reviewed: Afebrile, absent leukocytosis X-ray right foot: No evidence of OM Wound Cx: No growth after 24 hours Arterial duplex: Mildly abnormal R resting [place], R SFA occlusive disease, B/L Tibial Occlusive disease R>L Surgical shoes ordered and to be applied to both feet while ambulating Mepilex and bactroban applied to the right hallux Patient was recommended Vascular consult, however, patient stated he did not want to wait to be seen All risks and benefits were explained to patient regarding vascular work-up Patient explained that upon discharge to follow up with Dr. Zapata as an outpatient. Patient requires a brace for his right drop foot to prevent further ulcerations Patient demonstrated verbal understanding and states he will follow up
--- NOTE | 2019-02-15 14:33 | CP.PCM.PN ---
<Rohit Duong - Last Filed: 02/15/19 14:32> Subjective - Date & Time of Evaluation Date of Evaluation: 02/15/19 Time of Evaluation: 07:50 - Subjective Subjective: Rohit Duong D.O. PGY-3, Internal Medicine Resident, Infectious Disease Progress Note 58-year-old male with a past medical history of hypertension, hyperlipidemia, diabetes, cerebrovascular accident with residual right-sided deficits who pre sented for failure of outpatient antibiotics for right great toe infection. Infectious disease consultation was requested for this right great toe infection. Patient was seen and examined at chairside earlier today. Very comfortable. Very excited to go home. Objective - Vital Signs/Intake and Output Vital Signs (last 24 hours): Temp Pulse Resp BP Pulse Ox 98.4 F 81 20 151/85 H 93 L 02/15/19 08:35 02/15/19 08:35 02/15/19 08:35 02/15/19 08:35 02/15/19 08:35 Intake and Output: 02/15/19 02/15/19 06:59 18:59 Intake Total 120 Balance 120 - Labs Labs: 02/15/19 06:35 02/15/19 06:35 PT 11.5 SECONDS (9.4-12.5) 02/11/19 18:25 INR 1.04 02/11/19 18:25 APTT 35.0 Seconds (26.9-38.3) 02/11/19 18:25 - Constitutional Appears: Non-toxic, No Acute Distress - Head Exam Head Exam: ATRAUMATIC, NORMOCEPHALIC - Eye Exam Eye Exam: EOMI. absent: Scleral icterus - ENT Exam ENT Exam: Mucous Membranes Moist - Neck Exam Neck exam: Positive for: Normal Inspection - Respiratory Exam Respiratory Exam: absent: Rales, Rhonchi, Wheezes - Cardiovascular Exam Cardiovascular Exam: +S1, +S2. absent: Gallop, Rubs - GI/Abdominal Exam GI & Abdominal Exam: Normal Bowel Sounds, Soft. absent: Tenderness - Extremities Exam Extremities exam: right big toe improved - Neurological Exam Additional comments: awake, alert, right sided weakness, dysarthria - Skin Skin Exam: Warm Assessment and Plan - Assessment and Plan (Free Text) Assessment: 58-year-old male with a past medical history of hypertension, hyperlipidemia, diabetes, cerebrovascular accident with residual right-sided deficits who presented for failure of outpatient antibiotics for right great toe infection. Infectious disease consultation was requested for this right great toe infecti on. Plan: Right big toe cellulitis/ulcer Hypertension Hyperlipidemia Uncontrolled diabetes mellitus Continue PO doxy/augmentin as outpatient F/U with podiatry F/U with PMD Patient was seen and examined and case to be discussed with attending physician Thank for the pleasure participating in the care of this patient <Ankit Power - Last Filed: 02/15/19 17:09> Objective - Vital Signs/Intake and Output Vital Signs (last 24 hours): Temp Pulse Resp BP Pulse Ox 98.4 F 81 20 151/85 H 93 L 02/15/19 08:35 02/15/19 08:35 02/15/19 08:35 02/15/19 08:35 02/15/19 08:35 Intake and Output: 02/15/19 02/15/19 06:59 18:59 Intake Total 120 Balance 120 - Labs Labs: 02/15/19 06:35 02/15/19 06:35 PT 11.5 SECONDS (9.4-12.5) 02/11/19 18:25 INR 1.04 02/11/19 18:25 APTT 35.0 Seconds (26.9-38.3) 02/11/19 18:25 Attending/Attestation - Attestation I have personally seen and examined this patient.: Yes I have fully participated in the care of the patient.: Yes I have reviewed all pertinent clinical information, including history, physical exam and plan: Yes
--- NOTE | 2019-02-15 16:40 | PN ---
DATE: 02/15/2019 In room 361. SUBJECTIVE: This is a 58-year-old male with recent uncontrolled type 2 insulin-requiring diabetes presenting here with a nonhealing right toe hallux infection and is now being followed closely for metabolic management. He also has underlying right foot cellulitis as noted. His glycemic levels are fluctuating but improved and the glucose levels have ranged from 194 to 252 mg/dL. Her chemistry showed a BUN of 28, sodium 140, potassium 4.4, chloride 108, CO2 of 22, glucose 221 and creatinine 1.0. So at this time, we will continue the same basal and bolus insulin regimen to allow for dose equilibration and keep him on the Humalog given as 12 units three times a day before meals as ordered. We will continue also the Levemir given as 24 units subcu at bedtime daily as given. We will titrate incrementally as indicated to optimize metabolic control. We will follow and advise accordingly. Shruthi Yates MD
--- NOTE | 2019-02-16 01:19 | DS ---
HOSPITAL COURSE: He came in for a toe ulcer. He was treated osteomyelitis. He had an MRI, which is okay. Then, he had some mental status changes here, so he is doing better now. He was on a one-to-one. He had an old stroke, it is very hard for him to express himself. He has expressive aphasia and he got frustrated and acted out, but now it was explained to him he cannot do that anymore, he did a very good 24 hours off the one-to-one and he is being discharged today. He will be on Augmentin 875 twice a day for 10 days, Bactroban cream over the ulcer, and doxycycline 100 mg twice a day for 10 days. He is going to go home on the same home medications. He is eating well. He is walking well, back to his baseline. PHYSICAL EXAMINATION: VITAL SIGNS: 98.4 temperature, 81 pulse, 151/85 blood pressure, 20 respiratory rate, and 93%-95% O2 saturation on room air. HEENT: Head is atraumatic and normocephalic. HEART: Regular rate. LUNGS: Decreased breath sounds. ABDOMEN: Soft. He has got weakness secondary to his stroke. He is doing much better though overall. He will follow up with Dr. Tolentino next week. He will also see Dr. Zapata, I believe next week for his toe, which is improving slowly. LABORATORY DATA: He had a sodium 140, potassium 4.4, BUN 28, creatinine 1, GFR is greater than 60, sugar is 194, calcium is 9.7, and total bili is 1. AST is 29, ALT is 69, alk phos 92, and total protein 7.4. White count is 8.6, hemoglobin is 15.6, hematocrit 46.2, and platelets of 212. ASSESSMENT AND PLAN: Overall, he is doing well except for a little bit of frustration with him, but he is going to go home today. I spoke with sister. She will pick him up. I will follow up next week. Alexis Tolentino DO [facility]
== END 2019-02-15 11:18 | disposition home or self-care (01) | DRG 593 ==
LOC: ED 17:25 → ERH 21:18 → 3RNO 22:43
PROVIDERS: ADMIT Family Medicine; ATTEND Family Medicine
DX: L97.519 Non-pressure chronic ulcer of other part of right foot with unspecified severity (principal); I69.351 Hemiplegia and hemiparesis following cerebral infarction affecting right dominant side; L03.031 Cellulitis of right toe; I69.320 Aphasia following cerebral infarction; E11.65 Type 2 diabetes mellitus with hyperglycemia; Z79.82 Long term (current) use of aspirin; Z79.899 Other long term (current) drug therapy; Z79.84 Long term (current) use of oral hypoglycemic drugs; F11.10 Opioid abuse, uncomplicated; F10.10 Alcohol abuse, uncomplicated; I10 Essential (primary) hypertension; E78.5 Hyperlipidemia, unspecified; R47.02 Dysphasia; W19.XXXA Unspecified fall, initial encounter; F17.210 Nicotine dependence, cigarettes, uncomplicated; Z79.4 Long term (current) use of insulin; E11.21 Type 2 diabetes mellitus with diabetic nephropathy; E11.51 Type 2 diabetes mellitus with diabetic peripheral angiopathy without gangrene; E11.319 Type 2 diabetes mellitus with unspecified diabetic retinopathy without macular edema; G62.1 Alcoholic polyneuropathy; E11.42 Type 2 diabetes mellitus with diabetic polyneuropathy; E11.621 Type 2 diabetes mellitus with foot ulcer; I25.10 Atherosclerotic heart disease of native coronary artery without angina pectoris; J44.9 Chronic obstructive pulmonary disease, unspecified; K21.9 Gastro-esophageal reflux disease without esophagitis; Z59.9 Problem related to housing and economic circumstances, unspecified; Z91.19 Patient's noncompliance with other medical treatment and regimen; Z95.5 Presence of coronary angioplasty implant and graft

== ENCOUNTER 2019-03-01 15:07 | Inpatient (IN) | payer MEDICARE, OTHER ==
[2019-03-01 15:22] VITALS: BMI 21.7
[2019-03-01 15:29] LABS: BASO # 0.02 K/mm3 (0.0-2.0); BASO % 0.3 % (0.0-3.0); EOS # 0.2 (0.0-0.7); EOS % 2.5 % (1.5-5.0); HEMOGLOBIN 16.3 g/dL (14.0-18.0); LYMPH # 1.7 (1.2-3.4); LYMPH % 25.4 % (22.0-35.0); MEAN CELL VOLUME 84.8 fl (80.0-105.0); MEAN CORPUSCULAR HEMOGLOBIN 30.1 pg (25.0-35.0); MEAN CORPUSCULAR HGB CONC 35.5 g/dl (31.0-37.0); MEAN PLATELET VOLUME 11.6 fl (7.0-11.0); MONO # 0.8 (0.1-0.6); MONO % 11.3 % (1.0-6.0); RBC 5.41 10^6/uL (3.5-6.1); RED CELL DISTRIBUTION WIDTH 13.9 % (11.5-14.5); WHITE BLOOD COUNT 6.8 10^3/uL (4.5-11.0)
[2019-03-01] MEDS ORDERED: Sodium Chloride 0.9% 1,000 ML IV SCH (15:30)
[2019-03-01 15:52] LABS: TROPONIN I 0.02 ng/mL
--- NOTE | 2019-03-01 15:53 | CT ---
Date of service: 03/01/2019 PROCEDURE: CT HEAD WITHOUT CONTRAST. HISTORY: Code Stroke COMPARISON: 10/05/2018 and 02/13/2019. CT head. TECHNIQUE: Axial computed tomography images were obtained through the head/brain without intravenous contrast. Supplemental Coronal and Sagittal projections created and reviewed. Radiation dose: Total exam DLP = <inf_radiation_dlp> mGy-cm. This CT exam was performed using one or more of the following dose reduction techniques: Automated exposure control, adjustment of the mA and/or kV according to patient size, and/or use of iterative reconstruction technique. FINDINGS: HEMORRHAGE: No intracranial hemorrhage. BRAIN: No mass effect or edema. Redemonstration of encephalomalacia changes left hemisphere corresponding to left MCA distribution. VENTRICLES: Unremarkable. No hydrocephalus. CALVARIUM: Unremarkable. PARANASAL SINUSES: Unremarkable as visualized. No significant inflammatory changes. MASTOID AIR CELLS: Unremarkable as visualized. No inflammatory changes. OTHER FINDINGS: None. IMPRESSION: No acute intracranial abnormalities. No significant findings to account for the clinical presentation. No significant interval change compared to the prior examination(s). Code stroke protocol: Study completed 15:28. Radiologist notified 15:36. However technical factors for occluded of the study at that time. The study was available for final interpretation at 15:44. Results conveyed verbally at 15:47. Verbal discussions with Dr. Sams in the emergency department. Interpretation finalized and available for review 15:48.
[2019-03-01 16:04] LABS: INR 1.05; PARTIAL THROMBOPLASTIN TIME 32.4 Seconds (26.9-38.3); PROTHROMBIN TIME 11.7 SECONDS (9.4-12.5)
--- NOTE | 2019-03-01 16:05 | RAD ---
Date of service: 03/01/2019 HISTORY: Code Stroke COMPARISON: 02/11/2019. FINDINGS: LUNGS: No active pulmonary disease. PLEURA: No significant pleural effusion identified, no pneumothorax apparent. CARDIOVASCULAR: No atherosclerotic calcification present Normal. OSSEOUS STRUCTURES: No significant abnormalities. VISUALIZED UPPER ABDOMEN: Normal. OTHER FINDINGS: None. IMPRESSION: No active disease. No significant interval change compared to the prior examination(s).
[2019-03-01 16:12] LABS: ALB/GLOB RATIO 1.4 (1.1-1.8); ALBUMIN 4.6 g/dL (3.0-4.8); CALCIUM 9.8 mg/dL (8.4-10.5)
[2019-03-01] MEDS ORDERED: Sodium Chloride 0.9% 1,000 ML IV STA (16:14)
--- NOTE | 2019-03-01 16:27 | ED PDOC ---
Arrival/HPI - General Time Seen by Provider: 03/01/19 15:13 Historian: Patient - History of Present Illness Narrative History of Present Illness (Text): 03/01/19 15:13 Warren Cesar is a 59 year old male, with a past medical history of CVA (w/right upper extremity paralysis and aphasia), brought by EMS to the emergency department for altered mental status. Per EMS, patient's mailman who knows him well noticed patient sitting in doorway of home not acting "normal". EMS concerned for chest pain and brought patient as code heart with stat EKG; EKG read no ST elevations. Patient's blood pressure noted as 186 / 110. Patient was last seen on Tuesday by daughter and was reported to be normal. Daughter informs patient has difficulty walking down stairs. EMS states patient was able to stand on both lower extremities. At baseline, patient walks with stiff gait and is aphasic with right sided weakness; patient is unable to move right upper extremity and is able to communicate verbally as well as with pen and paper. Patient wrote "back" on paper but denies fall. Patient is able to understand questions. Per daughter, patient sometimes says "no" when meaning "yes". Patient denies head injury, loss of consciousness, fevers, chills, headaches, dizziness, vision changes, chest pain, shortness of breath, abdominal pain, nausea, vomiting, diarrhea, dysuria, hematuria, back pain, neck pain, or any other complaint. Time/Duration: Prior to Arrival Symptom Course: Unchanged Activities at Onset: Light Context: Home Past Medical History - Provider Review Nursing Documentation Reviewed: Yes - Infectious Disease Hx of Infectious Diseases: None - Tetanus Immunization Tetanus Immunization: Unknown - Past Medical History Past Medical History: Unable to Obtain - Cardiac Hx Cardiac Disorders: Yes - Pulmonary Hx Chronic Obstructive Pulmonary Disease (COPD): Yes - Neurological HX Cerebrovascular Accident: Yes (R sided weakness) - HEENT Hx HEENT Disorder: No - Renal Hx Renal Disorder: No - Endocrine/Metabolic Hx Diabetes Mellitus Type 2: Yes - Hematological/Oncological Hx Blood Disorders: No - Integumentary Hx Dermatological Disorder: No - Musculoskeletal/Rheumatological Hx Falls: Yes Hx Unsteady Gait: Yes - Gastrointestinal Hx Gastrointestinal Disorders: No - Genitourinary/Gynecological Hx Genitourinary Disorders: No - Psychiatric Hx Psychophysiologic Disorder: Yes (etoh use, pschiatric hospitalizations) Hx Substance Use: No (DENIES) - Past Surgical History Past Surgical History: No Previous - Surgical History Hx Cardiac Catheterization: Yes Hx Coronary Stent: Yes - Anesthesia Hx Anesthesia Reactions: No - Suicidal Assessment Feels Threatened In Home Enviroment: No Family/Social History - Physician Review Nursing Documentation Reviewed: Yes Family/Social History: Unknown Family HX Smoking Status: Unknown If Ever Smoked Hx Alcohol Use: No Hx Substance Use: No (DENIES) Hx Substance Use Treatment: No Allergies/Home Meds Allergies/Adverse Reactions: Allergies No Known Allergies Allergy (Verified 03/01/19 23:51) Home Medications: Home Meds Medication Instructions Recorded Confirmed Alprazolam [Xanax] 0.25 mg PO DAILY 10/06/18 03/01/19 Esomeprazole Sodium 40 mg PO DAILY 10/06/18 03/01/19 Insulin Glargine,Hum.rec.anlog 10 unit SQ HS 10/06/18 03/01/19 [Lantus] Metoprolol Tartrate [Lopressor] 25 mg PO BID 10/06/18 03/01/19 amLODIPine [Norvasc] 10 mg PO DAILY 10/06/18 03/01/19 Review of Systems - Physician Review All systems were reviewed & negative as marked: Yes - Review of Systems Constitutional: absent: Fevers, Other (chills) Eyes: absent: Vision Changes Respiratory: absent: SOB Cardiovascular: absent: Chest Pain Gastrointestinal: absent: Abdominal Pain, Diarrhea, Nausea, Vomiting Genitourinary Male: absent: Dysuria, Hematuria Musculoskeletal: absent: Back Pain, Neck Pain, Other (head injury) Neurological: absent: Headache, Dizziness, Other (loss of consciousness) Physical Exam Vital Signs Reviewed: Yes Vital Signs Pulse Resp BP Pulse Ox 03/01/19 15:30 81 30 H 154/97 H 96 Blood Pressure: Normal Pulse: Regular Respiratory Rate: Tachypneic Appearance: Positive for: Well-Appearing, Non-Toxic, Comfortable Pain Distress: None Mental Status: Positive for: Alert and Oriented X 3 - Systems Exam Head: Present: Atraumatic, Normocephalic Pupils: Present: PERRL Extroacular Muscles: Present: EOMI Conjunctiva: Present: Normal Mouth: Present: Moist Mucous Membranes Neck: Present: Normal Range of Motion Respiratory/Chest: Present: Clear to Auscultation, Good Air Exchange. No: Respiratory Distress, Accessory Muscle Use, Wheezes, Rales, Rhonchi Cardiovascular: Present: Regular Rate and Rhythm, Normal S1, S2. No: Murmurs, Rub, Gallop Abdomen: Present: Normal Bowel Sounds. No: Tenderness, Distention, Peritoneal Signs, Rebound, Guarding Back: Present: Normal Inspection. No: Midline Tenderness, Paraspinal Tenderness Upper Extremity: Present: NORMAL PULSES, Capillary Refill < 2s. No: Cyanosis, Edema, Normal ROM, Neurovascularly Intact (flaccid paralysis of right upper extremity) Lower Extremity: Present: NORMAL PULSES, Neurovascularly Intact, Capillary Refill < 2 s, Other (healing wound to plantar area of right great toe). No: Edema Neurological: Present: GCS=15, Other (right sided facial droop) Skin: Present: Warm, Dry, Normal Color. No: Rashes Psychiatric: Present: Alert, Oriented x 3, Normal Insight, Normal Concentration Medical Decision Making ED Course and Treatment: 03/01/19 15:13 Impression: Patient is a 59 year old male, with a past medical history of CVA (with right upper extremity paralysis and aphasia), brought by EMS to the emergency department for altered mental status. Per EMS, patient's mailman noted patient sitting in doorway of home not acting "normal". Per daughter, patient was last seen 4 days ago and was normal. At baseline, patient walks with stiff gait and is aphasic with right sided weakness; patient is unable to move right upper extremity and is able to communicate verbally as well as with pen and paper. Patient denies fall or any complaints. On exam; flaccid paralysis of right upper extremity and right facial droop. Healing wound to plantar area of right great toe. Otherwise unremarkable Plan: -- Labs -- CT Head w/o Contrast -- EKG -- Chest X-Ray -- IV Fluids -- Reassess and disposition Prior Visits: Notes and results from previous visits were reviewed. Progress Notes: 03/01/19 15:17 Reviewed EKG, shows: NSR at 88 BPM. LVH. T wave inversions in lateral leads. No ST elevations. Similar to EKG on 02/11/19. 03/01/19 15:48 Spoke to patient's sister, Ms. Paredes who is the POA. She states patient is able to understand everything. She states patient sometimes says "no" when he means yes. She informs patient appreciated cramping on Tuesday when he was last seen by family. Sister informs patient has difficulty walking down stairs and has stiff gait at baseline. Informs PMD is Dr. Tolentino 03/01/19 15:49 CT Head shows: IMPRESSION: No acute intracranial abnormalities. No significant findings to account for the clinical presentation. No significant interval change compared to the prior examination(s). Code stroke protocol: Study completed 15:28. Radiologist notified 15:36. However technical factors for occluded of the study at that time. The study was available for final interpretation at 15:44. Results conveyed verbally at 15:47. Verbal discussions with Dr. Sams in the emergency department. Interpretation finalized and available for review 15:48 03/01/19 15:[address] Truong (neurology) and Dr. Tolentino. 03/01/19 16:01 Chest X-Ray shows: IMPRESSION: No active disease. No significant interval change compared to the prior examination(s). 03/01/19 16:04 Discussed case w/ Dr. Truong, who requests cancelling of code stroke given additional information received from daughter about chronicity of symptoms. Requests admission. 03/01/19 16:47 Discussed case w/ Dr. Tolentino, who requests patient admission to telemetry observation. 03/01/19 18:35 Dr. Tolentino in ED to evaluate patient, states patient is not completely at his baseline, requests patient to be inpatient admission and additional studies to r/o sepsis. - Lab Interpretations Lab Results: Troponin I 0.02 ng/mL 03/01/19 15:24 - RAD Interpretation Radiology Orders: 03/01/19 15:22 HEAD W/O (CODE STROKE) [CT] Stat CHEST PORTABLE [RAD] Stat - EKG Interpretation Interpreted by ED Physician: Yes Type: 12 lead EKG - Medication Orders Current Medication Orders: Sodium Chloride (Sodium Chloride 0.9%) 1,000 mls @ 100 mls/hr IV .Q10H FENG - Scribe Statement The provider has reviewed the documentation as recorded by the Scribe Surinder Munafo All medical record entries made by the Scribcody were at my direction and personally dictated by me. I have reviewed the chart and agree that the record accurately reflects my personal performance of the history, physical exam, medical decision making, and the department course for this patient. I have also personally directed, reviewed, and agree with the discharge instructions and disposition. Disposition/Present on Arrival - Present on Arrival Any Indicators Present on Arrival: Yes History of DVT/PE: No History of Uncontrolled Diabetes: Yes Urinary Catheter: No History of Decub. Ulcer: No History Surgical Site Infection Following: None - Disposition Have Diagnosis and Disposition been Completed?: Yes Diagnosis: Altered mental status, Dehydration, Hyperglycemia Disposition: HOSPITALIZED Disposition Time: 16:48 Patient Plan: Admission Condition: STABLE
[2019-03-01] MEDS: Sodium Chloride 0.45% 1,000 ML IV SCH (18:45)
[2019-03-01] MEDS: Divalproex 250 mg DR (BID formulation) PO SCH (18:45)
--- NOTE | 2019-03-01 20:04 | HP ---
DATE OF EXAM: 03/01/2019 HISTORY OF PRESENT ILLNESS: He is a 59-year-old white man who I know quite well. He has got a past medical history of a CVA with right upper extremity paralysis, aphasia. He was seen by the postal man who knows him quite well, found him with altered mental status leaning up against the doorway, not acting normal, EMS was called. He was brought to the emergency room. He it a little bit out of it mentally, less alert than usual. PAST MEDICAL HISTORY: He has a history of COPD, right-sided weakness from a stroke, diabetes, unsteady gait. He does drink alcohol and has had multiple psychiatric admissions. No substance abuse. He has coronary stents. FAMILY HISTORY: Unknown. SOCIAL HISTORY: Not smoking now, but he still drinks alcohol from time to time. No substance abuse. ALLERGIES: NO KNOWN DRUG ALLERGIES. MEDICATIONS: Xanax, omeprazole, insulin, Lopressor, Norvasc. REVIEW OF SYSTEMS: No fevers, no chills. No acute vision or hearing changes. He has very poor dysarthria. No shortness of breath. No chest pain. No abdominal pain. No nausea, vomiting, constipation or diarrhea. No problems urinating. No back pain. No neck pain. No head injury. No headache or dizziness. No loss of consciousness. PHYSICAL EXAMINATION VITAL SIGNS: He has an 81 pulse, 30 respiratory rate, 154/97 blood pressure, and 96% O2 sat. GENERAL: He is a little lethargic appearing, for himself, nontoxic, comfortable, positive. Alert and oriented. HEENT: Head is atraumatic, normocephalic. Extraocular muscles are intact. Pupils equally react to the light. Throat is dry. NECK: Supple. No JVD. Thyroid midline. No palpable appreciable lymphadenopathy. LUNGS: Clear to auscultation. Poor inspiration. No wheezes, rhonchi or rales. HEART: Regular rate. Normal S1, S2. ABDOMEN: Soft, nontender. Positive bowel sounds. No guarding, no rebound or CVA tenderness. EXTREMITIES: No edema. A healing wound on the plantar of the right great toe. NEUROLOGIC: He has a GCS of 15. A right-sided facial droop. A right sided weakness. A right upper extremity paralysis, aphasia, altered mental status is today. LABORATORY DATA: He had multiple tests done. EKG showed normal sinus rhythm, no ST elevations, some T-wave inversions. A CT scan of the brain did not show anything new. Chest x-ray with no significant interval change. On blood tests, he has a 139 sodium, potassium 5, BUN 50, creatinine 2.1, elevated, GFR is down to 32, sugar is 298, high, calcium is 9.8, total bilirubin is 1.3. AST is 26, ALT is 20, alkaline phosphatase 57, ammonia is less than 9. Troponin I is 0.02. Total protein is 8, albumin is 4.6, triglycerides are high at 256, cholesterol is high at 238. LDL is 134. Alcohol is less than 10. INR is 1.05. He has a 6.8 white count, 60.3 hemoglobin, 45.9 hematocrit with 122 platelets. ASSESSMENT AND PLAN: He will have intravenous fluids, insulin coverage. Neurology and Cardiology evaluation for his change in mentation. He has IV fluids, we will check his labs tomorrow and see how his kidney functions are doing. Get physical therapy involved, get him out of bed to chair. We will see how he does overnight. He has come in for telemetry observation for altered mental status. Alexis Tolentino DO
[2019-03-01] MEDS ORDERED: levETIRAcetam 500 MG in Sodium Chloride 0.9% 100 ML IVPB SCH (22:00)
[2019-03-01] MEDS: levETIRAcetam 500mg IVPB 500 MG/100 ML BAG IVPB SCH (22:33)
[2019-03-01] MEDS: Insulin Reg-MEDIUM-Coverage SC SCH (23:00)
[2019-03-02 00:05] LABS: URINE BILIRUBIN NEGATIVE (NEGATIVE); URINE BLOOD NEGATIVE (NEGATIVE); URINE GLUCOSE (UA) 500 mg/dL (NEGATIVE); URINE LEUKOCYTE ESTERASE NEGATIVE Leu/uL (NEGATIVE); URINE PROTEIN 100 mg/dL (<30 mg/dL); URINE UROBILINOGEN 0.2 E.U./dL (<1 E.U./dL)
[2019-03-02 00:06] LABS: URINE APPEARANCE SL CLOUDY (CLEAR); URINE COLOR YELLOW (YELLOW)
[2019-03-02] MEDS ORDERED: Pneumococcal 23-Valent Vaccine IM ONE (00:17)
[2019-03-02 01:07] LABS: URINE BACTERIA FEW /hpf
[2019-03-02 07:40] LABS: HEMOGLOBIN 15.3 g/dL (14.0-18.0); MEAN CELL VOLUME 84.5 fl (80.0-105.0); MEAN CORPUSCULAR HEMOGLOBIN 29.4 pg (25.0-35.0); MEAN CORPUSCULAR HGB CONC 34.8 g/dl (31.0-37.0); MEAN PLATELET VOLUME 11.5 fl (7.0-11.0); RBC 5.21 10^6/uL (3.5-6.1)
[2019-03-02] MEDS: Insulin Reg-MEDIUM-Coverage SC SCH ×4 (08:00→22:25)
[2019-03-02 08:14] LABS: ALB/GLOB RATIO 1.2 (1.1-1.8); ALBUMIN 3.9 g/dL (3.0-4.8); ALT/SGPT 17 U/L (7-56); AST/SGOT 23 U/L (17-59); BLOOD UREA NITROGEN 35 mg/dL (7-21); CALCIUM 8.9 mg/dL (8.4-10.5); GFR NON-AFRICAN AMERICAN 57
[2019-03-02] MEDS ORDERED: Potassium Chloride 20 mEq ER Tab PO ONE (08:58)
[2019-03-02] MEDS ORDERED: ESOMEPRAZOLE SODIUM 40 MG PO SCH (10:00)
[2019-03-02] MEDS: Divalproex 250 mg DR (BID formulation) PO SCH ×2 (10:05→18:06)
[2019-03-02] MEDS: levETIRAcetam 500mg IVPB 500 MG/100 ML BAG IVPB SCH ×2 (10:05→22:26)
[2019-03-02] MEDS: Pantoprazole 40 mg EC Tab PO SCH (10:07)
--- NOTE | 2019-03-02 11:55 | PN ---
DATE: 03/02/2019 SUBJECTIVE: I admitted him yesterday due to altered mental status, possible seizure versus sepsis. He is still little bit mentally off this morning, slow to come around in the sleep. I have known him for years, so this is not his baseline, may be 20% better than the ER last night. PHYSICAL EXAMINATION: VITAL SIGNS: He has 97.8 temperature, 96 pulse, 169/91 blood pressure, 19 respiratory rate, 96% O2 sat. HEAD: Atraumatic, normocephalic. He still has a droop. He has right-sided weakness. HEART: Regular rate. LUNGS: Decreased breath sounds, but clear. ABDOMEN: Soft. EXTREMITIES: No edema. There is some toe ulcer issue. He was seeing Podiatry for that. CURRENT MEDICATIONS: He is currently on Ecotrin, Catapres, Depakote, Glucophage, Keppra IV, Lipitor, Lopressor, Levaquin, Norvasc, Protonix, IV fluids, and Xanax. We could not feed him yesterday. He was not alert to feed. LABORATORY DATA: He has a 6 white count, 16.3 hemoglobin, 44 hematocrit with 115 platelets. Sodium 142, potassium 3.4, replaced his potassium, BUN 35, creatinine 1.3 much better. He came in, in dehydration with 50/2.1, with IV fluids he is down to 35/1.3, improving, 57 GFR, also a bit better, last blood sugar was 170, calcium is 8.9, total bili is 1.5, AST is 23, ALT is 17, alkaline phosphatase 59, total protein 7. ASSESSMENT AND PLAN: He is being seen by nobody yet, but he has got consults for Infectious Disease, Neurology, and Cardiology for his change in mental status. He has renal insufficiency, dehydration, possible acute kidney injury, high triglycerides, also has right-sided weakness secondary to his stroke. Alexis Tolentino DO
--- NOTE | 2019-03-02 12:12 | CP.PCM.CON ---
History of Present Illness - History of Present Illness History of Present Illness: 59 year old male with PMH of CVA, HTN, dyslipidemia, DM, history of right hallux infection was brought in by EMS to [facility] [place] because of not acting normally. He was apparently noticed by the mailman. He was noted to understand questions but was not answering properly or could not find the words. Currently he answers simple questions, but cannot elaborate if you ask the patient to explain. He has no fever or chills, on headache, no nausea or vomiting, is not able to elaborate but is pointing to his chest when asked about chest pain, no abdominal pain, no diarrhea, no dysuria. Infectious Diseases consult is requested to further evaluate and manage. Review of Systems - Review of Systems All systems: reviewed and no additional remarkable complaints except (as per HPI) Past Patient History - Infectious Disease Hx of Infectious Diseases: None - Tetanus Immunizations Tetanus Immunization: Unknown - Past Medical History & Family History Past Medical History?: Yes - Past Social History Smoking Status: Unknown If Ever Smoked - CARDIAC Hx Cardiac Disorders: Yes - PULMONARY Hx Chronic Obstructive Pulmonary Disease (COPD): Yes - NEUROLOGICAL HX Cerebrovascular Accident: Yes (R sided weakness) - HEENT Hx HEENT Problems: No - RENAL Hx Chronic Kidney Disease: No - ENDOCRINE/METABOLIC Hx Diabetes Mellitus Type 2: Yes - HEMATOLOGICAL/ONCOLOGICAL Hx Blood Disorders: No - INTEGUMENTARY Hx Dermatological Problems: No - MUSCULOSKELETAL/RHEUMATOLOGICAL Hx Falls: Yes Hx Unsteady Gait: Yes - GASTROINTESTINAL Hx Gastrointestinal Disorders: No - GENITOURINARY/GYNECOLOGICAL Hx Genitourinary Disorders: No - PSYCHIATRIC Hx Psychophysiologic Disorder: Yes (etoh use, pschiatric hospitalizations) Hx Substance Use: No (DENIES) - SURGICAL HISTORY Hx Cardiac Catheterization: Yes Hx Coronary Stent: Yes - ANESTHESIA Hx Anesthesia Reactions: No Meds Allergies/Adverse Reactions: Allergies Allergy/AdvReac Type Severity Reaction Status Date / Time No Known Allergies Allergy Verified 03/01/19 23:51 - Medications Medications: Current Medications Alprazolam (Xanax) 0.25 mg PO TID PRN; Protocol PRN Reason: Anxiety Stop: 03/08/19 18:01 Amlodipine Besylate (Norvasc) 10 mg PO DAILY [facility] Aspirin (Ecotrin) 81 mg PO DAILY [facility] Atorvastatin Calcium (Lipitor) 40 mg PO DAILY [facility] Clonidine HCl (Catapres Tts1 0.1 Mg/24 Hr) 1 patch TD Q7D@1000 [facility] Last Admin: 03/01/19 19:52 Dose: 1 patch Divalproex Sodium (Depakote Dr (*Bid*)) 250 mg PO BID [facility]; Protocol Last Admin: 03/01/19 18:45 Dose: Not Given Glipizide (Glucotrol) 10 mg PO BID [facility] Last Admin: 03/01/19 18:45 Dose: Not Given Sodium Chloride (Sodium Chloride 0.45%) 1,000 mls @ 80 mls/hr IV .[id number] [facility] Last Admin: 03/01/19 18:45 Dose: 80 mls/hr Levetiracetam (Keppra 500mg Ivpb) 500 mg in 100 mls @ 200 mls/hr IVPB Q12H [facility] Last Admin: 03/01/19 22:33 Dose: 200 mls/hr Insulin Human Regular (Humulin R Med) 0 units SC ACHS [facility]; Protocol Metoprolol Tartrate (Lopressor) 25 mg PO BID [facility] Last Admin: 03/01/19 18:45 Dose: Not Given Pantoprazole Sodium (Protonix Ec Tab) 40 mg PO ACB [facility] Pregabalin (Lyrica) 200 mg PO TID [facility] Last Admin: 03/01/19 18:45 Dose: Not Given Physical Exam - Constitutional Appears: No Acute Distress, Chronically Ill - Head Exam Head Exam: NORMAL INSPECTION - ENT Exam ENT Exam: Mucous Membranes Moist - Neck Exam Neck exam: Negative for: Lymphadenopathy, Meningismus - Respiratory Exam Respiratory Exam: Decreased Breath Sounds. absent: Rales - Cardiovascular Exam Cardiovascular Exam: +S1, +S2 - GI/Abdominal Exam GI & Abdominal Exam: Soft. absent: Tenderness Results - Vital Signs Recent Vital Signs: Last Vital Signs Temp 98 F 03/01/19 15:22 Pulse 82 03/01/19 20:24 Resp 17 03/01/19 20:24 BP 163/99 H 03/01/19 20:24 Pulse Ox 96 03/01/19 20:24 - Labs Result Diagrams: 03/02/19 07:15 03/02/19 07:15 Labs: Laboratory Results - last 24 hr 03/01/19 03/01/19 03/01/19 15:24 15:24 15:24 WBC 6.8 D RBC 5.41 Hgb 16.3 Hct 45.9 MCV 84.8 MCH 30.1 MCHC 35.5 RDW 13.9 Plt Count 122 MPV 11.6 H Neut % (Auto) 60.5 Lymph % (Auto) 25.4 [place] % (Auto) 11.3 H Eos % (Auto) 2.5 Baso % (Auto) 0.3 Lymph # (Auto) 1.7 [place] # (Auto) 0.8 H Eos # (Auto) 0.2 Baso # (Auto) 0.02 Absolute Neuts (auto) 4.14 PT 11.7 INR 1.05 APTT 32.4 Sodium 139 Potassium 5.0 Chloride 103 Carbon Dioxide 26 Anion Gap 15 BUN 50 H Creatinine 2.1 H Est GFR ( Amer) 39 Est GFR (Non-Af Amer) 32 POC Glucose (mg/dL) Random Glucose 298 H Hemoglobin A1c Calcium 9.8 Total Bilirubin 1.3 AST 26 ALT 20 Alkaline Phosphatase 67 Ammonia Troponin I 0.02 Total Protein 8.0 Albumin 4.6 Globulin 3.4 Albumin/Globulin Ratio 1.4 Triglycerides 256 H Cholesterol 238 H LDL Cholesterol Direct 134 H HDL Cholesterol 38 Alcohol, Quantitative Blood Type Antibody Screen BBK History Checked 03/01/19 03/01/19 03/01/19 15:24 15:24 16:34 WBC RBC Hgb Hct MCV MCH MCHC RDW Plt Count MPV Neut % (Auto) Lymph % (Auto) [place] % (Auto) Eos % (Auto) Baso % (Auto) Lymph # (Auto) [place] # (Auto) Eos # (Auto) Baso # (Auto) Absolute Neuts (auto) PT INR APTT Sodium Potassium Chloride Carbon Dioxide Anion Gap BUN Creatinine Est GFR ( Amer) Est GFR (Non-Af Amer) POC Glucose (mg/dL) Random Glucose Hemoglobin A1c 11.8 H Calcium Total Bilirubin AST ALT Alkaline Phosphatase Ammonia < 9 L Troponin I Total Protein Albumin Globulin Albumin/Globulin Ratio Triglycerides Cholesterol LDL Cholesterol Direct HDL Cholesterol Alcohol, Quantitative < 10 Blood Type Antibody Screen BBK History Checked 03/01/19 03/01/19 19:30 22:37 WBC RBC Hgb Hct MCV MCH MCHC RDW Plt Count MPV Neut % (Auto) Lymph % (Auto) [place] % (Auto) Eos % (Auto) Baso % (Auto) Lymph # (Auto) [place] # (Auto) Eos # (Auto) Baso # (Auto) Absolute Neuts (auto) PT INR APTT Sodium Potassium Chloride Carbon Dioxide Anion Gap BUN Creatinine Est GFR ( Amer) Est GFR (Non-Af Amer) POC Glucose (mg/dL) 217 H Random Glucose Hemoglobin A1c Calcium Total Bilirubin AST ALT Alkaline Phosphatase Ammonia Troponin I Total Protein Albumin Globulin Albumin/Globulin Ratio Triglycerides Cholesterol LDL Cholesterol Direct HDL Cholesterol Alcohol, Quantitative Blood Type O POSITIVE Antibody Screen Negative BBK History Checked Patient has bt Assessment & Plan - Assessment and Plan (Free Text) Plan: Assessment Confusion with acute renal failure, rule out new onset CVA, rule out toxic- metabolic encephalopathy CVA HTN dyslipidemia DM history of right hallux infection Plan will monitor off antibiotics - patient does not have WBC count elevation, no fevers, no meningeal signs will need MRI of the brain follow up Neurology evaluation and recommendations will check blood and urine cx CT head is negative for bleeding or masses, CXR does not show infiltrates, urinalysis is benign
--- NOTE | 2019-03-02 13:07 | CON ---
DATE OF CONSULTATION: 03/02/2019 CARDIOLOGY CONSULTATION HISTORY: The patient is a 59-year-old male, who presented with questionable altered mental status. Currently, the patient is awake. The patient's past medical history includes a CVA, which has left him with right-sided weakness as well as dysarthria. Whether the patient has an expressive aphasia is unclear. The patient's past medical history also includes previous ischemic dilated cardiomyopathy with an EF within the 30-30% range. His stress test that was done approximately a [id number]-[id number]-half ago shows no active ischemia, but is with a compromise and previous myocardial infarction. He suffers from hypertension, diabetes mellitus, and hypercholesterolemia. The patient is an active smoker. SOCIAL HISTORY: The patient lives at home. REVIEW OF SYSTEMS: No angina. No shortness of breath. No edema in the lower extremities. No other cardiac symptoms. PHYSICAL EXAMINATION: VITAL SIGNS: The blood pressure is 178/99, the heart rate is in the 80s. NECK: Negative JVD. LUNGS: Without rales. CARDIAC: Heart rate S1, S2. EXTREMITIES: Without edema. He has right-sided weakness. EKG shows an old inferior wall DC. Echocardiogram shows an ejection fraction of 30% range. LABORATORY DATA: Laboratories revealed a troponin is negative x1. BUN and creatinine are unremarkable. Glucose is 170. The hemoglobin is 15.3. IMPRESSION: 1. Questionable altered mental status, which is now resolved. 2. History of cerebrovascular accident with expressive aphasia and right-sided weakness. 3. History of myocardial infarction in the past. 4. No evidence for acute coronary syndrome. 5. Dilated ischemic cardiomyopathy. 6. Chronic obstructive pulmonary disease. 7. History of cerebrovascular accident. 8. Diabetes mellitus. PLAN: Given these findings, the patient's cardiac status is at its baseline. No arrhythmias noted. No active ischemia noted. We will discontinue telemetry today. No further cardiac workup is necessary at this time. Edilberto Carolina MD
--- NOTE | 2019-03-02 13:18 | CP.PCM.PCO ---
Additional Comments - Additional Comments Additional Comments: AMS, dehydration, RENEE resolved, PT eval pending, blood culture, urine culture results pending.
--- NOTE | 2019-03-02 14:26 | CON ---
DATE: 03/02/2019 NEUROLOGY CONSULTATION CHIEF COMPLAINT: Change in mental status. HISTORY OF PRESENT ILLNESS: This is a 59-year-old man with past medical history of left MCA stroke with residual spastic right-sided weakness and history of progressive aphasia. He can answer the questions by writing on a paper, history of type 2 diabetes mellitus, uncontrolled hypertension, dyslipidemia, history of questionable seizure in the past on Keppra 500 mg p.o. b.i.d., given enlarged extensive encephalomalacia in the left MCA territory, history of coronary artery disease status post stent, history of EtOH abuse, came in for change in mental status, was found to have a elevated blood sugars of 298 and elevated A1C of 11.8 indicating poorly controlled diabetes. He has a elevated cholesterol 238, elevated LDL of 134, triglycerides 256 is uncontrolled, given that he is a stroke patient and was also dehydrated for his baseline. At this time, he is communicating. He has residual spastic right-sided weakness from prior CVA and aphasia, but he answers questions by writing on the piece of paper without any difficulties. He still has elevated systolic and diastolic blood pressures which need to be addressed. His ammonia levels are 9. MRI of the brain if currently pending to assess causing symptoms. PAST MEDICAL HISTORY: As above. SOCIAL HISTORY: No illicit drug use, smoking or EtOH abuse. REVIEW OF SYSTEMS: A 10-point review of systems is negative except as per HPI. MEDICATIONS: Reviewed by nurse's reconciliation sheet. FAMILY HISTORY: Noncontributory. ALLERGIES: NO KNOWN DRUG ALLERGIES. LABORATORY DATA: Sodium is 142, potassium is 3.4, chloride 109, carbon dioxide 24, BUN of 35, creatinine 1.2, and random glucose of 170. PHYSICAL EXAMINATION GENERAL: The patient is seen up in bed. No acute distress. VITAL SIGNS: Temperature 97.1, pulse rate of 63, blood pressure of 156/96, respiratory rate 20, and oxygen saturation 96% on room air. HEENT: Atraumatic and normocephalic. PERRLA. Extraocular muscles intact. NECK: Supple. No JVD noted. No adenopathy noted. LUNGS: Clear to auscultation. No adventitious sounds. HEART: S1 and S2. No murmurs, rubs or gallops. ABDOMEN: Soft and nontender. Nondistended. Bowel sounds present. EXTREMITIES: No clubbing, no cyanosis. Peripheral pulses are 2+ felt bilaterally. NEUROLOGIC: The patient is alert, oriented to person, place, month, and year. His speech has Broca's type aphasia which was residual from his prior left MCA territory CVA. Cranial nerves II through XII are intact, residual right facial weakness from prior CVA. Motor exam: Spastic right upper and lower extremity weakness 4+ out of 5 and left side is intact, toes are equivocal. Sensory exam; decreased light touch to pinprick up to the calves bilaterally. Decreased vibration at the toes. DTRs are 2+ throughout and 1 at both knees and ankles. Coordination; [id number] intact, but difficult with spastic right-sided weakness. Gait is deferred for now. 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 RECOMMENDATIONS: At this time we will recommend; 1. Continue aspirin 81 mg and Lipitor 40 mg for stroke prevention. 2. Keep his blood sugar between 140 to 180 and A1C is 11.8 indicating poorly controlled diabetes, needs a diabetic diet and possible endocrinological evaluation for diabetic control. 3. Continue with Keppra 500 mg p.o. b.i.d., for seizure prophylaxis from left MCA due to encephalomalacia. 4. PT and OT evaluation and likely recommend subacute rehab. 5. MRI of the brain without contrast assess acute infarctions since the patient had elevated systolic and diastolic blood pressures. At this time blood pressure control was advised. Thank you for this consult. Ian Linda MD
[2019-03-02] MEDS: Sodium Chloride 0.45% 1,000 ML IV SCH (15:50)
--- NOTE | 2019-03-03 00:03 | CARD ---
APPROVED REPORT Date of service: 03/01/2019 EKG Measurement Heart [id number] <Conclusion> Normal sinus rhythm Left axis deviation Minimal voltage criteria for LVH, may be normal variant ST & T wave abnormality, consider lateral ischemia Abnormal ECG
[2019-03-03] MEDS: Sodium Chloride 0.45% 1,000 ML IV SCH ×2 (05:39→21:15)
[2019-03-03 07:34] LABS: HEMOGLOBIN 15.1 g/dL (14.0-18.0); MEAN CELL VOLUME 85.6 fl (80.0-105.0); MEAN CORPUSCULAR HEMOGLOBIN 29.4 pg (25.0-35.0); MEAN CORPUSCULAR HGB CONC 34.3 g/dl (31.0-37.0); MEAN PLATELET VOLUME 11.5 fl (7.0-11.0); RBC 5.14 10^6/uL (3.5-6.1); RED CELL DISTRIBUTION WIDTH 13.9 % (11.5-14.5); WHITE BLOOD COUNT 5.8 10^3/uL (4.5-11.0)
[2019-03-03 07:55] LABS: ALB/GLOB RATIO 1.2 (1.1-1.8); ALBUMIN 3.7 g/dL (3.0-4.8); ALT/SGPT 16 U/L (7-56); AST/SGOT 23 U/L (17-59); BLOOD UREA NITROGEN 37 mg/dL (7-21); CALCIUM 8.8 mg/dL (8.4-10.5); GFR NON-AFRICAN AMERICAN > 60
[2019-03-03] MEDS: Insulin Reg-MEDIUM-Coverage SC SCH ×4 (08:17→21:47)
[2019-03-03] MEDS: Pantoprazole 40 mg EC Tab PO SCH (08:18)
[2019-03-03] MEDS: levETIRAcetam 500mg IVPB 500 MG/100 ML BAG IVPB SCH ×2 (10:48→21:39)
[2019-03-03] MEDS: Divalproex 250 mg DR (BID formulation) PO SCH ×2 (10:50→18:48)
--- NOTE | 2019-03-03 11:12 | CP.PCM.PN ---
Subjective - Date & Time of Evaluation Date of Evaluation: 03/03/19 Time of Evaluation: 09:40 - Subjective Subjective: Patient is more awake and alert today, no fevers, not in distress, no chest pain, no SOB, no headache, no dysuria, no abdominal or suprapubic pain. Objective - Vital Signs/Intake and Output Vital Signs (last 24 hours): Temp Pulse Resp BP Pulse Ox 97.8 F 82 19 178/99 H 96 03/02/19 06:00 03/02/19 10:06 03/02/19 06:00 03/02/19 10:06 03/02/19 06:00 Intake and Output: 03/02/19 03/02/19 06:59 18:59 Intake Total 780 Output Total 300 Balance 480 - Medications Medications: Current Medications Alprazolam (Xanax) 0.25 mg PO TID PRN; Protocol PRN Reason: Anxiety Stop: 03/08/19 18:01 Last Admin: 03/02/19 10:07 Dose: 0.25 mg Amlodipine Besylate (Norvasc) 10 mg PO DAILY [facility] Last Admin: 03/02/19 10:06 Dose: 10 mg Aspirin (Ecotrin) 81 mg PO DAILY [facility] Last Admin: 03/02/19 10:05 Dose: 81 mg Atorvastatin Calcium (Lipitor) 40 mg PO DAILY [facility] Last Admin: 03/02/19 10:05 Dose: 40 mg Clonidine HCl (Catapres Tts1 0.1 Mg/24 Hr) 1 patch TD Q7D@1000 [facility] Last Admin: 03/01/19 19:52 Dose: 1 patch Divalproex Sodium (Depakote Dr (*Bid*)) 250 mg PO BID [facility]; Protocol Last Admin: 03/02/19 10:05 Dose: 250 mg Glipizide (Glucotrol) 10 mg PO BID [facility] Last Admin: 03/02/19 10:07 Dose: 10 mg Sodium Chloride (Sodium Chloride 0.45%) 1,000 mls @ 80 mls/hr IV .[id number] [facility] Last Admin: 03/01/19 18:45 Dose: 80 mls/hr Levetiracetam (Keppra 500mg Ivpb) 500 mg in 100 mls @ 200 mls/hr IVPB Q12H [facility] Last Admin: 04/19/19 10:05 Dose: 200 mls/hr Insulin Human Regular (Humulin R Med) 0 units SC ACHS [facility]; Protocol Last Admin: 03/01/19 23:00 Dose: Not Given Metoprolol Tartrate (Lopressor) 25 mg PO BID [facility] Last Admin: 03/02/19 10:06 Dose: 25 mg Pantoprazole Sodium (Protonix Ec Tab) 40 mg PO ACB [facility] Last Admin: 03/02/19 10:07 Dose: 40 mg Pregabalin (Lyrica) 200 mg PO TID [facility] Last Admin: 03/02/19 10:08 Dose: 200 mg - Labs Labs: 03/02/19 07:15 03/02/19 07:15 PT 11.7 SECONDS (9.4-12.5) 03/01/19 15:24 INR 1.05 03/01/19 15:24 APTT 32.4 Seconds (26.9-38.3) 03/01/19 15:24 - Constitutional Appears: No Acute Distress, Chronically Ill - Head Exam Head Exam: NORMAL INSPECTION - ENT Exam ENT Exam: Mucous Membranes Moist - Neck Exam Neck Exam: absent: Lymphadenopathy, Meningismus - Respiratory Exam Respiratory Exam: Decreased Breath Sounds - Cardiovascular Exam Cardiovascular Exam: +S1, +S2 - GI/Abdominal Exam GI & Abdominal Exam: Soft. absent: Tenderness Assessment and Plan - Assessment and Plan (Free Text) Plan: Assessment Confusion with acute renal failure, rule out new onset CVA, rule out toxic- metabolic encephalopathy Gram positive cocci in urine cx CVA HTN dyslipidemia DM history of right hallux infection Plan will repeat urine cx and gave a dose of IV Vancomycin - patient does not have WBC count elevation, no fevers, no meningeal signs, no urinary symptoms suggest MRI of the brain follow up Neurology evaluation and recommendations blood are negative CT head is negative for bleeding or masses, CXR does not show infiltrates, urinalysis is benign discussed with Dr. Tolentino
[2019-03-03] MEDS ORDERED: Vancomycin 1gm in NS 250ml 1 GM/250 ML BAG IVPB ONE (13:00)
--- NOTE | 2019-03-03 15:27 | MRI ---
Date of service: 03/03/2019 PROCEDURE: MRI BRAIN WITHOUT CONTRAST HISTORY: cva /ams COMPARISON: None available. TECHNIQUE: Multiplanar, multisequence MR images of the brain were obtained without intravenous contrast enhancement. FINDINGS: HEMORRHAGE: None DWI: No evidence of an acute or early subacute infarction. BRAIN PARENCHYMA: No mass effect or edema. Severe encephalomalacia is seen throughout the left hemispheric white matter. There is also left-sided atrophy. There is also an old infarct in the right cerebellar hemisphere. No acute findings VENTRICLES: Unremarkable. No hydrocephalus. CRANIUM: Unremarkable. ORBITS: Grossly unremarkable. PARANASAL SINUSES/MASTOIDS: Clear VASCULAR SYSTEM: Skull base flow voids intact. OTHER FINDINGS: None. IMPRESSION: Severe encephalomalacia is seen throughout the left hemispheric white matter. There is also left-sided atrophy. There is also an old infarct in the right cerebellar hemisphere. No acute findings
--- NOTE | 2019-03-03 15:37 | PN ---
DATE: 03/03/2019 SUBJECTIVE: He was completely today. This morning he was very alert and oriented, back to his baseline. He will need some physical therapy. He will have to go back on a diet, I think he is hungry. He is in good spirits and quite alert. He is being seen by multiple doctors, Infectious Disease, Neurology, Cardiology and Podiatry. He is on IV fluids, clonidine, Depakote, Ecotrin, glipizide, potassium, IV Keppra, Lipitor, metoprolol, Lyrica, Norvasc, Protonix and Xanax. He is now on a better diet. I will see if we get stop the Keppra as per the Neurology. PHYSICAL EXAMINATION: VITAL SIGNS: He has 97.9 temp, 72 pulse, 158/94 blood pressure, 20 respiratory rate and 98% O2 sat on room air. He has blood pressure this morning. HEENT: Head is atraumatic and normocephalic. He is much more alert, smiling, talking. Not lethargic. Much brighter in the face. HEART: Regular rate. LUNGS: Decreased breath sounds. ABDOMEN: Soft. EXTREMITIES: No edema. He has a toe ulcer, we called up Podiatry. It has been taking care of that in the patient. LABORATORY DATA: He has 5.8 white count, 15.1 hemoglobin, 44 hematocrit, and 113 platelets. Sodium 140, potassium 5.2, BUN 37, creatinine 1.2, when he came in he was 50 and 2.1 with 37 and 1.2 in the right direction. GFR is greater than 60, sugar is 221 must have tighten up the blood sugars, calcium is 8.8, total bili is 1, AST is 23, ALT is 16, alk phos is 51 and total protein is 6.8. ASSESSMENT AND PLAN: He has a Gram-positive cocci in the urine. I will talk to Infectious Disease about antibiotics. Physical therapy, continue aggressive treatment and care. He had renal insufficiency, dehydration, change in mentation, acute kidney injury, now with urinary tract infection. Alexis Tolentino DO [facility] # [id number] MTDD
--- NOTE | 2019-03-03 16:48 | CP.PCM.CON ---
<Dewayne May - Last Filed: 03/03/19 16:44> History of Present Illness - History of Present Illness History of Present Illness: Podiatry Consult Note for Dr. Lauren/Jodi 59M PMH CVA, HTN, dyslipidemia, DM seen and evaluated for right hallux wound. States that he is not sure how long the wound has been present and denies any pain to the area. Patient is AAO x 3 and NAD, resting comfortably in bed. Denies any acute overnight events or new pedal complaints. Denies any recent N/V/F/C/CP/SOB/D Review of Systems - Review of Systems All systems: reviewed and no additional remarkable complaints except Review of Systems: as per HPI Past Patient History - Infectious Disease Hx of Infectious Diseases: None - Tetanus Immunizations Tetanus Immunization: Unknown - Past Medical History & Family History Past Medical History?: Yes - Past Social History Smoking Status: Unknown If Ever Smoked - CARDIAC Hx Cardiac Disorders: Yes - PULMONARY Hx Chronic Obstructive Pulmonary Disease (COPD): Yes - NEUROLOGICAL HX Cerebrovascular Accident: Yes (with residual Rt UE paralysis, facial drrop and aphasia.) - HEENT Hx HEENT Problems: No - RENAL Hx Chronic Kidney Disease: No - ENDOCRINE/METABOLIC Hx Diabetes Mellitus Type 2: Yes - HEMATOLOGICAL/ONCOLOGICAL Hx Blood Disorders: No - INTEGUMENTARY Hx Dermatological Problems: No - MUSCULOSKELETAL/RHEUMATOLOGICAL Hx Falls: Yes Hx Unsteady Gait: Yes - GASTROINTESTINAL Hx Gastrointestinal Disorders: No - GENITOURINARY/GYNECOLOGICAL Hx Genitourinary Disorders: No - PSYCHIATRIC Hx Psychophysiologic Disorder: Yes (etoh use, pschiatric hospitalizations) Hx Substance Use: No (DENIES) - SURGICAL HISTORY Hx Cardiac Catheterization: Yes Hx Coronary Stent: Yes - ANESTHESIA Hx Anesthesia Reactions: No Meds Allergies/Adverse Reactions: Allergies Allergy/AdvReac Type Severity Reaction Status Date / Time No Known Allergies Allergy Verified 03/01/19 23:51 - Medications Medications: Current Medications Alprazolam (Xanax) 0.25 mg PO TID PRN; Protocol PRN Reason: Anxiety Stop: 03/08/19 18:01 Last Admin: 03/02/19 10:07 Dose: 0.25 mg Amlodipine Besylate (Norvasc) 10 mg PO DAILY [facility] Last Admin: 03/03/19 10:50 Dose: 10 mg Aspirin (Ecotrin) 81 mg PO DAILY [facility] Last Admin: 03/03/19 10:50 Dose: 81 mg Atorvastatin Calcium (Lipitor) 40 mg PO DAILY [facility] Last Admin: 03/03/19 10:51 Dose: 40 mg Clonidine HCl (Catapres Tts1 0.1 Mg/24 Hr) 1 patch TD Q7D@1000 [facility] Last Admin: 03/01/19 19:52 Dose: 1 patch Divalproex Sodium (Depakote Dr (*Bid*)) 250 mg PO BID [facility]; Protocol Last Admin: 03/03/19 10:50 Dose: 250 mg Glipizide (Glucotrol) 10 mg PO BID [facility] Last Admin: 03/03/19 10:50 Dose: 10 mg Sodium Chloride (Sodium Chloride 0.45%) 1,000 mls @ 80 mls/hr IV .[id number] [facility] Last Admin: 03/03/19 05:39 Dose: 80 mls/hr Levetiracetam (Keppra 500mg Ivpb) 500 mg in 100 mls @ 200 mls/hr IVPB Q12H [facility] Last Admin: 03/03/19 10:48 Dose: 200 mls/hr Insulin Human Regular (Humulin R Med) 0 units SC ACHS [facility]; Protocol Last Admin: 03/03/19 12:16 Dose: 8 units Metoprolol Tartrate (Lopressor) 25 mg PO BID [facility] Last Admin: 03/03/19 10:51 Dose: 25 mg Pantoprazole Sodium (Protonix Ec Tab) 40 mg PO ACB [facility] Last Admin: 03/03/19 08:18 Dose: 40 mg Pregabalin (Lyrica) 200 mg PO TID [facility] Last Admin: 03/03/19 14:46 Dose: 200 mg Physical Exam - Constitutional Appears: Well, Non-toxic, No Acute Distress - Extremities Exam Additional comments: RLE focused exam: Vasc: DP/PT pulses palpable 1/4 b/l. Skin temperature warm to warm from proximal to distal. CFT < 3 seconds to all digits. Minimal edema noted to right hallux Neuro: Epicritic and protective sensation grossly diminished b/l Derm: 0.6 x 0.3 x 0.2 cm ulceration noted to plantar aspect of right hallux. No erythema, malodor, drainage, fluctuance, tracking, tunneling, undermining or probe to bone appreciated. No other clinical signs of infection MSK: Minimal pain on palpation to ulceration site. No gross deformities noted - Neurological Exam Neurological exam: Alert, Oriented x3 - Psychiatric Exam Psychiatric exam: Normal Affect, Normal Mood Results - Vital Signs Recent Vital Signs: Last Vital Signs Temp 98.4 F 03/03/19 12:00 Pulse 59 L 03/03/19 12:00 Resp 20 03/03/19 12:00 BP 147/84 03/03/19 12:00 Pulse Ox 97 03/03/19 09:00 - Labs Result Diagrams: 03/03/19 06:30 03/03/19 16:00 Labs: Laboratory Results - last 24 hr 03/02/19 03/03/19 03/03/19 21:48 06:30 06:30 WBC 5.8 RBC 5.14 Hgb 15.1 Hct 44.0 MCV 85.6 MCH 29.4 MCHC 34.3 RDW 13.9 Plt Count 113 L MPV 11.5 H Sodium 140 Potassium 5.2 H Chloride 109 H Carbon Dioxide 23 Anion Gap 13 BUN 37 H Creatinine 1.2 Est GFR ( Amer) > 60 Est GFR (Non-Af Amer) > 60 POC Glucose (mg/dL) 144 H Random Glucose 221 H Calcium 8.8 Total Bilirubin 1.0 AST 23 ALT 16 Alkaline Phosphatase 51 Total Protein 6.8 Albumin 3.7 Globulin 3.1 Albumin/Globulin Ratio 1.2 03/03/19 03/03/19 03/03/19 07:41 16:00 16:02 WBC RBC Hgb Hct MCV MCH MCHC RDW Plt Count MPV Sodium Potassium 4.2 Chloride Carbon Dioxide Anion Gap BUN Creatinine Est GFR ( Amer) Est GFR (Non-Af Amer) POC Glucose (mg/dL) 228 H 92 Random Glucose Calcium Total Bilirubin AST ALT Alkaline Phosphatase Total Protein Albumin Globulin Albumin/Globulin Ratio Assessment & Plan - Assessment and Plan (Free Text) Assessment: 59M seen for right hallux ulceration Plan: Patient seen and evaluated with Dr. Lauren Afebrile, absent leukocytosis Wound dressed with xeroform, DSD No plan for surgical intervention at this time Podiatry will continue to follow while patient in house - Date & Time Date: 03/03/19 Time: 16:50 <Israel Lauren - Last Filed: 03/06/19 08:28> Results - Vital Signs Recent Vital Signs: Last Vital Signs Temp 97.6 F 03/05/19 08:55 Pulse 64 03/05/19 09:17 Resp 20 03/05/19 08:55 BP 160/86 H 03/05/19 09:18 Pulse Ox 96 03/05/19 08:55 - Labs Result Diagrams: 03/05/19 05:30 03/05/19 05:30 Attending/Attestation - Attestation I have personally seen and examined this patient.: Yes I have fully participated in the care of the patient.: Yes I have reviewed all pertinent clinical information: Yes
[2019-03-04 07:06] LABS: HEMOGLOBIN 15.4 g/dL (14.0-18.0); MEAN CELL VOLUME 84.4 fl (80.0-105.0); MEAN CORPUSCULAR HEMOGLOBIN 29.6 pg (25.0-35.0); MEAN CORPUSCULAR HGB CONC 35.1 g/dl (31.0-37.0); MEAN PLATELET VOLUME 11.9 fl (7.0-11.0); RBC 5.2 10^6/uL (3.5-6.1); RED CELL DISTRIBUTION WIDTH 13.7 % (11.5-14.5); WHITE BLOOD COUNT 6.9 10^3/uL (4.5-11.0)
[2019-03-04 07:30] LABS: ALB/GLOB RATIO 1.1 (1.1-1.8); ALBUMIN 3.6 g/dL (3.0-4.8); ALT/SGPT 17 U/L (7-56); AST/SGOT 25 U/L (17-59); BLOOD UREA NITROGEN 25 mg/dL (7-21); CALCIUM 8.7 mg/dL (8.4-10.5); GFR NON-AFRICAN AMERICAN > 60
[2019-03-04] MEDS: Pantoprazole 40 mg EC Tab PO SCH (08:15)
[2019-03-04] MEDS: Insulin Reg-MEDIUM-Coverage SC SCH ×4 (08:15→21:33)
[2019-03-04] MEDS: levETIRAcetam 500mg IVPB 500 MG/100 ML BAG IVPB SCH ×2 (09:50→21:34)
[2019-03-04] MEDS: Divalproex 250 mg DR (BID formulation) PO SCH ×2 (09:52→17:31)
--- NOTE | 2019-03-04 11:36 | CP.PCM.PN ---
<Dewayne May - Last Filed: 03/04/19 11:33> Subjective - Date & Time of Evaluation Date of Evaluation: 03/04/19 Time of Evaluation: 11:33 - Subjective Subjective: Podiatry Consult Note for Dr. Lauren/Jodi 59M seen and evaluated for right hallux wound. Patient is AAO x 3 and NAD, denies any acute overnight events or new pedal complaints. Denies any recent N/V/F/C/CP/SOB/D Objective - Vital Signs/Intake and Output Vital Signs (last 24 hours): Temp Pulse Resp BP Pulse Ox 97.4 F L 74 20 152/88 H 96 03/04/19 08:45 03/04/19 09:51 03/04/19 08:45 03/04/19 09:51 03/04/19 08:45 Intake and Output: 03/04/19 03/04/19 06:59 18:59 Intake Total 740 Balance 740 - Medications Medications: Current Medications Alprazolam (Xanax) 0.25 mg PO TID PRN; Protocol PRN Reason: Anxiety Stop: 03/08/19 18:01 Last Admin: 03/02/19 10:07 Dose: 0.25 mg Amlodipine Besylate (Norvasc) 10 mg PO DAILY [facility] Last Admin: 03/04/19 09:51 Dose: 10 mg Aspirin (Ecotrin) 81 mg PO DAILY [facility] Last Admin: 03/04/19 09:51 Dose: 81 mg Atorvastatin Calcium (Lipitor) 40 mg PO DAILY [facility] Last Admin: 03/04/19 09:51 Dose: 40 mg Clonidine HCl (Catapres Tts1 0.1 Mg/24 Hr) 1 patch TD Q7D@1000 [facility] Last Admin: 03/01/19 19:52 Dose: 1 patch Divalproex Sodium (Depakote Dr (*Bid*)) 250 mg PO BID [facility]; Protocol Last Admin: 03/04/19 09:52 Dose: 250 mg Glipizide (Glucotrol) 10 mg PO BID [facility] Last Admin: 03/04/19 09:51 Dose: 10 mg Sodium Chloride (Sodium Chloride 0.45%) 1,000 mls @ 80 mls/hr IV .[id number] [facility] Last Admin: 03/03/19 21:15 Dose: 80 mls/hr Levetiracetam (Keppra 500mg Ivpb) 500 mg in 100 mls @ 200 mls/hr IVPB Q12H [facility] Last Admin: 03/04/19 09:50 Dose: 200 mls/hr Insulin Human Regular (Humulin R Med) 0 units SC ACHS [facility]; Protocol Last Admin: 03/04/19 08:15 Dose: 1 units Metoprolol Tartrate (Lopressor) 25 mg PO BID [facility] Last Admin: 03/04/19 09:51 Dose: 25 mg Pantoprazole Sodium (Protonix Ec Tab) 40 mg PO ACB [facility] Last Admin: 03/04/19 08:15 Dose: 40 mg Pregabalin (Lyrica) 200 mg PO TID [facility] Last Admin: 03/04/19 09:51 Dose: 200 mg - Labs Labs: 03/04/19 06:00 03/04/19 06:00 PT 11.7 SECONDS (9.4-12.5) 03/01/19 15:24 INR 1.05 03/01/19 15:24 APTT 32.4 Seconds (26.9-38.3) 03/01/19 15:24 - Constitutional Appears: Well, Non-toxic, No Acute Distress - Extremities Exam Additional comments: RLE focused exam: Vasc: DP/PT pulses palpable 1/4 b/l. Skin temperature warm to warm from proximal to distal. CFT < 3 seconds to all digits. Minimal edema noted to right hallux Neuro: Epicritic and protective sensation grossly diminished b/l Derm: 0.6 x 0.3 x 0.2 cm ulceration noted to plantar aspect of right hallux. No erythema, malodor, drainage, fluctuance, tracking, tunneling, undermining or probe to bone appreciated. No other clinical signs of infection MSK: Minimal pain on palpation to ulceration site. No gross deformities noted - Neurological Exam Neurological Exam: Alert, Awake, Oriented x3 - Psychiatric Exam Psychiatric exam: Normal Affect, Normal Mood Assessment and Plan - Assessment and Plan (Free Text) Assessment: 59M seen and evaluated for right hallux wound Plan: Patient seen and evaluated Plan discussed with Dr. Lauren Afebrile, absent leukocytosis Wound dressed with xeroform, DSD No plan for surgical intervention at this time Podiatry will continue to follow while patient in house <Israel Lauren - Last Filed: 03/06/19 08:25> Objective - Vital Signs/Intake and Output Vital Signs (last 24 hours): Temp Pulse Resp BP Pulse Ox 97.6 F 64 20 160/86 H 96 03/05/19 08:55 03/05/19 09:17 03/05/19 08:55 03/05/19 09:18 03/05/19 08:55 - Labs Labs: 03/05/19 05:30 03/05/19 05:30 PT 11.7 SECONDS (9.4-12.5) 03/01/19 15:24 INR 1.05 03/01/19 15:24 APTT 32.4 Seconds (26.9-38.3) 03/01/19 15:24 Attending/Attestation - Attestation I have personally seen and examined this patient.: Yes I have fully participated in the care of the patient.: Yes I have reviewed all pertinent clinical information, including history, physical exam and plan: Yes
--- NOTE | 2019-03-04 13:36 | CP.PCM.PN ---
Subjective - Date & Time of Evaluation Date of Evaluation: 03/04/19 Time of Evaluation: 12:45 - Subjective Subjective: DATE: 03/04/2019 NEUROLOGY F/U: CHIEF COMPLAINT: Change in mental status. SUBJECTIVE: MRI brain showed enlarged extensive encephalomalacia in the left MCA territory. No acute events. He has residual spastic right side weakness and residual brocas aphasia. No Seizure. PAST MEDICAL HISTORY: As above. SOCIAL HISTORY: No illicit drug use, smoking or EtOH abuse. REVIEW OF SYSTEMS: A 10-point review of systems is negative except as per HPI. MEDICATIONS: Reviewed by nurse's reconciliation sheet. FAMILY HISTORY: Noncontributory. ALLERGIES: NO KNOWN DRUG ALLERGIES. LABORATORY DATA: Sodium is 142, potassium is 3.4, chloride 109, carbon dioxide 24, BUN of 35, creatinine 1.2, and random glucose of 170. PHYSICAL EXAMINATION GENERAL: The patient is seen up in bed. No acute distress. VITAL SIGNS: Reviewed. HEENT: Atraumatic and normocephalic. PERRLA. Extraocular muscles intact. NECK: Supple. No JVD noted. No adenopathy noted. LUNGS: Clear to auscultation. No adventitious sounds. HEART: S1 and S2. No murmurs, rubs or gallops. ABDOMEN: Soft and nontender. Nondistended. Bowel sounds present. EXTREMITIES: No clubbing, no cyanosis. Peripheral pulses are 2+ felt bilaterally. NEUROLOGIC: The patient is alert, oriented to person, place, month, and year. His speech has Broca's type aphasia which was residual from his prior left MCA territory CVA. Cranial nerves II through XII are intact, residual right facial weakness from prior CVA. Motor exam: Spastic right upper and lower extremity weakness 4+ out of 5 and left side is intact, toes are equivocal. Sensory exam; decreased light touch to pinprick up to the calves bilaterally. Decreased vibration at the toes. DTRs are 2+ throughout and 1 at both knees and ankles. Coordination; [id number] intact, but difficult with spastic right-sided weakness. Gait is deferred for now. 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 RECOMMENDATIONS: At this time we will recommend; 1. Continue aspirin 81 mg and Lipitor 40 mg for stroke prevention. 2. Keep his blood sugar between 140 to 180 and A1C is 11.8 indicating poorly controlled diabetes, needs a diabetic diet and possible endocrinological evaluation for diabetic control. 3. Continue with Keppra 500 mg p.o. b.i.d., for seizure prophylaxis from left MCA due to encephalomalacia. 4. PT and OT evaluation and likely recommend subacute rehab. Thank you. Ian Linda MD Objective - Vital Signs/Intake and Output Vital Signs (last 24 hours): Temp Pulse Resp BP Pulse Ox 97.4 F L 74 20 152/88 H 96 03/04/19 08:45 03/04/19 09:51 03/04/19 08:45 03/04/19 09:51 03/04/19 08:45 Intake and Output: 03/04/19 03/04/19 06:59 18:59 Intake Total 740 Balance 740 - Medications Medications: Current Medications Alprazolam (Xanax) 0.25 mg PO TID PRN; Protocol PRN Reason: Anxiety Stop: 03/08/19 18:01 Last Admin: 03/02/19 10:07 Dose: 0.25 mg Amlodipine Besylate (Norvasc) 10 mg PO DAILY [facility] Last Admin: 03/04/19 09:51 Dose: 10 mg Aspirin (Ecotrin) 81 mg PO DAILY [facility] Last Admin: 03/04/19 09:51 Dose: 81 mg Atorvastatin Calcium (Lipitor) 40 mg PO DAILY [facility] Last Admin: 03/04/19 09:51 Dose: 40 mg Clonidine HCl (Catapres Tts1 0.1 Mg/24 Hr) 1 patch TD Q7D@1000 [facility] Last Admin: 03/01/19 19:52 Dose: 1 patch Divalproex Sodium (Depakote Dr (*Bid*)) 250 mg PO BID [facility]; Protocol Last Admin: 03/04/19 09:52 Dose: 250 mg Glipizide (Glucotrol) 10 mg PO BID [facility] Last Admin: 03/04/19 09:51 Dose: 10 mg Sodium Chloride (Sodium Chloride 0.45%) 1,000 mls @ 80 mls/hr IV .[id number] [facility] Last Admin: 03/03/19 21:15 Dose: 80 mls/hr Levetiracetam (Keppra 500mg Ivpb) 500 mg in 100 mls @ 200 mls/hr IVPB Q12H [facility] Last Admin: 03/04/19 09:50 Dose: 200 mls/hr Insulin Human Regular (Humulin R Med) 0 units SC ACHS [facility]; Protocol Last Admin: 03/04/19 12:48 Dose: 8 units Metoprolol Tartrate (Lopressor) 25 mg PO BID [facility] Last Admin: 03/04/19 09:51 Dose: 25 mg Pantoprazole Sodium (Protonix Ec Tab) 40 mg PO ACB [facility] Last Admin: 03/04/19 08:15 Dose: 40 mg Pregabalin (Lyrica) 200 mg PO TID [facility] Last Admin: 03/04/19 13:14 Dose: 200 mg - Labs Labs: 03/04/19 06:00 03/04/19 06:00 PT 11.7 SECONDS (9.4-12.5) 03/01/19 15:24 INR 1.05 03/01/19 15:24 APTT 32.4 Seconds (26.9-38.3) 03/01/19 15:24
--- NOTE | 2019-03-04 15:22 | PN ---
DATE: 03/04/2019 SUBJECTIVE: When he came in, he was very lethargic, he was very out of it. He was not talking, was not arousable. He had change in mental status, he had renal insufficiency. He has history of an old CVA. He also had a positive Gram-positive cocci in the urine which was now treated by Infectious Disease. He has right weakness secondary to an old stroke. The problem is when he came in, he was very lethargic and physical therapy recommended [facility], subacute rehab. He does not want to go there. He is much better now. He is much more alert. He is much stronger. I am hoping if they can take another look at him and say it is okay for him to go home, I will discharge him home. Right now though with the [facility] recommendation, I can safely discharge him home. He is still on IV fluids, clonidine, Depakote, Ecotrin, Glucotrol, Keppra IV, Lipitor, metoprolol, Lyrica, Norvasc, Protonix, vancomycin one dose and Xanax. When I get the okay from physical therapy that he can be discharged home, I will discharge him but he refuses to go to [facility] which is a problem. Hopefully by tomorrow, we will have it worked out and he will be doing much better with physical therapy and I can discharge him home. Alexis Tolentino DO
--- NOTE | 2019-03-04 23:24 | PN ---
DATE: 03/04/2019 SUBJECTIVE: The patient is in bed, in no acute distress, nontoxic. PHYSICAL EXAMINATION: VITAL SIGNS: Temperature is 97, blood pressure is 140/80 and respiratory rate of 18. HEENT: Unremarkable. NECK: Supple. LUNGS: Decreased breath sounds. HEART: Normal S1 and S2. ABDOMEN: Soft, nontender. LABORATORY DATA: Reveals a white count of 6.9, hemoglobin of 16. Chemistry reveals a BUN of 25, creatinine of 1. Urinalysis is noted. Toxicology is reviewed. Microbiology reveals the blood cultures were negative. Urine culture is noted. MRI of the brain is noted and Dr. Ian Linda's progress note from today is reviewed. MEDICATIONS: Review of orders reveals the patient to be off of antibiotics. ASSESSMENT AND PLAN: A 59-yea-old male who was seen in room 372, bed 1 with confusion, acute renal failure and new onset of cerebrovascular accident, currently off of antibiotics. The patient with a history of cerebrovascular accident, hypertension, dyslipidemia, and diabetes with left middle cerebral artery territory infarct with residual Broca's type aphasia and a spastic right-sided weakness, history of multiple seizures on Keppra. The patient is at risk for developing nosocomial infections. We will follow with you. Ankit Power MD
[2019-03-05 07:37] LABS: HEMOGLOBIN 15.7 g/dL (14.0-18.0); MEAN CELL VOLUME 84.4 fl (80.0-105.0); MEAN CORPUSCULAR HEMOGLOBIN 29.1 pg (25.0-35.0); MEAN CORPUSCULAR HGB CONC 34.5 g/dl (31.0-37.0); MEAN PLATELET VOLUME 12.2 fl (7.0-11.0); RBC 5.39 10^6/uL (3.5-6.1); RED CELL DISTRIBUTION WIDTH 13.8 % (11.5-14.5); WHITE BLOOD COUNT 8.1 10^3/uL (4.5-11.0)
[2019-03-05] MEDS: Insulin Reg-MEDIUM-Coverage SC SCH (07:52)
[2019-03-05 08:02] LABS: ALB/GLOB RATIO 1.2 (1.1-1.8); ALT/SGPT 15 U/L (7-56); AST/SGOT 23 U/L (17-59); BLOOD UREA NITROGEN 30 mg/dL (7-21); CALCIUM 9.1 mg/dL (8.4-10.5); GFR NON-AFRICAN AMERICAN > 60
[2019-03-05 08:55] VITALS: RESP 20; TEMP 97.6; O2SAT 96
[2019-03-05] MEDS: Divalproex 250 mg DR (BID formulation) PO SCH (09:17)
[2019-03-05] MEDS: levETIRAcetam 500mg IVPB 500 MG/100 ML BAG IVPB SCH (09:18)
[2019-03-05] MEDS: Pantoprazole 40 mg EC Tab PO SCH (09:18)
[2019-03-05 09:19] VITALS: BP 160/86; PULSE 64
--- NOTE | 2019-03-05 10:40 | CP.PCM.PN ---
Subjective - Date & Time of Evaluation Date of Evaluation: 03/05/19 Time of Evaluation: 10:38 - Subjective Subjective: Podiatry Consult Note for Dr. Lauren/Jodi 59M seen and evaluated for right hallux wound. Patient is AAO x 3 and NAD, denies any acute overnight events or new pedal complaints. Denies any recent N/V/F/C/CP/SOB/D Objective - Vital Signs/Intake and Output Vital Signs (last 24 hours): Temp Pulse Resp BP Pulse Ox 97.6 F 64 20 160/86 H 96 03/05/19 08:55 03/05/19 09:17 03/05/19 08:55 03/05/19 09:18 03/05/19 08:55 Intake and Output: 03/05/19 03/05/19 06:59 18:59 Intake Total 240 Balance 240 - Medications Medications: Current Medications Acetaminophen (Tylenol 325mg Tab) 650 mg PO Q4H PRN PRN Reason: Pain, Mild (1-3) Last Admin: 03/04/19 17:30 Dose: 650 mg Alprazolam (Xanax) 0.25 mg PO TID PRN; Protocol PRN Reason: Anxiety Stop: 03/08/19 18:01 Last Admin: 03/02/19 10:07 Dose: 0.25 mg Amlodipine Besylate (Norvasc) 10 mg PO DAILY [facility] Last Admin: 03/05/19 09:18 Dose: 10 mg Aspirin (Ecotrin) 81 mg PO DAILY [facility] Last Admin: 03/05/19 09:18 Dose: 81 mg Atorvastatin Calcium (Lipitor) 40 mg PO DAILY [facility] Last Admin: 03/05/19 09:18 Dose: 40 mg Clonidine HCl (Catapres Tts1 0.1 Mg/24 Hr) 1 patch TD Q7D@1000 [facility] Last Admin: 03/01/19 19:52 Dose: 1 patch Divalproex Sodium (Depcal Dr (*Bid*)) 250 mg PO BID [facility]; Protocol Last Admin: 03/05/19 09:17 Dose: 250 mg Glipizide (Glucotrol) 10 mg PO BID [facility] Last Admin: 03/05/19 09:18 Dose: 10 mg Sodium Chloride (Sodium Chloride 0.45%) 1,000 mls @ 80 mls/hr IV .[id number] [facility] Last Admin: 03/03/19 21:15 Dose: 80 mls/hr Levetiracetam (Keppra 500mg Ivpb) 500 mg in 100 mls @ 200 mls/hr IVPB Q12H [facility] Last Admin: 03/05/19 09:18 Dose: 200 mls/hr Insulin Human Regular (Humulin R Med) 0 units SC ACHS [facility]; Protocol Last Admin: 03/05/19 07:52 Dose: 1 units Metoprolol Tartrate (Lopressor) 25 mg PO BID [facility] Last Admin: 03/05/19 09:17 Dose: 25 mg Pantoprazole Sodium (Protonix Ec Tab) 40 mg PO ACB [facility] Last Admin: 03/05/19 09:18 Dose: 40 mg Pregabalin (Lyrica) 200 mg PO TID [facility] Last Admin: 03/05/19 09:18 Dose: 200 mg - Labs Labs: 03/05/19 05:30 03/05/19 05:30 PT 11.7 SECONDS (9.4-12.5) 03/01/19 15:24 INR 1.05 03/01/19 15:24 APTT 32.4 Seconds (26.9-38.3) 03/01/19 15:24 - Constitutional Appears: Well, Non-toxic, No Acute Distress - Head Exam Head Exam: ATRAUMATIC, NORMOCEPHALIC - Extremities Exam Additional comments: RLE focused exam: Vasc: DP/PT pulses palpable 1/4 b/l. Skin temperature warm to warm from proximal to distal. CFT < 3 seconds to all digits. Minimal edema noted to right hallux Neuro: Epicritic and protective sensation grossly diminished b/l Derm: 0.6 x 0.3 x 0.2 cm ulceration noted to plantar aspect of right hallux. No erythema, malodor, drainage, fluctuance, tracking, tunneling, undermining or probe to bone appreciated. No other clinical signs of infection MSK: Minimal pain on palpation to ulceration site. No gross deformities noted - Neurological Exam Neurological Exam: Alert, Awake, Oriented x3 - Psychiatric Exam Psychiatric exam: Normal Affect, Normal Mood Assessment and Plan - Assessment and Plan (Free Text) Assessment: 59M seen and evaluated for right hallux wound Plan: Patient seen and evaluated with Dr. Zapata Plan discussed Afebrile, absent leukocytosis Wound dressed with xeroform, DSD Patient strongly advised to followup in office for a brace due to dropfoot No plan for surgical intervention at this time Podiatry will continue to follow while patient in house
--- NOTE | 2019-03-05 19:24 | PN ---
DATE: 03/05/2019 LOCATION: The patient is seen in room 372, bed 1. SUBJECTIVE: The patient is seen earlier today. No fevers and no chills. No nausea. PHYSICAL EXAMINATION: VITAL SIGNS: Temperature is 98, blood pressure is 150/90, respiratory rate 20, heart rate of 56. HEENT: Unremarkable. NECK: Supple. LUNGS: Decreased breath sounds. HEART: Normal S1 and S2. ABDOMEN: Soft, nontender. LABORATORY EXAMINATION: Reveals a white count of 8.1. Chemistries are noted. Urinalysis is noted. Toxicology is noted. Microbiology reveals the urine culture gram-positive cocci. ASSESSMENT AND PLAN: This is a 59-year-old male who was seen earlier today in 372, bed 1 who was admitted with acute renal failure, new onset of cerebrovascular accident, history of cerebrovascular accident, hypertension, dyslipidemia, diabetes with a left middle cerebral artery territory infarct and residual Broca's type aphasia with spastic right-sided weakness, multiple seizures, on Keppra, developing nosocomial infections, is at risk patient for discharge today, off of antibiotics. Ankit Power MD
--- NOTE | 2019-03-06 02:08 | DS ---
HISTORY OF PRESENT ILLNESS: I see him sitting out of bed to chair. He looks back to his baseline. He is comfortable. He said he walked a little bit. He is eating okay. He has got no pain. He feels okay. He is on Catapres Depakote Ecotrin, Glucophage, insulin, Keppra, Lipitor, Lopressor Lyrica, Norvasc, Protonix, IV fluids, Tylenol, and Xanax. He wants to go home. He is feeling a lot better. He is now off of IV antibiotics. PHYSICAL EXAMINATION VITAL SIGNS: He has a 97.4 temperature, 64 pulse, 146/82 blood pressure, 19 respiratory rate and 98% O2 sat on room air. HEENT: Head; atraumatic, normocephalic. HEART: Regular rate. LUNGS: With decreased breath sounds but clear. ABDOMEN: Soft. EXTREMITIES: No edema. He does have right-sided weakness from an old CVA. LABORATORY DATA: He has a 8.1 white count, 15.7 hemoglobin, 45.5 hematocrit with a 127 platelets. He has a 142 sodium, potassium 3.8, BUN is 30, creatinine 1.1, GFR is greater than 60, sugar is 198, calcium is 9.1, total bili is 1.4. AST is 23, ALT is 15, alk phos is 54, total protein is 7.2. Microbiology has gram-positive cocci. ASSESSMENT AND PLAN: When he came in he had a change in mentation, renal insufficiency, acute kidney injury, urinary tract infection and now he is much better. Infectious Disease chose not to treat and plan is to discharge him home today with the same medications he takes at home. He was seen by Physical Therapy and recommended subacute rehab, but he will not go, he refuses. I will discharge him home with outpatient services. Hopefully he will do well. Alexis Tolentino DO
== END 2019-03-05 13:13 | disposition home or self-care (01) | DRG 638 ==
LOC: ED 15:07 → OBSVTOIN 16:56 → ERH 16:56 → 2RSO 22:04 → 3RSO 03-03 15:45
PROVIDERS: ADMIT Family Medicine; ATTEND Family Medicine
DX: E11.65 Type 2 diabetes mellitus with hyperglycemia (principal); I69.351 Hemiplegia and hemiparesis following cerebral infarction affecting right dominant side; I42.0 Dilated cardiomyopathy; N17.9 Acute kidney failure, unspecified; N39.0 Urinary tract infection, site not specified; I69.320 Aphasia following cerebral infarction; E86.0 Dehydration; J44.9 Chronic obstructive pulmonary disease, unspecified; I25.5 Ischemic cardiomyopathy; I10 Essential (primary) hypertension; I25.10 Atherosclerotic heart disease of native coronary artery without angina pectoris; E11.621 Type 2 diabetes mellitus with foot ulcer; R56.9 Unspecified convulsions; R29.810 Facial weakness; R26.2 Difficulty in walking, not elsewhere classified; F17.200 Nicotine dependence, unspecified, uncomplicated; F10.10 Alcohol abuse, uncomplicated; G93.89 Other specified disorders of brain; L97.519 Non-pressure chronic ulcer of other part of right foot with unspecified severity; E78.00 Pure hypercholesterolemia, unspecified; E78.5 Hyperlipidemia, unspecified; I25.2 Old myocardial infarction; Z95.5 Presence of coronary angioplasty implant and graft

== ENCOUNTER 2019-04-11 13:24 | Observation (INO) | payer MEDICARE ==
[2019-04-11 13:25] VITALS: BMI 19.2
[2019-04-11 13:39] VITALS: TEMP 97.6
--- NOTE | 2019-04-11 14:10 | ED PDOC ---
Arrival/HPI - General Historian: Patient - History of Present Illness Narrative History of Present Illness (Text): 04/11/19 14:05 CC: facial droop, dysarthria HPI: 59 yo male w/ PMH of CVA (w/ right upper extremity weakness and contracture), HTN, CAD, DM2 presents to ED for evaluation of dysarthria and facial droop. Patient states the symptoms started 5 days ago but did not come then because he thought the symptoms would go away. Patient states he did not take any of his medications today because he decided he should come to hospital. Patient denies taking aspirin daily although on prior documentation from a month ago, it is mentioned that patient should be on aspirin. Patient states that he has no other weaknesses. Patient states that he has had no difficulty speaking prior to this event 5 days ago but on prior documentation it is listed that patient has expressive aphasia. Denies any other areas of focal weakness. Denies fevers, chills, chest pain, sob, n/v, constipation or diarrhea, and dysuria. Time/Duration: < week Symptom Onset: Sudden Symptom Course: Unchanged Activities at Onset: Rest <Missy Torres - Last Filed: 04/11/19 15:14> - History of Present Illness Associated Symptoms (Text): 04/11/19 14:30 Seen and examined with the resident. Our history and physical exam reveals a gentleman with a 5-day history of a facial droop. Patient is very difficult to understand and comprehend secondary to an old CVA with right-sided weakness right facial droop and expressive aphasia. <Keyon Holley - Last Filed: 04/11/19 15:41> - General Chief Complaint: Weakness/Neurological Deficit Time Seen by Provider: 04/11/19 13:41 Past Medical History - Provider Review Nursing Documentation Reviewed: Yes - Infectious Disease Hx of Infectious Diseases: None - Tetanus Immunization Tetanus Immunization: Unknown - Past Medical History Past Medical History: Unable to Obtain - Cardiac Hx Cardiac Disorders: Yes - Pulmonary Hx Chronic Obstructive Pulmonary Disease (COPD): Yes - Neurological HX Cerebrovascular Accident: Yes (R sided weakness) - HEENT Hx HEENT Disorder: No - Renal Hx Renal Disorder: No - Endocrine/Metabolic Hx Diabetes Mellitus Type 2: Yes - Hematological/Oncological Hx Blood Disorders: No - Integumentary Hx Dermatological Disorder: No - Musculoskeletal/Rheumatological Hx Falls: Yes Hx Unsteady Gait: Yes - Gastrointestinal Hx Gastrointestinal Disorders: No - Genitourinary/Gynecological Hx Genitourinary Disorders: No - Psychiatric Hx Psychophysiologic Disorder: Yes (etoh use, pschiatric hospitalizations) Hx Substance Use: No (DENIES) - Past Surgical History Past Surgical History: No Previous - Surgical History Hx Cardiac Catheterization: Yes Hx Coronary Stent: Yes - Anesthesia Hx Anesthesia Reactions: No - Suicidal Assessment Feels Threatened In Home Enviroment: No <Brian,Madaser - Last Filed: 04/11/19 15:14> Family/Social History - Physician Review Nursing Documentation Reviewed: Yes Family/Social History: No Known Family HX Smoking Status: Current Some Days Smoker Hx Alcohol Use: No Hx Substance Use: No (DENIES) Hx Substance Use Treatment: No <Brian,Madaser - Last Filed: 04/11/19 15:14> Allergies/Home Meds <Brian,Madaser - Last Filed: 04/11/19 15:14> <Keyon Holley - Last Filed: 04/11/19 15:41> Allergies/Adverse Reactions: Allergies No Known Allergies Allergy (Verified 03/01/19 23:51) Home Medications: Home Meds Medication Instructions Recorded Confirmed Alprazolam [Xanax] 0.25 mg PO DAILY 10/06/18 03/01/19 Esomeprazole Sodium 40 mg PO DAILY 10/06/18 03/01/19 Insulin Glargine,Hum.rec.anlog 10 unit SQ HS 10/06/18 03/01/19 [Lantus] Metoprolol Tartrate [Lopressor] 25 mg PO BID 10/06/18 03/01/19 amLODIPine [Norvasc] 10 mg PO DAILY 10/06/18 03/01/19 Review of Systems - Review of Systems Constitutional: Normal. absent: Fatigue, Weight Change, Fevers Eyes: Normal. absent: Vision Changes, Photophobia ENT: Normal. absent: Hearing Changes, Tinnitus Respiratory: Normal, Sputum. absent: SOB, Cough Cardiovascular: Normal. absent: Chest Pain, Palpitations, Edema Gastrointestinal: Normal. absent: Abdominal Pain, Stool Changes, Constipation Genitourinary Male: Normal. absent: Dysuria, Frequency, Hematuria Musculoskeletal: Normal. absent: Arthralgias, Back Pain, Neck Pain Skin: Normal. absent: Rash, Pruritis, Skin Lesions, Laceration Neurological: Speech Changes, Facial Droop. absent: Normal Endocrine: Normal. absent: Diaphoresis, Polyuria, Polydipsia Hemo/Lymphatic: Normal. absent: Adenopathy, Easy Bleeding Psychiatric: Normal. absent: Anxiety, Depression <Brian,Madaser - Last Filed: 04/11/19 15:14> Physical Exam Vital Signs Reviewed: Yes Vital Signs Temp Pulse Resp BP Pulse Ox 04/11/19 13:33 97.6 F 90 15 194/106 H 100 Temperature: Afebrile Blood Pressure: Hypertensive Pulse: Regular Respiratory Rate: Normal Appearance: Positive for: Uncomfortable Pain Distress: None Mental Status: Positive for: Alert and Oriented X 3 - Systems Exam Head: Present: Atraumatic, Normocephalic Pupils: Present: PERRL Extroacular Muscles: Present: EOMI Conjunctiva: Present: Normal Mouth: Present: Moist Mucous Membranes Neck: Present: Normal Range of Motion Respiratory/Chest: Present: Clear to Auscultation, Good Air Exchange. No: Respiratory Distress, Accessory Muscle Use Cardiovascular: Present: Regular Rate and Rhythm, Normal S1, S2. No: Murmurs Abdomen: Present: Normal Bowel Sounds. No: Tenderness, Distention, Peritoneal Signs Upper Extremity: Present: Other (contracture and RUE weakness appreciated). No: Cyanosis, Edema Lower Extremity: Present: Normal Inspection. No: Edema Neurological: Present: GCS=15, CN II-XII Intact, Speech Normal Skin: Present: Warm, Dry. No: Rashes Psychiatric: Present: Alert, Oriented x 3, Normal Insight, Normal Concentration <Brian,Madaser - Last Filed: 04/11/19 15:14> Vital Signs Temp Pulse Resp BP Pulse Ox 04/11/19 13:33 97.6 F 90 15 194/106 H 100 <Tolerico,Keyon - Last Filed: 04/11/19 15:41> Medical Decision Making ED Course and Treatment: 04/11/19 14:25 Impression 59 yo male w/ PMH of CVA (w/ right upper extremity weakness and contracture), HTN, CAD, DM2 presents to ED for evaluation of dysarthria and facial droop. Plan -CBC -CMP -Swallow Eval -Aspirin RC -Head CT Prior Visits All prior documentation and lab work reviewed prior to evaluation Progress Notes pending CT head imaging 04/11/19 15:14 CT head results show ? acute vs subacute infarc Spoke with winter Almeida, who accepted the patient to his service. Requested tele bed. Requested a neurology and cardiology consult with Margaret. Re-evaluation Time: 15:15 Reassessment Condition: Re-examined, Unchanged - RAD Interpretation Radiology Orders: 04/11/19 14:03 HEAD W/O (CODE STROKE) [CT] Stat Radiology Results Head CT 04/11/19 14:20 IMPRESSION: Questionable acute or subacute small infarct right helen though this may represent a chronic lacune. Represents an interval finding compared prior brain MRI 03/03/2019. Follow-up MRI advised. Large left MCA chronic infarct reiterated. Small chronic infarct at the lateral right cerebellar hemisphere identified. Veterinary Livestock Inspector: Radiologist - Medication Orders Current Medication Orders: Aspirin (Aspirin Chewable) 81 mg PO STAT STA Stop: 04/11/19 14:04 <Missy Torres - Last Filed: 04/11/19 15:14> ED Course and Treatment: 04/11/19 15:41 EKG shows normal sinus approximately 85 with nonspecific intraventricular conduction delay left axis and nonspecific T wave changes laterally and no acute changes - RAD Interpretation Radiology Orders: 04/11/19 14:20 HEAD W/O CONTRAST [CT] Stat - Medication Orders Current Medication Orders: Discontinued Medications Aspirin (Aspirin Supp) 300 mg RC STAT STA Stop: 04/11/19 14:22 <Keyon Holley - Last Filed: 04/11/19 15:41> Disposition/Present on Arrival - Present on Arrival Any Indicators Present on Arrival: No History of DVT/PE: No History of Uncontrolled Diabetes: Yes Urinary Catheter: No History of Decub. Ulcer: No History Surgical Site Infection Following: None - Disposition Have Diagnosis and Disposition been Completed?: Yes Disposition Time: 15:16 Patient Plan: Telemetry <Missy Torres - Last Filed: 04/11/19 15:14> - Present on Arrival Any Indicators Present on Arrival: No History of DVT/PE: No History of Uncontrolled Diabetes: Yes Urinary Catheter: No History of Decub. Ulcer: No - Disposition Have Diagnosis and Disposition been Completed?: Yes Patient Plan: Observation, Telemetry <Keyon Holley - Last Filed: 04/11/19 15:41> - Disposition Diagnosis: CVA (cerebral vascular accident) Disposition: HOSPITALIZED Patient Problems: Current Active Problems Problem Status Onset CVA (cerebral vascular accident) Acute Condition: FAIR
--- NOTE | 2019-04-11 14:59 | CT ---
Date of service: 04/11/2019 PROCEDURE: CT HEAD WITHOUT CONTRAST. HISTORY: facial droop COMPARISON: Noncontrast head CT 03/01/2019. Brain MRI without contrast 03/03/2019. TECHNIQUE: Axial computed tomography images were obtained through the head/brain without intravenous contrast. Radiation dose: Total exam DLP = 980.15 mGy-cm. This CT exam was performed using one or more of the following dose reduction techniques: Automated exposure control, adjustment of the mA and/or kV according to patient size, and/or use of iterative reconstruction technique. FINDINGS: HEMORRHAGE: No intracranial hemorrhage. BRAIN: In the interval, there is a lucency identified at the upper right helen could reflect an interval now chronic lacune though acute or subacute infarct is not excluded. Otherwise, the prior large chronic infarct at the mid to superior left middle cerebral artery distribution is reiterated compared to 03/01/2019 CT. This includes portion of the inferior left caudate head. No definitive new cortical lucency is appreciable and there is no positive mass effect. Mild ex vacuo expansion of the left lateral ventricle is identified. A small chronic infarct of the lateral right cerebellum is again evident. VENTRICLES: No hydrocephalus. CALVARIUM: Unremarkable. PARANASAL SINUSES: Unremarkable as visualized. No significant inflammatory changes. MASTOID AIR CELLS: Unremarkable as visualized. No inflammatory changes. OTHER FINDINGS: None. IMPRESSION: Questionable acute or subacute small infarct right helen though this may represent a chronic lacune. Represents an interval finding compared prior brain MRI 03/03/2019. Follow-up MRI advised. Large left MCA chronic infarct reiterated. Small chronic infarct at the lateral right cerebellar hemisphere identified.
[2019-04-11 15:33] LABS: BASO # 0.02 K/mm3 (0.0-2.0); BASO % 0.3 % (0.0-3.0); EOS # 0.2 (0.0-0.7); EOS % 2.4 % (1.5-5.0); HEMOGLOBIN 16.2 g/dL (14.0-18.0); LYMPH # 1.5 (1.2-3.4); LYMPH % 24.2 % (22.0-35.0); MEAN CELL VOLUME 83.8 fl (80.0-105.0); MEAN CORPUSCULAR HEMOGLOBIN 29.5 pg (25.0-35.0); MEAN CORPUSCULAR HGB CONC 35.1 g/dl (31.0-37.0); MEAN PLATELET VOLUME 12.3 fl (7.0-11.0); MONO # 0.6 (0.1-0.6); MONO % 10.2 % (1.0-6.0); RBC 5.5 10^6/uL (3.5-6.1); RED CELL DISTRIBUTION WIDTH 13.2 % (11.5-14.5); WHITE BLOOD COUNT 6.3 10^3/uL (4.5-11.0)
[2019-04-11 15:46] LABS: ALB/GLOB RATIO 1.3 (1.1-1.8); ALBUMIN 4.1 g/dL (3.0-4.8); ALT/SGPT 33 U/L (7-56); AST/SGOT 30 U/L (17-59); BLOOD UREA NITROGEN 25 mg/dL (7-21); CALCIUM 9.6 mg/dL (8.4-10.5); GFR NON-AFRICAN AMERICAN > 60
[2019-04-11] MEDS ORDERED: Insulin Lispro (HUMAlog) HIGH Coverage SC ONE (15:47)
[2019-04-11] MEDS ORDERED: Insulin Regular 1 UNITS/0.01 ML ML SC STA (15:48)
[2019-04-11] MEDS ORDERED: EnalaprilAT 1.25 mg/ml Inj IVP STA (17:22)
[2019-04-11 17:26] VITALS: RESP 20
[2019-04-11 18:20] VITALS: BP 142/90; PULSE 84; O2SAT 98
--- NOTE | 2019-04-11 20:32 | CARD ---
APPROVED REPORT Date of service: 04/11/2019 EKG Measurement Heart [id number] ND [id number] [id number] <Conclusion> Normal sinus rhythm Possible Left atrial enlargement Left axis deviation Left ventricular hypertrophy T wave abnormalities Prolonged QT Abnormal ECG
--- NOTE | 2019-04-11 21:22 | CP.PCM.PCO ---
Summary - Summary of Event Summary of Event: House doc call for code gomes/AMA Patient was admitted a couple hours earlier for further evaluation by neurologist and bus driver/monitor. Patient became agitated and was assaulting nurses and being combative. Patient reports he wants to sign out AMA. Spoke with Dr. Tolentino and family. As per Dr. Tolentino, patient is able to make his own decisions, but would like the patient to stay for further evaluation. Patient was explained the benefits of staying as well as risk of leaving. Patient states he wants to leave despite knowing the risks. He was escorted by security and cab was called for patient to be taken home. Sylvia Vanegas PGY3
[2019-04-11] MEDS ORDERED: INSULIN GLARGINE HUM REC ANLOG 10 UNIT SQ SCH (22:00)
[2019-04-11] MEDS ORDERED: Insulin Detemir 100 units/ml Vial (Levemir) SC SCH (22:00)
[2019-04-11] MEDS ORDERED: Insulin Reg-MEDIUM-Coverage SC SCH (22:00)
--- NOTE | 2019-04-12 02:32 | HP ---
HISTORY OF PRESENT ILLNESS: I know Warren very well from the office and house calls on hospital admissions, he is a noncompliant 59-year-old white male with a stroke who does not always take his diabetes medications or his blood pressure medications diet. He has expressive aphasia and he has got weakness. He is a 59-year-old white male who presented to the emergency room with an elevated blood pressure 163/105, 194/106. He was given IV metoprolol 10. He was on IV hydralazine, blood sugar was 400+. He was given insulin. They could not give him TPA because his symptoms started 5 days ago. He has a persistent aphasia and dysarthria, I believe his family members felt the left side of his face have worsening droop. PAST MEDICAL HISTORY: CVA with right upper extremity weakness and contracture, hypertension, CAD, diabetes, dysarthria, facial droop on the left side started 5 days ago. He thought that symptoms will go away, they did not. He was given an aspirin, he does not always take his medications, it was a sudden kind of onset. He has a 5-day history of a left facial droop. He had right-sided weakness, expressive aphasia, right-sided facial droop, diabetes, unsteady gait. He drinks alcohol and psychiatric hospitalization history in the past. No substance abuse. He has had cardiac catheterization. He had stents placed. FAMILY HISTORY: Unknown. SOCIAL HISTORY: He still smokes cigarettes. No alcohol anymore. No substance abuse. ALLERGIES: NO KNOWN DRUG ALLERGIES. MEDICATIONS: He is supposed to be on Xanax, esomeprazole, Lantus, Lopressor, Norvasc. REVIEW OF SYSTEMS: He has a face change with weakness, facial droop. No vision changes. No hearing changes. No shortness of breath or cough. No chest pain or palpitations. No edema. No abdominal pain. No nausea, vomiting, constipation, or diarrhea. No problems urinating. No back pain. No neck pain. No skin issues. He has speech changes, which is chronic of facial droop which might be new. No sweating. No polyuria or polydipsia. No adenopathy. No easy breathing. No anxiety or depression. PHYSICAL EXAMINATION: VITAL SIGNS: Temperature 97.6, 90 pulse, 15 respiratory rate, 194/106 blood pressure, 100% O2 sat. GENERAL: He is alert, oriented x3, comfortable in the ER at this time. HEENT: Head is atraumatic, normocephalic. Extraocular muscles are intact. Pupils are reactive to light and accommodation. Throat is moist. NECK: Supple. Normal range of motion. No JVD. HEART: Regular rate. Normal S1, S2. LUNGS: Decreased breath sounds, but clear to auscultation. Fair effort. ABDOMEN: Soft, nontender, positive bowel sounds. No guarding, rebound, or CVA tenderness. EXTREMITIES: He has a right upper extremity weakness and contracture he has no edema of the extremities. GCS is 15. Cranial nerves II-XII grossly intact. He has no speech. He has expressive aphasia. SKIN: Warm and dry. No rashes. PSYCHIATRIC: Alert and oriented. He has a past medical history of CVA with right upper extremity weakness and contracture. He had multiple tests done. The head CT showed a large left MCA chronic infarct, small chronic infarct with left and right cerebellar hemisphere. There is a questionable acute or subacute small infarct right helen presented chronic lacunar. He had multiple blood tests. He has a 6.3 white count, 16.2 hemoglobin, 46.1 hematocrit with a 112 platelets. A low 137 sodium, potassium 3.8, BUN 25, creatinine 1.2, GFR is greater than 60. Blood sugar was 430. Calcium is 9.6, total bili is 1.3. AST is 30, ALT 33, alk phos 71, total protein 7.4, albumin is 4.1. He is going to have consult with Cardiology and Neurology. He will be on Apresoline, divalproex, aspirin, esomeprazole, Glucotrol, insulin coverage, Lantus at night, Lipitor, metoprolol, Lyrica, Norvasc, Xanax, and Zestril. He got a brain MRI, physical therapy, swallow evaluation, he is here for CVA, elevated hypertension, elevated diabetes. The blood sugar was gerald high over 400 and hopefully will improve. Alexis Tolentino DO [facility]
[2019-04-12] MEDS ORDERED: Pantoprazole 40 mg EC Tab PO SCH (07:30)
[2019-04-12] MEDS ORDERED: Divalproex 250 mg DR (BID formulation) PO SCH (10:00)
[2019-04-12] MEDS ORDERED: ESOMEPRAZOLE SODIUM 40 MG PO SCH (10:00)
== END 2019-04-11 21:25 | disposition left against medical advice (07) ==
LOC: ED 13:24 → ERH 15:07 → 2RNO 18:36
PROVIDERS: ADMIT Family Medicine; ATTEND Family Medicine
DX: I63.9 Cerebral infarction, unspecified (principal); R29.810 Facial weakness; R47.01 Aphasia; R29.704 NIHSS score 4; I69.331 Monoplegia of upper limb following cerebral infarction affecting right dominant side; E11.9 Type 2 diabetes mellitus without complications; F17.210 Nicotine dependence, cigarettes, uncomplicated; I25.10 Atherosclerotic heart disease of native coronary artery without angina pectoris; J44.9 Chronic obstructive pulmonary disease, unspecified; I10 Essential (primary) hypertension; Z91.19 Patient's noncompliance with other medical treatment and regimen; Z95.5 Presence of coronary angioplasty implant and graft
CPT/HCPCS: 70450; 80053; 82948; 85025; 92610; 93005; 96374; 96375; 99285; G0378; G8996; G8997; J0360